=== PATIENT | female | born 1975 | race Two or more races ===

== ENCOUNTER 2016-06-22 19:13 | Emergency (ER) | payer MEDICAID ==
[~2016-06-22] VITALS: Ht 162.6 cm; Wt 172.4 kg
[~2016-06-22 19:13] MED LIST: AML5T PO; ATEN-60 PO; HYDR25TA4 PO; LEVO125T6 PO; LISI-646 PO; POTA10IN IV; POTA10TA51 PO; WARF5TAB PO
[2016-06-22] MEDS ORDERED: HYDROmorphone HCL 2 MG/ML VL IV ONE (20:00)
[2016-06-22] MEDS ORDERED: PROMETHAZINE HCL 25 MG/ML 1ML IV ONE (20:00)
[2016-06-22 20:08] LABS: Basophils # (auto) 0.2 uL; Eosinophils # (auto) 0.4 uL; Hematocrit 36.5 % (36.0-46.0); Hemoglobin 11.9 g/dL (12.2-16.2); Lymphocytes # (auto) 1.4 uL; Lymphocytes % (auto) 16.9 % (10.0-50.0); Mean Corpuscular Hemoglobin 28.3 pg (28.0-32.0); Mean Corpuscular Hgb Conc. 32.6 g/dL (32.0-36.0); Mean Corpuscular Volume 86.6 fL (80.0-100.0); Mean Platelet Volume 8.2 fL (7.4-10.4); Monocytes # (auto) 0.5 uL; Monocytes % (auto) 5.9 % (0.0-12.0); Neutrophils # (auto) 5.8 uL; Neutrophils % (auto) 70.2 % (37.0-80.0); Platelet Count (auto) 436 10^3/uL (140-450); Red Cell Distribution Width 17.1 % (11.6-16.0); White Blood Cell 8.3 10^3/uL (4.4-10.8)
[2016-06-22] MEDS ORDERED: SODIUM CHLORIDE 0.9% 1,000 ML IV ONE (20:15)
[2016-06-22 20:22] LABS: Albumin 3.4 g/dL (3.4-5.0); Bilirubin, Total 0.5 mg/dL (0.2-1.0); Calcium 8.8 mg/dL (8.5-10.1); INR 1.04 (0.9-1.15); Partial Thromboplastin Time 27.3 sec (22.64-33.71); Prothrombin Time 10.7 sec (9.37-12.3); Total Protein 9.5 g/dL (6.4-8.2)
[2016-06-22] MEDS ORDERED: MAGNESIUM CITRATE SOLUTION 300 ML BTL PO ONE (22:45)
[2016-06-22] MEDS ORDERED: MORPHINE SULFATE 4 MG/ML SYRG IV ONE (22:45)
[2016-06-22] MEDS ORDERED: diphenhdrAMINE HCL 50 MG/1 ML VL ONE (23:06)
[2016-06-22] MEDS ORDERED: diphenhdrAMINE HCL 50 MG/1 ML VL IV ONE (23:15)
[2016-06-22 23:46] VITALS: BP 113/76
== END 2016-06-22 23:55 | disposition home or self-care (01) ==
LOC: EDBD 19:13 → ER 19:24
DX: K58.9 Irritable bowel syndrome, unspecified (principal); R10.9 Unspecified abdominal pain; K59.00 Constipation, unspecified; J44.9 Chronic obstructive pulmonary disease, unspecified; J45.909 Unspecified asthma, uncomplicated; E07.9 Disorder of thyroid, unspecified; N18.9 Chronic kidney disease, unspecified; I12.9 Hypertensive chronic kidney disease with stage 1 through stage 4 chronic kidney disease, or unspecified chronic kidney disease; K21.9 Gastro-esophageal reflux disease without esophagitis; E11.22 Type 2 diabetes mellitus with diabetic chronic kidney disease; F17.210 Nicotine dependence, cigarettes, uncomplicated; Z90.49 Acquired absence of other specified parts of digestive tract; Z88.8 Allergy status to other drugs, medicaments and biological substances; Z79.01 Long term (current) use of anticoagulants
CPT/HCPCS: 36415; 74022; 80053; 82150; 83690; 84702; 85025; 85610; 85730; 96361; 96374; 96375; 99285; J1170; J1200; J2270; J2550; J7030

== ENCOUNTER 2016-09-07 06:46 | Observation (INO) | payer MEDICAID ==
[~2016-09-07] VITALS: Ht 162.6 cm; Wt 181.4 kg
[2016-09-07] MEDS ORDERED: SODIUM CHLORIDE 0.9% 1,000 ML IV ONE (06:58)
[2016-09-07] MEDS ORDERED: KETOROLAC TROMETH 30 MG/ML 1ML VIAL IV ONE (07:00)
[2016-09-07 08:04] LABS: Basophils # (auto) 0 uL; Basophils % (auto) 0.4 % (0.0-2.0); Eosinophils # (auto) 0.2 uL; Eosinophils % (auto) 4.3 % (0.0-7.0); Hemoglobin 10.4 g/dL (12.2-16.2); Lymphocytes # (auto) 0.6 uL; Lymphocytes % (auto) 10.3 % (10.0-50.0); Mean Corpuscular Hemoglobin 29.9 pg (28.0-32.0); Mean Corpuscular Hgb Conc. 33.6 g/dL (32.0-36.0); Mean Corpuscular Volume 89.2 fL (80.0-100.0); Mean Platelet Volume 7.6 fL (7.4-10.4); Monocytes # (auto) 0.5 uL; Monocytes % (auto) 9.1 % (0.0-12.0); Neutrophils # (auto) 4.2 uL; Neutrophils % (auto) 75.9 % (37.0-80.0); Platelet Count (auto) 367 10^3/uL (140-450); Red Cell Distribution Width 15.5 % (11.6-16.0); White Blood Cell 5.5 10^3/uL (4.4-10.8)
[2016-09-07 08:21] LABS: Albumin 2.8 g/dL (3.4-5.0); Anion Gap 7 (5-15); Aspartate Aminotransferase 48 U/L (15-37); BUN/Creatinine Ratio 19.6; Blood Urea Nitrogen 21 mg/dL (7-18); Calcium 8.1 mg/dL (8.5-10.1); Carbon Dioxide 26 mmol/L (21-32); Chloride 107 mmol/L (98-107); GFR African American 73 mL/min; GFR Non-African American 61 mL/min; Glucose 110 mg/dL (74-106); Partial Thromboplastin Time 28.9 sec (22.64-33.71); Prothrombin Time 10.8 sec (9.37-12.3); Sodium 140 mmol/L (136-145)
[2016-09-07 08:28] LABS: B-Type Natriuretic Peptide 45.49 pg/mL (0-100)
[2016-09-07 08:29] LABS: Alkaline Phosphatase 218 U/L (45-117); Bilirubin, Total 1.1 mg/dL (0.2-1.0); Total Protein 8.3 g/dL (6.4-8.2)
[2016-09-07] MEDS ORDERED: LEVOFLOXACIN 750MG 150 ML IV ONE (08:30)
[2016-09-07 08:31] LABS: Temperature: 23.1 C (20.0-25.0)
[2016-09-07] MEDS ORDERED: CLINDAMYCIN 900MG IV 50 ML IV ONE (10:15)
[2016-09-07] MEDS ORDERED: diphenhdrAMINE HCL 50 MG/1 ML VL IV ONE (10:15)
[2016-09-07 10:58] LABS: Urine Blood TRACE /uL (Negative); Urine Color Yellow (Yellow); Urine Glucose Normal (Normal); Urine Ketone Negative (Negative); Urine Mucus FEW (None Seen); Urine Nitrite Negative (Negative); Urine RBC 1 /hpf (0 - 4); Urine Squamous Epithelial Cell FEW /hpf (<5); Urine pH 5.5 (5.0-8.0)
[2016-09-07 11:00] VITALS: BP 119/73
[2016-09-07 11:07] LABS: Urine Bilirubin Negative (Negative)
== END 2016-09-07 14:23 | disposition home or self-care (01) | DRG 384 ==
LOC: EDBD 06:46 → ER 06:46 → OVERFLOW 10:19
PROVIDERS: ADMIT Emergency Medicine; ATTEND Emergency Medicine
DX: S81.802A Unspecified open wound, left lower leg, initial encounter (principal); I10 Essential (primary) hypertension; E11.9 Type 2 diabetes mellitus without complications; J44.9 Chronic obstructive pulmonary disease, unspecified; F32.9 Major depressive disorder, single episode, unspecified; F17.210 Nicotine dependence, cigarettes, uncomplicated; K21.9 Gastro-esophageal reflux disease without esophagitis; Z82.49 Family history of ischemic heart disease and other diseases of the circulatory system; Z83.3 Family history of diabetes mellitus; X58.XXXA Exposure to other specified factors, initial encounter; Y93.89 Activity, other specified; Y92.89 Other specified places as the place of occurrence of the external cause; Y99.8 Other external cause status
CPT/HCPCS: 36415; 71010; 80053; 81001; 83880; 84484; 85025; 85610; 85730; 87040; 93971; 96361; 96365; 96366; 96368; 96375; 99285; G0378; J1200; J1885; J1956; J3490; J7030

== ENCOUNTER 2016-09-12 13:10 | Emergency (ER) | payer MEDICAID ==
[~2016-09-12] VITALS: Ht 162.6 cm; Wt 199.6 kg
[2016-09-12 14:29] VITALS: BP 119/73
[2016-09-12] MEDS ORDERED: HYDROcodone-ACET 10/325MG TAB PO ONE (15:00)
== END 2016-09-12 15:33 | disposition home or self-care (01) ==
LOC: EDBD 13:10 → ER 13:17
DX: L02.416 Cutaneous abscess of left lower limb (principal); I12.9 Hypertensive chronic kidney disease with stage 1 through stage 4 chronic kidney disease, or unspecified chronic kidney disease; N18.9 Chronic kidney disease, unspecified; K21.9 Gastro-esophageal reflux disease without esophagitis; E07.89 Other specified disorders of thyroid; F17.210 Nicotine dependence, cigarettes, uncomplicated; Z90.49 Acquired absence of other specified parts of digestive tract; Z88.1 Allergy status to other antibiotic agents; Z88.8 Allergy status to other drugs, medicaments and biological substances
CPT/HCPCS: 99283; J7030

== ENCOUNTER 2016-11-13 13:23 | Emergency (ER) | payer MEDICAID ==
[~2016-11-13] VITALS: Ht 162.6 cm; Wt 195.0 kg
[2016-11-13 17:27] LABS: Basophils # (auto) 0 uL; Basophils % (auto) 0.7 % (0.0-2.0); CONDITION Y; Eosinophils # (auto) 0.4 uL; Eosinophils % (auto) 7.7 % (0.0-7.0); Hematocrit 35.3 % (36.0-46.0); Hemoglobin 11.8 g/dL (12.2-16.2); Lymphocytes # (auto) 1.1 uL; Lymphocytes % (auto) 18.6 % (10.0-50.0); Mean Corpuscular Hemoglobin 29.5 pg (28.0-32.0); Mean Corpuscular Hgb Conc. 33.5 g/dL (32.0-36.0); Mean Corpuscular Volume 88.1 fL (80.0-100.0); Mean Platelet Volume 7.3 fL (7.4-10.4); Monocytes # (auto) 0.5 uL; Monocytes % (auto) 8.7 % (0.0-12.0); Neutrophils # (auto) 3.7 uL; Neutrophils % (auto) 64.3 % (37.0-80.0); Platelet Count (auto) 482 10^3/uL (140-450); Red Cell Distribution Width 15.6 % (11.6-16.0); White Blood Cell 5.7 10^3/uL (4.4-10.8)
[2016-11-13 18:02] LABS: Albumin 3.3 g/dL (3.4-5.0); Bilirubin, Total 0.7 mg/dL (0.2-1.0); Calcium 9.2 mg/dL (8.5-10.1); Potassium 4.2 mmol/L (3.5-5.1); Total Protein 9.9 g/dL (6.4-8.2)
[2016-11-13 18:20] LABS: Urine Bilirubin Negative (Negative); Urine Blood Negative /uL (Negative); Urine Color Yellow (Yellow); Urine Glucose Normal (Normal); Urine Ketone Negative (Negative); Urine Nitrite Negative (Negative); Urine RBC <1 /hpf (0 - 4); Urine Squamous Epithelial Cell FEW /hpf (<5); Urine Urobilinogen Normal (Negative); Urine pH 5.5 (5.0-8.0)
[2016-11-13 22:15] VITALS: BP 109/79
[2016-11-13] MEDS ORDERED: PROMETHAZINE HCL 25 MG/ML 1ML IV ONE (22:45)
[2016-11-13] MEDS ORDERED: HYDROmorphone HCL 2 MG/ML VL IV ONE (22:45)
[2016-11-13] MEDS ORDERED: SODIUM CHLORIDE 0.9% 1,000 ML IV ONE (22:45)
[2016-11-13] MEDS ORDERED: diphenhdrAMINE HCL 50 MG/1 ML VL IV ONE (23:45)
== END 2016-11-14 02:08 | disposition home or self-care (01) ==
LOC: ER 13:26
DX: R10.11 Right upper quadrant pain (principal); E66.01 Morbid (severe) obesity due to excess calories; Z79.899 Other long term (current) drug therapy; N18.9 Chronic kidney disease, unspecified; J44.9 Chronic obstructive pulmonary disease, unspecified; E11.22 Type 2 diabetes mellitus with diabetic chronic kidney disease; K21.9 Gastro-esophageal reflux disease without esophagitis; I12.9 Hypertensive chronic kidney disease with stage 1 through stage 4 chronic kidney disease, or unspecified chronic kidney disease; E07.9 Disorder of thyroid, unspecified; F17.210 Nicotine dependence, cigarettes, uncomplicated; Z90.49 Acquired absence of other specified parts of digestive tract; Z68.45 Body mass index [BMI] 70 or greater, adult; Z88.8 Allergy status to other drugs, medicaments and biological substances; Z79.01 Long term (current) use of anticoagulants
CPT/HCPCS: 36415; 76705; 80053; 81001; 81025; 85025; 96361; 96374; 96375; 99285; J1170; J1200; J2550

== ENCOUNTER 2016-11-14 04:05 | Emergency (ER) | payer MEDICAID ==
[~2016-11-14] VITALS: Ht 162.6 cm; Wt 204.1 kg
[2016-11-14 08:53] VITALS: BP 134/76
== END 2016-11-14 09:14 | disposition home or self-care (01) ==
LOC: ER 04:05
DX: K29.70 Gastritis, unspecified, without bleeding (principal); K21.9 Gastro-esophageal reflux disease without esophagitis; J44.9 Chronic obstructive pulmonary disease, unspecified; E11.22 Type 2 diabetes mellitus with diabetic chronic kidney disease; I12.9 Hypertensive chronic kidney disease with stage 1 through stage 4 chronic kidney disease, or unspecified chronic kidney disease; N18.9 Chronic kidney disease, unspecified; E07.9 Disorder of thyroid, unspecified; E66.01 Morbid (severe) obesity due to excess calories; Z68.45 Body mass index [BMI] 70 or greater, adult; Z90.49 Acquired absence of other specified parts of digestive tract; F17.210 Nicotine dependence, cigarettes, uncomplicated; Z88.1 Allergy status to other antibiotic agents; Z88.6 Allergy status to analgesic agent; Z88.8 Allergy status to other drugs, medicaments and biological substances; Z79.899 Other long term (current) drug therapy

== ENCOUNTER 2017-05-02 13:35 | Inpatient (IN) | payer MEDICAID ==
[~2017-05-02] VITALS: Ht 162.6 cm; Wt 179.7 kg
[~2017-05-02 13:35] MED LIST changes: -LEVO125T6 PO; +LEVO125T7 PO
[2017-05-02 16:00] LABS: Eosinophils # (auto) 0.6 uL; Hemoglobin 11.3 g/dL (12.2-16.2); Lymphocytes # (auto) 1.2 uL
[2017-05-02 16:02] LABS: Basophils # (auto) 0.1 uL; Eosinophils % (auto) 9.4 % (0.0-7.0); Hematocrit 34.9 % (36.0-46.0); Lymphocytes % (auto) 18.1 % (10.0-50.0); Mean Corpuscular Hemoglobin 28.6 pg (28.0-32.0); Mean Corpuscular Hgb Conc. 32.3 g/dL (32.0-36.0); Mean Corpuscular Volume 88.4 fL (80.0-100.0); Monocytes # (auto) 0.4 uL; Monocytes % (auto) 6.7 % (0.0-12.0); Neutrophils # (auto) 4.3 uL; Neutrophils % (auto) 64.8 % (37.0-80.0); Platelet Count (auto) 488 10^3/uL (140-450); Red Blood Cells 3.95 10^6/uL (4.0-5.20); Red Cell Distribution Width 16.3 % (11.8-14.3); White Blood Cell 6.6 10^3/uL (4.4-10.8)
[2017-05-02 16:14] LABS: Albumin 3.5 g/dL (3.4-5.0); BUN/Creatinine Ratio 24.4; Bilirubin, Total 0.5 mg/dL (0.2-1.0); Calcium 9.1 mg/dL (8.5-10.1); Potassium 4.1 mmol/L (3.5-5.1); Total Protein 9.9 g/dL (6.4-8.2)
[2017-05-03] MEDS ORDERED: HYDROcodone-ACET 10/325MG TAB PO ONE (02:15)
[2017-05-03] MEDS ORDERED: diphenhdrAMINE HCL 25 MG CAP PO ONE ×3 (04:15→23:30)
[2017-05-03] MEDS ORDERED: ACETAMINOPHEN 325 MG TAB PO PRN (05:15)
[2017-05-03] MEDS ORDERED: DEXTROSE (50%) 50ML SYRG IV PRN (05:15)
[2017-05-03] MEDS ORDERED: TEMAZEPAM 15 MG CAP PO PRN (05:15)
[2017-05-03] MEDS: InsuLIN REG 1unit/0.01ml Soln (100units/ml) SC SCH ×3 (06:00→18:00)
[2017-05-03] MEDS: ACCU-CHEK COMFORT CURVE STRIP VI SCH ×3 (06:12→18:16)
[2017-05-03 06:38] LABS: Urine Bacteria FEW /hpf (None Seen); Urine Blood Negative /uL (Negative); Urine Specific Gravity 1.014 (1.001-1.035); Urine WBC <1 /hpf (0 - 5)
[2017-05-03 06:46] LABS: Urine Pregnacy Test Negative (Negative)
[2017-05-03] MEDS: MORPHINE SULF INJ 2 MG/ML SYRINGE 1ML IV PRN ×5 (06:56→22:10)
[2017-05-03] MEDS: LEVOTHYROXINE SODIUM 50 MCG TAB PO SCH (06:56)
[2017-05-03] MEDS: ONDANSETRON HCL 4 MG/2 ML VIAL IV PRN ×2 (06:57→18:20)
[2017-05-03 06:58] LABS: Alcohol, Urine < 3.0 mg/dL (0-5); Amphetamine Screen, Urine NEGATIVE (NEGATIVE); Barbiturate Scree,Urine NEGATIVE (NEGATIVE); Benzodiazephine Screen, Urine NEGATIVE (NEGATIVE); Cannabinoid Screen, Urine NEGATIVE (NEGATIVE); Cocaine Screen, Urine NEGATIVE (NEGATIVE); Opiate Scree,Urine NEGATIVE (NEGATIVE); Phencyclidine Screen, Urine NEGATIVE (NEGATIVE)
[2017-05-03] MEDS: FAMOTIDINE 20 MG TAB PO SCH ×2 (10:03→22:05)
[2017-05-03] MEDS: APIXABAN 5 MG TAB PO SCH ×2 (10:03→22:05)
[2017-05-03] MEDS: HCTZ 25 MG TAB PO SCH (10:05)
[2017-05-03] MEDS: amLODIPine BESYLATE 5 MG TAB PO SCH (10:25)
[2017-05-03] MEDS: LISINOPRIL 20 MG TAB PO SCH (10:25)
[2017-05-03] MEDS: HYDROcodone-ACET 5/325MG TAB PO PRN (20:37)
[2017-05-03 22:00] VITALS: BP 114/67
[2017-05-04] MEDS: ACCU-CHEK COMFORT CURVE STRIP VI SCH ×5 (00:19→23:23)
[2017-05-04] MEDS: MORPHINE SULF INJ 2 MG/ML SYRINGE 1ML IV PRN ×5 (03:40→22:42)
[2017-05-04 04:40] VITALS: BP 114/68
[2017-05-04] MEDS: InsuLIN REG 1unit/0.01ml Soln (100units/ml) SC SCH ×5 (05:49→23:23)
[2017-05-04] MEDS: LEVOTHYROXINE SODIUM 50 MCG TAB PO SCH (05:49)
[2017-05-04 09:00] VITALS: BP 101/46
[2017-05-04] MEDS: APIXABAN 5 MG TAB PO SCH ×2 (09:58→21:49)
[2017-05-04] MEDS: HCTZ 25 MG TAB PO SCH (09:59)
[2017-05-04] MEDS: FAMOTIDINE 20 MG TAB PO SCH ×2 (09:59→21:49)
[2017-05-04] MEDS: amLODIPine BESYLATE 5 MG TAB PO SCH (10:00)
[2017-05-04] MEDS: LISINOPRIL 20 MG TAB PO SCH (10:00)
[2017-05-04] MEDS: HYDROcodone-ACET 5/325MG TAB PO PRN ×2 (11:13→17:40)
[2017-05-04 13:00] VITALS: BP 123/65
[2017-05-04 17:00] VITALS: BP 107/70
[2017-05-04 22:00] VITALS: BP 102/62
[2017-05-04] MEDS: ONDANSETRON HCL 4 MG/2 ML VIAL IV PRN (22:43)
[2017-05-05] MEDS: MORPHINE SULF INJ 2 MG/ML SYRINGE 1ML IV PRN ×5 (03:35→23:51)
[2017-05-05] MEDS: ONDANSETRON HCL 4 MG/2 ML VIAL IV PRN (03:36)
[2017-05-05 04:55] VITALS: BP 106/69
[2017-05-05] MEDS: InsuLIN REG 1unit/0.01ml Soln (100units/ml) SC SCH ×4 (06:00→23:48)
[2017-05-05] MEDS: ACCU-CHEK COMFORT CURVE STRIP VI SCH ×4 (06:02→23:48)
[2017-05-05] MEDS: HYDROcodone-ACET 5/325MG TAB PO PRN ×3 (06:03→20:55)
[2017-05-05] MEDS: LEVOTHYROXINE SODIUM 50 MCG TAB PO SCH (06:04)
[2017-05-05 09:00] VITALS: BP 125/70
[2017-05-05] MEDS: LISINOPRIL 20 MG TAB PO SCH (10:00)
[2017-05-05] MEDS: FAMOTIDINE 20 MG TAB PO SCH ×2 (10:21→21:45)
[2017-05-05] MEDS: APIXABAN 5 MG TAB PO SCH ×2 (10:22→21:46)
[2017-05-05] MEDS: amLODIPine BESYLATE 5 MG TAB PO SCH (10:22)
[2017-05-05] MEDS: HCTZ 25 MG TAB PO SCH (10:22)
[2017-05-05 13:00] VITALS: BP 123/99
[2017-05-05 17:00] VITALS: BP 148/81
[2017-05-05 22:00] VITALS: BP 138/90
[2017-05-06] MEDS: MORPHINE SULF INJ 2 MG/ML SYRINGE 1ML IV PRN ×4 (05:12→18:52)
[2017-05-06] MEDS: InsuLIN REG 1unit/0.01ml Soln (100units/ml) SC SCH ×3 (05:31→18:00)
[2017-05-06] MEDS: ACCU-CHEK COMFORT CURVE STRIP VI SCH ×3 (05:35→18:14)
[2017-05-06 06:00] VITALS: BP 101/49
[2017-05-06] MEDS: LEVOTHYROXINE SODIUM 50 MCG TAB PO SCH (07:01)
[2017-05-06] MEDS ORDERED: diphenhdrAMINE HCL 25 MG CAP PO PRN (07:30)
[2017-05-06 09:00] VITALS: BP 108/69
[2017-05-06] MEDS: APIXABAN 5 MG TAB PO SCH (09:51)
[2017-05-06] MEDS: FAMOTIDINE 20 MG TAB PO SCH (09:52)
[2017-05-06] MEDS: amLODIPine BESYLATE 5 MG TAB PO SCH (09:52)
[2017-05-06] MEDS: HCTZ 25 MG TAB PO SCH (09:52)
[2017-05-06] MEDS: LISINOPRIL 20 MG TAB PO SCH (10:00)
[2017-05-06] MEDS: HYDROcodone-ACET 5/325MG TAB PO PRN ×2 (12:41→17:41)
[2017-05-06 13:00] VITALS: BP 132/69
[2017-05-06 16:26] VITALS: BP 132/69
[2017-05-06 17:00] VITALS: BP 114/54
[2017-05-10] MEDS ORDERED: APIXABAN 5 MG TAB PO SCH (10:00)
== END 2017-05-06 21:18 | disposition home or self-care (01) | DRG 197 ==
LOC: ER 13:35 → OVERFLOW 13:36 → WEST WING 05-03 21:47
PROVIDERS: ADMIT Nurse Practitioner; ATTEND Internal Medicine
DX: I82.402 Acute embolism and thrombosis of unspecified deep veins of left lower extremity (principal); Z68.44 Body mass index [BMI] 60.0-69.9, adult; I10 Essential (primary) hypertension; E66.01 Morbid (severe) obesity due to excess calories; K29.00 Acute gastritis without bleeding; E11.9 Type 2 diabetes mellitus without complications; F17.210 Nicotine dependence, cigarettes, uncomplicated; I89.0 Lymphedema, not elsewhere classified; J44.9 Chronic obstructive pulmonary disease, unspecified; F32.9 Major depressive disorder, single episode, unspecified; M25.861 Other specified joint disorders, right knee; F41.9 Anxiety disorder, unspecified; K21.9 Gastro-esophageal reflux disease without esophagitis; Z82.3 Family history of stroke; Z82.49 Family history of ischemic heart disease and other diseases of the circulatory system; Z82.5 Family history of asthma and other chronic lower respiratory diseases; Z82.62 Family history of osteoporosis; Z81.8 Family history of other mental and behavioral disorders; Z83.3 Family history of diabetes mellitus; Z86.718 Personal history of other venous thrombosis and embolism; Z88.1 Allergy status to other antibiotic agents; Z88.8 Allergy status to other drugs, medicaments and biological substances; Z90.49 Acquired absence of other specified parts of digestive tract
CPT/HCPCS: 36415; 73560; 80053; 80307; 81001; 81025; 82962; 83690; 84443; 85025; 93970; J2405

== ENCOUNTER 2018-01-04 16:16 | Inpatient (IN) | payer MEDICAID ==
[~2018-01-04] VITALS: Ht 154.9 cm; Wt 188.9 kg
[2018-01-04 18:34] LABS: Mean Corpuscular Volume 85.4 fL (80.0-100.0)
[2018-01-04 18:40] LABS: Basophils # (auto) 0.1 uL; Basophils % (auto) 0.7 % (0.0-2.0); Eosinophils # (auto) 0.6 uL; Eosinophils % (auto) 5.7 % (0.0-7.0); Hemoglobin 12.9 g/dL (12.2-16.2); Lymphocytes # (auto) 1.7 uL; Lymphocytes % (auto) 15.6 % (10.0-50.0); Mean Corpuscular Hemoglobin 28.2 pg (28.0-32.0); Monocytes # (auto) 0.6 uL; Monocytes % (auto) 5.8 % (0.0-12.0); Neutrophils % (auto) 72.2 % (37.0-80.0); Nucleated Red Blood Cells % 0.3 %; Red Blood Cells 4.56 10^6/uL (4.0-5.20); Red Cell Distribution Width 15.8 % (11.8-14.3); White Blood Cell 11.1 10^3/uL (4.4-10.8)
[2018-01-04 18:42] LABS: Alanine Aminotransferase 20 U/L (13-56); Albumin 3.8 g/dL (3.4-5.0); Anion Gap 11 (5-15); Aspartate Aminotransferase 14 U/L (15-37); BUN/Creatinine Ratio 17.4; Blood Urea Nitrogen 25 mg/dL (7-18); Calcium 8.9 mg/dL (8.5-10.1); Carbon Dioxide 24 mmol/L (21-32); Chloride 103 mmol/L (98-107); GFR African American 52 mL/min; GFR Non-African American 43 mL/min; Glucose 70 mg/dL (74-106); Magnesium 2.1 mg/dL (1.6-2.6); Potassium 3.9 mmol/L (3.5-5.1); Sodium 138 mmol/L (136-145)
[2018-01-04 18:44] LABS: Alkaline Phosphatase 98 U/L (45-117); Total Protein 10.7 g/dL (6.4-8.2)
[2018-01-04] MEDS ORDERED: DOCUSATE SOD 100 MG CAP PO PRN (18:45)
[2018-01-04] MEDS ORDERED: HYDROcodone-ACET 5/325MG TAB PO PRN (18:45)
[2018-01-04] MEDS ORDERED: FUROSEMIDE 40 MG/4 ML VIAL IV ONE (18:45)
[2018-01-04] MEDS ORDERED: DEXTROSE (50%) 50ML SYRG IV PRN (18:45)
[2018-01-04] MEDS ORDERED: ACETAMINOPHEN 325 MG TAB PO PRN (18:45)
[2018-01-04] MEDS ORDERED: TEMAZEPAM 15 MG CAP PO PRN (18:45)
[2018-01-04] MEDS ORDERED: ONDANSETRON HCL 4 MG/2 ML VIAL IV PRN (18:45)
[2018-01-04] MEDS ORDERED: MORPHINE SULF INJ 2 MG/ML SYRINGE 1ML IV PRN (18:45)
[2018-01-04] MEDS ORDERED: NITROGLYCERIN 0.4 MG SL TAB SL PRN (18:45)
[2018-01-04 18:52] LABS: Platelet Count (auto) 291 10^3/uL (140-450)
[2018-01-04 18:55] LABS: Partial Thromboplastin Time 21.4 sec (23.78-33.04); Prothrombin Time 10.7 sec (9.27-12.13)
[2018-01-04] MEDS ORDERED: MAGNESIUM SULFATE 1GM/100ML 100 ML IV ONE (19:45)
[2018-01-04] MEDS: MORPHINE SULF INJ 2 MG/ML SYRINGE 1ML IV PRN (19:55)
[2018-01-04] MEDS ORDERED: PANTOPRAZOLE 40 MG/10 ML VIAL IV ONE (22:30)
[2018-01-04] MEDS: FAMOTIDINE 20 MG TAB PO SCH (22:30)
[2018-01-04] MEDS: InsuLIN REG 1unit/0.01ml Soln (100units/ml) SC SCH (22:30)
[2018-01-04] MEDS: ACCU-CHEK COMFORT CURVE STRIP VI SCH (22:30)
[2018-01-04] MEDS: SODIUM CHLOR 0.9% PF (SALINE LOCK) 10ML VIAL/SYR IV SCH (22:47)
[2018-01-04] MEDS ORDERED: HYDROmorphone HCL 2 MG/ML VL IV ONE (23:45)
[2018-01-05] MEDS ORDERED: diphenhdrAMINE HCL 50 MG/1 ML VL IV ONE ×2 (01:45→09:30)
[2018-01-05] MEDS: SODIUM CHLOR 0.9% PF (SALINE LOCK) 10ML VIAL/SYR IV SCH ×3 (06:00→23:26)
[2018-01-05] MEDS: ACCU-CHEK COMFORT CURVE STRIP VI SCH ×4 (06:55→23:35)
[2018-01-05] MEDS: InsuLIN REG 1unit/0.01ml Soln (100units/ml) SC SCH ×4 (06:55→23:35)
[2018-01-05 08:01] LABS: Basophils # (auto) 0 uL; Basophils % (auto) 0.7 % (0.0-2.0); Eosinophils # (auto) 0.3 uL; Eosinophils % (auto) 6.4 % (0.0-7.0); Hematocrit 32.6 % (36.0-46.0); Hemoglobin 10.4 g/dL (12.2-16.2); Lymphocytes # (auto) 0.8 uL; Lymphocytes % (auto) 19.4 % (10.0-50.0); Mean Corpuscular Hemoglobin 27.4 pg (28.0-32.0); Mean Corpuscular Hgb Conc. 31.8 g/dL (32.0-36.0); Mean Corpuscular Volume 86.3 fL (80.0-100.0); Monocytes # (auto) 0.5 uL; Monocytes % (auto) 10.9 % (0.0-12.0); Neutrophils # (auto) 2.7 uL; Neutrophils % (auto) 62.6 % (37.0-80.0); Platelet Count (auto) 297 10^3/uL (140-450); Red Blood Cells 3.78 10^6/uL (4.0-5.20); Red Cell Distribution Width 15.8 % (11.8-14.3); White Blood Cell 4.3 10^3/uL (4.4-10.8)
[2018-01-05 08:16] LABS: Alanine Aminotransferase 29 U/L (13-56); Albumin 2.9 g/dL (3.4-5.0); Alkaline Phosphatase 96 U/L (45-117); Anion Gap 7 (5-15); Aspartate Aminotransferase 32 U/L (15-37); BUN/Creatinine Ratio 19.2; Bilirubin, Total 1.3 mg/dL (0.2-1.0); Blood Urea Nitrogen 24 mg/dL (7-18); Calcium 8.2 mg/dL (8.5-10.1); Carbon Dioxide 24 mmol/L (21-32); Chloride 107 mmol/L (98-107); GFR African American 61 mL/min; GFR Non-African American 50 mL/min; Glucose 95 mg/dL (74-106); Potassium 3.4 mmol/L (3.5-5.1); Sodium 138 mmol/L (136-145); Total Protein 8.2 g/dL (6.4-8.2)
[2018-01-05] MEDS: LEVOTHYROXINE SODIUM 50 MCG TAB PO SCH (08:20)
[2018-01-05] MEDS: POTASSIUM CHLORIDE 8 MEQ TAB PO SCH ×3 (08:20→16:53)
[2018-01-05] MEDS: HCTZ 25 MG TAB PO SCH (08:20)
[2018-01-05] MEDS: FAMOTIDINE 20 MG TAB PO SCH ×2 (08:21→23:26)
[2018-01-05] MEDS: amLODIPine BESYLATE 5 MG TAB PO SCH (08:21)
[2018-01-05] MEDS: MULTIPLE VITAMIN TAB PO SCH (08:21)
[2018-01-05] MEDS: LISINOPRIL 20 MG TAB PO SCH (08:21)
[2018-01-05] MEDS: MORPHINE SULF INJ 2 MG/ML SYRINGE 1ML IV PRN ×3 (08:21→23:27)
[2018-01-05 14:09] VITALS: BP 124/74
[2018-01-05 16:00] VITALS: BP 109/68
[2018-01-05] MEDS: diphenhdrAMINE HCL 25 MG CAP PO PRN ×2 (16:53→23:26)
[2018-01-05 19:51] VITALS: BP 112/76
[2018-01-05 21:50] LABS: Alcohol, Urine < 3.0 mg/dL (0-5); Amphetamine Screen, Urine NEGATIVE (NEGATIVE); Barbiturate Scree,Urine NEGATIVE (NEGATIVE); Benzodiazephine Screen, Urine NEGATIVE (NEGATIVE); Cannabinoid Screen, Urine NEGATIVE (NEGATIVE); Cocaine Screen, Urine NEGATIVE (NEGATIVE); Opiate Scree,Urine NEGATIVE (NEGATIVE); Phencyclidine Screen, Urine NEGATIVE (NEGATIVE)
[2018-01-05 22:00] VITALS: BP 121/73
[2018-01-05 22:07] LABS: Urine Bacteria FEW /hpf (None Seen); Urine Blood 3+ /uL (Negative); Urine Specific Gravity 1.011 (1.001-1.035); Urine WBC 12 /hpf (0 - 5)
[2018-01-06 04:46] VITALS: BP 110/69
[2018-01-06] MEDS: ACCU-CHEK COMFORT CURVE STRIP VI SCH ×3 (06:20→17:00)
[2018-01-06] MEDS: SODIUM CHLOR 0.9% PF (SALINE LOCK) 10ML VIAL/SYR IV SCH ×2 (06:26→14:00)
[2018-01-06] MEDS: InsuLIN REG 1unit/0.01ml Soln (100units/ml) SC SCH ×3 (06:26→17:00)
[2018-01-06] MEDS: LEVOTHYROXINE SODIUM 50 MCG TAB PO SCH (06:26)
[2018-01-06] MEDS: POTASSIUM CHLORIDE 8 MEQ TAB PO SCH ×3 (08:42→17:22)
[2018-01-06 09:00] VITALS: BP 117/65
[2018-01-06] MEDS: LISINOPRIL 20 MG TAB PO SCH (10:00)
[2018-01-06] MEDS: MULTIPLE VITAMIN TAB PO SCH (10:43)
[2018-01-06] MEDS: HCTZ 25 MG TAB PO SCH (10:44)
[2018-01-06] MEDS: amLODIPine BESYLATE 5 MG TAB PO SCH (10:44)
[2018-01-06] MEDS: FAMOTIDINE 20 MG TAB PO SCH (10:44)
[2018-01-06] MEDS: MORPHINE SULF INJ 2 MG/ML SYRINGE 1ML IV PRN (12:09)
[2018-01-06 12:44] VITALS: BP 117/65
[2018-01-06 13:00] VITALS: BP 131/70
[2018-01-06 15:29] VITALS: BP 131/70
[2018-01-06 17:00] VITALS: BP 119/77
== END 2018-01-06 17:25 | disposition home or self-care (01) | DRG 201 ==
LOC: ER 16:21 → DOU 19:02 → TELE 23:42 → DOU IN ICU 01-05 11:33 → TELE-CENTR 01-05 12:23
PROVIDERS: ADMIT Internal Medicine; ATTEND Internal Medicine
DX: R00.1 Bradycardia, unspecified (principal); E11.22 Type 2 diabetes mellitus with diabetic chronic kidney disease; E11.649 Type 2 diabetes mellitus with hypoglycemia without coma; N18.9 Chronic kidney disease, unspecified; J44.9 Chronic obstructive pulmonary disease, unspecified; D63.8 Anemia in other chronic diseases classified elsewhere; R19.7 Diarrhea, unspecified; T44.7X5A Adverse effect of beta-adrenoreceptor antagonists, initial encounter; E66.01 Morbid (severe) obesity due to excess calories; F32.9 Major depressive disorder, single episode, unspecified; I50.32 Chronic diastolic (congestive) heart failure; F17.210 Nicotine dependence, cigarettes, uncomplicated; I11.0 Hypertensive heart disease with heart failure; E03.9 Hypothyroidism, unspecified; I89.0 Lymphedema, not elsewhere classified; F41.9 Anxiety disorder, unspecified; K21.9 Gastro-esophageal reflux disease without esophagitis; Z68.45 Body mass index [BMI] 70 or greater, adult; Z88.1 Allergy status to other antibiotic agents; Z88.8 Allergy status to other drugs, medicaments and biological substances; Z80.0 Family history of malignant neoplasm of digestive organs; Z81.8 Family history of other mental and behavioral disorders; Z82.3 Family history of stroke; Z82.49 Family history of ischemic heart disease and other diseases of the circulatory system; Z82.62 Family history of osteoporosis; Z83.3 Family history of diabetes mellitus; Z86.718 Personal history of other venous thrombosis and embolism; Z82.5 Family history of asthma and other chronic lower respiratory diseases; Z90.49 Acquired absence of other specified parts of digestive tract; Y92.89 Other specified places as the place of occurrence of the external cause
CPT/HCPCS: 36415; 71045; 80053; 80307; 81001; 82962; 83036; 83735; 83880; 84443; 84484; 85025; 85610; 85730; 87081; 93005; 93306; 96365; 96375; 99291; C9113

== ENCOUNTER 2018-02-27 11:08 | Emergency (ER) | payer MEDICAID ==
[~2018-02-27] VITALS: Ht 162.6 cm; Wt 188.2 kg
[2018-02-27 11:53] LABS: Basophils # (auto) 0.1 uL; Eosinophils # (auto) 0.2 uL; Eosinophils % (auto) 2.5 % (0.0-7.0); Hemoglobin 10.3 g/dL (12.2-16.2); Lymphocytes # (auto) 0.9 uL; Mean Corpuscular Volume 87.4 fL (80.0-100.0); Monocytes # (auto) 0.4 uL
[2018-02-27 11:55] LABS: Basophils % (auto) 0.8 % (0.0-2.0); Lymphocytes % (auto) 13.6 % (10.0-50.0); Mean Corpuscular Hemoglobin 27.4 pg (28.0-32.0); Mean Corpuscular Hgb Conc. 31.3 g/dL (32.0-36.0); Monocytes % (auto) 6.5 % (0.0-12.0); Neutrophils # (auto) 5.1 uL; Neutrophils % (auto) 76.6 % (37.0-80.0); Nucleated Red Blood Cells % 0.3 %; Red Blood Cells 3.77 10^6/uL (4.0-5.20); Red Cell Distribution Width 16.4 % (11.8-14.3); White Blood Cell 6.7 10^3/uL (4.4-10.8)
[2018-02-27 12:05] LABS: Platelet Count (auto) 511 10^3/uL (140-450)
[2018-02-27 13:07] LABS: Albumin 2.3 g/dL (3.4-5.0); Calcium 8.5 mg/dL (8.5-10.1); Potassium 3.6 mmol/L (3.5-5.1)
[2018-02-27 13:11] LABS: Bilirubin, Total 0.6 mg/dL (0.2-1.0); Total Protein 9.1 g/dL (6.4-8.2)
[2018-02-27 13:21] LABS: INR 0.98 (0.9-1.15); Partial Thromboplastin Time 30.8 sec (23.78-33.04); Prothrombin Time 10.5 sec (9.27-12.13)
[2018-02-27 13:56] VITALS: BP 151/70
[2018-02-27 14:45] LABS: Urine Bacteria NONE SEEN /hpf (None Seen); Urine Blood Negative /uL (Negative); Urine Specific Gravity 1.014 (1.001-1.035); Urine WBC 2 /hpf (0 - 5)
== END 2018-02-27 15:57 | disposition home or self-care (01) ==
LOC: ER 11:08
DX: I89.0 Lymphedema, not elsewhere classified (principal); D50.9 Iron deficiency anemia, unspecified; J44.9 Chronic obstructive pulmonary disease, unspecified; K21.9 Gastro-esophageal reflux disease without esophagitis; E07.9 Disorder of thyroid, unspecified; E11.22 Type 2 diabetes mellitus with diabetic chronic kidney disease; I12.9 Hypertensive chronic kidney disease with stage 1 through stage 4 chronic kidney disease, or unspecified chronic kidney disease; N18.9 Chronic kidney disease, unspecified; F17.210 Nicotine dependence, cigarettes, uncomplicated; F15.90 Other stimulant use, unspecified, uncomplicated; Z86.718 Personal history of other venous thrombosis and embolism; Z88.8 Allergy status to other drugs, medicaments and biological substances; Z90.49 Acquired absence of other specified parts of digestive tract; Z88.1 Allergy status to other antibiotic agents; Z79.01 Long term (current) use of anticoagulants; Z79.899 Other long term (current) drug therapy
CPT/HCPCS: 36415; 80053; 81001; 81025; 85025; 85610; 85730

== ENCOUNTER 2018-12-12 16:25 | Emergency (ER) | payer MEDICAID ==
[~2018-12-12] VITALS: Ht 162.6 cm; Wt 206.8 kg
[2018-12-12] MEDS ORDERED: SODIUM CHLORIDE 0.9% 500 ML IVB ONE (17:09)
[2018-12-12] MEDS ORDERED: ONDANSETRON HCL 4 MG/2 ML VIAL IV ONE (17:15)
[2018-12-12] MEDS ORDERED: HYDROmorphone HCL 2 MG/ML VL IV ONE ×2 (17:15→21:00)
[2018-12-12 17:38] LABS: Basophils # (auto) 0 uL; Basophils % (auto) 0.8 % (0.0-2.0); Eosinophils # (auto) 0.3 uL; Eosinophils % (auto) 4.6 % (0.0-7.0); Hematocrit 36.1 % (36.0-46.0); Hemoglobin 11.7 g/dL (12.2-16.2); Lymphocytes # (auto) 0.8 uL; Lymphocytes % (auto) 13.2 % (10.0-50.0); Mean Corpuscular Hemoglobin 27.9 pg (28.0-32.0); Mean Corpuscular Hgb Conc. 32.2 g/dL (32.0-36.0); Mean Corpuscular Volume 86.4 fL (80.0-100.0); Monocytes # (auto) 0.4 uL; Monocytes % (auto) 6.2 % (0.0-12.0); Neutrophils # (auto) 4.6 uL; Neutrophils % (auto) 75.2 % (37.0-80.0); Platelet Count (auto) 391 10^3/uL (140-450); Red Blood Cells 4.18 10^6/uL (4.0-5.20); Red Cell Distribution Width 16.5 % (11.8-14.3); White Blood Cell 6.2 10^3/uL (4.4-10.8)
[2018-12-12 18:13] LABS: Albumin 3.3 g/dL (3.4-5.0); Calcium 8.6 mg/dL (8.5-10.1); Potassium 4.2 mmol/L (3.5-5.1)
[2018-12-12 18:15] LABS: Bilirubin, Total 0.7 mg/dL (0.2-1.0); Total Protein 9.6 g/dL (6.4-8.2)
[2018-12-12 20:35] VITALS: BP 124/74
== END 2018-12-12 21:24 | disposition home or self-care (01) ==
LOC: ER 16:25
DX: R10.31 Right lower quadrant pain (principal); R11.2 Nausea with vomiting, unspecified; E11.22 Type 2 diabetes mellitus with diabetic chronic kidney disease; I12.9 Hypertensive chronic kidney disease with stage 1 through stage 4 chronic kidney disease, or unspecified chronic kidney disease; N18.9 Chronic kidney disease, unspecified; J44.9 Chronic obstructive pulmonary disease, unspecified; K21.9 Gastro-esophageal reflux disease without esophagitis; Z90.49 Acquired absence of other specified parts of digestive tract; Z79.899 Other long term (current) drug therapy; Z88.1 Allergy status to other antibiotic agents; Z88.8 Allergy status to other drugs, medicaments and biological substances
CPT/HCPCS: 36415; 80053; 83690; 85025; 94761; 96361; 96374; 96375; 96376; 99283; J1170; J2405; J7040

== ENCOUNTER 2018-12-16 10:33 | Emergency (ER) | payer MEDICAID ==
[~2018-12-16] VITALS: Ht 162.6 cm; Wt 204.1 kg
[2018-12-16] MEDS ORDERED: SODIUM CHLORIDE 0.9% 1,000 ML IV ONE ×2 (11:08)
[2018-12-16] MEDS ORDERED: KETOROLAC TROMETH 30 MG/ML 1ML VIAL IV ONE (11:15)
[2018-12-16 11:41] LABS: Basophils # (auto) 0 uL; Basophils % (auto) 0.9 % (0.0-2.0); Eosinophils # (auto) 0.3 uL; Eosinophils % (auto) 5.8 % (0.0-7.0); Hematocrit 35.2 % (36.0-46.0); Hemoglobin 11.2 g/dL (12.2-16.2); Lymphocytes # (auto) 0.6 uL; Lymphocytes % (auto) 11.8 % (10.0-50.0); Mean Corpuscular Hemoglobin 27.8 pg (28.0-32.0); Mean Corpuscular Hgb Conc. 31.9 g/dL (32.0-36.0); Mean Corpuscular Volume 87.3 fL (80.0-100.0); Monocytes # (auto) 0.3 uL; Monocytes % (auto) 7.2 % (0.0-12.0); Neutrophils # (auto) 3.5 uL; Neutrophils % (auto) 74.3 % (37.0-80.0); Nucleated Red Blood Cells % 0.1 %; Platelet Count (auto) 364 10^3/uL (140-450); Red Blood Cells 4.04 10^6/uL (4.0-5.20); Red Cell Distribution Width 15.9 % (11.8-14.3); White Blood Cell 4.8 10^3/uL (4.4-10.8)
[2018-12-16 11:59] LABS: Albumin 3.1 g/dL (3.4-5.0); BUN/Creatinine Ratio 8.9; Calcium 8.5 mg/dL (8.5-10.1); Potassium 4.1 mmol/L (3.5-5.1)
[2018-12-16 12:02] LABS: Bilirubin, Total 0.9 mg/dL (0.2-1.0); Total Protein 8.9 g/dL (6.4-8.2)
[2018-12-16] MEDS ORDERED: ONDANSETRON HCL 4 MG/2 ML VIAL ONE (13:21)
[2018-12-16] MEDS ORDERED: ONDANSETRON HCL 4 MG/2 ML VIAL IV ONE (13:30)
[2018-12-16 17:04] VITALS: BP 152/123
== END 2018-12-16 18:06 | disposition home or self-care (01) ==
LOC: EDBD 10:33 → EDUNIT# 10:33 → ER 10:33
DX: M79.18 Myalgia, other site (principal); M54.9 Dorsalgia, unspecified; R11.2 Nausea with vomiting, unspecified; E66.01 Morbid (severe) obesity due to excess calories; E11.22 Type 2 diabetes mellitus with diabetic chronic kidney disease; I12.9 Hypertensive chronic kidney disease with stage 1 through stage 4 chronic kidney disease, or unspecified chronic kidney disease; N18.9 Chronic kidney disease, unspecified; J44.9 Chronic obstructive pulmonary disease, unspecified; K21.9 Gastro-esophageal reflux disease without esophagitis; Z90.49 Acquired absence of other specified parts of digestive tract; Z68.45 Body mass index [BMI] 70 or greater, adult; Z86.39 Personal history of other endocrine, nutritional and metabolic disease; Z87.442 Personal history of urinary calculi; Z88.6 Allergy status to analgesic agent; Z88.8 Allergy status to other drugs, medicaments and biological substances; Z79.899 Other long term (current) drug therapy
CPT/HCPCS: 36415; 80053; 85025; 96361; 96374; 96375; 99283; J1885; J2405; J7030

== ENCOUNTER 2018-12-23 17:33 | Emergency (ER) | payer MEDICAID ==
[~2018-12-23] VITALS: Ht 162.6 cm; Wt 202.3 kg
[2018-12-23 18:34] LABS: Basophils # (auto) 0 uL; Basophils % (auto) 0.9 % (0.0-2.0); Eosinophils # (auto) 0.2 uL; Eosinophils % (auto) 4.5 % (0.0-7.0); Hematocrit 38.2 % (36.0-46.0); Hemoglobin 12.5 g/dL (12.2-16.2); Lymphocytes # (auto) 0.9 uL; Lymphocytes % (auto) 16.4 % (10.0-50.0); Mean Corpuscular Hemoglobin 28.3 pg (28.0-32.0); Mean Corpuscular Hgb Conc. 32.8 g/dL (32.0-36.0); Mean Corpuscular Volume 86.2 fL (80.0-100.0); Monocytes # (auto) 0.4 uL; Monocytes % (auto) 7.5 % (0.0-12.0); Neutrophils # (auto) 3.9 uL; Neutrophils % (auto) 70.7 % (37.0-80.0); Nucleated Red Blood Cells % 0.1 %; Platelet Count (auto) 409 10^3/uL (140-450); Red Blood Cells 4.43 10^6/uL (4.0-5.20); Red Cell Distribution Width 16.4 % (11.8-14.3); White Blood Cell 5.5 10^3/uL (4.4-10.8)
[2018-12-23 18:50] LABS: Albumin 3.8 g/dL (3.4-5.0); Potassium 4.3 mmol/L (3.5-5.1)
[2018-12-23 18:53] LABS: BUN/Creatinine Ratio 8.6; Bilirubin, Total 0.8 mg/dL (0.2-1.0); INR 2.56 (0.9-1.15); Partial Thromboplastin Time 41.6 sec (23.64-32.05); Total Protein 10.3 g/dL (6.4-8.2)
[2018-12-24] MEDS ORDERED: ONDANSETRON ODT 4 MG TAB PO ONE (01:30)
[2018-12-24] MEDS ORDERED: MORPHINE SULFATE 4 MG/ML SYR/VIAL IM ONE (01:30)
[2018-12-24 06:21] LABS: Urine Bacteria FEW /hpf (None Seen); Urine Blood TRACE /uL (Negative); Urine Specific Gravity 1.006 (1.001-1.035); Urine WBC <1 /hpf (0 - 5)
[2018-12-24 10:00] VITALS: BP 122/64
== END 2018-12-24 10:15 | disposition home or self-care (01) ==
LOC: ER 17:40
DX: N39.0 Urinary tract infection, site not specified (principal); I82.621 Acute embolism and thrombosis of deep veins of right upper extremity; M54.5 Low back pain; G89.29 Other chronic pain; J44.9 Chronic obstructive pulmonary disease, unspecified; K21.9 Gastro-esophageal reflux disease without esophagitis; E78.5 Hyperlipidemia, unspecified; E07.9 Disorder of thyroid, unspecified; E11.22 Type 2 diabetes mellitus with diabetic chronic kidney disease; I12.9 Hypertensive chronic kidney disease with stage 1 through stage 4 chronic kidney disease, or unspecified chronic kidney disease; N18.9 Chronic kidney disease, unspecified; Z88.8 Allergy status to other drugs, medicaments and biological substances; Z88.1 Allergy status to other antibiotic agents; Z79.01 Long term (current) use of anticoagulants; Z79.899 Other long term (current) drug therapy; Z90.49 Acquired absence of other specified parts of digestive tract
CPT/HCPCS: 36415; 76856; 80053; 81001; 84702; 85025; 85610; 85730; 96372; 99284; J2270; Q0162

== ENCOUNTER 2019-01-16 12:44 | Inpatient (IN) | payer MEDICARE, MEDICAID ==
[~2019-01-16] VITALS: Ht 160 cm; Wt 187.5 kg
[2019-01-16] MEDS ORDERED: SODIUM CHLORIDE 0.9% 1,000 ML IV ONE (13:58)
[2019-01-16] MEDS ORDERED: HYDROmorphone HCL 2 MG/ML VL IV ONE ×2 (14:00→17:30)
[2019-01-16] MEDS ORDERED: PIPERACILLIN-TAZO 4.5GM 100 ML IV ONE (14:00)
[2019-01-16 14:37] LABS: Basophils # (auto) 0 uL; Basophils % (auto) 0.4 % (0.0-2.0); Eosinophils # (auto) 0.1 uL; Eosinophils % (auto) 1.1 % (0.0-7.0); Hematocrit 35.8 % (36.0-46.0); Hemoglobin 11.4 g/dL (12.2-16.2); Lymphocytes # (auto) 0.4 uL; Lymphocytes % (auto) 5.8 % (10.0-50.0); Mean Corpuscular Hemoglobin 28.2 pg (28.0-32.0); Mean Corpuscular Hgb Conc. 31.9 g/dL (32.0-36.0); Mean Corpuscular Volume 88.2 fL (80.0-100.0); Monocytes # (auto) 0 uL; Monocytes % (auto) 0.4 % (0.0-12.0); Neutrophils % (auto) 92.3 % (37.0-80.0); Nucleated Red Blood Cells % 0.1 %; Platelet Count (auto) 359 10^3/uL (140-450); Red Blood Cells 4.06 10^6/uL (4.0-5.20); Red Cell Distribution Width 16.3 % (11.8-14.3); White Blood Cell 6.5 10^3/uL (4.4-10.8)
[2019-01-16 14:39] LABS: Albumin 3.2 g/dL (3.4-5.0); Anion Gap 9 (5-15); Calcium 8.6 mg/dL (8.5-10.1); Carbon Dioxide 22 mmol/L (21-32); Chloride 108 mmol/L (98-107); Glucose 90 mg/dL (74-106); Potassium 4.6 mmol/L (3.5-5.1); Sodium 139 mmol/L (136-145)
[2019-01-16 14:44] LABS: INR 1.07 (0.9-1.15); Partial Thromboplastin Time 19.7 sec (23.64-32.05)
[2019-01-16 14:46] LABS: Alanine Aminotransferase 12 U/L (13-56); Alkaline Phosphatase 60 U/L (45-117); Aspartate Aminotransferase 9 U/L (15-37); BUN/Creatinine Ratio 13.6; Bilirubin, Total 1.2 mg/dL (0.2-1.0); Blood Urea Nitrogen 15 mg/dL (7-18); GFR African American 70 mL/min; GFR Non-African American 58 mL/min; Total Protein 9.1 g/dL (6.4-8.2)
[2019-01-16 15:32] LABS: Lactic Acid w/Reflex 3.3 mmol/L (0.4-2.0)
[2019-01-16 17:45] LABS: Urine Amorphous Crystal FEW /hpf (None Seen); Urine Bacteria NONE SEEN /hpf (None Seen); Urine Blood Negative /uL (Negative); Urine Hyaline Cast FEW /lpf (0 - 2); Urine Mucus FEW (None Seen); Urine Specific Gravity 1.022 (1.001-1.035); Urine WBC 2 /hpf (0 - 5)
[2019-01-16] MEDS ORDERED: NITROGLYCERIN 0.4 MG SL TAB SL PRN (21:00)
[2019-01-16] MEDS ORDERED: ACETAMINOPHEN 325 MG TAB PO PRN (21:00)
[2019-01-16] MEDS ORDERED: MORPHINE SULF INJ 2 MG/ML SYRINGE 1ML IV PRN (21:00)
[2019-01-16] MEDS ORDERED: methylPREDNISolone SOD SUCC 125 MG/2 ML VL IV ONE (21:00)
[2019-01-16] MEDS ORDERED: DEXTROSE (50%) 50ML SYRG IV PRN (21:00)
[2019-01-16] MEDS: FAMOTIDINE 20 MG TAB PO SCH (22:03)
[2019-01-16] MEDS: CLINDAMYCIN 600MG IV 50 ML IV SCH (22:03)
[2019-01-16] MEDS: ENOXAPARIN SOD 100 MG/1 ML SYRINGE SC SCH (22:03)
[2019-01-16 22:07] VITALS: BP 110/70
[2019-01-16] MEDS: MORPHINE SULFATE 4 MG/ML SYR/VIAL IV PRN (22:14)
--- NOTE | 2019-01-16 23:38 | NUR ---
Telemetry admit from [facility] admitted to Telemetry unit after SBAR received. Patient oriented to JEROME HIDALGO, RN primary RN, unit, room, bed, and unit policies regarding patient care and visiting hours. Patient now on continuous telemetry monitoring, tele box # 9 and telemetry reading on arrival to unit is sinus rhythm at 89 beats per minute. Patient placed on bedside oxygen at 2 liters via nasal cannula PRN, weighed by bedscale and encouraged to call if they need something. All questions and concerns addressed, patient verbalized understanding. Bed in lowest locked position, side rails up x2, call light within reach. Blood noted from vaginal area, patient reports, "I'm either getting my period or it's my fibroids. I've bled before and the doctors weren't sure whether it was my period or my fibroids." Patient educated on s/s of anemia, patient verbalized understanding. Sae placed underneath patient to capture discharge. Patient refused to turn or lean forward to assess back, states, "I can't do that, it hurts too much right now.". No s/s of distress. Will round every hour and as needed and continue care.
[2019-01-17] MEDS: ALBUTEROL SULF 2.5 MG/0.5ML(0.5%) NEB SOLN NEB SCH ×6 (00:11→23:24)
--- NOTE | 2019-01-17 00:30 | NUR ---
MRSA Swab Nasal MRSA collected and sent to lab. Patient tolerated well. Will continue care.
[2019-01-17] MEDS: HYDROcodone-ACET 5/325MG TAB PO PRN ×2 (00:58→12:30)
[2019-01-17 05:20] VITALS: BP 114/71
[2019-01-17 05:58] LABS: Basophils # (auto) 0 uL; Eosinophils # (auto) 0 uL; Hematocrit 31.8 % (36.0-46.0); Hemoglobin 10.8 g/dL (12.2-16.2); Lymphocytes # (auto) 0.2 uL; Lymphocytes % (auto) 2.5 % (10.0-50.0); Mean Corpuscular Hemoglobin 29.7 pg (28.0-32.0); Mean Corpuscular Hgb Conc. 33.9 g/dL (32.0-36.0); Mean Corpuscular Volume 87.5 fL (80.0-100.0); Monocytes # (auto) 0.1 uL; Monocytes % (auto) 1.8 % (0.0-12.0); Neutrophils # (auto) 7.5 uL; Neutrophils % (auto) 95.7 % (37.0-80.0); Platelet Count (auto) 273 10^3/uL (140-450); Red Blood Cells 3.64 10^6/uL (4.0-5.20); Red Cell Distribution Width 16.3 % (11.8-14.3); White Blood Cell 7.8 10^3/uL (4.4-10.8)
[2019-01-17] MEDS: InsuLIN REG 1unit/0.01ml Soln (100units/ml) SC SCH ×2 (06:00)
--- NOTE | 2019-01-17 06:00 | NUR ---
Positive Blood Culture Spoke with Fede from laboratory, patient's blood culture shows gram negative rods. special education professor hospitalist paged, awaiting call back at this time.
[2019-01-17 06:21] LABS: Calcium 8.1 mg/dL (8.5-10.1); Potassium 4.2 mmol/L (3.5-5.1)
[2019-01-17 06:23] LABS: BUN/Creatinine Ratio 15.2
[2019-01-17] MEDS: ACCU-CHEK COMFORT CURVE STRIP VI SCH ×2 (06:59)
[2019-01-17] MEDS: MORPHINE SULFATE 4 MG/ML SYR/VIAL IV PRN ×3 (06:59→18:05)
[2019-01-17] MEDS: LEVOTHYROXINE SODIUM 50 MCG TAB PO SCH (06:59)
[2019-01-17] MEDS: CLINDAMYCIN 600MG IV 50 ML IV SCH ×4 (06:59→21:25)
--- NOTE | 2019-01-17 07:00 | NUR ---
Regarding Blood Cultures No return call from aviation maintenance instructor hospitalist regarding patient's blood culture results. Will make dayshift RN aware.
--- NOTE | 2019-01-17 07:10 | NUR ---
Pain and Closing Note Patient reporting 10/10 pain to back and right upper quadrant of abdomen. Attempted to administer Morphine as ordered, IV infiltrated. Unable to administer pain medications or ordered Clindamycin at this time. Offered patient ordered [place], patient refusing stating, "I want the IV pain medication." Will make maxime FISCHER aware. Bed in lowest locked position, side rails up x2, call light within reach. No s/s of distress. Care endorsed to maxime FISCHER Addendum: 01/17/19 at 0803 by JEROME HIDALGO RN RN ADDITION: Patient also refusing hot packs and other nonpharmacological methods of pain relief at this time.
--- NOTE | 2019-01-17 07:30 | NUR ---
Opening Shift Note Assuming care of patient at this time. Patient is awake and alert. Patient is currently complaining of pain 9/10 to her back and abdominal area. IV access has infiltrated. Instructed patient that this RN will administer pain medication once IV access is obtained. Patient verbalizes understanding. Patient shows no signs or symptoms of distress or shortness of breath. Bed is locked and lowered with side rails up x2. Instructed patient on the plan of care for today and to call for assistance as needed. Call light within reach. Will continue to round hourly and as needed.
--- NOTE | 2019-01-17 08:45 | NUR ---
IV insertion IV access obtained, via clean sterile technique by inserting 22 gauge catheter at right hand. IV secured properly. No trauma to site. Patient tolerated well. Will administer pain medication as ordered.
[2019-01-17] MEDS: FAMOTIDINE 20 MG TAB PO SCH ×2 (09:05→21:25)
[2019-01-17] MEDS: ASPirin 81 mg TAB PO SCH (09:06)
[2019-01-17] MEDS: amLODIPine BESYLATE 5 MG TAB PO SCH (09:06)
[2019-01-17] MEDS: HCTZ 25 MG TAB PO SCH (09:07)
[2019-01-17] MEDS: ENOXAPARIN SOD 100 MG/1 ML SYRINGE SC SCH ×2 (09:08→21:26)
[2019-01-17 09:10] VITALS: BP 120/62
--- NOTE | 2019-01-17 09:15 | NUR ---
Medication Held Patient's states that she normally does not take blood pressure medication. Administered two medications at this time, Norvasc and Hydrochlorothiazide. Blood Pressure is currently 120/62. Will hold off on the other medications until a reassessment of blood pressure is done as to not cause a severe decrease in blood pressure.
[2019-01-17] MEDS: LISINOPRIL 20 MG TAB PO SCH (10:00)
[2019-01-17] MEDS: ATENOLOL 25 MG TAB PO SCH (10:00)
--- NOTE | 2019-01-17 10:00 | NUR ---
WOUND CARE NOTE: IN TO SEE PATIENT AT THIS TIME PER WOUND CARE CONSULT REQUEST. PATIENT WAS ADMITTED TO [facility] WITH DIAGNOSIS OF PNA. CURRENT CONCHA SCORE IS 17. PATIENT IS MORBIDLY OBESE, WEIGHING 170.1 KG. PATIENT IS NOTED TO HAVE DIFFICULTY SELF TURNING/REPOSITIONING SELF. SHE IS ABLE TO SIT UP IN CHAIR, AND IS AMBULATORY, BUT SHE NEEDS ASSISTANCE WITH HER TURNING/REPOSITIONING WHEN IN BED. PATIENT HAS LYMPHEDEMA TO BOTH LOWER LEGS. NO OPEN OR DRAINING/WEEPING AREAS NOTED, NO BLISTERING. SKIN IS HYPERKERATOTIC. PATIENT HAS NO OTHER SKIN INTEGRITY ISSUES, WITH PINK, BLANCHABLE SKIN TO ALL BONY PROMINENCES. RECOMMEND: FREQUENT TURN SCHEDULE Q 2 HOURS, PRN CONDITION PERMITS WITH PRESSURE REDISTRIBUTION USING PILLOWS/WEDGES WHEN IN BED, ENCOURAGE PATIENT TO GET UP IN CHAIR/AMBULATE IF ABLE, SKIN/WOUND CARE PLAN, BID/PRN APPLICATION OF MOISTURE BARRIER CREAM, OPTIFOAM GENTLE SACRAL DRESSING PREVENTATIVE, ELEVATION OF BOTH LEGS UP ONTO PILLOWS FOR EDEMA CONTROL, CONTINUED MONITORING BY WOUND CARE TEAM.
[2019-01-17] MEDS: LEVOFLOXACIN 500MG 100 ML IV SCH (10:41)
--- NOTE | 2019-01-17 10:55 | NUR ---
at bedside Dr. Lopez at bedside discussing plan of care with patient and this RN.
--- NOTE | 2019-01-17 11:01 | NUR ---
Urine culture Urine Culture sent at this time.
--- NOTE | 2019-01-17 12:35 | NUR ---
Reassessment of Blood Pressure Patient's blood pressure is currently 110/61. Patient states that she feels dizzy upon ambulation. Will not administer other blood pressure medications, atenolol and zestril, as ordered. Will continue to assess patient for blood pressure changes and symptomatic changes.
[2019-01-17 12:50] VITALS: BP 110/61
[2019-01-17 16:43] VITALS: BP 100/56
--- NOTE | 2019-01-17 18:04 | NUR ---
Respiratory note: AT BEDSIDE FOR MED BESSIE ARELLANO.
--- NOTE | 2019-01-17 18:36 | NUR ---
Call to Nuclear Medicine Call to Nuclear Medicine at this time regarding patient's VQ scan. No answer.
--- NOTE | 2019-01-17 19:30 | NUR ---
Closing Shift Note Patient is resting in bed. Patient has been medicated for pain. Patient shows no signs or symptoms of distress. Report given. Will endorse care to the senior systems programmer RN.
--- NOTE | 2019-01-17 19:45 | NUR ---
ASSUMED CARE, PT. AWAKE, SLEEPY, NO C/O PAIN, NO SOB.
[2019-01-17 22:00] VITALS: BP 115/60
--- NOTE | 2019-01-17 22:10 | NUR ---
pt. c/o itchiness all over the body, paged hospitalist, waiting to call back.
--- NOTE | 2019-01-17 23:24 | NUR ---
Respiratory note: AT BEDSIDE FOR, MED NEB [place].
[2019-01-17] MEDS: diphenhdrAMINE HCL 25 MG CAP PO PRN (23:32)
[2019-01-18] MEDS: MORPHINE SULFATE 4 MG/ML SYR/VIAL IV PRN ×3 (03:25→20:19)
[2019-01-18 05:00] VITALS: BP 127/67
[2019-01-18] MEDS: CLINDAMYCIN 600MG IV 50 ML IV SCH ×3 (05:40→22:14)
[2019-01-18] MEDS: ALBUTEROL SULF 2.5 MG/0.5ML(0.5%) NEB SOLN NEB SCH ×3 (06:03→18:57)
[2019-01-18] MEDS: LEVOTHYROXINE SODIUM 50 MCG TAB PO SCH (06:09)
[2019-01-18] MEDS: diphenhdrAMINE HCL 25 MG CAP PO PRN ×3 (07:34→22:22)
--- NOTE | 2019-01-18 07:38 | NUR ---
OPENING NOTE Assumed care of patient from [facility] RNMeg. Patient awake and alert with no S/S of distress/SOB or pain. Patient is c/o "extreme itchiness all over", no visible rash seen. Administered prn Benadryl, will continue to monitor. Abreu catheter intact, patent and is hung below bed. Instructed on POC and to call for assist PRN, verbalized understanding. Bed in lowest, locked position with side rails up x2. Fall precautions in place and call light within reach. Will continue to monitor for changes Q1hr and PRN.
[2019-01-18 08:26] VITALS: BP 116/59
[2019-01-18] MEDS: FAMOTIDINE 20 MG TAB PO SCH ×2 (10:30→22:14)
[2019-01-18] MEDS: HCTZ 25 MG TAB PO SCH (10:30)
[2019-01-18] MEDS: ASPirin 81 mg TAB PO SCH (10:30)
[2019-01-18] MEDS: amLODIPine BESYLATE 5 MG TAB PO SCH (10:31)
[2019-01-18] MEDS: ATENOLOL 25 MG TAB PO SCH (10:32)
[2019-01-18] MEDS: LISINOPRIL 20 MG TAB PO SCH (10:32)
[2019-01-18] MEDS: LEVOFLOXACIN 500MG 100 ML IV SCH (10:33)
[2019-01-18] MEDS: ENOXAPARIN SOD 100 MG/1 ML SYRINGE SC SCH (10:33)
[2019-01-18 13:00] VITALS: BP 116/61
[2019-01-18 13:40] LABS: INR 1.22 (0.9-1.15); Partial Thromboplastin Time 31.6 sec (23.64-32.05)
--- NOTE | 2019-01-18 15:20 | NUR ---
GASTELUM Patient C/O pain, pressure and discomfort from Gastelum catheter. Patient was adamant on Gastelum being removed. Gastelum D/C'd per patient's request, MD aware.
[2019-01-18 16:08] VITALS: BP 107/55
--- NOTE | 2019-01-18 16:50 | NUR ---
MIDLINE Per midline RN, Ortiz, unable to obtain accessible vein. States will have a different midline RN try again tomorrow morning.
[2019-01-18] MEDS ORDERED: WARFARIN SODIUM 10 MG TAB PO ONE (17:00)
--- NOTE | 2019-01-18 19:30 | NUR ---
Opening Shift Note Assumed care of patient, awake and alert. No S/S of distress/SOB. Instructed on POC and to call for assist PRN. Bed in lowest locked position, call light within reach, side rails up x2. Will continue to monitor for changes Q1hr and PRN.
--- NOTE | 2019-01-18 19:41 | NUR ---
CLOSING NOTE Endorsed care of patient to NOC Adela FISCHER.
[2019-01-18 21:28] VITALS: BP 107/50
[2019-01-18] MEDS: ENOXAPARIN SOD 150 MG/1 ML SYRINGE SC SCH (22:14)
[2019-01-19] MEDS: ALBUTEROL SULF 2.5 MG/0.5ML(0.5%) NEB SOLN NEB SCH ×4 (00:53→18:12)
--- NOTE | 2019-01-19 01:31 | NUR ---
Endorsed care to Meg FISCHER.
--- NOTE | 2019-01-19 01:32 | NUR ---
report given by suma Tilley, to continue pt. care.
[2019-01-19 05:00] VITALS: BP 100/51
[2019-01-19] MEDS ORDERED: SODIUM CHLORIDE 0.9 % NEB SOLN 3ML NEB ONE ×2 (05:17→11:17)
[2019-01-19] MEDS: CLINDAMYCIN 600MG IV 50 ML IV SCH ×3 (05:41→22:21)
[2019-01-19] MEDS: LEVOTHYROXINE SODIUM 50 MCG TAB PO SCH (06:06)
--- NOTE | 2019-01-19 07:32 | NUR ---
OPENING NOTE Assumed care of patient from NOC RNMeg. Patient awake and alert with no S/S of distress/SOB or pain. Instructed on POC and to call for assist PRN, verbalized understanding. Bed in lowest, locked position with side rails up x2. Fall precautions in place and call light within reach. Will continue to monitor for changes Q1hr and PRN.
[2019-01-19] MEDS: diphenhdrAMINE HCL 25 MG CAP PO PRN ×3 (08:52→22:18)
[2019-01-19] MEDS: MORPHINE SULFATE 4 MG/ML SYR/VIAL IV PRN ×2 (08:52→19:41)
[2019-01-19 09:00] VITALS: BP 111/54
[2019-01-19 09:33] LABS: Basophils # (auto) 0 uL; Basophils % (auto) 0.4 % (0.0-2.0); Eosinophils # (auto) 0.2 uL; Hemoglobin 10.5 g/dL (12.2-16.2); Lymphocytes # (auto) 0.5 uL; Mean Corpuscular Hemoglobin 28.3 pg (28.0-32.0); Mean Corpuscular Volume 88.4 fL (80.0-100.0); Monocytes # (auto) 0.3 uL; Monocytes % (auto) 4.2 % (0.0-12.0); Neutrophils # (auto) 7.1 uL; Neutrophils % (auto) 86.4 % (37.0-80.0); Nucleated Red Blood Cells % 0.2 %; Platelet Count (auto) 296 10^3/uL (140-450); Red Blood Cells 3.73 10^6/uL (4.0-5.20); Red Cell Distribution Width 16.6 % (11.8-14.3); White Blood Cell 8.2 10^3/uL (4.4-10.8)
[2019-01-19 09:48] LABS: Anion Gap 7 (5-15); BUN/Creatinine Ratio 15.1; Blood Urea Nitrogen 14 mg/dL (7-18); Calcium 8.5 mg/dL (8.5-10.1); Carbon Dioxide 21 mmol/L (21-32); Chloride 105 mmol/L (98-107); GFR African American 85 mL/min; GFR Non-African American 71 mL/min; Glucose 100 mg/dL (74-106); Potassium 3.6 mmol/L (3.5-5.1); Sodium 133 mmol/L (136-145)
[2019-01-19 09:54] LABS: INR 1.18 (0.9-1.15); Partial Thromboplastin Time 37.5 sec (23.64-32.05)
--- NOTE | 2019-01-19 10:41 | NUR ---
Midline Placement Patient educated on need for midline placement. All risks and benefits explained and all questions and concerns addresses prior to procedure. 18g/10cm midline inserted via right cephalic vein using Ultrasound x 1 attempt. Sterile technique utilized. Blood return obtained from single lumen and flushed easily with NS using proper technique. Midline secured with saline lock; biodisc and occlusive dressing applied. Primary RN notified. Midline lot #[id number].
[2019-01-19] MEDS: LEVOFLOXACIN 500MG 100 ML IV SCH (10:54)
[2019-01-19] MEDS: FAMOTIDINE 20 MG TAB PO SCH ×2 (10:54→22:19)
[2019-01-19] MEDS: ATENOLOL 25 MG TAB PO SCH (10:55)
[2019-01-19] MEDS: amLODIPine BESYLATE 5 MG TAB PO SCH (10:56)
[2019-01-19] MEDS: ENOXAPARIN SOD 150 MG/1 ML SYRINGE SC SCH ×2 (10:56→22:19)
[2019-01-19] MEDS: LISINOPRIL 20 MG TAB PO SCH (10:57)
[2019-01-19] MEDS: ASPirin 81 mg TAB PO SCH (10:57)
[2019-01-19] MEDS: HCTZ 25 MG TAB PO SCH (10:57)
--- NOTE | 2019-01-19 11:22 | NUR ---
Nutrition assessment Notes Please see attached link for complete assessment Est. Needs ABW (125 kg): 8407-6169 kcal (11-15 kcal/kgBW), 100-125 gms pro (0.8-1.0 gms/kgBW). Will continue to monitor pertinent labs and reassess nutrient need prn. Addendum: 01/19/19 at [address] Amended: Links added.
[2019-01-19 13:00] VITALS: BP 124/86
[2019-01-19] MEDS: HYDROcodone-ACET 5/325MG TAB PO PRN ×2 (13:36→22:23)
--- NOTE | 2019-01-19 15:50 | NUR ---
FAMILY Patient's family at bedside.
--- NOTE | 2019-01-19 16:52 | NUR ---
assessment Patient is a 43 year old female who is alert and oriented. Patients cognitive abilities are intact. Prior to admission patient lived home with family and functioned with assistance. Per patient she will return home to her prior living arrangements post discharge and her caregiver will transport her home. Patient informed me she has a fww and a shower chair for home use. Patient informed me she has a 24 hour caregiver. Patient informed me she feels safe returning home on discharge. Patients post discharge needs to be determined prior to discharge. I informed patient she has a right to speak to a social worker health services regarding all care. I informed patient she has a right to participate in any and all discharge planning. Patient does not have a POA and advanced directive. I have offered patient information on POA and advanced directives. I informed the patient the advantages and benefits of having an Advanced Directive. Patient verbalized understanding and agreed to discharge plan. Addendum: 01/19/19 at 1655 by Eileen NUNO Amended: Links added.
[2019-01-19] MEDS ORDERED: WARFARIN SODIUM 10 MG TAB PO ONE (17:00)
--- NOTE | 2019-01-19 19:30 | NUR ---
Opening Shift Note Assumed care of patient, awake and alert oriented x4. No S/S of distress/SOB noted. Bed is in lowest locked position with bed rails up x2 and call light is within reach of the patient. Instructed on POC and to call for assist PRN.
--- NOTE | 2019-01-19 19:30 | NUR ---
CLOSING NOTE Endorsed care of patient to NOC Daiana FISCHER.
[2019-01-19 21:40] VITALS: BP 124/86
[2019-01-19 22:00] VITALS: BP 99/61
[2019-01-20] MEDS: ALBUTEROL SULF 2.5 MG/0.5ML(0.5%) NEB SOLN NEB SCH ×4 (00:10→18:05)
[2019-01-20] MEDS: MORPHINE SULFATE 4 MG/ML SYR/VIAL IV PRN (05:14)
[2019-01-20 05:19] LABS: Hematocrit 33.4 % (36.0-46.0); Hemoglobin 10.7 g/dL (12.2-16.2); Mean Corpuscular Hemoglobin 28.5 pg (28.0-32.0); Mean Corpuscular Hgb Conc. 31.9 g/dL (32.0-36.0); Mean Corpuscular Volume 89.4 fL (80.0-100.0); Platelet Count (auto) 300 10^3/uL (140-450); Red Blood Cells 3.74 10^6/uL (4.0-5.20); Red Cell Distribution Width 16.8 % (11.8-14.3); White Blood Cell 5.4 10^3/uL (4.4-10.8)
[2019-01-20 05:24] VITALS: BP 129/75
[2019-01-20] MEDS ORDERED: SODIUM CHLORIDE 0.9 % NEB SOLN 3ML NEB ONE ×2 (05:25→12:48)
[2019-01-20 05:51] LABS: Basophils % (manual) 0 (0.0-2.0); Blast Cells 0; Metamyelocytes % 0; Myelocytes % 0; Promyelocytes % 0; Reactive Lymphocytes 0
[2019-01-20 06:06] LABS: INR 1.32 (0.9-1.15)
[2019-01-20] MEDS: CLINDAMYCIN 600MG IV 50 ML IV SCH ×3 (06:19→22:14)
[2019-01-20] MEDS: diphenhdrAMINE HCL 25 MG CAP PO PRN ×3 (06:20→22:14)
[2019-01-20] MEDS: LEVOTHYROXINE SODIUM 50 MCG TAB PO SCH (06:22)
[2019-01-20 08:00] VITALS: BP 105/62
[2019-01-20 08:01] LABS: Band Neutrophils % (manual) 4; Eosinophils % (manual) 1 (0-7); Lymphocytes % (manual) 16 (10.0-50.0); Monocytes % (manual) 9 (0-12)
--- NOTE | 2019-01-20 08:30 | NUR ---
Opening Shift Note Assumed care of patient, awake and alert. No S/S of distress/SOB or pain. Bed is in lowest position with 2x side rails up for safety and call light is within reach. Instructed on POC and to call for assist PRN, will continue to monitor for changes Q1hr and PRN.
--- NOTE | 2019-01-20 08:45 | NUR ---
PT REPORTS THAT SHE WALKS FINE AND DOES NOT NEED P.T.
[2019-01-20] MEDS: HYDROcodone-ACET 5/325MG TAB PO PRN (08:47)
[2019-01-20 09:00] VITALS: BP 105/62
[2019-01-20] MEDS: ENOXAPARIN SOD 150 MG/1 ML SYRINGE SC SCH ×2 (10:23→22:15)
[2019-01-20] MEDS: LEVOFLOXACIN 500MG 100 ML IV SCH (10:23)
[2019-01-20] MEDS: HCTZ 25 MG TAB PO SCH (10:23)
[2019-01-20] MEDS: LISINOPRIL 20 MG TAB PO SCH (10:24)
[2019-01-20] MEDS: ATENOLOL 25 MG TAB PO SCH (10:25)
[2019-01-20] MEDS: amLODIPine BESYLATE 5 MG TAB PO SCH (10:26)
[2019-01-20] MEDS: FAMOTIDINE 20 MG TAB PO SCH ×2 (10:26→22:14)
[2019-01-20] MEDS: ASPirin 81 mg TAB PO SCH (10:26)
[2019-01-20 13:00] VITALS: BP 127/57
--- NOTE | 2019-01-20 13:20 | NUR ---
IV insertion IV access obtained, via clean sterile technique by inserting 20 gauge catheter after 3 attempt(s). IV is at the right forearm and is secured properly. No trauma to site. Patient tolerated well.
[2019-01-20] MEDS: HYDROcodone-ACET 10/325MG TAB PO PRN ×2 (14:59→23:30)
--- NOTE | 2019-01-20 16:45 | NUR ---
PAIN Patient c/o 11/03 right lower quadrant abdominal pain. States that the "Mchenry isn't helping with the pain at all". Dr. Lopez aware, no new orders at this time.
[2019-01-20 17:00] VITALS: BP 126/73
[2019-01-20] MEDS ORDERED: WARFARIN SODIUM 10 MG TAB PO ONE (17:00)
[2019-01-20 22:00] VITALS: BP 102/58
[2019-01-21] MEDS: ALBUTEROL SULF 2.5 MG/0.5ML(0.5%) NEB SOLN NEB SCH ×3 (00:04→13:05)
[2019-01-21 05:00] VITALS: BP 99/69
[2019-01-21 06:21] LABS: Hematocrit 31.5 % (36.0-46.0); Hemoglobin 10.2 g/dL (12.2-16.2); Mean Corpuscular Hemoglobin 27.3 pg (28.0-32.0); Mean Corpuscular Hgb Conc. 32.5 g/dL (32.0-36.0); Mean Corpuscular Volume 84.1 fL (80.0-100.0); Platelet Count (auto) 337 10^3/uL (140-450); Red Blood Cells 3.74 10^6/uL (4.0-5.20); White Blood Cell 3.8 10^3/uL (4.4-10.8)
[2019-01-21] MEDS: diphenhdrAMINE HCL 25 MG CAP PO PRN ×3 (06:22→21:15)
[2019-01-21] MEDS: CLINDAMYCIN 600MG IV 50 ML IV SCH ×3 (06:23→22:00)
[2019-01-21] MEDS: LEVOTHYROXINE SODIUM 50 MCG TAB PO SCH (06:23)
[2019-01-21 06:39] LABS: INR 1.45 (0.9-1.15)
[2019-01-21 06:49] LABS: Basophils % (manual) 0 (0.0-2.0); Blast Cells 0; Myelocytes % 0; Promyelocytes % 0; Reactive Lymphocytes 0
--- NOTE | 2019-01-21 07:50 | NUR ---
Patient in bed, asleep. No acute distress noted.
[2019-01-21 08:18] LABS: Band Neutrophils % (manual) 3; Eosinophils % (manual) 6 (0-7); Lymphocytes % (manual) 19 (10.0-50.0); Metamyelocytes % 2; Monocytes % (manual) 8 (0-12)
[2019-01-21 09:00] VITALS: BP 126/78
--- NOTE | 2019-01-21 09:15 | NUR ---
Called Pharmacy for Len srinivasan
[2019-01-21] MEDS: HCTZ 25 MG TAB PO SCH (09:21)
[2019-01-21] MEDS: FAMOTIDINE 20 MG TAB PO SCH ×2 (09:21→22:00)
[2019-01-21] MEDS: HYDROcodone-ACET 10/325MG TAB PO PRN ×2 (09:21→18:31)
--- NOTE | 2019-01-21 09:21 | NUR ---
Patient stated her pain level at 10/10 at this time. [place] 10/325 PO given for pain as ordered. Patient stated her midline is not working.
[2019-01-21] MEDS: ATENOLOL 25 MG TAB PO SCH (09:22)
[2019-01-21] MEDS: ENOXAPARIN SOD 150 MG/1 ML SYRINGE SC SCH ×2 (09:22→22:00)
[2019-01-21] MEDS: ASPirin 81 mg TAB PO SCH (09:22)
[2019-01-21] MEDS: amLODIPine BESYLATE 5 MG TAB PO SCH (09:22)
[2019-01-21] MEDS: LISINOPRIL 20 MG TAB PO SCH (09:22)
[2019-01-21] MEDS: LEVOFLOXACIN 500MG 100 ML IV SCH (09:23)
--- NOTE | 2019-01-21 10:49 | NUR ---
Patient complained of difficulty breathing, asked for breathing treatment. Placed on O2 at 3 LPM.
--- NOTE | 2019-01-21 10:50 | NUR ---
Paged the Respiratory Therapist.
--- NOTE | 2019-01-21 12:53 | NUR ---
Dr. Lopez at bedside. MD made aware patient complained of difficulty breathing earlier, placed on O2 at 3 LPM, patient asked if she can have nebulizer when discharged home. Patient stated she was shaking when she has difficulty breathing. No orders for discharge today.
[2019-01-21 13:00] VITALS: BP 116/72
--- NOTE | 2019-01-21 14:23 | NUR ---
Benadryl given before Clindamycin IV is administered.
--- NOTE | 2019-01-21 16:00 | NUR ---
Called PICC Line RN Mary that Midline is not flushing with NS. Mary said changed the Midline dressing.
--- NOTE | 2019-01-21 16:15 | NUR ---
Changed the Midline dressing. Midline is flushing well. Informed PICC Line AMADO Hernandez.
--- NOTE | 2019-01-21 16:20 | NUR ---
IV line, 20 gauge, removed on the right forearm, IV catheter intact, pressure dressing applied.
[2019-01-21 17:00] VITALS: BP 96/63
[2019-01-21] MEDS ORDERED: WARFARIN SODIUM 2.5 MG TAB PO ONE (17:00)
--- NOTE | 2019-01-21 18:31 | NUR ---
Patient stated her pain level at 8/10 at this time. [place] 10/325 PO given for pain as ordered.
--- NOTE | 2019-01-21 19:45 | NUR ---
Opening Shift Note: A&Ox4, resting in bed. Room air, pain level 7/10 right lower extremity, and baseline: independent with a walker prn; current: Independent/SBA. Bed locked in lowest position, side rails up x2, call light within reach, and bed alarm on for patient safety. Midline in right upper extremity IID inserted on 01/19/19; last dressing change on 01/21/19. Skin intact: morbid obesity with swelling to BLE/redness. No open wounds. POC discussed and questions answered. Will continue to round and reposition prn.
[2019-01-21 22:00] VITALS: BP_SYST 106; BP_SYST 98; BP_DIAS 54; BP_DIAS 66
[2019-01-22] VITALS (7 sets, daily range): BP systolic 113–135; BP diastolic 69–78
[2019-01-22] MEDS: ALBUTEROL SULF 2.5 MG/0.5ML(0.5%) NEB SOLN NEB SCH ×3 (00:50→13:30)
[2019-01-22] MEDS: HYDROcodone-ACET 10/325MG TAB PO PRN ×2 (04:33→17:49)
[2019-01-22] MEDS: diphenhdrAMINE HCL 25 MG CAP PO PRN (05:53)
[2019-01-22 06:24] LABS: Hematocrit 32.2 % (36.0-46.0); Hemoglobin 10.6 g/dL (12.2-16.2); Mean Corpuscular Hemoglobin 28.1 pg (28.0-32.0); Mean Corpuscular Volume 85.3 fL (80.0-100.0); Platelet Count (auto) 345 10^3/uL (140-450); Red Blood Cells 3.77 10^6/uL (4.0-5.20); White Blood Cell 4.7 10^3/uL (4.4-10.8)
[2019-01-22 06:35] LABS: INR 1.6 (0.9-1.15)
[2019-01-22 06:45] LABS: Potassium 3.6 mmol/L (3.5-5.1)
[2019-01-22 06:47] LABS: Band Neutrophils % (manual) 0; Basophils % (manual) 0 (0.0-2.0); Blast Cells 0; Metamyelocytes % 0; Myelocytes % 0; Promyelocytes % 0; Reactive Lymphocytes 0
[2019-01-22] MEDS: LEVOTHYROXINE SODIUM 50 MCG TAB PO SCH (06:51)
[2019-01-22 06:55] LABS: BUN/Creatinine Ratio 12.4; Calcium 8.7 mg/dL (8.5-10.1)
[2019-01-22] MEDS: CLINDAMYCIN 600MG IV 50 ML IV SCH ×3 (06:55→21:47)
[2019-01-22 07:56] LABS: Eosinophils % (manual) 7 (0-7); Lymphocytes % (manual) 27 (10.0-50.0); Monocytes % (manual) 7 (0-12)
--- NOTE | 2019-01-22 08:00 | NUR ---
ASSESSMENT NOTE PATIENT IS ALERT ORIENTED X4, RESTING IN BED COMFORTABLY, PATIENT IS VERY OBESE, BUT PHYSICALLY FIT, ABLE TO SELF REPOSITION AND AMBULATE NEEDED, PAIN 0/10, CALL LIGHT WITHIN REACH.
[2019-01-22] MEDS: ENOXAPARIN SOD 150 MG/1 ML SYRINGE SC SCH ×2 (09:00→21:25)
--- NOTE | 2019-01-22 09:00 | NUR ---
PATIENT OF BED, SITTING ON CHAIR AT BED SIDE EATIG BREAKFAST
[2019-01-22] MEDS: amLODIPine BESYLATE 5 MG TAB PO SCH (09:01)
[2019-01-22] MEDS: ASPirin 81 mg TAB PO SCH (09:01)
[2019-01-22] MEDS: HCTZ 25 MG TAB PO SCH (09:01)
[2019-01-22] MEDS: LISINOPRIL 20 MG TAB PO SCH (09:02)
[2019-01-22] MEDS: FAMOTIDINE 20 MG TAB PO SCH ×2 (09:02→21:24)
[2019-01-22] MEDS: LEVOFLOXACIN 500MG 100 ML IV SCH (09:38)
[2019-01-22] MEDS: ATENOLOL 25 MG TAB PO SCH (10:00)
--- NOTE | 2019-01-22 10:15 | NUR ---
DR CARVAJAL AT BED SIDE FOLLOWING UP ON PT, NO NEW ORDERS OBTAIN
[2019-01-22] MEDS ORDERED: WARFARIN SODIUM 10 MG TAB PO ONE (17:00)
--- NOTE | 2019-01-22 18:10 | NUR ---
PATIENT CONTINUE STABLE, CONTINUE MONITORING
--- NOTE | 2019-01-22 19:30 | NUR ---
received pt from day rn poc reviewed
--- NOTE | 2019-01-22 19:45 | NUR ---
pt resting with hob up resp even denies pain or discomfort, all questions and concerns addressed
--- NOTE | 2019-01-22 23:34 | NUR ---
awoke resting comfortable no c/o pain at this time
[2019-01-23] MEDS: ALBUTEROL SULF 2.5 MG/0.5ML(0.5%) NEB SOLN NEB SCH ×4 (00:36→18:12)
--- NOTE | 2019-01-23 03:52 | NUR ---
no change resting comfortable
[2019-01-23 05:00] VITALS: BP 118/77
[2019-01-23] MEDS: LEVOTHYROXINE SODIUM 50 MCG TAB PO SCH (06:20)
[2019-01-23] MEDS: CLINDAMYCIN 600MG IV 50 ML IV SCH ×2 (06:20→15:02)
--- NOTE | 2019-01-23 06:45 | NUR ---
awoke right upper arm midline difficult to infuse will request evaluation of line
--- NOTE | 2019-01-23 06:51 | NUR ---
report given to am nurse poc reveiwed
[2019-01-23 08:00] VITALS: BP 115/69
--- NOTE | 2019-01-23 08:30 | NUR ---
BODY BATH GIVEN TO PT, TOLERATED WELL
[2019-01-23 08:52] LABS: INR 1.86 (0.9-1.15)
[2019-01-23 09:00] VITALS: BP 106/84
--- NOTE | 2019-01-23 09:30 | NUR ---
DR CARVAJAL AT BED SIDE FOLLOWING UP ON PT, INFORM PT THAT SHE IS GOING HOME TOMORROW, PT VERBALIS UNDERSTANDING
[2019-01-23] MEDS: FAMOTIDINE 20 MG TAB PO SCH ×2 (10:00→21:09)
[2019-01-23] MEDS: ATENOLOL 25 MG TAB PO SCH (10:00)
[2019-01-23] MEDS: LISINOPRIL 20 MG TAB PO SCH (10:00)
--- NOTE | 2019-01-23 10:00 | NUR ---
BM PT AMBULATED TO BATHROOM AND HAVE BM
[2019-01-23] MEDS: amLODIPine BESYLATE 5 MG TAB PO SCH (10:01)
[2019-01-23] MEDS: HCTZ 25 MG TAB PO SCH (10:01)
[2019-01-23] MEDS: LEVOFLOXACIN 500MG 100 ML IV SCH (10:02)
[2019-01-23] MEDS: ENOXAPARIN SOD 150 MG/1 ML SYRINGE SC SCH ×2 (10:02→21:09)
[2019-01-23] MEDS: ASPirin 81 mg TAB PO SCH (10:02)
[2019-01-23 13:00] VITALS: BP 92/59
--- NOTE | 2019-01-23 14:00 | NUR ---
BM PT AMBULATED TO BATHROOM AND HAVE A SECOND BM, ABLE TO STAY DRY AND CLEAN
[2019-01-23] MEDS: diphenhdrAMINE HCL 25 MG CAP PO PRN ×2 (15:18→21:09)
[2019-01-23 17:00] VITALS: BP 85/35
[2019-01-23] MEDS ORDERED: WARFARIN SODIUM 5 MG TAB PO ONE (17:00)
--- NOTE | 2019-01-23 18:18 | NUR ---
PT CONTINUE STABLE, CONTINUE MONITORING
--- NOTE | 2019-01-23 18:34 | NUR ---
KEAGAN RIVAS RN AT BED SIDE, CHECKED ON THE MID LINE, WITH POSITIVE BLOOD RETURN FROM THE MID LINE
--- NOTE | 2019-01-23 19:08 | NUR ---
received pt from day rn poc reviewed
[2019-01-23 22:00] VITALS: BP 117/57
--- NOTE | 2019-01-23 22:45 | NUR ---
pt resting with hob up denies pain or discomfort, restless about not being discharged home yet, discussed poc and therapeutic inr level, all questions and concerns addressed
[2019-01-24] MEDS: CLINDAMYCIN 600MG IV 50 ML IV SCH ×3 (00:09→14:00)
[2019-01-24] MEDS: ALBUTEROL SULF 2.5 MG/0.5ML(0.5%) NEB SOLN NEB SCH ×3 (00:14→11:47)
--- NOTE | 2019-01-24 03:46 | NUR ---
awoke no change or resting comfortable
[2019-01-24 05:00] VITALS: BP 127/65
[2019-01-24] MEDS: diphenhdrAMINE HCL 25 MG CAP PO PRN (05:18)
[2019-01-24] MEDS: LEVOTHYROXINE SODIUM 50 MCG TAB PO SCH (06:29)
--- NOTE | 2019-01-24 06:54 | NUR ---
report given to am nurse poc reviewed
--- NOTE | 2019-01-24 07:25 | NUR ---
OPENING NOTE Assumed care of patient from NOC RNJudi. Patient awake and alert with no S/S of distress/SOB or pain. Instructed on POC and to call for assist PRN, verbalized understanding. Bed in lowest, locked position with side rails up x2. Fall precautions in place and call light within reach. Will continue to monitor for changes Q1hr and PRN.
[2019-01-24 09:00] VITALS: BP 101/46
[2019-01-24 09:57] LABS: Basophils # (auto) 0.1 uL; Basophils % (auto) 1.4 % (0.0-2.0); Eosinophils # (auto) 0.2 uL; Eosinophils % (auto) 5.6 % (0.0-7.0); Hematocrit 32.6 % (36.0-46.0); Hemoglobin 10.7 g/dL (12.2-16.2); Lymphocytes # (auto) 0.6 uL; Lymphocytes % (auto) 15.1 % (10.0-50.0); Mean Corpuscular Hemoglobin 27.7 pg (28.0-32.0); Mean Corpuscular Hgb Conc. 32.7 g/dL (32.0-36.0); Mean Corpuscular Volume 84.5 fL (80.0-100.0); Monocytes # (auto) 0.5 uL; Monocytes % (auto) 10.6 % (0.0-12.0); Neutrophils # (auto) 2.9 uL; Neutrophils % (auto) 67.3 % (37.0-80.0); Nucleated Red Blood Cells % 0.1 %; Platelet Count (auto) 361 10^3/uL (140-450); Red Blood Cells 3.85 10^6/uL (4.0-5.20); Red Cell Distribution Width 15.9 % (11.8-14.3); White Blood Cell 4.3 10^3/uL (4.4-10.8)
[2019-01-24 10:13] LABS: INR 2.26 (0.9-1.15)
--- NOTE | 2019-01-24 10:23 | NUR ---
AT BEDSIDE Dr. Lopez at patient's bedside. Recommended patient obtain referral from PCP for neurology consult/open MRI secondary to shakiness.
[2019-01-24] MEDS: ASPirin 81 mg TAB PO SCH (11:17)
[2019-01-24] MEDS: LEVOFLOXACIN 500MG 100 ML IV SCH (11:17)
[2019-01-24] MEDS: FAMOTIDINE 20 MG TAB PO SCH (11:18)
[2019-01-24] MEDS: ATENOLOL 25 MG TAB PO SCH (11:18)
[2019-01-24] MEDS: HCTZ 25 MG TAB PO SCH (11:18)
[2019-01-24] MEDS: amLODIPine BESYLATE 5 MG TAB PO SCH (11:18)
[2019-01-24] MEDS: LISINOPRIL 20 MG TAB PO SCH (11:19)
[2019-01-24] MEDS: ENOXAPARIN SOD 150 MG/1 ML SYRINGE SC SCH (11:19)
[2019-01-24 13:00] VITALS: BP 85/51
--- NOTE | 2019-01-24 14:30 | NUR ---
PCP Spoke with Mara Orellana's office regarding need for neurology consult and recommended open MRI. States that patient needs to be seen prior to neuro referral being given. MD office aware of discharge recommendations. Patient is scheduled for follow up visit 01/25/19 @ 1:45pm.
--- NOTE | 2019-01-24 15:21 | NUR ---
DISCHARGE Discharge instructions given as ordered. Encouraged to follow up with PMD and obtain neurology referral/outpatient MRI as instructed. All questions and concerns addressed. Patient verbalized understanding. Medication reconciliation form completed and copy given to patient. Right upper arm midline removed with catheter intact and pressure dressing applied. Telemetry unit returned to ICU. Patient taken to vehicle via wheelchair with all personal belongings, accompanied by staff. No distress noted at time of departure.
[2019-01-24] MEDS ORDERED: WARFARIN SODIUM 10 MG TAB PO ONE (17:00)
== END 2019-01-24 15:20 | disposition home or self-care (01) | DRG 177 ==
LOC: EDUNIT# 12:44 → EDBD 12:44 → ER 12:53 → TELE 12:54 → TELE-EAST 23:21
PROVIDERS: ADMIT Nurse Practitioner; ATTEND Internal Medicine
PROC: 05HY33Z Insertion of Infusion Device into Upper Vein, Percutaneous Approach (ICD-10-PCS; principal; 2019-01-19)
PROC: B54MZZA Ultrasonography of Right Upper Extremity Veins, Guidance (ICD-10-PCS; 2019-01-19)
DX: J15.6 Pneumonia due to other Gram-negative bacteria (principal); I26.99 Other pulmonary embolism without acute cor pulmonale; L03.115 Cellulitis of right lower limb; E44.1 Mild protein-calorie malnutrition; D68.9 Coagulation defect, unspecified; N39.0 Urinary tract infection, site not specified; Z68.45 Body mass index [BMI] 70 or greater, adult; I89.0 Lymphedema, not elsewhere classified; N18.3 Chronic kidney disease, stage 3 (moderate); J69.0 Pneumonitis due to inhalation of food and vomit; G89.29 Other chronic pain; E66.01 Morbid (severe) obesity due to excess calories; Z87.442 Personal history of urinary calculi; K21.9 Gastro-esophageal reflux disease without esophagitis; I12.9 Hypertensive chronic kidney disease with stage 1 through stage 4 chronic kidney disease, or unspecified chronic kidney disease; E78.5 Hyperlipidemia, unspecified; E11.22 Type 2 diabetes mellitus with diabetic chronic kidney disease; Z88.8 Allergy status to other drugs, medicaments and biological substances; E03.9 Hypothyroidism, unspecified; J44.9 Chronic obstructive pulmonary disease, unspecified; Z79.01 Long term (current) use of anticoagulants; Z90.49 Acquired absence of other specified parts of digestive tract; Z82.61 Family history of arthritis; Z83.3 Family history of diabetes mellitus; Z82.49 Family history of ischemic heart disease and other diseases of the circulatory system; Z79.899 Other long term (current) drug therapy; Z86.718 Personal history of other venous thrombosis and embolism
CPT/HCPCS: 36415; 43239; 71045; 80048; 80053; 81001; 81025; 82962; 83036; 83605; 83735; 83880; 84443; 84484; 84702; 85007; 85025; 85027; 85379; 85610; 85730; 87040; 87077; 87081; 87086; 87186; 93005; 93971; 94640; 94761; 96361; 96365; 96375; G0378; J1956; J2543; J3490

== ENCOUNTER 2019-04-26 12:01 | Emergency (ER) | payer MEDICARE, MEDICAID ==
[~2019-04-26] VITALS: Ht 162.6 cm; Wt 181.4 kg
[~2019-04-26 12:01] MED LIST changes: -AML5T PO; -ATEN-60 PO; +DOCU100C8 PO; +FURO1TAB31 PO; +HYDR-4833 PO; -HYDR25TA4 PO; +LEV112T PO; +LEV25T PO; -LEVO125T7 PO; +LINE1TAB5 PO; -LISI-646 PO; +MAGN400T21 PO; +METO25TA5 PO; +METR500T14 PO; +MID10T PO; +POTA-220 PO; -POTA10IN IV; -POTA10TA51 PO; +WARF2TAB49 PO; -WARF5TAB PO
[2019-04-26] MEDS ORDERED: SODIUM CHLORIDE 0.9% 1,000 ML IVB ONE (12:49)
[2019-04-26] MEDS ORDERED: LINEZOLID 600MG/300ML 300 ML IV ONE (17:45)
[2019-04-26 18:24] LABS: Hematocrit 31.8 % (36.0-46.0); Hemoglobin 10.5 g/dL (12.2-16.2); Mean Corpuscular Hemoglobin 28.3 pg (28.0-32.0); Mean Corpuscular Hgb Conc. 33.1 g/dL (32.0-36.0); Mean Corpuscular Volume 85.4 fL (80.0-100.0); Platelet Count (auto) 420 10^3/uL (140-450); Red Blood Cells 3.72 10^6/uL (4.0-5.20); Red Cell Distribution Width 15.6 % (11.8-14.3); White Blood Cell 12.5 10^3/uL (4.4-10.8)
[2019-04-26 18:35] LABS: Albumin 1.5 g/dL (3.4-5.0); Calcium 8.2 mg/dL (8.5-10.1); Magnesium 2.2 mg/dL (1.6-2.6); Potassium 4.6 mmol/L (3.5-5.1)
[2019-04-26 18:38] LABS: BUN/Creatinine Ratio 17.6; Bilirubin, Total 1.1 mg/dL (0.2-1.0); Total Protein 8.4 g/dL (6.4-8.2)
[2019-04-26 18:43] LABS: Basophils % (manual) 0 (0.0-2.0); Blast Cells 0; Eosinophils % (manual) 0 (0-7); Promyelocytes % 0; Reactive Lymphocytes 0
[2019-04-26 19:11] LABS: Lymphocytes % (manual) 6 (10.0-50.0); Metamyelocytes % 1; Monocytes % (manual) 5 (0-12); Myelocytes % 1
[2019-04-26 19:12] LABS: Band Neutrophils % (manual) 3
[2019-04-26 21:15] VITALS: BP 115/63
== END 2019-04-26 21:36 | disposition short-term general hospital (02) ==
LOC: EDBD 12:01 → ER 12:12
DX: S80.921A Unspecified superficial injury of right lower leg, initial encounter (principal); I89.0 Lymphedema, not elsewhere classified; Z86.718 Personal history of other venous thrombosis and embolism; Z79.01 Long term (current) use of anticoagulants; J44.9 Chronic obstructive pulmonary disease, unspecified; E11.9 Type 2 diabetes mellitus without complications; K21.9 Gastro-esophageal reflux disease without esophagitis; E78.5 Hyperlipidemia, unspecified; E07.9 Disorder of thyroid, unspecified; I10 Essential (primary) hypertension; X58.XXXA Exposure to other specified factors, initial encounter; Y93.89 Activity, other specified; Y92.89 Other specified places as the place of occurrence of the external cause; Y99.8 Other external cause status
CPT/HCPCS: 36415; 71045; 73060; 80053; 81025; 83615; 83735; 85007; 85027; 87077; 87186; 87205; 93005; 96365; 96366; 99285; J2020

== ENCOUNTER 2019-11-01 17:42 | Inpatient (IN) | payer MEDICARE, MEDICAID ==
[~2019-11-01] VITALS: Ht 165.1 cm; Wt 166.0 kg
[~2019-11-01 17:42] MED LIST changes: -WARF2TAB49 PO
[2019-11-01] MEDS ORDERED: AMOX500T86 PO (18:15)
[2019-11-01] MEDS ORDERED: SODIUM CHLORIDE 0.9% 1,000 ML IV ONE (18:45)
[2019-11-01] MEDS ORDERED: LINEZOLID 600MG/300ML 300 ML IV ONE (18:45)
[2019-11-01 19:03] LABS: Hemoglobin 10.5 g/dL (12.2-16.2)
[2019-11-01 19:05] LABS: Hematocrit 33.9 % (36.0-46.0); Mean Corpuscular Hemoglobin 25.7 pg (28.0-32.0); Mean Corpuscular Volume 82.9 fL (80.0-100.0); Platelet Count (auto) 453 10^3/uL (140-450); Red Blood Cells 4.09 10^6/uL (4.0-5.20); Red Cell Distribution Width 18.9 % (11.8-14.3); White Blood Cell 16.4 10^3/uL (4.4-10.8)
[2019-11-01 19:08] LABS: Band Neutrophils % (manual) 0; Basophils % (manual) 0 (0.0-2.0); Blast Cells 0; Eosinophils % (manual) 0 (0-7); Metamyelocytes % 0; Monocytes % (manual) 0 (0-12); Myelocytes % 0; Promyelocytes % 0; Reactive Lymphocytes 0
[2019-11-01 19:14] LABS: Albumin 2.9 g/dL (3.4-5.0); BUN/Creatinine Ratio 21.4; Calcium 8.5 mg/dL (8.5-10.1); Potassium 3.6 mmol/L (3.5-5.1)
[2019-11-01 19:17] LABS: Bilirubin, Total 1.2 mg/dL (0.2-1.0); Total Protein 9.5 g/dL (6.4-8.2)
[2019-11-01 20:14] LABS: Lymphocytes % (manual) 4 (10.0-50.0)
[2019-11-01] MEDS ORDERED: LORazepam 2MG/ML-1ML VIAL IV ONE (20:15)
[2019-11-01] MEDS ORDERED: MORPHINE SULF INJ 2 MG/ML SYRINGE 1ML IV ONE (23:30)
[2019-11-02] MEDS ORDERED: MORPHINE SULF INJ 2 MG/ML SYRINGE 1ML IV ONE (01:00)
[2019-11-02] MEDS: SODIUM CHLORIDE 0.9% 1,000 ML IV SCH ×2 (04:34→18:19)
[2019-11-02] MEDS: MORPHINE SULFATE 4 MG/ML SYR/VIAL IV PRN ×3 (05:23→18:19)
--- NOTE | 2019-11-02 08:54 | NUR ---
Patient arrived to the floor. Awake alert and oriented x4. Patient shows no signs of distress at this time.
[2019-11-02 09:10] VITALS: BP 118/81
--- NOTE | 2019-11-02 09:26 | NUR ---
UA sent to lab
--- NOTE | 2019-11-02 09:30 | NUR ---
WOUND CARE NOTE: Attempted to see patient for Rt leg wound. Patient is requesting for pain medication prior checking wound. AMADO Caro made aware and advised to call wound care nurse when patient is medicated for pain.
[2019-11-02 09:31] LABS: Urine Bacteria NONE SEEN /hpf (None Seen); Urine Blood Negative /uL (Negative); Urine Hyaline Cast FEW /lpf (0 - 2); Urine Mucus FEW (None Seen); Urine Specific Gravity 1.025 (1.001-1.035); Urine WBC 31 /hpf (0 - 5)
[2019-11-02 11:03] LABS: INR 1.12 (0.9-1.15); Partial Thromboplastin Time 30.5 sec (23.64-32.05)
--- NOTE | 2019-11-02 12:16 | NUR ---
Nutrition Assessment Notes Please refer to link for full assessment notes. Est Energy needs: 0311-7361 kcals (12-15 kcal/kgBW) Est Protein needs: 114-142 gms/day (2.0-2.5 gm/kgIBW) d/t pt adiposity Will continue to monitor and reassess prn. Addendum: 11/02/19 at [address] Amended: Links added.
--- NOTE | 2019-11-02 12:20 | NUR ---
WOUND CARE NOTE: Wound care in to see patient per wound care request regarding Rt Leg wound. Patient is 44 years old female with admitting diagnosis of Rt Lower extremity Cellulitis. Patient is resting in bed in Rm. 272B. Patient is awake, alert and fully oriented. She's premedicated for pain by her bedside nurse prior wound assessment. She's obese,weighs 350lbs but within weight limit for hospital bed. Patient is self turning and repositioning. Her current Jeison score is 18 . Patient came in with hoe wound vac to Rt lower leg. Patient reported that she had surgery of Rt. leg wound in [place] last April 27, 2019. She added that she's receiving wound care with [facility]. Patient reported that she's sent by Dr. Huddleston here in [facility] and will see her tomorrow. Removed patient's Rt lower leg wound vac dressing. Patient's Rt lower leg open full thickness wound measuring 6x24cm, no measurable depth. Wound bed is red with granulation tissue, any wound is pink, minimal serous drainage noted, no odor noted. Cleansed patient's Rt lower leg wound with NS, took specimen for wound culture and sent to lab for processing. Photograph of patient's Rt leg wound are taken for reference. Fill wound bed with NS moistened gauze, coved with abd pads, and secured with stockinette. Patient tolerated examination well. Patient to be seen by sr account executive and will defer dressing change recommendation to sr account executive. RECOMMENDATION: Nursing to continue with Daily/PRN dressing change to Rt lower leg wound per MD order while patient is not seen by sr account executive, follow sr account executive wound care order, dietary consult due to wounds, redistribute pressure points with wedges/pillows, continue monitoring by wound care while patient is hospitalized. Addendum: 11/02/19 at 1528 by Kaleigh North RN Amended: Links added.
[2019-11-02 13:00] VITALS: BP 121/77
[2019-11-02] MEDS: CLINDAMYCIN 600MG IV 50 ML IV SCH ×2 (14:30→21:40)
[2019-11-02 17:00] VITALS: BP_SYST 115; BP_SYST 121; BP_DIAS 77; BP_DIAS 78
[2019-11-02] MEDS ORDERED: LEVOTHYROXINE SODIUM 112 MCG TAB PO ONE (19:15)
--- NOTE | 2019-11-02 19:30 | NUR ---
Opening Shift Note Assume patient care from Vania FISCHER. Patient resting with eyes closed, AO x4 when asked about name, there was no s/s of distress or SOB. Patient bed locked in lowest position w/ HOB at 30 degrees, and call light within reach. Will continue to monitor.
[2019-11-02 20:00] VITALS: BP 91/61
[2019-11-02] MEDS ORDERED: WARFARIN SODIUM 10 MG TAB PO ONE (21:00)
--- NOTE | 2019-11-02 21:35 | NUR ---
Fever 101.3 Patient w/ a fever of 101.3. Willis hospitalist at this time for medication to reduce fever. Addendum: 11/02/19 at 2237 by SANDY MARIO RN RN Hospitalist gave order for PRN medication for fever at this time. Medication given as prescribed, will continue to monitor fever.
[2019-11-02] MEDS: LINEZOLID 600MG/300ML 300 ML IV SCH (21:40)
[2019-11-02 22:00] VITALS: BP 91/61
[2019-11-02 22:09] VITALS: BP 91/61
[2019-11-02] MEDS ORDERED: ACETAMINOPHEN 325 MG TAB PO PRN (22:30)
--- NOTE | 2019-11-03 | NUR ---
Patient Refused Proper Cooling Measures Patient was educated about taking blankets off and using cool towels and ice to being fever down. Patient said "No I don't want to because I will be cold.... I use blankets to keep me warm when I have fevers at home." Patient temp's slightly down, but will continue to monitor.
[2019-11-03] MEDS: MORPHINE SULFATE 4 MG/ML SYR/VIAL IV PRN ×4 (00:45→20:19)
--- NOTE | 2019-11-03 00:45 | NUR ---
Patient Complains or Right Leg Pain Pain medication given as prescribed for pain. Will continue to monitor.
[2019-11-03 05:48] VITALS: BP 93/53
[2019-11-03] MEDS: CLINDAMYCIN 600MG IV 50 ML IV SCH ×3 (05:58→22:30)
[2019-11-03] MEDS: LEVOTHYROXINE SODIUM 112 MCG TAB PO SCH (05:58)
[2019-11-03 06:28] LABS: Basophils % (auto) 0.5 % (0.0-2.0); Eosinophils # (auto) 0.2 10 ^3/uL (0-0.8); Hemoglobin 9.1 g/dL (12.2-16.2); Monocytes # (auto) 0.3 10 ^3/uL (0-1.3)
[2019-11-03 06:30] LABS: Basophils # (auto) 0.1 10 ^3/uL (0-0.2); Eosinophils % (auto) 2.5 % (0.0-7.0); Hematocrit 28.7 % (36.0-46.0); Lymphocytes # (auto) 0.6 10 ^3/uL (0.4-5.4); Mean Corpuscular Hemoglobin 26.5 pg (28.0-32.0); Mean Corpuscular Hgb Conc. 31.7 g/dL (32.0-36.0); Mean Corpuscular Volume 83.6 fL (80.0-100.0); Monocytes % (auto) 2.8 % (0.0-12.0); Neutrophils # (auto) 8.7 10 ^3/uL (1.6-8.6); Neutrophils % (auto) 88.2 % (37.0-80.0); Platelet Count (auto) 350 10^3/uL (140-450); Red Blood Cells 3.44 10^6/uL (4.0-5.20); Red Cell Distribution Width 18.7 % (11.8-14.3); White Blood Cell 9.9 10^3/uL (4.4-10.8)
[2019-11-03 06:35] LABS: INR 1.13 (0.9-1.15)
[2019-11-03 06:47] LABS: Potassium 3.8 mmol/L (3.5-5.1)
[2019-11-03 06:55] LABS: BUN/Creatinine Ratio 17.4; Calcium 8.2 mg/dL (8.5-10.1)
[2019-11-03 07:16] LABS: % Iron Saturation 9.6 % (15-50)
--- NOTE | 2019-11-03 07:33 | NUR ---
Received patient awake, alert and oriented x4, no SOB, s/s of distress or pain at this time. Plan of care discussed. bed in low and locked position. Encouraged to call for assistance prn. Will continue to monitor q1hr and prn.
--- NOTE | 2019-11-03 09:00 | NUR ---
WOUND CARE NOTE: Spoke with patient's nurse, AMADO Ko. Informed that photo of patient's Rt leg wound and Daily dressing change order placed per MD order while awaiting recommendation from boiler coverer helper. Reminded AMADO Ko to inform wound care of boiler coverer helper's recommendation.
[2019-11-03 09:27] VITALS: BP 79/55
[2019-11-03] MEDS: LINEZOLID 600MG/300ML 300 ML IV SCH ×2 (09:32→22:29)
[2019-11-03] MEDS ORDERED: IRON SUCROSE COMPLEX 200 MG in SODIUM CHL 0.9% 100 ML IV SCH (12:00)
[2019-11-03 14:38] VITALS: BP 108/64
[2019-11-03] MEDS: SODIUM FERR GLUC 125 MG in NS 100 ML IV SCH (16:29)
[2019-11-03 16:54] VITALS: BP 128/82
[2019-11-03] MEDS ORDERED: WARFARIN SODIUM 10 MG TAB PO ONE (17:00)
--- NOTE | 2019-11-03 19:20 | NUR ---
Opening Shift Note Assumed care of patient, awake and alert. No S/S of distress/SOB. Patient c/o of right ankle pain after having her wound dressing change. Reports that her pain is currently 8/10 and requesting medication. Will treat with PRN morphine. Bed is locked in lowest position with call light within reach. Instructed on POC and to call for assist PRN, will continue to monitor for changes Q1hr and PRN.
--- NOTE | 2019-11-03 20:45 | NUR ---
PAIN REASSESSMENT The patient's pain is 0/10. The patient is resting comfortably in bed.
[2019-11-03 22:14] VITALS: BP 104/65
[2019-11-04] MEDS: MORPHINE SULFATE 4 MG/ML SYR/VIAL IV PRN ×4 (02:55→23:00)
--- NOTE | 2019-11-04 02:55 | NUR ---
PAIN ASSESSMENT The patient c/o right ankle pain which she rates as 7/10. Patient is requesting pain medication. Will treat with PRN morphine.
[2019-11-04] MEDS: CLINDAMYCIN 600MG IV 50 ML IV SCH ×2 (06:00→16:30)
[2019-11-04 06:08] VITALS: BP 114/67
[2019-11-04] MEDS: LEVOTHYROXINE SODIUM 112 MCG TAB PO SCH (07:00)
[2019-11-04 07:13] LABS: Calcium 8.1 mg/dL (8.5-10.1); Potassium 3.9 mmol/L (3.5-5.1)
[2019-11-04 07:15] LABS: Basophils # (auto) 0 10 ^3/uL (0-0.2); Basophils % (auto) 0.5 % (0.0-2.0); Eosinophils # (auto) 0.3 10 ^3/uL (0-0.8); Eosinophils % (auto) 6.1 % (0.0-7.0); Hematocrit 36.3 % (36.0-46.0); Hemoglobin 11.5 g/dL (12.2-16.2); Lymphocytes # (auto) 0.8 10 ^3/uL (0.4-5.4); Lymphocytes % (auto) 15.4 % (10.0-50.0); Mean Corpuscular Hemoglobin 25.9 pg (28.0-32.0); Mean Corpuscular Hgb Conc. 31.7 g/dL (32.0-36.0); Mean Corpuscular Volume 81.9 fL (80.0-100.0); Monocytes # (auto) 0.2 10 ^3/uL (0-1.3); Monocytes % (auto) 4.6 % (0.0-12.0); Neutrophils # (auto) 3.7 10 ^3/uL (1.6-8.6); Neutrophils % (auto) 73.4 % (37.0-80.0); Nucleated Red Blood Cells % 0.1 %; Platelet Count (auto) 277 10^3/uL (140-450); Red Blood Cells 4.44 10^6/uL (4.0-5.20); Red Cell Distribution Width 19.2 % (11.8-14.3); White Blood Cell 5.1 10^3/uL (4.4-10.8)
[2019-11-04 07:16] LABS: BUN/Creatinine Ratio 15.4
[2019-11-04 07:18] LABS: INR 1.19 (0.9-1.15); Partial Thromboplastin Time 23.1 sec (23.64-32.05)
[2019-11-04 08:30] VITALS: BP 99/54
[2019-11-04] MEDS: LINEZOLID 600MG/300ML 300 ML IV SCH (09:17)
--- NOTE | 2019-11-04 11:10 | NUR ---
Extension Worker at bedside, assessed patient wound site. Discussed plan for graft with patient.
--- NOTE | 2019-11-04 11:42 | NUR ---
Nutrition Followup Note Wt: 167.5 kg Pt was in pain asked to come later. per pt records pt with sepsis due to cellulitis. pt is currently on cardiac diet with adequate PO of 100% x 3 per RN doc. Est Energy needs: 1423-1204 kcals (12-15 kcal/kgBW), Est Protein needs: 114-142 gms/day (2.0-2.5 gm/kgIBW) d/t pt adiposity. Will continue to monitor and reassess prn. Labs: CA 8.1 L, ALB 2.9 L. BM: Pt has no BM reported per RN doc Skin: BS 15, mod risk, full wound care details in RN doc PES: 1) Increased nutrient needs aeb Pt currently NPO r/t pt with no PO intake 2) Obesity aeb 286% IBW abd BMI of 59.7 kg/m2 r/t energy intake intake in excess of energy needs, hypothyroidism 3) Altered nutrition related lab values hyponatremia, elev RFTs, hyperglycemia, elev Bili, mod hypoalbuminemia r/t current/chronic medical condition Comments Will continue to closely monitor pertinent labs, NPO status and skin status prn. Will followup in 3-5 days 1) Suggest a daily MVI with 500mg VitC BID. 2) Consider Ensure High Protein BID. 3) Continue current plan of care
[2019-11-04] MEDS: SODIUM FERR GLUC 125 MG in NS 100 ML IV SCH (12:00)
[2019-11-04 12:30] VITALS: BP 114/70
[2019-11-04 16:23] VITALS: BP 103/69
[2019-11-04] MEDS ORDERED: WARFARIN SODIUM 2.5 MG TAB PO ONE (17:00)
--- NOTE | 2019-11-04 19:20 | NUR ---
Opening Shift Note Assumed care of patient, awake and alert. No S/S of distress/SOB or pain. Instructed on POC and to call for assist PRN, will continue to monitor for changes Q1hr and PRN.
[2019-11-04 22:00] VITALS: BP 112/72
[2019-11-04] MEDS: MEROPENEM 1GM IVPB 100 ML IV SCH (22:00)
[2019-11-05 05:00] VITALS: BP 109/61
[2019-11-05] MEDS: MORPHINE SULFATE 4 MG/ML SYR/VIAL IV PRN ×3 (05:53→20:38)
[2019-11-05] MEDS: MEROPENEM 1GM IVPB 100 ML IV SCH ×3 (05:54→21:24)
[2019-11-05 06:44] LABS: Basophils # (auto) 0 10 ^3/uL (0-0.2); Eosinophils # (auto) 0.4 10 ^3/uL (0-0.8); Lymphocytes # (auto) 0.7 10 ^3/uL (0.4-5.4); Monocytes # (auto) 0.3 10 ^3/uL (0-1.3); White Blood Cell 4.2 10^3/uL (4.4-10.8)
[2019-11-05 06:46] LABS: Basophils % (auto) 0.9 % (0.0-2.0); Hematocrit 29.7 % (36.0-46.0); Lymphocytes % (auto) 15.8 % (10.0-50.0); Mean Corpuscular Hemoglobin 26.1 pg (28.0-32.0); Mean Corpuscular Hgb Conc. 30.4 g/dL (32.0-36.0); Mean Corpuscular Volume 85.8 fL (80.0-100.0); Monocytes % (auto) 7.1 % (0.0-12.0); Neutrophils # (auto) 2.8 10 ^3/uL (1.6-8.6); Neutrophils % (auto) 66.2 % (37.0-80.0); Nucleated Red Blood Cells % 0.2 %; Platelet Count (auto) 383 10^3/uL (140-450); Red Blood Cells 3.46 10^6/uL (4.0-5.20)
[2019-11-05 06:52] LABS: Albumin 2.2 g/dL (3.4-5.0)
[2019-11-05] MEDS: LEVOTHYROXINE SODIUM 112 MCG TAB PO SCH (07:00)
[2019-11-05 09:00] VITALS: BP 102/59
--- NOTE | 2019-11-05 11:00 | NUR ---
WOUND CARE NOTE: SPOKE WITH DR. MOTA THIS AM. PATIENT WILL BE RECEIVING A SKIN GRAFT TO HER RIGHT ANTERIOR BATISTA STASIS ULCER WITHIN THE NEXT WEEK. DR. MOTA WOULD LIKE TO CONTINUE WITH HER WOUND VAC DRESSING CHANGES UNTIL THEN. APPLIED WOUND VAC DRESSING PER PROTOCOL TO RIGHT ANTERIOR BATISTA WOUND. PATIENT TOLERATED DRESSING CHANGE WELL, NOTING NO PAIN BY THE PATIENT. RECOMMEND: Q 3 DAY/PRN DRESSING CHANGE (WOUND VAC) TO RIGHT LEG WOUND, CONTINUATION WITH ALL WOUND CARE ORDERS PREVIOUSLY PRESCRIBED BY MD. WOUND CARE TEAM WILL CONTINUE TO MONITOR. Addendum: 11/05/19 at 1617 by Bozena Wetzel RN Amended: Links added.
[2019-11-05] MEDS: SODIUM FERR GLUC 125 MG in NS 100 ML IV SCH (12:48)
[2019-11-05 13:00] VITALS: BP 128/82
[2019-11-05 17:00] VITALS: BP 131/64
--- NOTE | 2019-11-05 18:43 | NUR ---
Received call from Lab. No one has been able to draw blood for PT/INR. Coumadin dose can't be given. Page placed to hospitalist on-call, Dr. Lewis.
--- NOTE | 2019-11-05 18:53 | NUR ---
Return call from Dr. Lewis. Order received for Coumadin 5 mg PO now.
--- NOTE | 2019-11-05 19:15 | NUR ---
opening note pt A&Ox4. respirations even and nonlabored. wound vac to the right lower extremity, functioning properly. POC discussed. bed in low locked position, call light within reach.
[2019-11-05] MEDS ORDERED: WARFARIN SODIUM 5 MG TAB PO ONE (20:00)
[2019-11-05 22:00] VITALS: BP 95/68
[2019-11-05 22:24] LABS: INR 1.34 (0.9-1.15)
[2019-11-06] MEDS: MORPHINE SULFATE 4 MG/ML SYR/VIAL IV PRN ×3 (04:24→20:18)
[2019-11-06 05:33] VITALS: BP 98/57
[2019-11-06] MEDS: LEVOTHYROXINE SODIUM 112 MCG TAB PO SCH (06:28)
[2019-11-06] MEDS: MEROPENEM 1GM IVPB 100 ML IV SCH ×3 (06:28→23:03)
--- NOTE | 2019-11-06 07:05 | NUR ---
closing note pt resting in semi fowlers watching tv and using cell phone. no c/o pain or discomfort at this time. endorsed care care to day shift RN Hayley.
--- NOTE | 2019-11-06 07:45 | NUR ---
Patient states midline site is sore. Area puffy and reddened, tender to touch. Midline removed with tip intact. Dressing to site. Charge nurse, Rita delgadillo and states house Tj reyna, is coming in at 08:00 and she will ask him to place another midline. Patient informed.
[2019-11-06 09:00] VITALS: BP 99/63
--- NOTE | 2019-11-06 09:19 | NUR ---
Received call from bethel Spencer. He states he will call the on-call PICC nurse to place a new midline.
--- NOTE | 2019-11-06 10:28 | NUR ---
Midline Placement: Patient educated on need for midline placement. All risks and benefits explained and all questions and concerns addresses prior to procedure. 18g/10cm midline inserted via RIGHT BASILIC vein using Ultrasound. Sterile technique utilized. Blood return obtained from THE lumen and flushed easily with NS using proper technique. Midline secured with saline lock; biodisc and occlusive dressing applied. Primary RN notified. Midline lot # [id number].
--- NOTE | 2019-11-06 10:30 | NUR ---
WOUND CARE NOTE: PATIENT'S VAC DRESSING REMAINS INTACT, GOOD SUCTION, RUNNING AT 125 MM/HG CONTINUOUS TO RIGHT ANTERIOR BATISTA WOUND. PATIENT ABLE TO AMBULATE ABOUT ROOM WITH VAC DRESSING IN PLACE. WOUND CARE TEAM WILL CONTINUE TO MONITOR.
--- NOTE | 2019-11-06 10:34 | NUR ---
Patient C/O pain behind right knee, states she thinks she has a cyst. Dr. Coffey informed and ordered an ultrasound.
[2019-11-06 11:08] LABS: INR 1.35 (0.9-1.15); Partial Thromboplastin Time 37.5 sec (23.64-32.05)
[2019-11-06] MEDS: SODIUM FERR GLUC 125 MG in NS 100 ML IV SCH (12:55)
[2019-11-06 13:00] VITALS: BP 116/78
[2019-11-06 17:00] VITALS: BP 118/89
[2019-11-06] MEDS ORDERED: WARFARIN SODIUM 10 MG TAB PO ONE (17:00)
--- NOTE | 2019-11-06 18:17 | NUR ---
DIRECTOR ZONE states she was preparing the empty bed in the room for an admission and the patient started yelling at her that another patient can't be put in the room. This RN spoke with the patient and explained to her that an admission is coming to the other bed. The patient states that another patient can't be put in the room as she will not get along with her. Patient states she will not turn off her TV at night. Patient informed that the [facility] charge nurse will be informed.
--- NOTE | 2019-11-06 19:25 | NUR ---
opening note pt A&Ox4. wound vac remains in place at right lower extremity. respirations even and nonlabored on room air. POC discussed. pt verbalized understanding. bed in low locked position, call light within reach.
[2019-11-06 22:00] VITALS: BP 110/68
[2019-11-07 05:00] VITALS: BP 122/63
[2019-11-07] MEDS: MEROPENEM 1GM IVPB 100 ML IV SCH ×3 (05:18→21:54)
[2019-11-07] MEDS: MORPHINE SULFATE 4 MG/ML SYR/VIAL IV PRN ×3 (05:29→18:50)
--- NOTE | 2019-11-07 07:16 | NUR ---
Opening Shift Note Assumed care of patient, awake and alert. No S/S of distress/SOB or pain. Instructed on POC and to call for assist PRN, will continue to monitor for changes Q1hr and PRN. bed in low position and call light within reach.
--- NOTE | 2019-11-07 07:18 | NUR ---
closing note pt is awake, watching tv. respirations even and nonlabored on room air. no c/o pain or discomfort at this time. wound vac remains in place, functioning properly. bed in low locked position, call light within reach.
[2019-11-07] MEDS: LEVOTHYROXINE SODIUM 112 MCG TAB PO SCH (07:20)
[2019-11-07 09:00] VITALS: BP 124/62
[2019-11-07 10:22] LABS: INR 1.3 (0.9-1.15); Partial Thromboplastin Time 39.6 sec (23.64-32.05)
--- NOTE | 2019-11-07 11:00 | NUR ---
WOUND CARE NOTE: WOUND VAC DRESSING TO RIGHT ANTERIOR BATISTA REMAINS INTACT, RUNNING AT 125 MM/HG CONTINUOUS. GOOD SUCTION, NO LEAKS DETECTED. WOUND CARE TEAM WILL CONTINUE TO MONITOR.
[2019-11-07] MEDS: SODIUM FERR GLUC 125 MG in NS 100 ML IV SCH (12:31)
[2019-11-07 13:00] VITALS: BP 127/77
--- NOTE | 2019-11-07 15:19 | NUR ---
Nutrition Followup Note Wt: 167.2 kg Pt was alert and oriented at time of rounds. pt reports appetite is good, constipated for 5 days. Pt with adequate intake aeb pt with po intake of 100% x 2 days per Rn note. Est Energy needs: 0861-5387 kcals (12-15 kcal/kgBW), Est Protein needs: 114-142 gms/day (2.0-2.5 gm/kgIBW) d/t pt adiposity. Will continue to monitor and reassess prn. Labs: CA 8.1 L, ALB 2.2 L. BM: Pt has no BM reported per RN doc Skin: BS 18, low risk, full wound care details in RN doc PES: 1) Increased nutrient needs aeb Pt currently NPO r/t pt with no PO intake 2) Obesity aeb 286% IBW abd BMI of 59.7 kg/m2 r/t energy intake intake in excess of energy needs, hypothyroidism 3) Altered nutrition related lab values hyponatremia, elev RFTs, hyperglycemia, elev Bili, mod hypoalbuminemia r/t current/chronic medical condition Comments Will continue to closely monitor pertinent labs, NPO status and skin status prn. Will followup in 3-5 days 1) Suggest a daily MVI with 500mg VitC BID. 2) Consider Ensure High Protein BID. 3) Continue current plan of care
--- NOTE | 2019-11-07 17:00 | NUR ---
Patient stated she could not handle the blood pressure cuff because it was hurting her so she pulled it off and started crying and refused to have it checked again.-[place]
[2019-11-07] MEDS: FERROUS SULFATE 325 MG TAB PO SCH (18:00)
[2019-11-07 22:00] VITALS: BP 110/68
--- NOTE | 2019-11-07 22:51 | NUR ---
REPORT RECEIVED ON PATIENT. 1999. PATIENT SEEN. FEELS WELL. EATING. HAD MORPHINE A LITTLE BEFORE 7PM. WOUND VAC IN PLACE TO RIGHT LOWER EXTREMITY. MONITORING CONTINUES.
--- NOTE | 2019-11-07 22:55 | NUR ---
LEFT UPPER ARM MIDLINE IV ACCESS IN PLACE FOR ANTIBIOTIC INFUSION.
[2019-11-08] MEDS: MORPHINE SULFATE 4 MG/ML SYR/VIAL IV PRN ×4 (02:29→21:32)
--- NOTE | 2019-11-08 02:42 | NUR ---
MEDICATED FOR PAIN.
[2019-11-08] MEDS: MEROPENEM 1GM IVPB 100 ML IV SCH ×3 (05:31→21:32)
[2019-11-08 05:51] VITALS: BP 112/64
[2019-11-08 06:04] LABS: Basophils # (auto) 0.1 10 ^3/uL (0-0.2); Basophils % (auto) 1.3 % (0.0-2.0); Eosinophils # (auto) 0.4 10 ^3/uL (0-0.8); Eosinophils % (auto) 7.7 % (0.0-7.0); Hematocrit 28.8 % (36.0-46.0); Hemoglobin 9.4 g/dL (12.2-16.2); Lymphocytes % (auto) 20.9 % (10.0-50.0); Mean Corpuscular Hemoglobin 27.4 pg (28.0-32.0); Mean Corpuscular Hgb Conc. 32.6 g/dL (32.0-36.0); Monocytes # (auto) 0.5 10 ^3/uL (0-1.3); Monocytes % (auto) 9.9 % (0.0-12.0); Neutrophils # (auto) 2.8 10 ^3/uL (1.6-8.6); Neutrophils % (auto) 60.2 % (37.0-80.0); Nucleated Red Blood Cells % 0.1 %; Platelet Count (auto) 446 10^3/uL (140-450); Red Blood Cells 3.43 10^6/uL (4.0-5.20); White Blood Cell 4.6 10^3/uL (4.4-10.8)
[2019-11-08 06:11] LABS: BUN/Creatinine Ratio 20.3; Calcium 8.3 mg/dL (8.5-10.1); Potassium 4.2 mmol/L (3.5-5.1)
[2019-11-08] MEDS: LEVOTHYROXINE SODIUM 112 MCG TAB PO SCH ×2 (06:36→20:16)
--- NOTE | 2019-11-08 07:18 | NUR ---
WOUND VAC SYSTEM REMAINS INTACT WITH STRAW COLORED DRAINAGE.
[2019-11-08] MEDS: FERROUS SULFATE 325 MG TAB PO SCH ×2 (08:37→17:59)
[2019-11-08 09:00] VITALS: BP 115/63
[2019-11-08 13:00] VITALS: BP 106/57
--- NOTE | 2019-11-08 14:19 | NUR ---
assessment Patient is a 44 year old female who is alert and oriented. Patients cognitive abilities are intact. Prior to admission patient lived home with family and functioned with assistance. Per patient she will return home to her prior living arrangements post discharge and her caregiver will transport her home. Patient informed me she has a fww, wheelchair and a shower chair for home use. Patient informed me she feels safe returning home on discharge. Patient is on service with [facility] [employer]. Patients wound care nurse is on vacation. Patient is requesting another home health agency. Patient used [email or web address] last year. Patient will need home health on discharge. Patient has her own wound vac. I informed patient she has a right to speak to a social media senior associate regarding all care. I informed patient she has a right to participate in any and all discharge planning. Patient does not have a POA and advanced directive. I have offered patient information on POA and advanced directives. I informed the patient the advantages and benefits of having an Advanced Directive. Patient verbalized understanding and agreed to discharge plan. Addendum: 11/08/19 at 1426 by Eileen NUNO Amended: Links added.
--- NOTE | 2019-11-08 14:20 | NUR ---
Patient in shower
--- NOTE | 2019-11-08 15:24 | NUR ---
Late antibiotic administration 1400 scheduled antibiotic held do to patient being in the shower. Antibiotic given at this time.
--- NOTE | 2019-11-08 15:30 | NUR ---
paged Dr. Huddleston paged regarding patient having concerns about possible surgery tomorrow and stating she needs to speak with MD regarding what kind of procedure is going to be performed. Patient informed about surgery by Dr. Macias. No orders to obtain consents on file. Awaiting call back.
--- NOTE | 2019-11-08 16:25 | NUR ---
WOUND CARE NOTE: Wound care in to see patient to change Rt. lower leg wound vac dressing. Patient continue resting in bed in Rm. 272B. Patient is awake, alert and fully oriented. She's premedicated for pain by her bedside nurse prior dressing change. Patient is ambulatory and self turning and repositioning. Removed patient's Rt lower leg wound vac dressing. Patient's Rt. leg wound measuring 5.5x25cm. Wound bed is red with granulation tissue, any wound is pink, minimal serous drainage noted, no odor noted. Vacutainer noted with 200 mL clear serous drainage. Cleansed patient's Rt lower leg wound with NS, patted dry with gauze, new photograph taken for reference.Applied sure prep skin protectant to any wound. Fill wound bed with two pieces small black GranuFoam, secured with transparent drape and applied trac pad. Connected tubing and run wound vac at 125 mmHg continuos as ordered. Good suction and seal noted,no leak detected. Patient tolerated examination well. RECOMMENDATION:Continuation of all wound care orders prescribed by MD, continue with skin/wound plan of care, continue monitoring by wound care while patient is hospitalized. Addendum: 11/08/19 at 1830 by Kaleigh North RN Amended: Links added.
[2019-11-08 17:00] VITALS: BP 102/55
[2019-11-08 22:08] VITALS: BP 126/54
[2019-11-09] MEDS: MORPHINE SULFATE 4 MG/ML SYR/VIAL IV PRN ×2 (04:15→20:14)
[2019-11-09 05:00] VITALS: BP 107/58
[2019-11-09] MEDS: MEROPENEM 1GM IVPB 100 ML IV SCH ×3 (05:45→22:20)
--- NOTE | 2019-11-09 07:30 | NUR ---
Opening Shift Note Assumed care of patient, awake and alert. No S/S of distress/SOB or pain. Instructed on POC and to call for assist PRN, will continue to monitor for changes Q1hr and PRN. Bed is locked and lowest position. Call light within reach.
[2019-11-09 08:00] VITALS: BP 115/65
[2019-11-09] MEDS: FERROUS SULFATE 325 MG TAB PO SCH ×2 (08:00→18:06)
[2019-11-09 10:00] VITALS: BP 115/65
--- NOTE | 2019-11-09 10:43 | NUR ---
OR PATIENT TRANSPORTED TO OR FOR ALLOGRAFT PROCEDURE WITH DR. MOTA. PATIENT WAS TRANSPORTED WITH CONSENTS AND PRE-OP CHECKLIST TO BE SIGNED ONCE IN OR. DR. MOTA WILL SPEAK TO PATIENT FIRST BEFORE CONSENTS SIGNED. PATIENT TOLERATED TRANSPORT NO SIGNS OF SOB OR DISTRESS.
[2019-11-09] MEDS ORDERED: CLINDAMYCIN 600MG IV 50 ML IV ONE (10:53)
[2019-11-09] MEDS ORDERED: MIDAZOLAM HCL 1MG/1ML-2 ML VIAL ONE (10:59)
[2019-11-09] MEDS ORDERED: fentaNYL CITRATE 100 MCG/2 ML VL ONE (10:59)
[2019-11-09] MEDS ORDERED: KETAMINE HCL 10 ML ONE (11:24)
[2019-11-09] MEDS ORDERED: DexAMETHasone SOD PHOS 10MG/1ML VIAL INJ ONE (11:24)
[2019-11-09] MEDS ORDERED: PROPOFOL 10 MG/ML 20 ML IV ONE (11:24)
[2019-11-09] MEDS ORDERED: MORPHINE SULF INJ 2 MG/ML SYRINGE 1ML IV ONE ×2 (11:45→13:00)
[2019-11-09] MEDS ORDERED: MORPHINE SULFATE 4 MG/ML SYR/VIAL ONE (11:51)
--- NOTE | 2019-11-09 11:55 | NUR ---
BACK FROM OR PATIENT ARRIVED TO FLOOR IN PAIN. PATIENT GIVEN MORPHINE 2 MG BY OR NURSE @1155. PATIENT REQUESTED MORE PAIN MEDS DUE TO INTENSE PAIN IN RIGHT LOWER EXTREMITY. DR. TATO HEREDIA GAVE A ONE TIME ORDER FOR MORPHINE 2 MG IV. TELEPHONE ORDER INPUT AND GIVEN TO PATIENT @8888.WILL CONTINUE TO MONITOR PATIENT.
[2019-11-09 17:00] VITALS: BP 125/81
[2019-11-09 21:41] VITALS: BP 131/77
[2019-11-10] MEDS: MORPHINE SULFATE 4 MG/ML SYR/VIAL IV PRN ×2 (02:57→09:55)
[2019-11-10 05:18] VITALS: BP 127/65
[2019-11-10] MEDS: MEROPENEM 1GM IVPB 100 ML IV SCH ×3 (06:01→21:39)
[2019-11-10] MEDS: LEVOTHYROXINE SODIUM 112 MCG TAB PO SCH (06:02)
--- NOTE | 2019-11-10 07:30 | NUR ---
Opening Shift Note Assumed care of patient, awake and alert. No S/S of distress/SOB or pain. Instructed on POC and to call for assist PRN, will continue to monitor for changes Q1hr and PRN. Bed is locked and in lowest position. Call light within reach.
[2019-11-10 08:00] VITALS: BP 127/54
[2019-11-10 09:00] VITALS: BP 127/54
[2019-11-10] MEDS: FERROUS SULFATE 325 MG TAB PO SCH ×2 (09:54→18:00)
--- NOTE | 2019-11-10 11:00 | NUR ---
DR. SVETLANA MOTA INFORMED PATIENT IS REQUESTING MORPHINE Q6HPRN FOR PAIN. WELL PATIENT IS STATING THROBBING AND PULLING PAIN WHEN SHE GETS UP TO USE THE COMMODE. DR. MOTA STATED TO D/C MORPHINE Q6HPRN AND PUT IN AN ORDER FOR NORCO 10/325 MG [address] MOTA WELL STATED PATIENT DOES NOT HAVE ANY WEIGHT RESTRICTIONS ON RIGHT LEG. ORDERS WILL BE CARRIED OUT.
--- NOTE | 2019-11-10 12:15 | NUR ---
Nutrition Followup Note Wt: 167.2 kg Pt was alert and oriented at time of rounds. pt reports appetite is good, constipation resolved, pt reports last BM 11/08, RN note also reports last BM 11/08. Pt with adequate intake aeb pt with po intake of 100% x entire hospital stay when not NPO per Rn note. Est Energy needs: 6586-8988 kcals (12-15 kcal/kgBW), Est Protein needs: 114-142 gms/day (2.0-2.5 gm/kgIBW) d/t pt adiposity. Will continue to monitor and reassess prn. Labs: CA 8.3 L, ALB 2.2 L. BM: Pt had BM 1 11/08 Skin: BS 18, low risk, full wound care details in RN doc PES: 1) Increased nutrient needs aeb Pt currently NPO r/t pt with no PO intake 2) Obesity aeb 286% IBW abd BMI of 59.7 kg/m2 r/t energy intake intake in excess of energy needs, hypothyroidism 3) Altered nutrition related lab values hyponatremia, elev RFTs, hyperglycemia, elev Bili, mod hypoalbuminemia r/t current/chronic medical condition Comments Will continue to closely monitor pertinent labs, NPO status and skin status prn. Will followup in 3-5 days 1) Suggest a daily MVI with 500mg VitC BID. 2) Consider Ensure High Protein BID. 3) Continue current plan of care
--- NOTE | 2019-11-10 12:58 | NUR ---
ROUNDS Dr Macias at bedside for rounds, new orders received and followed through. Patient updated on plan of care, verbalized understanding.
[2019-11-10 13:00] VITALS: BP 114/78
--- NOTE | 2019-11-10 14:00 | NUR ---
PAIN MEDS AND PT REFUSAL PT CONSULT AT BEDSIDE AND PATIENT REFUSED X3 DUE TO PAIN. PATIENT REFUSED PO NORCO FOR PAIN X3. PATIENT IS UPSET OF D/C ORDER OF MORPHINE, STATED SHE WILL BE IN PAIN. PATIENT STATED NORCO DOES NOT HELP ALLEVIATE PAIN AND MAKES HER NAUSEATED. PATIENT REFUSED MEDICATION TO HELP WITH NAUSEA. WILL CONTINUE TO MONITOR PATIENT.
--- NOTE | 2019-11-10 14:30 | NUR ---
Attempted PT eval. Pt states she does not want to get up because it will cause pain and she is no longer receiving IV pain medications. I educated patient on use of FWW to help with partial offloading of RLE to improve pain and tolerance to functional activity. Pt continued to refuse ambulation, sit to stand at EOB, or sitting EOB. Pt was educated on importance of getting up prior to discharge from the hospital home, she stated, "They can just throw me in a wheelchair, take me downstairs, and throw me in the car." I asked pt how she would get around her house since she reported extreme difficulty transferred to commode at bedside and she stated, "I have a walker, I'll make it work." Pt continued to refuse PT, she was instructed to let RN know if she wanted to participate in functional mobility training so the RN could page me. Will attempt again tomorrow if pt has not been discharged.
[2019-11-10 16:39] LABS: INR 1.18 (0.9-1.15)
[2019-11-10 16:44] VITALS: BP 125/71
[2019-11-10] MEDS ORDERED: WARFARIN SODIUM 10 MG TAB PO ONE (17:00)
[2019-11-10] MEDS: HYDROcodone-ACET 10/325MG TAB PO PRN ×2 (18:13→23:39)
[2019-11-10 22:00] VITALS: BP 124/69
--- NOTE | 2019-11-10 23:45 | NUR ---
PATIENT C/O 01/04 LLE REQUESTING PAIN MEDICATION. INFORMED PATIENT WAS GIVEN WAS GIVEN PAIN MEDICAITON @ 7980 AND IS NOT DUE YET UNTIL 0500
--- NOTE | 2019-11-11 03:42 | NUR ---
RLE PAIN PATIENT C/O 01/04 RLE PAIN S/P APPLICATION OF ALLOGRAFT TO RLE NONHEALING WOUND PLACED 11/09/19. PATIENT REQUESTING PAIN MEDICATION. INFORMED PATIENT WAS GIVEN LAST GMG @0891 AND NOT DUE YET. PAGED HOSPITALIST FOR ORDERS.
[2019-11-11] MEDS: MEROPENEM 1GM IVPB 100 ML IV SCH ×2 (04:57→13:35)
[2019-11-11] MEDS: LEVOTHYROXINE SODIUM 112 MCG TAB PO SCH (04:58)
[2019-11-11] MEDS: HYDROcodone-ACET 10/325MG TAB PO PRN ×3 (04:58→17:24)
[2019-11-11 05:00] VITALS: BP 112/78
[2019-11-11 06:40] LABS: INR 1.16 (0.9-1.15); Partial Thromboplastin Time 27.4 sec (23.64-32.05)
--- NOTE | 2019-11-11 07:30 | NUR ---
Opening Shift Note Assumed care of patient, resting comfortably. No S/S of distress/SOB or pain on room air. Instructed on POC and to call for assist PRN, will continue to monitor for changes Q1hr and PRN. Bed in low and locked position, rails up x2, no-slip socks on.
--- NOTE | 2019-11-11 08:02 | NUR ---
REPORT RECEIVED from AMADO Sharma. Assumed care of patient, she is resting comfortably, no signs of distress noted, respirations are even and unlabored. Bed is locked, in the lowest position, side rails up x2 and call light is in reach.
[2019-11-11] MEDS: FERROUS SULFATE 325 MG TAB PO SCH ×2 (08:43→17:24)
[2019-11-11 09:00] VITALS: BP 120/73
[2019-11-11 13:01] VITALS: BP 129/89
[2019-11-11 16:37] VITALS: BP 126/74
--- NOTE | 2019-11-11 16:42 | NUR ---
D/C planning regarding social service consult for home health and walker with seat. Faxed clinical information to [facility] as requested by patient and [facility] to deliver walker with seat to home. Per Marley with [facility] they will service patient within 24-48hrs upon d/c day. [facility] home.
[2019-11-11] MEDS ORDERED: WARFARIN SODIUM 2.5 MG TAB PO ONE (17:00)
[2019-11-11] MEDS ORDERED: WARFARIN SODIUM 10 MG TAB PO ONE (17:00)
--- NOTE | 2019-11-11 17:20 | NUR ---
PATIENT PULLED OUT MIDLINE Patient complained of it leaking, left to get dressing change kit and patient pulled out midline, pressure dressing applied. Patient refusing new IV placement.
--- NOTE | 2019-11-11 19:10 | NUR ---
Patient is AOx4 and on room air. Currently relaxing in bed not complaining of any distress or pain. She is still refusing insertion of new IV. Will continue to monitor.
[2019-11-11 22:26] VITALS: BP 132/92
--- NOTE | 2019-11-11 22:30 | NUR ---
Patient removed bandaging to right gale. Kerlix and 4x4 gauze was found on floor. Shiva are still intact. Rewrapped with 4x4 gauze, kerlix and taped.
[2019-11-12] MEDS: HYDROcodone-ACET 10/325MG TAB PO PRN ×2 (02:47→08:51)
[2019-11-12 05:00] VITALS: BP 115/73
[2019-11-12 05:27] LABS: Basophils # (auto) 0 10 ^3/uL (0-0.2); Basophils % (auto) 0.9 % (0.0-2.0); Hemoglobin 9.9 g/dL (12.2-16.2); Lymphocytes # (auto) 1.2 10 ^3/uL (0.4-5.4); Monocytes # (auto) 0.4 10 ^3/uL (0-1.3); Nucleated Red Blood Cells % 0.1 %; White Blood Cell 4.6 10^3/uL (4.4-10.8)
[2019-11-12 05:30] LABS: Eosinophils # (auto) 0.3 10 ^3/uL (0-0.8); Eosinophils % (auto) 5.7 % (0.0-7.0); Hematocrit 31.3 % (36.0-46.0); Lymphocytes % (auto) 26.6 % (10.0-50.0); Mean Corpuscular Hemoglobin 26.5 pg (28.0-32.0); Mean Corpuscular Hgb Conc. 31.6 g/dL (32.0-36.0); Mean Corpuscular Volume 83.8 fL (80.0-100.0); Neutrophils # (auto) 2.6 10 ^3/uL (1.6-8.6); Neutrophils % (auto) 57.8 % (37.0-80.0); Platelet Count (auto) 473 10^3/uL (140-450); Red Blood Cells 3.73 10^6/uL (4.0-5.20); Red Cell Distribution Width 18.6 % (11.8-14.3)
[2019-11-12] MEDS: LEVOTHYROXINE SODIUM 112 MCG TAB PO SCH (06:55)
[2019-11-12 07:14] LABS: INR 1.23 (0.9-1.15); Partial Thromboplastin Time 28.8 sec (23.64-32.05)
--- NOTE | 2019-11-12 07:30 | NUR ---
Opening Shift Note Assumed care of patient, awake and alert. No S/S of distress/SOB or pain. Instructed on POC and to call for assist PRN, will continue to monitor for changes Q1hr and PRN. Patient has dressing to right lower leg.
[2019-11-12] MEDS: FERROUS SULFATE 325 MG TAB PO SCH (07:50)
[2019-11-12 09:00] VITALS: BP 110/67
[2019-11-12 13:00] VITALS: BP 131/73
[2019-11-12] MEDS ORDERED: LINEZOLID 600MG TABLET PO SCH (13:45)
[2019-11-12] MEDS ORDERED: AMOX500T86 PO (13:48)
[2019-11-12] MEDS ORDERED: FER325T PO (13:48)
--- NOTE | 2019-11-12 14:00 | NUR ---
Dr. Garcia in to see patient as hospitalist.
[2019-11-12 14:13] VITALS: BP 131/73
--- NOTE | 2019-11-12 16:00 | NUR ---
Per case management notes, wheelchair to be delivered to the house. Patient aware.
--- NOTE | 2019-11-12 16:06 | NUR ---
Discharge instructions given as ordered. Encourage to follow up with PMD as instructed. All questions and concerns addressed. Patient verbalized understanding. Medication reconciliation form completed and copy given to patient. IV removed with catheter intact, pressure dressing applied. Patient taken to vehicle via wheelchair with all personal belongings, accompanied by staff and family member. No distress noted at time of departure. Dressing to RLE changed per patient's request.
[2019-11-12] MEDS ORDERED: WARFARIN SODIUM 2.5 MG TAB PO ONE (17:00)
--- NOTE | 2019-11-14 12:33 | NUR ---
No call or page received on order for home transportation.
[2019-12-22] MEDS ORDERED: WARF10TA20 PO (15:27)
== END 2019-11-12 16:15 | disposition home health service (06) | DRG 854 ==
LOC: ER 17:42 → OVERFLOW 17:43 → WEST WING 11-02 09:21
PROVIDERS: ADMIT Nurse Practitioner; ATTEND Internal Medicine Nephrology
PROC: 0HRMXK3 Replacement of Right Foot Skin with Nonautologous Tissue Substitute, Full Thickness, External Approach (ICD-10-PCS; principal; 2019-11-09 11:15)
DX: A41.9 Sepsis, unspecified organism (principal); L97.919 Non-pressure chronic ulcer of unspecified part of right lower leg with unspecified severity; L03.115 Cellulitis of right lower limb; Z68.44 Body mass index [BMI] 60.0-69.9, adult; E66.01 Morbid (severe) obesity due to excess calories; N18.3 Chronic kidney disease, stage 3 (moderate); D63.8 Anemia in other chronic diseases classified elsewhere; E03.9 Hypothyroidism, unspecified; E11.22 Type 2 diabetes mellitus with diabetic chronic kidney disease; E78.5 Hyperlipidemia, unspecified; I12.9 Hypertensive chronic kidney disease with stage 1 through stage 4 chronic kidney disease, or unspecified chronic kidney disease; J44.9 Chronic obstructive pulmonary disease, unspecified; F32.9 Major depressive disorder, single episode, unspecified; F41.9 Anxiety disorder, unspecified; K21.9 Gastro-esophageal reflux disease without esophagitis; B96.5 Pseudomonas (aeruginosa) (mallei) (pseudomallei) as the cause of diseases classified elsewhere; B95.2 Enterococcus as the cause of diseases classified elsewhere; D50.9 Iron deficiency anemia, unspecified; Z79.01 Long term (current) use of anticoagulants; Z80.0 Family history of malignant neoplasm of digestive organs; Z81.8 Family history of other mental and behavioral disorders; Z82.3 Family history of stroke; Z82.49 Family history of ischemic heart disease and other diseases of the circulatory system; Z82.5 Family history of asthma and other chronic lower respiratory diseases; Z82.62 Family history of osteoporosis; Z83.3 Family history of diabetes mellitus; Z86.718 Personal history of other venous thrombosis and embolism; Z87.442 Personal history of urinary calculi; Z88.8 Allergy status to other drugs, medicaments and biological substances; Z81.1 Family history of alcohol abuse and dependence; Z82.61 Family history of arthritis; Z20.828 Contact with and (suspected) exposure to other viral communicable diseases; Z88.3 Allergy status to other anti-infective agents
CPT/HCPCS: 36415; 71045; 73700; 76881; 80048; 80053; 81001; 82040; 82565; 83540; 83550; 83605; 84702; 85007; 85025; 85027; 85610; 85730; 87040; 87077; 87086; 87186; 87205; 93970; 96365; 96366; 96375; 96376; G0378; J1100; J1756; J2185; J2250; J2704; J3490

== ENCOUNTER → 2019-12-28 | Day surgery (SDC) | payer MEDICARE, MEDICAID ==
[2019-12-22 13:02] LABS: Basophils # (auto) 0 10 ^3/uL (0-0.2); Eosinophils # (auto) 0.3 10 ^3/uL (0-0.8); Mean Corpuscular Hemoglobin 26.7 pg (28.0-32.0); Mean Corpuscular Hgb Conc. 31.5 g/dL (32.0-36.0); Monocytes # (auto) 0.4 10 ^3/uL (0-1.3); Nucleated Red Blood Cells % 0.1 %
[2019-12-22 13:04] LABS: Basophils % (auto) 0.6 % (0.0-2.0); Eosinophils % (auto) 4.9 % (0.0-7.0); Hematocrit 35.7 % (36.0-46.0); Hemoglobin 11.2 g/dL (12.2-16.2); Lymphocytes % (auto) 20.1 % (10.0-50.0); Mean Corpuscular Volume 84.8 fL (80.0-100.0); Monocytes % (auto) 7.3 % (0.0-12.0); Neutrophils # (auto) 3.4 10 ^3/uL (1.6-8.6); Neutrophils % (auto) 67.1 % (37.0-80.0); Platelet Count (auto) 399 10^3/uL (140-450); Red Blood Cells 4.21 10^6/uL (4.0-5.20); Red Cell Distribution Width 18.5 % (11.8-14.3); White Blood Cell 5.1 10^3/uL (4.4-10.8)
[2019-12-22 13:05] LABS: Urine Bacteria NONE SEEN /hpf (None Seen); Urine Blood Negative /uL (Negative); Urine Mucus FEW (None Seen); Urine Specific Gravity 1.022 (1.001-1.035); Urine WBC 38 /hpf (0 - 5)
[2019-12-22 13:19] LABS: BUN/Creatinine Ratio 22.7; Calcium 7.5 mg/dL (8.5-10.1); Potassium 4.4 mmol/L (3.5-5.1)
[2019-12-22 13:21] LABS: Bilirubin, Total 0.5 mg/dL (0.2-1.0); INR 1.05 (0.9-1.15); Partial Thromboplastin Time 28.9 sec (23.0-31.2); Total Protein 9.3 g/dL (6.4-8.2)
[~2019-12-28] VITALS: Ht 162.6 cm; Wt 154.7 kg
[~2019-12-28] MED LIST changes: +ACCU-CHEK COMFORT CURVE STRIP VI ONE; +CLINDAMYCIN 600MG IV 50 ML IV ONE; +FER325T PO; -FURO1TAB31 PO; -HYDR-4833 PO; +HYDROmorphone HCL 2 MG/ML VL IV PRN; -LEV25T PO; -LINE1TAB5 PO; -MAGN400T21 PO; -METO25TA5 PO; +METOCLOPRAMIDE HCL 5MG/ml INJ 2ml VIAL IV PRN; -METR500T14 PO; -MID10T PO; +MIDAZOLAM HCL 1MG/1ML-2 ML VIAL ONE; +MORPHINE SULFATE 4 MG/ML SYR/VIAL IV PRN; +ONDANSETRON HCL 4 MG/2 ML VIAL ONE; -POTA-220 PO; +PROPOFOL 10 MG/ML 20 ML IV ONE; +ROPIVACAINE 0.5% (5MG/ML) 20ML AMPULE IJ ONE; +SODIUM CHLORIDE LOCK 10 ML ONE; +WARF10TA20 PO; +fentaNYL CITRATE 100 MCG/2 ML VL ONE
[2019-12-28 10:55] VITALS: BP 122/69
== END | disposition home or self-care (01) ==
LOC: SUR 06:08
PROVIDERS: ATTEND Podiatrist Foot & Ankle Surgery
DX: E11.622 Type 2 diabetes mellitus with other skin ulcer (principal); L89.893 Pressure ulcer of other site, stage 3; J44.9 Chronic obstructive pulmonary disease, unspecified; E11.22 Type 2 diabetes mellitus with diabetic chronic kidney disease; N18.3 Chronic kidney disease, stage 3 (moderate); E07.9 Disorder of thyroid, unspecified; D64.9 Anemia, unspecified; F32.9 Major depressive disorder, single episode, unspecified; F17.210 Nicotine dependence, cigarettes, uncomplicated; E66.01 Morbid (severe) obesity due to excess calories; I20.9 Angina pectoris, unspecified; I50.9 Heart failure, unspecified; F41.9 Anxiety disorder, unspecified; Z86.718 Personal history of other venous thrombosis and embolism; Z79.899 Other long term (current) drug therapy; Z98.890 Other specified postprocedural states; Z68.43 Body mass index [BMI] 50.0-59.9, adult; Z88.0 Allergy status to penicillin; Z88.1 Allergy status to other antibiotic agents; Z88.8 Allergy status to other drugs, medicaments and biological substances; Z20.828 Contact with and (suspected) exposure to other viral communicable diseases
CPT/HCPCS: 15004; 15275; 15276; 36415; 80053; 81001; 84702; 85025; 85610; 85730; C1887; J2250; J2405; J2704; J3010; J3490; Q4126; U0003

== ENCOUNTER 2021-06-12 03:42 | Emergency (ER) | payer MEDICARE, MEDICAID ==
[~2021-06-12] VITALS: Ht 165.1 cm; Wt 136.1 kg
[~2021-06-12 03:42] MED LIST changes: -ACCU-CHEK COMFORT CURVE STRIP VI ONE; -CLINDAMYCIN 600MG IV 50 ML IV ONE; +DOCU100C10 PO; -DOCU100C8 PO; -HYDROmorphone HCL 2 MG/ML VL IV PRN; -METOCLOPRAMIDE HCL 5MG/ml INJ 2ml VIAL IV PRN; -MIDAZOLAM HCL 1MG/1ML-2 ML VIAL ONE; -MORPHINE SULFATE 4 MG/ML SYR/VIAL IV PRN; -ONDANSETRON HCL 4 MG/2 ML VIAL ONE; -PROPOFOL 10 MG/ML 20 ML IV ONE; -ROPIVACAINE 0.5% (5MG/ML) 20ML AMPULE IJ ONE; -SODIUM CHLORIDE LOCK 10 ML ONE; -fentaNYL CITRATE 100 MCG/2 ML VL ONE
[2021-06-12 06:38] LABS: Basophils # (auto) 0 10 ^3/uL (0-0.2); Basophils % (auto) 0.4 % (0.0-2.0); Eosinophils # (auto) 0.1 10 ^3/uL (0-0.8); Eosinophils % (auto) 1.6 % (0.0-7.0); Hemoglobin 11.4 g/dL (12.2-16.2); Lymphocytes # (auto) 0.6 10 ^3/uL (0.4-5.4); Lymphocytes % (auto) 19.7 % (10.0-50.0); Mean Corpuscular Hemoglobin 27.1 pg (28.0-32.0); Mean Corpuscular Hgb Conc. 31.6 g/dL (32.0-36.0); Mean Corpuscular Volume 85.9 fL (80.0-100.0); Monocytes # (auto) 0.5 10 ^3/uL (0-1.3); Neutrophils # (auto) 2.1 10 ^3/uL (1.6-8.6); Neutrophils % (auto) 64.3 % (37.0-80.0); Nucleated Red Blood Cells % 0.1 %; Red Blood Cells 4.19 10^6/uL (4.0-5.20); Red Cell Distribution Width 16.9 % (11.8-14.3); White Blood Cell 3.2 10^3/uL (4.4-10.8)
[2021-06-12 06:49] LABS: Albumin 2.5 g/dL (3.4-5.0)
[2021-06-12 06:59] LABS: Bilirubin, Total 0.6 mg/dL (0.2-1.0); Total Protein 7.7 g/dL (6.4-8.2)
[2021-06-12] MEDS ORDERED: SODIUM CHLORIDE 0.9% 1,000 ML IV ONE (07:15)
[2021-06-12] MEDS ORDERED: IOHEXOL 350 MG/ML 100ML IJ ONE (09:36)
[2021-06-12] MEDS: MAGNESIUM SULFATE 1GM/100ML 100 ML IV SCH ×2 (09:46→10:58)
[2021-06-12] MEDS ORDERED: ACETAMINOPHEN 325 MG TAB PO ONE (11:30)
[2021-06-12] MEDS ORDERED: CATHFLO ACTIVASE (ALTEPLASE) 2 MG VIAL IV ONE (11:30)
[2021-06-12 12:41] VITALS: BP 125/80
== END 2021-06-12 12:43 | disposition home or self-care (01) ==
LOC: EDUNIT# 03:42 → EDBD 03:42 → ER 03:42
DX: U07.1 COVID-19 (principal); F41.8 Other specified anxiety disorders; I89.0 Lymphedema, not elsewhere classified; E83.42 Hypomagnesemia; R74.8 Abnormal levels of other serum enzymes; R79.1 Abnormal coagulation profile; T82.898A Other specified complication of vascular prosthetic devices, implants and grafts, initial encounter; E46 Unspecified protein-calorie malnutrition; E66.01 Morbid (severe) obesity due to excess calories; I12.9 Hypertensive chronic kidney disease with stage 1 through stage 4 chronic kidney disease, or unspecified chronic kidney disease; E11.22 Type 2 diabetes mellitus with diabetic chronic kidney disease; N18.9 Chronic kidney disease, unspecified; J44.9 Chronic obstructive pulmonary disease, unspecified; K21.9 Gastro-esophageal reflux disease without esophagitis; E78.5 Hyperlipidemia, unspecified; E03.9 Hypothyroidism, unspecified; Z68.42 Body mass index [BMI] 45.0-49.9, adult; Z48.89 Encounter for other specified surgical aftercare; Z86.2 Personal history of diseases of the blood and blood-forming organs and certain disorders involving the immune mechanism; Z90.49 Acquired absence of other specified parts of digestive tract; Z79.01 Long term (current) use of anticoagulants; Z79.899 Other long term (current) drug therapy; Z88.0 Allergy status to penicillin; Z88.1 Allergy status to other antibiotic agents; Z88.8 Allergy status to other drugs, medicaments and biological substances
CPT/HCPCS: 36415; 71045; 80053; 83735; 83880; 84443; 84484; 85025; 85379; 87426; 93005; 96361; 96365; 96366; 99285; J3475; J7030; Q9967

== ENCOUNTER 2022-01-05 15:37 | Inpatient (IN) | payer MEDICARE, MEDICAID ==
[~2022-01-05] VITALS: Ht 162.6 cm; Wt 159.0 kg
[2022-01-05 17:39] LABS: INR 1.04 (0.9-1.15)
[2022-01-05] MEDS ORDERED: MORPHINE SULFATE INJ 2 MG/ml SYRG IV PRN (19:15)
[2022-01-05] MEDS ORDERED: HYDROcodone-ACET 10/325MG TAB PO PRN (19:15)
[2022-01-05] MEDS ORDERED: NITROGLYCERIN 0.4 MG SL TAB SL PRN (19:15)
[2022-01-05] MEDS ORDERED: DOCUSATE SOD 100 MG CAP PO PRN (19:15)
[2022-01-05] MEDS ORDERED: HEPARIN DRIP/D5W 100UNITS/ML 250 ML IV SCH (19:15)
[2022-01-05 19:54] LABS: Basophils # (auto) 0 10 ^3/uL (0-0.2); Eosinophils # (auto) 0.2 10 ^3/uL (0-0.8); Hemoglobin 12.3 g/dL (12.2-16.2); Monocytes # (auto) 0.8 10 ^3/uL (0-1.3); Red Blood Cells 4.69 10^6/uL (4.0-5.20)
[2022-01-05 19:57] LABS: Basophils % (auto) 0.5 % (0.0-2.0); Eosinophils % (auto) 2.3 % (0.0-7.0); Hematocrit 39.2 % (36.0-46.0); Lymphocytes # (auto) 1.3 10 ^3/uL (0.4-5.4); Lymphocytes % (auto) 14.7 % (10.0-50.0); Mean Corpuscular Hemoglobin 26.1 pg (28.0-32.0); Mean Corpuscular Hgb Conc. 31.3 g/dL (32.0-36.0); Mean Corpuscular Volume 83.5 fL (80.0-100.0); Monocytes % (auto) 9.9 % (0.0-12.0); Neutrophils # (auto) 6.2 10 ^3/uL (1.6-8.6); Neutrophils % (auto) 72.6 % (37.0-80.0); Nucleated Red Blood Cells % 0.8 %; Red Cell Distribution Width 15.4 % (11.8-14.3); White Blood Cell 8.5 10^3/uL (4.4-10.8)
[2022-01-05 20:11] LABS: Anion Gap 9 (5-15); BUN/Creatinine Ratio 24.7; Blood Urea Nitrogen 18 mg/dL (7-18); Calcium 8.7 mg/dL (8.5-10.1); Carbon Dioxide 19 mmol/L (21-32); Chloride 108 mmol/L (98-107); GFR African American 111 mL/min; GFR Non-African American 92 mL/min; Glucose 93 mg/dL (74-106); Sodium 136 mmol/L (136-145)
[2022-01-05 21:30] VITALS: BP 120/88
[2022-01-05] MEDS ORDERED: SACUBITRIL-VALSARTAN 24mg/26mg TAB PO SCH (22:00)
[2022-01-05] MEDS: HYDROmorphone HCL 2 MG/ML VL/or syr IV PRN (22:01)
[2022-01-06 01:12] LABS: INR 1.05 (0.9-1.15); Partial Thromboplastin Time 27.8 sec (24.6-33.4)
[2022-01-06] MEDS: HYDROmorphone HCL 2 MG/ML VL/or syr IV PRN ×4 (02:08→19:46)
[2022-01-06 05:31] VITALS: BP 109/54
[2022-01-06 06:15] LABS: Basophils # (auto) 0 10 ^3/uL (0-0.2); Eosinophils # (auto) 0.2 10 ^3/uL (0-0.8); Mean Corpuscular Volume 82.7 fL (80.0-100.0); Monocytes # (auto) 0.5 10 ^3/uL (0-1.3); Nucleated Red Blood Cells % 0.1 %; White Blood Cell 4.7 10^3/uL (4.4-10.8)
[2022-01-06 06:17] LABS: Basophils % (auto) 0.8 % (0.0-2.0); Hematocrit 29.1 % (36.0-46.0); Hemoglobin 9.3 g/dL (12.2-16.2); Lymphocytes % (auto) 20.6 % (10.0-50.0); Mean Corpuscular Hemoglobin 26.3 pg (28.0-32.0); Mean Corpuscular Hgb Conc. 31.9 g/dL (32.0-36.0); Monocytes % (auto) 10.6 % (0.0-12.0); Red Blood Cells 3.52 10^6/uL (4.0-5.20); Red Cell Distribution Width 15.6 % (11.8-14.3)
[2022-01-06 06:27] LABS: INR 1.04 (0.9-1.15); Partial Thromboplastin Time 22.7 sec (24.6-33.4)
[2022-01-06 06:32] LABS: Anion Gap 6 (5-15); Calcium 8.1 mg/dL (8.5-10.1); Carbon Dioxide 20 mmol/L (21-32); Chloride 113 mmol/L (98-107); Glucose 113 mg/dL (74-106); Potassium 3.8 mmol/L (3.5-5.1); Sodium 139 mmol/L (136-145)
[2022-01-06 06:36] LABS: Alanine Aminotransferase 14 U/L (13-56); Albumin 2.2 g/dL (3.4-5.0); Aspartate Aminotransferase 9 U/L (15-37); BUN/Creatinine Ratio 27.4; Blood Urea Nitrogen 17 mg/dL (7-18); GFR African American 134 mL/min; GFR Non-African American 111 mL/min
[2022-01-06 06:38] LABS: Alkaline Phosphatase 69 U/L (45-117); Bilirubin, Total 0.4 mg/dL (0.2-1.0); Total Protein 7.5 g/dL (6.4-8.2)
[2022-01-06] MEDS ORDERED: LEVOTHYROXINE SODIUM 112 MCG TAB PO SCH ×2 (07:00)
[2022-01-06 08:30] VITALS: BP 118/63
[2022-01-06] MEDS ORDERED: HEPARIN SODIUM (PORCINE) 5000 UNITS/ML 1ML VIAL IV ONE ×4 (08:30→20:35)
[2022-01-06] MEDS: FERROUS SULFATE 325mg EC TAB PO SCH ×2 (09:53→19:44)
[2022-01-06] MEDS: PANTOPRAZOLE 40 MG TAB PO SCH (09:53)
[2022-01-06] MEDS: SACUBITRIL-VALSARTAN 24mg/26mg TAB PO SCH ×2 (09:55→22:00)
[2022-01-06] MEDS: CARVEDILOL 3.125 MG TAB PO SCH ×2 (09:55→22:00)
[2022-01-06] MEDS: FUROSEMIDE 20 MG/2 ML VIAL IV SCH ×2 (09:56→12:25)
[2022-01-06] MEDS: HEPARIN DRIP/D5W 100UNITS/ML 250 ML IV SCH ×2 (13:57→19:52)
[2022-01-06 20:00] VITALS: BP 118/63
[2022-01-06 20:08] LABS: INR 1.03 (0.9-1.15); Partial Thromboplastin Time 33.3 sec (24.6-33.4)
[2022-01-06] MEDS ORDERED: HEPARIN DRIP/D5W 100UNITS/ML 250 ML IV SCH (21:00)
[2022-01-06] MEDS ORDERED: diphenhdrAMINE HCL 25 MG CAP PO PRN (21:00)
[2022-01-06 22:00] VITALS: BP 94/60
[2022-01-06] MEDS ORDERED: traZODone HCL 50 MG TAB PO SCH (22:00)
[2022-01-06] MEDS: LINEZOLID 600MG/300ML 300 ML IV SCH (22:50)
[2022-01-07] MEDS ORDERED: HEPARIN DRIP/D5W 100UNITS/ML 250 ML IV SCH ×5 (01:00→19:30)
[2022-01-07 02:46] LABS: Basophils # (auto) 0 10 ^3/uL (0-0.2); Eosinophils # (auto) 0.2 10 ^3/uL (0-0.8); Hemoglobin 10.2 g/dL (12.2-16.2)
[2022-01-07 02:48] LABS: Basophils % (auto) 0.9 % (0.0-2.0); Eosinophils % (auto) 4.7 % (0.0-7.0); Hematocrit 31.2 % (36.0-46.0); Lymphocytes % (auto) 20.9 % (10.0-50.0); Mean Corpuscular Hgb Conc. 32.7 g/dL (32.0-36.0); Mean Corpuscular Volume 82.6 fL (80.0-100.0); Monocytes # (auto) 0.4 10 ^3/uL (0-1.3); Monocytes % (auto) 8.1 % (0.0-12.0); Neutrophils # (auto) 3.2 10 ^3/uL (1.6-8.6); Neutrophils % (auto) 65.4 % (37.0-80.0); Red Blood Cells 3.78 10^6/uL (4.0-5.20); Red Cell Distribution Width 14.9 % (11.8-14.3)
[2022-01-07] MEDS ORDERED: HEPARIN 1,000 UNITS/ml 1ML VIAL IV ONE ×2 (03:15→03:30)
[2022-01-07] MEDS ORDERED: HEPARIN SODIUM (PORCINE) 5000 UNITS/ML 1ML VIAL IV ONE ×3 (03:15→20:00)
[2022-01-07] MEDS: HEPARIN DRIP/D5W 100UNITS/ML 250 ML IV SCH ×2 (03:31→08:54)
[2022-01-07] MEDS: HYDROmorphone HCL 2 MG/ML VL/or syr IV PRN ×4 (04:16→22:43)
[2022-01-07 05:00] VITALS: BP 106/57
[2022-01-07] MEDS: LEVOTHYROXINE SODIUM 112 MCG TAB PO SCH (06:32)
[2022-01-07 08:00] VITALS: BP 127/76
[2022-01-07] MEDS: LINEZOLID 600MG/300ML 300 ML IV SCH ×2 (08:47→22:42)
[2022-01-07] MEDS: FERROUS SULFATE 325mg EC TAB PO SCH ×2 (08:47→17:34)
[2022-01-07] MEDS: PANTOPRAZOLE 40 MG TAB PO SCH (08:48)
[2022-01-07] MEDS: CARVEDILOL 3.125 MG TAB PO SCH ×2 (08:48→22:00)
[2022-01-07] MEDS: SACUBITRIL-VALSARTAN 24mg/26mg TAB PO SCH ×2 (08:56→22:00)
[2022-01-07 09:00] VITALS: BP 127/76
[2022-01-07 10:11] LABS: INR 1.06 (0.9-1.15); Partial Thromboplastin Time 56.3 sec (24.6-33.4)
[2022-01-07 13:00] VITALS: BP 131/81
[2022-01-07 14:51] LABS: Urine Bacteria NONE SEEN /hpf (None Seen); Urine Blood Negative /uL (Negative); Urine Hyaline Cast FEW /lpf (0 - 2); Urine Specific Gravity 1.022 (1.001-1.035); Urine WBC 21 /hpf (0 - 5)
[2022-01-07 18:54] LABS: INR 1.05 (0.9-1.15); Partial Thromboplastin Time 42.4 sec (24.6-33.4)
[2022-01-07 20:00] VITALS: BP 127/76
[2022-01-07 22:00] VITALS: BP 141/78
[2022-01-08 01:25] LABS: INR 1.05 (0.9-1.15); Partial Thromboplastin Time 49.7 sec (24.6-33.4)
[2022-01-08] MEDS ORDERED: HEPARIN SODIUM (PORCINE) 5000 UNITS/ML 1ML VIAL IV ONE (02:00)
[2022-01-08] MEDS: HEPARIN DRIP/D5W 100UNITS/ML 250 ML IV SCH ×4 (02:10→18:09)
[2022-01-08] MEDS: HYDROmorphone HCL 2 MG/ML VL/or syr IV PRN ×4 (04:03→21:04)
[2022-01-08 05:00] VITALS: BP 107/72
[2022-01-08] MEDS: LEVOTHYROXINE SODIUM 112 MCG TAB PO SCH (06:24)
[2022-01-08 08:00] VITALS: BP 140/68
[2022-01-08] MEDS: FUROSEMIDE 20 MG/2 ML VIAL IV SCH (08:59)
[2022-01-08] MEDS: PANTOPRAZOLE 40 MG TAB PO SCH (09:00)
[2022-01-08] MEDS: CARVEDILOL 3.125 MG TAB PO SCH ×2 (09:00→21:46)
[2022-01-08] MEDS: FERROUS SULFATE 325mg EC TAB PO SCH ×2 (09:00→17:27)
[2022-01-08 09:03] VITALS: BP 140/68
[2022-01-08] MEDS: LINEZOLID 600MG/300ML 300 ML IV SCH ×2 (09:03→22:07)
[2022-01-08] MEDS: SACUBITRIL-VALSARTAN 24mg/26mg TAB PO SCH ×2 (09:04→21:46)
[2022-01-08 09:24] LABS: INR 1.07 (0.9-1.15); Partial Thromboplastin Time 50.1 sec (24.6-33.4)
[2022-01-08 09:30] LABS: Basophils # (auto) 0 10 ^3/uL (0-0.2); Basophils % (auto) 0.9 % (0.0-2.0); Eosinophils # (auto) 0.2 10 ^3/uL (0-0.8); Eosinophils % (auto) 4.4 % (0.0-7.0); Hematocrit 32.2 % (36.0-46.0); Hemoglobin 10.1 g/dL (12.2-16.2); Lymphocytes # (auto) 0.9 10 ^3/uL (0.4-5.4); Lymphocytes % (auto) 19.3 % (10.0-50.0); Mean Corpuscular Hemoglobin 26.4 pg (28.0-32.0); Mean Corpuscular Hgb Conc. 31.5 g/dL (32.0-36.0); Monocytes # (auto) 0.4 10 ^3/uL (0-1.3); Monocytes % (auto) 8.8 % (0.0-12.0); Neutrophils # (auto) 3.1 10 ^3/uL (1.6-8.6); Neutrophils % (auto) 66.6 % (37.0-80.0); Red Blood Cells 3.83 10^6/uL (4.0-5.20); Red Cell Distribution Width 15.3 % (11.8-14.3); White Blood Cell 4.6 10^3/uL (4.4-10.8)
[2022-01-08 13:00] VITALS: BP 131/89
[2022-01-08 16:20] LABS: INR 1.03 (0.9-1.15); Partial Thromboplastin Time 69.6 sec (24.6-33.4)
[2022-01-08 16:57] VITALS: BP 133/73
[2022-01-08 22:00] VITALS: BP 150/79
[2022-01-09 01:04] LABS: INR 1.05 (0.9-1.15)
[2022-01-09 01:08] LABS: Partial Thromboplastin Time 85.1 sec (24.6-33.4)
[2022-01-09] MEDS: HYDROmorphone HCL 2 MG/ML VL/or syr IV PRN ×4 (02:05→20:14)
[2022-01-09] MEDS: HEPARIN DRIP/D5W 100UNITS/ML 250 ML IV SCH (03:05)
[2022-01-09 05:00] VITALS: BP 119/66
[2022-01-09] MEDS: LEVOTHYROXINE SODIUM 112 MCG TAB PO SCH (06:04)
[2022-01-09 07:44] LABS: Calcium 8.7 mg/dL (8.5-10.1); Potassium 3.6 mmol/L (3.5-5.1)
[2022-01-09 07:45] LABS: INR 1.07 (0.9-1.15); Partial Thromboplastin Time 60.4 sec (24.6-33.4)
[2022-01-09 07:50] LABS: Albumin 2.5 g/dL (3.4-5.0); Bilirubin, Total 0.6 mg/dL (0.2-1.0); Total Protein 8.2 g/dL (6.4-8.2)
[2022-01-09 08:00] VITALS: BP 140/72
[2022-01-09] MEDS: LINEZOLID 600MG/300ML 300 ML IV SCH ×2 (08:55→21:53)
[2022-01-09] MEDS: FUROSEMIDE 20 MG/2 ML VIAL IV SCH (08:55)
[2022-01-09] MEDS: FERROUS SULFATE 325mg EC TAB PO SCH ×2 (08:55→19:34)
[2022-01-09] MEDS: PANTOPRAZOLE 40 MG TAB PO SCH (08:56)
[2022-01-09] MEDS: SACUBITRIL-VALSARTAN 24mg/26mg TAB PO SCH ×2 (08:56→22:00)
[2022-01-09] MEDS: CARVEDILOL 3.125 MG TAB PO SCH ×2 (08:56→22:01)
[2022-01-09 09:00] VITALS: BP 142/72
[2022-01-09] MEDS ORDERED: HEPARIN DRIP/D5W 100UNITS/ML 250 ML IV SCH (10:15)
[2022-01-09 13:00] VITALS: BP 120/70
[2022-01-09 13:13] LABS: INR 1.09 (0.9-1.15)
[2022-01-09 13:18] LABS: Partial Thromboplastin Time 97.1 sec (24.6-33.4)
[2022-01-09 16:47] VITALS: BP 117/52
[2022-01-09] MEDS: APIXABAN 5 MG TAB PO SCH (19:33)
[2022-01-09 22:00] VITALS: BP 123/66
[2022-01-10] MEDS: HYDROmorphone HCL 2 MG/ML VL/or syr IV PRN ×3 (01:46→16:08)
[2022-01-10 05:00] VITALS: BP 111/53
[2022-01-10] MEDS: LEVOTHYROXINE SODIUM 112 MCG TAB PO SCH (06:45)
[2022-01-10 09:00] VITALS: BP 114/61
[2022-01-10] MEDS: FUROSEMIDE 20 MG/2 ML VIAL IV SCH (09:46)
[2022-01-10] MEDS ORDERED: LINEZOLID 600MG TABLET PO SCH (10:00)
[2022-01-10] MEDS: PANTOPRAZOLE 40 MG TAB PO SCH (10:40)
[2022-01-10] MEDS: FERROUS SULFATE 325mg EC TAB PO SCH ×2 (10:40→18:00)
[2022-01-10] MEDS: APIXABAN 5 MG TAB PO SCH (10:41)
[2022-01-10] MEDS: CARVEDILOL 3.125 MG TAB PO SCH (10:41)
[2022-01-10] MEDS: SACUBITRIL-VALSARTAN 24mg/26mg TAB PO SCH (10:41)
[2022-01-10] MEDS ORDERED: ONDANSETRON HCL 4 MG/2 ML VIAL IV ONE (11:15)
[2022-01-10] MEDS ORDERED: PROCHLORPERAZINE EDISYLATE 5 MG/ML 2ML VIAL IV ONE (11:15)
[2022-01-10] MEDS ORDERED: SACU1TAB PO (12:30)
[2022-01-10] MEDS ORDERED: APIX5TAB PO (12:30)
[2022-01-10] MEDS ORDERED: TORS20TA19 GT (12:30)
[2022-01-10] MEDS ORDERED: CAR3125T PO (12:30)
[2022-01-10] MEDS ORDERED: PANT40T PO (12:30)
[2022-01-10 13:00] VITALS: BP 111/76
[2022-01-10 16:18] VITALS: BP 146/65
== END 2022-01-10 19:50 | disposition home health service (06) | DRG 300 ==
LOC: ER 15:37 → TELE-WESTW 19:01
PROVIDERS: ADMIT Specialist; ATTEND Specialist
DX: I82.812 Embolism and thrombosis of superficial veins of left lower extremity (principal); E66.2 Morbid (severe) obesity with alveolar hypoventilation; L03.116 Cellulitis of left lower limb; I42.9 Cardiomyopathy, unspecified; F11.20 Opioid dependence, uncomplicated; Z68.44 Body mass index [BMI] 60.0-69.9, adult; S81.801A Unspecified open wound, right lower leg, initial encounter; I89.0 Lymphedema, not elsewhere classified; G89.4 Chronic pain syndrome; D64.9 Anemia, unspecified; F41.9 Anxiety disorder, unspecified; J44.9 Chronic obstructive pulmonary disease, unspecified; F32.A Depression, unspecified; E03.9 Hypothyroidism, unspecified; K21.9 Gastro-esophageal reflux disease without esophagitis; X58.XXXA Exposure to other specified factors, initial encounter; I12.9 Hypertensive chronic kidney disease with stage 1 through stage 4 chronic kidney disease, or unspecified chronic kidney disease; E11.22 Type 2 diabetes mellitus with diabetic chronic kidney disease; N18.30 Chronic kidney disease, stage 3 unspecified; Z90.49 Acquired absence of other specified parts of digestive tract; Z88.1 Allergy status to other antibiotic agents; Z99.3 Dependence on wheelchair; Z88.5 Allergy status to narcotic agent; Z88.0 Allergy status to penicillin; Z88.8 Allergy status to other drugs, medicaments and biological substances; Z91.018 Allergy to other foods; Z87.442 Personal history of urinary calculi; Z79.01 Long term (current) use of anticoagulants; Z86.711 Personal history of pulmonary embolism; Z82.49 Family history of ischemic heart disease and other diseases of the circulatory system; Z82.3 Family history of stroke; Z80.0 Family history of malignant neoplasm of digestive organs; Z82.62 Family history of osteoporosis; Z83.49 Family history of other endocrine, nutritional and metabolic diseases; Z83.3 Family history of diabetes mellitus; Z81.8 Family history of other mental and behavioral disorders; Z82.5 Family history of asthma and other chronic lower respiratory diseases; Z86.718 Personal history of other venous thrombosis and embolism; Y93.89 Activity, other specified; Y92.89 Other specified places as the place of occurrence of the external cause; Y99.8 Other external cause status
CPT/HCPCS: 36415; 71045; 80048; 80053; 81001; 84443; 85025; 85379; 85610; 85730; 87077; 87081; 87086; 87088; 87186; 87205; 93971; 96365; G0378

== ENCOUNTER 2022-03-01 18:20 | Inpatient (IN) | payer MEDICARE, MEDICAID ==
[~2022-03-01] VITALS: Ht 162.6 cm; Wt 155.9 kg
[~2022-03-01 18:20] MED LIST changes: +APIX5TAB PO; +CAR3125T PO; -LEV112T PO; +PANT40T PO; +SACU1TAB PO; +TORS20TA19 GT; -WARF10TA20 PO
[2022-03-01] MEDS ORDERED: LORazepam 2MG/ML-1ML VIAL IV ONE (21:15)
[2022-03-01 22:33] LABS: Basophils # (auto) 0 10 ^3/uL (0-0.2); Basophils % (auto) 0.5 % (0.0-2.0); Eosinophils # (auto) 0.2 10 ^3/uL (0-0.8); Eosinophils % (auto) 4.1 % (0.0-7.0); Hematocrit 34.6 % (36.0-46.0); Hemoglobin 11.2 g/dL (12.2-16.2); Lymphocytes # (auto) 1.1 10 ^3/uL (0.4-5.4); Lymphocytes % (auto) 21.8 % (10.0-50.0); Mean Corpuscular Hemoglobin 27.6 pg (28.0-32.0); Mean Corpuscular Hgb Conc. 32.5 g/dL (32.0-36.0); Mean Corpuscular Volume 84.9 fL (80.0-100.0); Monocytes # (auto) 0.4 10 ^3/uL (0-1.3); Monocytes % (auto) 8.2 % (0.0-12.0); Neutrophils # (auto) 3.2 10 ^3/uL (1.6-8.6); Neutrophils % (auto) 65.4 % (37.0-80.0); Nucleated Red Blood Cells % 0.1 %; Red Blood Cells 4.08 10^6/uL (4.0-5.20); Red Cell Distribution Width 16.7 % (11.8-14.3); White Blood Cell 4.8 10^3/uL (4.4-10.8)
[2022-03-01 22:44] LABS: Albumin 2.8 g/dL (3.4-5.0); Potassium 3.9 mmol/L (3.5-5.1)
[2022-03-01 22:47] LABS: BUN/Creatinine Ratio 27.1
[2022-03-01 22:53] LABS: Bilirubin, Total 0.6 mg/dL (0.2-1.0); Total Protein 7.5 g/dL (6.4-8.2)
[2022-03-02] MEDS ORDERED: DEXTROSE (50%) 50ML SYRG IV PRN (02:00)
[2022-03-02] MEDS ORDERED: ALBUMIN 25% 50 ML IV ONE (02:00)
[2022-03-02] MEDS ORDERED: METOCLOPRAMIDE HCL 5MG/ml INJ 2ml VIAL IV PRN (02:00)
[2022-03-02] MEDS ORDERED: HYDROcodone-ACET 5/325MG TAB PO PRN (02:00)
[2022-03-02] MEDS ORDERED: hydrALAZINE HCL 20 MG/ML VL IV PRN (02:00)
[2022-03-02] MEDS ORDERED: ONDANSETRON HCL 4 MG/2 ML VIAL IV PRN (02:00)
[2022-03-02] MEDS ORDERED: DOCUSATE SOD 100 MG CAP PO PRN (02:00)
[2022-03-02] MEDS ORDERED: ACETAMINOPHEN 325 MG TAB PO PRN (02:00)
[2022-03-02] MEDS ORDERED: KETOROLAC TROMETH 30 MG/ML 1ML VIAL IV ONE (02:30)
[2022-03-02] MEDS ORDERED: NITROGLYCERIN 0.4 MG SL TAB SL PRN (02:45)
[2022-03-02] MEDS: SODIUM CHLOR 0.9% PF (SALINE LOCK) 10ML VIAL/SYR IV SCH ×3 (06:05→22:05)
[2022-03-02] MEDS: ACCU-CHEK COMFORT CURVE STRIP VI SCH ×4 (06:38→22:12)
[2022-03-02] MEDS: InsuLIN REG 1unit/0.01ml Soln (100units/ml) SC SCH ×3 (06:38→16:45)
[2022-03-02 06:39] LABS: Basophils # (auto) 0 10 ^3/uL (0-0.2); Basophils % (auto) 0.6 % (0.0-2.0); Eosinophils # (auto) 0.2 10 ^3/uL (0-0.8); Eosinophils % (auto) 4.7 % (0.0-7.0); Hematocrit 34.2 % (36.0-46.0); Hemoglobin 10.8 g/dL (12.2-16.2); Lymphocytes # (auto) 1.3 10 ^3/uL (0.4-5.4); Lymphocytes % (auto) 24.9 % (10.0-50.0); Mean Corpuscular Hemoglobin 27.5 pg (28.0-32.0); Mean Corpuscular Hgb Conc. 31.5 g/dL (32.0-36.0); Mean Corpuscular Volume 87.4 fL (80.0-100.0); Monocytes # (auto) 0.8 10 ^3/uL (0-1.3); Monocytes % (auto) 15.7 % (0.0-12.0); Neutrophils # (auto) 2.7 10 ^3/uL (1.6-8.6); Neutrophils % (auto) 54.1 % (37.0-80.0); Nucleated Red Blood Cells % 0.5 %; Red Blood Cells 3.92 10^6/uL (4.0-5.20); White Blood Cell 5.1 10^3/uL (4.4-10.8)
[2022-03-02] MEDS: MORPHINE SULFATE INJ 2 MG/ml SYRG IV PRN ×4 (06:55→20:15)
[2022-03-02 06:59] LABS: Potassium 4.3 mmol/L (3.5-5.1)
[2022-03-02 07:07] LABS: Albumin 2.5 g/dL (3.4-5.0); BUN/Creatinine Ratio 26.2; Bilirubin, Total 0.7 mg/dL (0.2-1.0); Calcium 8.6 mg/dL (8.5-10.1); Total Protein 7.6 g/dL (6.4-8.2)
[2022-03-02] MEDS: PANTOPRAZOLE 40 MG/10 ML VIAL INJ IV SCH (09:49)
[2022-03-02] MEDS: METOPROLOL TARTRATE 25 MG TAB PO SCH ×2 (09:54→22:00)
[2022-03-02] MEDS: LORazepam 2MG/ML-1ML VIAL IV ONE ×2 (12:36→13:52)
[2022-03-02] MEDS ORDERED: InsuLIN REG 1unit/0.01ml Soln (100units/ml) SC SCH (22:00)
[2022-03-02 23:11] VITALS: BP 141/80
[2022-03-02] MEDS ORDERED: TORS20TA20 PO (23:27)
[2022-03-02] MEDS ORDERED: CARV3.1240 PO (23:27)
[2022-03-02] MEDS ORDERED: LEVO175T66 PO (23:27)
[2022-03-02] MEDS ORDERED: CEFD300C2 PO (23:27)
[2022-03-03] MEDS: MORPHINE SULFATE INJ 2 MG/ml SYRG IV PRN ×5 (00:19→12:53)
[2022-03-03] MEDS ORDERED: TEMAZEPAM 15 MG CAP PO ONE (01:00)
[2022-03-03] MEDS: SODIUM CHLOR 0.9% PF (SALINE LOCK) 10ML VIAL/SYR IV SCH ×2 (04:22→14:00)
[2022-03-03 05:00] VITALS: BP 120/65
[2022-03-03] MEDS: ACCU-CHEK COMFORT CURVE STRIP VI SCH ×3 (06:14→17:00)
[2022-03-03] MEDS: InsuLIN REG 1unit/0.01ml Soln (100units/ml) SC SCH ×3 (06:14→17:00)
[2022-03-03 09:03] VITALS: BP 148/78
[2022-03-03] MEDS: PANTOPRAZOLE 40 MG/10 ML VIAL INJ IV SCH (09:17)
[2022-03-03] MEDS: METOPROLOL TARTRATE 25 MG TAB PO SCH (09:18)
[2022-03-03] MEDS ORDERED: ENOXAPARIN SOD 40 MG/0.4 ML SYRINGE SC SCH (10:00)
[2022-03-03 12:30] VITALS: BP 128/92
[2022-03-03 13:23] VITALS: BP 128/59
[2022-03-03 13:53] VITALS: BP 128/92
[2022-03-03 14:31] LABS: Basophils # (auto) 0 10 ^3/uL (0-0.2); Basophils % (auto) 0.4 % (0.0-2.0); Eosinophils # (auto) 0.2 10 ^3/uL (0-0.8); Eosinophils % (auto) 4.2 % (0.0-7.0); Hematocrit 34.5 % (36.0-46.0); Lymphocytes # (auto) 0.7 10 ^3/uL (0.4-5.4); Lymphocytes % (auto) 16.1 % (10.0-50.0); Mean Corpuscular Hemoglobin 27.7 pg (28.0-32.0); Mean Corpuscular Hgb Conc. 31.8 g/dL (32.0-36.0); Mean Corpuscular Volume 87.2 fL (80.0-100.0); Monocytes # (auto) 0.4 10 ^3/uL (0-1.3); Monocytes % (auto) 9.4 % (0.0-12.0); Neutrophils # (auto) 3.2 10 ^3/uL (1.6-8.6); Neutrophils % (auto) 69.9 % (37.0-80.0); Red Blood Cells 3.96 10^6/uL (4.0-5.20); Red Cell Distribution Width 16.7 % (11.8-14.3); White Blood Cell 4.6 10^3/uL (4.4-10.8)
[2022-03-03 14:59] LABS: Albumin 2.7 g/dL (3.4-5.0); BUN/Creatinine Ratio 22.5; Calcium 8.5 mg/dL (8.5-10.1); Potassium 4.1 mmol/L (3.5-5.1)
[2022-03-03 15:01] LABS: Bilirubin, Total 0.6 mg/dL (0.2-1.0); Total Protein 7.6 g/dL (6.4-8.2)
[2022-03-04 14:09] LABS: Folate (Folic Acid) 7.71 ng/mL (5.38-24)
== END 2022-03-03 19:45 | disposition home or self-care (01) | DRG 304 ==
LOC: EDBD 18:20 → ER 18:20 → TELE 03-02 02:43 → TELE-WESTW 03-02 22:33
PROVIDERS: ADMIT Nurse Practitioner Family; ATTEND Internal Medicine
DX: I16.0 Hypertensive urgency (principal); E43 Unspecified severe protein-calorie malnutrition; Z68.43 Body mass index [BMI] 50.0-59.9, adult; M54.12 Radiculopathy, cervical region; Z20.822 Contact with and (suspected) exposure to COVID-19; E11.22 Type 2 diabetes mellitus with diabetic chronic kidney disease; E66.01 Morbid (severe) obesity due to excess calories; K21.9 Gastro-esophageal reflux disease without esophagitis; R26.2 Difficulty in walking, not elsewhere classified; F32.A Depression, unspecified; W18.39XA Other fall on same level, initial encounter; E78.5 Hyperlipidemia, unspecified; F41.9 Anxiety disorder, unspecified; I12.9 Hypertensive chronic kidney disease with stage 1 through stage 4 chronic kidney disease, or unspecified chronic kidney disease; J44.9 Chronic obstructive pulmonary disease, unspecified; N18.9 Chronic kidney disease, unspecified; Z80.0 Family history of malignant neoplasm of digestive organs; Z71.3 Dietary counseling and surveillance; Z88.0 Allergy status to penicillin; Y93.89 Activity, other specified; S80.922A Unspecified superficial injury of left lower leg, initial encounter; S80.921A Unspecified superficial injury of right lower leg, initial encounter; Z88.8 Allergy status to other drugs, medicaments and biological substances; Z91.018 Allergy to other foods; Z88.1 Allergy status to other antibiotic agents; Z81.8 Family history of other mental and behavioral disorders; Z82.3 Family history of stroke; Z82.49 Family history of ischemic heart disease and other diseases of the circulatory system; Z90.49 Acquired absence of other specified parts of digestive tract; Z82.5 Family history of asthma and other chronic lower respiratory diseases; Z82.62 Family history of osteoporosis; Z83.3 Family history of diabetes mellitus; Z87.442 Personal history of urinary calculi; Y92.89 Other specified places as the place of occurrence of the external cause; Y99.8 Other external cause status
CPT/HCPCS: 36415; 71045; 72040; 72125; 80053; 82607; 82746; 82962; 83605; 83690; 83735; 85025; 85652; 86141; 87081; 87426; 93005; 96365; 96375; C9113; G0378; J1885

== ENCOUNTER 2022-03-31 13:21 | Inpatient (IN) | payer MEDICARE, MEDICAID ==
[~2022-03-31] VITALS: Ht 162.6 cm; Wt 148.6 kg
[~2022-03-31 13:21] MED LIST changes: +CARV3.1240 PO; +CEFD300C2 PO; +CYAN1TAB14 PO; +LEVO175T66 PO; +TORS20TA20 PO
[2022-03-31 14:59] LABS: Basophils # (auto) 0 10 ^3/uL (0-0.2); Basophils % (auto) 0.6 % (0.0-2.0); Eosinophils # (auto) 0.2 10 ^3/uL (0-0.8); Eosinophils % (auto) 2.9 % (0.0-7.0); Hematocrit 35.6 % (36.0-46.0); Hemoglobin 11.3 g/dL (12.2-16.2); Lymphocytes % (auto) 18.9 % (10.0-50.0); Mean Corpuscular Hemoglobin 27.6 pg (28.0-32.0); Mean Corpuscular Hgb Conc. 31.9 g/dL (32.0-36.0); Mean Corpuscular Volume 86.5 fL (80.0-100.0); Monocytes # (auto) 0.5 10 ^3/uL (0-1.3); Monocytes % (auto) 9.7 % (0.0-12.0); Neutrophils # (auto) 3.7 10 ^3/uL (1.6-8.6); Neutrophils % (auto) 67.9 % (37.0-80.0); Nucleated Red Blood Cells % 0.1 %; Red Blood Cells 4.11 10^6/uL (4.0-5.20); Red Cell Distribution Width 15.9 % (11.8-14.3); White Blood Cell 5.4 10^3/uL (4.4-10.8)
[2022-03-31 15:18] LABS: Albumin 2.8 g/dL (3.4-5.0); Potassium 3.8 mmol/L (3.5-5.1)
[2022-03-31 15:24] LABS: Bilirubin, Total 0.7 mg/dL (0.2-1.0); Total Protein 8.5 g/dL (6.4-8.2)
[2022-03-31] MEDS ORDERED: SODIUM CHLORIDE 0.9% 1,000 ML IV ONE (15:30)
[2022-03-31] MEDS ORDERED: ONDANSETRON HCL 4 MG/2 ML VIAL IV ONE (15:30)
[2022-03-31] MEDS ORDERED: MORPHINE SULFATE 4 MG/ML SYR/VIAL IV ONE (15:30)
[2022-03-31] MEDS ORDERED: NITROGLYCERIN 0.4 MG SL TAB SL PRN (23:30)
[2022-03-31] MEDS ORDERED: MORPHINE SULFATE INJ 2 MG/ml SYRG IV PRN (23:30)
[2022-04-01] MEDS ORDERED: NITROGLYCERIN 0.4 MG SL TAB SL PRN (00:15)
[2022-04-01] MEDS ORDERED: ACETAMINOPHEN 325 MG TAB PO PRN (00:15)
[2022-04-01] MEDS ORDERED: MORPHINE SULFATE INJ 2 MG/ml SYRG IV PRN (00:15)
[2022-04-01] MEDS: HYDROmorphone HCL 2 MG/ML VL/or syr IV PRN ×5 (01:55→21:09)
[2022-04-01 03:09] LABS: Urine Bacteria NONE SEEN /hpf (None Seen); Urine Blood Negative /uL (Negative); Urine Specific Gravity 1.021 (1.001-1.035); Urine WBC 1 /hpf (0 - 5)
[2022-04-01] MEDS: LEVOTHYROXINE SODIUM 50 MCG TAB PO SCH (07:00)
[2022-04-01 07:10] LABS: Basophils # (auto) 0 10 ^3/uL (0-0.2); Basophils % (auto) 0.7 % (0.0-2.0); Calcium 8.9 mg/dL (8.5-10.1); Eosinophils # (auto) 0.2 10 ^3/uL (0-0.8); Eosinophils % (auto) 5.9 % (0.0-7.0); Hematocrit 32.4 % (36.0-46.0); Hemoglobin 10.2 g/dL (12.2-16.2); Lymphocytes # (auto) 0.8 10 ^3/uL (0.4-5.4); Lymphocytes % (auto) 24.4 % (10.0-50.0); Mean Corpuscular Hemoglobin 27.1 pg (28.0-32.0); Mean Corpuscular Hgb Conc. 31.5 g/dL (32.0-36.0); Mean Corpuscular Volume 86.1 fL (80.0-100.0); Monocytes # (auto) 0.3 10 ^3/uL (0-1.3); Monocytes % (auto) 8.7 % (0.0-12.0); Neutrophils # (auto) 2.1 10 ^3/uL (1.6-8.6); Neutrophils % (auto) 60.3 % (37.0-80.0); Nucleated Red Blood Cells % 0.1 %; Potassium 4.3 mmol/L (3.5-5.1); Red Blood Cells 3.77 10^6/uL (4.0-5.20); White Blood Cell 3.4 10^3/uL (4.4-10.8)
[2022-04-01 07:11] LABS: Phosphorus 4.1 mg/dL (2.5-4.90)
[2022-04-01 07:13] LABS: BUN/Creatinine Ratio 18.8
[2022-04-01 07:26] LABS: Albumin 2.5 g/dL (3.4-5.0); Bilirubin, Total 0.6 mg/dL (0.2-1.0); Total Protein 7.5 g/dL (6.4-8.2)
[2022-04-01] MEDS: TORSEMIDE 20 MG TAB PO SCH (08:53)
[2022-04-01] MEDS: CARVEDILOL 3.125 MG TAB PO SCH ×2 (08:53→22:00)
[2022-04-01] MEDS: PANTOPRAZOLE 40 MG TAB PO SCH (08:53)
[2022-04-01] MEDS: SACUBITRIL-VALSARTAN 24mg/26mg TAB PO SCH ×2 (08:54→22:33)
[2022-04-01] MEDS: CYANOCOBALAMIN (B-12) 1000 MCG/1 ML VIAL IM SCH (08:55)
[2022-04-01] MEDS: APIXABAN 5 MG TAB PO SCH ×2 (08:56→22:32)
[2022-04-01] MEDS: FUROSEMIDE 20 MG/2 ML VIAL IV SCH (08:56)
[2022-04-01] MEDS ORDERED: SACUBITRIL-VALSARTAN 24mg/26mg TAB PO SCH (10:00)
[2022-04-01] MEDS ORDERED: CEFEPIME 1GM/ 50ML 50 ML IV SCH ×2 (10:00)
[2022-04-01] MEDS ORDERED: PATIENTS OWN MEDICATION (Levothyroxine Sodium 1 TAB) PO SCH (10:00)
[2022-04-01] MEDS ORDERED: LORazepam 2MG/ML-1ML VIAL IV PRN (10:45)
[2022-04-01 22:00] VITALS: BP 109/49
[2022-04-02] MEDS: HYDROmorphone HCL 2 MG/ML VL/or syr IV PRN ×5 (02:07→23:12)
[2022-04-02 05:00] VITALS: BP 140/89
[2022-04-02] MEDS: LEVOTHYROXINE SODIUM 50 MCG TAB PO SCH (06:33)
[2022-04-02 09:00] VITALS: BP 151/85
[2022-04-02] MEDS: CYANOCOBALAMIN (B-12) 1000 MCG/1 ML VIAL IM SCH (09:12)
[2022-04-02] MEDS: FUROSEMIDE 20 MG/2 ML VIAL IV SCH (09:12)
[2022-04-02] MEDS: CARVEDILOL 3.125 MG TAB PO SCH ×2 (09:13→22:42)
[2022-04-02] MEDS: TORSEMIDE 20 MG TAB PO SCH (09:13)
[2022-04-02] MEDS: PANTOPRAZOLE 40 MG TAB PO SCH (09:14)
[2022-04-02] MEDS: SACUBITRIL-VALSARTAN 24mg/26mg TAB PO SCH ×2 (09:14→22:42)
[2022-04-02] MEDS: APIXABAN 5 MG TAB PO SCH ×2 (09:14→22:40)
[2022-04-02 13:00] VITALS: BP 121/73
[2022-04-02 16:44] VITALS: BP 120/78
[2022-04-02 22:00] VITALS: BP 117/68
[2022-04-03] MEDS: HYDROmorphone HCL 2 MG/ML VL/or syr IV PRN ×4 (03:26→21:14)
[2022-04-03 05:00] VITALS: BP 126/73
[2022-04-03 06:27] LABS: Basophils # (auto) 0 10 ^3/uL (0-0.2); Basophils % (auto) 0.5 % (0.0-2.0); Eosinophils # (auto) 0.2 10 ^3/uL (0-0.8); Eosinophils % (auto) 3.4 % (0.0-7.0); Hematocrit 33.8 % (36.0-46.0); Hemoglobin 10.8 g/dL (12.2-16.2); Lymphocytes # (auto) 0.9 10 ^3/uL (0.4-5.4); Lymphocytes % (auto) 16.8 % (10.0-50.0); Mean Corpuscular Hemoglobin 27.2 pg (28.0-32.0); Mean Corpuscular Volume 85.1 fL (80.0-100.0); Monocytes # (auto) 0.5 10 ^3/uL (0-1.3); Monocytes % (auto) 8.4 % (0.0-12.0); Neutrophils # (auto) 3.9 10 ^3/uL (1.6-8.6); Neutrophils % (auto) 70.9 % (37.0-80.0); Red Blood Cells 3.98 10^6/uL (4.0-5.20); Red Cell Distribution Width 15.5 % (11.8-14.3); White Blood Cell 5.5 10^3/uL (4.4-10.8)
[2022-04-03 06:52] LABS: Albumin 2.6 g/dL (3.4-5.0); Potassium 3.5 mmol/L (3.5-5.1)
[2022-04-03 06:54] LABS: BUN/Creatinine Ratio 17.5
[2022-04-03 06:57] LABS: Bilirubin, Total 0.7 mg/dL (0.2-1.0); Total Protein 7.8 g/dL (6.4-8.2)
[2022-04-03 09:00] VITALS: BP 152/87
[2022-04-03] MEDS ORDERED: LORazepam 2MG/ML-1ML VIAL IV ONE (09:30)
[2022-04-03] MEDS: SACUBITRIL-VALSARTAN 24mg/26mg TAB PO SCH ×2 (10:03→21:18)
[2022-04-03] MEDS: TORSEMIDE 20 MG TAB PO SCH (10:04)
[2022-04-03] MEDS: APIXABAN 5 MG TAB PO SCH ×2 (10:04→21:18)
[2022-04-03] MEDS: CARVEDILOL 3.125 MG TAB PO SCH ×2 (10:05→21:17)
[2022-04-03] MEDS: PANTOPRAZOLE 40 MG TAB PO SCH (10:05)
[2022-04-03] MEDS: FUROSEMIDE 20 MG/2 ML VIAL IV SCH (10:06)
[2022-04-03] MEDS: CYANOCOBALAMIN (B-12) 1000 MCG/1 ML VIAL IM SCH (10:07)
[2022-04-03] MEDS: LEVOTHYROXINE SODIUM 50 MCG TAB PO SCH (10:23)
[2022-04-03 13:00] VITALS: BP 105/74
[2022-04-03 16:33] VITALS: BP 117/73
[2022-04-03 22:05] VITALS: BP 126/75
[2022-04-04] VITALS (7 sets, daily range): BP systolic 98–128; BP diastolic 60–86
[2022-04-04] MEDS: HYDROmorphone HCL 2 MG/ML VL/or syr IV PRN ×6 (01:32→22:01)
[2022-04-04] MEDS: LEVOTHYROXINE SODIUM 50 MCG TAB PO SCH (06:21)
[2022-04-04] MEDS: CARVEDILOL 3.125 MG TAB PO SCH ×2 (10:00→21:33)
[2022-04-04] MEDS: CYANOCOBALAMIN (B-12) 1000 MCG/1 ML VIAL IM SCH (10:12)
[2022-04-04] MEDS: FUROSEMIDE 20 MG/2 ML VIAL IV SCH (10:14)
[2022-04-04] MEDS: PANTOPRAZOLE 40 MG TAB PO SCH (10:15)
[2022-04-04] MEDS: APIXABAN 5 MG TAB PO SCH ×2 (10:15→21:35)
[2022-04-04] MEDS: TORSEMIDE 20 MG TAB PO SCH (10:15)
[2022-04-04] MEDS: SACUBITRIL-VALSARTAN 24mg/26mg TAB PO SCH ×2 (10:15→21:30)
[2022-04-05] MEDS: HYDROmorphone HCL 2 MG/ML VL/or syr IV PRN ×4 (02:12→23:15)
[2022-04-05] MEDS: DOCUSATE SOD 100 MG CAP PO PRN (02:14)
[2022-04-05 05:00] VITALS: BP 107/56
[2022-04-05] MEDS: LEVOTHYROXINE SODIUM 50 MCG TAB PO SCH (06:21)
[2022-04-05 07:33] VITALS: BP 118/79
[2022-04-05 09:00] VITALS: BP 130/86
[2022-04-05] MEDS: CYANOCOBALAMIN (B-12) 1000 MCG/1 ML VIAL IM SCH (11:56)
[2022-04-05] MEDS: APIXABAN 5 MG TAB PO SCH ×2 (11:57→22:53)
[2022-04-05] MEDS: PANTOPRAZOLE 40 MG TAB PO SCH (11:57)
[2022-04-05] MEDS: FUROSEMIDE 20 MG/2 ML VIAL IV SCH (11:57)
[2022-04-05] MEDS: SACUBITRIL-VALSARTAN 24mg/26mg TAB PO SCH ×2 (11:58→23:07)
[2022-04-05] MEDS: TORSEMIDE 20 MG TAB PO SCH (11:58)
[2022-04-05] MEDS: CARVEDILOL 3.125 MG TAB PO SCH ×2 (11:59→22:54)
[2022-04-05 13:00] VITALS: BP 136/94
[2022-04-05 17:00] VITALS: BP 101/71
[2022-04-05 22:00] VITALS: BP 127/70
[2022-04-05] MEDS ORDERED: IOHEXOL 300 MG/ML 100ML BOTTLE IJ ONE (23:00)
[2022-04-06] MEDS: HYDROmorphone HCL 2 MG/ML VL/or syr IV PRN ×4 (04:45→22:15)
[2022-04-06 05:00] VITALS: BP 115/53
[2022-04-06] MEDS: DOCUSATE SOD 100 MG CAP PO PRN (05:59)
[2022-04-06] MEDS: LEVOTHYROXINE SODIUM 50 MCG TAB PO SCH (05:59)
[2022-04-06 08:15] VITALS: BP 109/56
[2022-04-06] MEDS: FUROSEMIDE 20 MG/2 ML VIAL IV SCH (10:33)
[2022-04-06] MEDS: CYANOCOBALAMIN (B-12) 1000 MCG/1 ML VIAL IM SCH (10:33)
[2022-04-06] MEDS: CARVEDILOL 3.125 MG TAB PO SCH ×2 (10:34→22:47)
[2022-04-06] MEDS: TORSEMIDE 20 MG TAB PO SCH (10:34)
[2022-04-06] MEDS: APIXABAN 5 MG TAB PO SCH ×2 (10:34→22:46)
[2022-04-06] MEDS: SACUBITRIL-VALSARTAN 24mg/26mg TAB PO SCH ×2 (10:35→22:46)
[2022-04-06] MEDS: PANTOPRAZOLE 40 MG TAB PO SCH (10:35)
[2022-04-06 13:10] VITALS: BP 119/74
[2022-04-06 17:00] VITALS: BP 104/56
[2022-04-06 22:00] VITALS: BP 122/67
[2022-04-07] MEDS: HYDROmorphone HCL 2 MG/ML VL/or syr IV PRN ×4 (02:21→15:31)
[2022-04-07 05:00] VITALS: BP 104/66
[2022-04-07] MEDS: LEVOTHYROXINE SODIUM 50 MCG TAB PO SCH (07:02)
[2022-04-07 09:00] VITALS: BP 99/53
[2022-04-07] MEDS: FUROSEMIDE 20 MG/2 ML VIAL IV SCH (10:00)
[2022-04-07] MEDS: CARVEDILOL 3.125 MG TAB PO SCH (10:00)
[2022-04-07] MEDS: TORSEMIDE 20 MG TAB PO SCH (10:00)
[2022-04-07] MEDS: APIXABAN 5 MG TAB PO SCH (10:56)
[2022-04-07] MEDS: SACUBITRIL-VALSARTAN 24mg/26mg TAB PO SCH (10:57)
[2022-04-07] MEDS: PANTOPRAZOLE 40 MG TAB PO SCH (10:58)
[2022-04-07 11:15] VITALS: BP 99/53
[2022-04-07 13:00] VITALS: BP 109/59
[2022-04-07 17:00] VITALS: BP 111/20
== END 2022-04-07 17:40 | disposition home or self-care (01) | DRG 552 ==
LOC: EDUNIT# 13:21 → ER 13:21 → EDBD 13:21 → TELE 23:22 → TELE-WESTW 04-01 18:00
PROVIDERS: ADMIT Specialist; ATTEND Specialist
DX: M48.07 Spinal stenosis, lumbosacral region (principal); I82.402 Acute embolism and thrombosis of unspecified deep veins of left lower extremity; G82.20 Paraplegia, unspecified; L03.116 Cellulitis of left lower limb; Z68.43 Body mass index [BMI] 50.0-59.9, adult; M50.30 Other cervical disc degeneration, unspecified cervical region; E11.22 Type 2 diabetes mellitus with diabetic chronic kidney disease; I12.9 Hypertensive chronic kidney disease with stage 1 through stage 4 chronic kidney disease, or unspecified chronic kidney disease; D64.9 Anemia, unspecified; E78.5 Hyperlipidemia, unspecified; F17.200 Nicotine dependence, unspecified, uncomplicated; J44.9 Chronic obstructive pulmonary disease, unspecified; I89.0 Lymphedema, not elsewhere classified; K21.9 Gastro-esophageal reflux disease without esophagitis; F41.9 Anxiety disorder, unspecified; R20.2 Paresthesia of skin; R29.6 Repeated falls; F32.A Depression, unspecified; N18.30 Chronic kidney disease, stage 3 unspecified; M51.36 Other intervertebral disc degeneration, lumbar region; Z20.822 Contact with and (suspected) exposure to COVID-19; S91.302A Unspecified open wound, left foot, initial encounter; M47.819 Spondylosis without myelopathy or radiculopathy, site unspecified; X58.XXXA Exposure to other specified factors, initial encounter; E66.01 Morbid (severe) obesity due to excess calories; Z86.718 Personal history of other venous thrombosis and embolism; Z87.442 Personal history of urinary calculi; Z86.711 Personal history of pulmonary embolism; Z80.0 Family history of malignant neoplasm of digestive organs; Z81.8 Family history of other mental and behavioral disorders; Z82.3 Family history of stroke; Z82.49 Family history of ischemic heart disease and other diseases of the circulatory system; Z82.5 Family history of asthma and other chronic lower respiratory diseases; Z82.62 Family history of osteoporosis; Z83.3 Family history of diabetes mellitus; Z87.11 Personal history of peptic ulcer disease; Z88.1 Allergy status to other antibiotic agents; Z99.3 Dependence on wheelchair; Z88.0 Allergy status to penicillin; Z88.8 Allergy status to other drugs, medicaments and biological substances; Z90.49 Acquired absence of other specified parts of digestive tract; Y93.89 Activity, other specified; Y92.89 Other specified places as the place of occurrence of the external cause; Y99.8 Other external cause status
CPT/HCPCS: 36415; 71045; 72125; 72131; 80053; 80061; 81001; 83735; 84100; 84443; 84484; 85025; 87081; 87205; 87426; 93005; 96361; 96372; 96374; 96375; 97110; 97116; 97163; 97530; G0378; J2405

== ENCOUNTER 2022-05-11 19:29 | Inpatient (IN) | payer MEDICARE, MEDICAID ==
[~2022-05-11] VITALS: Ht 170.2 cm; Wt 149.1 kg
[~2022-05-11 19:29] MED LIST changes: -CEFD300C2 PO
[2022-05-11 20:17] LABS: Basophils # (auto) 0.1 10 ^3/uL (0-0.2); Basophils % (auto) 1.7 % (0.0-2.0); Eosinophils # (auto) 0.2 10 ^3/uL (0-0.8); Eosinophils % (auto) 3.5 % (0.0-7.0); Hematocrit 35.8 % (36.0-46.0); Hemoglobin 11.5 g/dL (12.2-16.2); Mean Corpuscular Hemoglobin 27.3 pg (28.0-32.0); Mean Corpuscular Hgb Conc. 32.3 g/dL (32.0-36.0); Mean Corpuscular Volume 84.7 fL (80.0-100.0); Monocytes # (auto) 0.4 10 ^3/uL (0-1.3); Monocytes % (auto) 8.1 % (0.0-12.0); Neutrophils % (auto) 65.7 % (37.0-80.0); Nucleated Red Blood Cells % 0.2 %; Red Blood Cells 4.22 10^6/uL (4.0-5.20); Red Cell Distribution Width 14.5 % (11.8-14.3); White Blood Cell 4.5 10^3/uL (4.4-10.8)
[2022-05-11 20:32] LABS: INR 1.06 (0.9-1.15); Partial Thromboplastin Time 29.3 sec (24.6-33.4)
[2022-05-11 20:46] LABS: BUN/Creatinine Ratio 22.9; Calcium 8.8 mg/dL (8.5-10.1); Potassium 4.3 mmol/L (3.5-5.1)
[2022-05-11 20:48] LABS: Bilirubin, Total 0.4 mg/dL (0.2-1.0)
[2022-05-11] MEDS ORDERED: diphenhdrAMINE HCL 50 MG/1 ML VL IV PRN (23:00)
[2022-05-11] MEDS ORDERED: MORPHINE SULFATE INJ 2 MG/ml SYRG IV PRN (23:00)
[2022-05-11] MEDS ORDERED: NITROGLYCERIN 0.4 MG SL TAB SL PRN (23:00)
[2022-05-11] MEDS ORDERED: HYDROmorphone HCL 2 MG/ML VL/or syr IV PRN (23:00)
[2022-05-12] MEDS ORDERED: CEFEPIME 1GM/ 50ML 50 ML IV ONE (01:11)
[2022-05-12] MEDS: HYDROmorphone HCL 2 MG/ML VL/or syr IV PRN ×4 (01:18→19:16)
[2022-05-12] MEDS: CEFEPIME 1 GM in SODIUM CHL 0.9% 50 ML IV SCH ×2 (01:58→12:00)
[2022-05-12 06:58] LABS: Basophils # (auto) 0 10 ^3/uL (0-0.2); Basophils % (auto) 0.6 % (0.0-2.0); Eosinophils # (auto) 0.2 10 ^3/uL (0-0.8); Eosinophils % (auto) 4.2 % (0.0-7.0); Hemoglobin 10.3 g/dL (12.2-16.2); Monocytes # (auto) 0.5 10 ^3/uL (0-1.3)
[2022-05-12 07:01] LABS: Hematocrit 32.8 % (36.0-46.0); Lymphocytes % (auto) 24.4 % (10.0-50.0); Mean Corpuscular Hemoglobin 27.4 pg (28.0-32.0); Mean Corpuscular Hgb Conc. 31.4 g/dL (32.0-36.0); Mean Corpuscular Volume 87.3 fL (80.0-100.0); Monocytes % (auto) 10.8 % (0.0-12.0); Neutrophils # (auto) 2.5 10 ^3/uL (1.6-8.6); Nucleated Red Blood Cells % 0.2 %; Red Blood Cells 3.76 10^6/uL (4.0-5.20); White Blood Cell 4.2 10^3/uL (4.4-10.8)
[2022-05-12 07:17] LABS: Albumin 2.6 g/dL (3.4-5.0); BUN/Creatinine Ratio 33.3; Calcium 8.8 mg/dL (8.5-10.1); Potassium 4.3 mmol/L (3.5-5.1)
[2022-05-12 07:25] LABS: Bilirubin, Total 0.3 mg/dL (0.2-1.0)
[2022-05-12] MEDS: LEVOTHYROXINE SODIUM 50 MCG TAB PO SCH (09:18)
[2022-05-12] MEDS: SACUBITRIL-VALSARTAN 24mg/26mg TAB PO SCH ×2 (09:20→23:14)
[2022-05-12] MEDS: CARVEDILOL 3.125 MG TAB PO SCH ×2 (09:20→22:29)
[2022-05-12] MEDS: FUROSEMIDE 20 MG/2 ML VIAL IV SCH (09:21)
[2022-05-12] MEDS ORDERED: CEFEPIME 2 GM in SODIUM CHL 0.9% 50 ML IV SCH (10:00)
[2022-05-12 23:01] VITALS: BP 136/77
[2022-05-12] MEDS ORDERED: CYA100I IM (23:18)
[2022-05-12] MEDS ORDERED: PREG-108 PO (23:18)
[2022-05-12] MEDS ORDERED: SENN-48 PO (23:18)
[2022-05-12] MEDS ORDERED: PREG-109 PO (23:18)
[2022-05-13] VITALS (7 sets, daily range): BP systolic 112–145; BP diastolic 50–85
[2022-05-13] MEDS: CEFEPIME 1 GM in SODIUM CHL 0.9% 50 ML IV SCH ×3 (00:48→23:45)
[2022-05-13] MEDS: HYDROmorphone HCL 2 MG/ML VL/or syr IV PRN ×4 (04:01→22:03)
[2022-05-13] MEDS: LEVOTHYROXINE SODIUM 50 MCG TAB PO SCH (09:06)
[2022-05-13] MEDS: FUROSEMIDE 20 MG/2 ML VIAL IV SCH (10:05)
[2022-05-13] MEDS: SACUBITRIL-VALSARTAN 24mg/26mg TAB PO SCH ×2 (10:05→22:02)
[2022-05-13] MEDS: CARVEDILOL 3.125 MG TAB PO SCH ×2 (10:06→22:02)
[2022-05-14] VITALS (7 sets, daily range): BP systolic 113–139; BP diastolic 72–77
[2022-05-14] MEDS: HYDROmorphone HCL 2 MG/ML VL/or syr IV PRN ×3 (05:07→17:23)
[2022-05-14 06:38] LABS: Basophils # (auto) 0 10 ^3/uL (0-0.2); Basophils % (auto) 0.4 % (0.0-2.0); Eosinophils # (auto) 0.3 10 ^3/uL (0-0.8); Eosinophils % (auto) 6.7 % (0.0-7.0); Hematocrit 33.2 % (36.0-46.0); Hemoglobin 10.5 g/dL (12.2-16.2); Lymphocytes # (auto) 0.8 10 ^3/uL (0.4-5.4); Lymphocytes % (auto) 18.3 % (10.0-50.0); Mean Corpuscular Hemoglobin 27.2 pg (28.0-32.0); Mean Corpuscular Hgb Conc. 31.6 g/dL (32.0-36.0); Mean Corpuscular Volume 86.1 fL (80.0-100.0); Monocytes # (auto) 0.4 10 ^3/uL (0-1.3); Monocytes % (auto) 8.7 % (0.0-12.0); Neutrophils # (auto) 2.8 10 ^3/uL (1.6-8.6); Neutrophils % (auto) 65.9 % (37.0-80.0); Nucleated Red Blood Cells % 0.4 %; Red Blood Cells 3.86 10^6/uL (4.0-5.20); Red Cell Distribution Width 14.9 % (11.8-14.3); White Blood Cell 4.3 10^3/uL (4.4-10.8)
[2022-05-14] MEDS: LEVOTHYROXINE SODIUM 50 MCG TAB PO SCH (06:42)
[2022-05-14 06:54] LABS: Chloride 110 mmol/L (98-107); Sodium 140 mmol/L (136-145)
[2022-05-14 07:05] LABS: Alanine Aminotransferase 16 U/L (13-56); Albumin 2.3 g/dL (3.4-5.0); Anion Gap 6 (5-15); BUN/Creatinine Ratio 31.7; Blood Urea Nitrogen 19 mg/dL (7-18); Calcium 9.1 mg/dL (8.5-10.1); Carbon Dioxide 24 mmol/L (21-32); GFR African American 140 mL/min; GFR Non-African American 115 mL/min; Glucose 99 mg/dL (74-106)
[2022-05-14 07:16] LABS: Alkaline Phosphatase 82 U/L (45-117); Aspartate Aminotransferase 18 U/L (15-37); Bilirubin, Total 0.5 mg/dL (0.2-1.0); Total Protein 7.4 g/dL (6.4-8.2)
[2022-05-14] MEDS: CARVEDILOL 3.125 MG TAB PO SCH ×2 (09:55→23:00)
[2022-05-14] MEDS: SACUBITRIL-VALSARTAN 24mg/26mg TAB PO SCH ×2 (09:55→23:00)
[2022-05-14] MEDS: FUROSEMIDE 20 MG/2 ML VIAL IV SCH (09:56)
[2022-05-14] MEDS: CEFEPIME 1 GM in SODIUM CHL 0.9% 50 ML IV SCH (11:57)
[2022-05-15] MEDS: CEFEPIME 1 GM in SODIUM CHL 0.9% 50 ML IV SCH ×2 (00:58→12:00)
[2022-05-15 05:00] VITALS: BP 121/44
[2022-05-15] MEDS: HYDROmorphone HCL 2 MG/ML VL/or syr IV PRN (05:44)
[2022-05-15] MEDS: LEVOTHYROXINE SODIUM 50 MCG TAB PO SCH (07:05)
[2022-05-15 08:00] VITALS: BP 101/60
[2022-05-15 08:41] VITALS: BP 101/60
[2022-05-15] MEDS ORDERED: DOXY-111 PO (10:03)
[2022-05-15] MEDS: FUROSEMIDE 20 MG/2 ML VIAL IV SCH (10:22)
[2022-05-15] MEDS: SACUBITRIL-VALSARTAN 24mg/26mg TAB PO SCH (10:23)
[2022-05-15] MEDS: CARVEDILOL 3.125 MG TAB PO SCH (10:23)
== END 2022-05-15 13:51 | disposition home or self-care (01) | DRG 603 ==
LOC: EDBD 19:29 → ER 19:35 → TELE 23:12 → TELE-WESTW 05-12 22:42
PROVIDERS: ADMIT Internal Medicine Infectious Disease; ATTEND Internal Medicine Infectious Disease
PROC: 05HF33Z Insertion of Infusion Device into Left Cephalic Vein, Percutaneous Approach (ICD-10-PCS; principal; 2022-05-13)
PROC: B54NZZA Ultrasonography of Left Upper Extremity Veins, Guidance (ICD-10-PCS; 2022-05-13)
DX: L03.115 Cellulitis of right lower limb (principal); I42.9 Cardiomyopathy, unspecified; F11.20 Opioid dependence, uncomplicated; I50.22 Chronic systolic (congestive) heart failure; Z68.43 Body mass index [BMI] 50.0-59.9, adult; R65.10 Systemic inflammatory response syndrome (SIRS) of non-infectious origin without acute organ dysfunction; Z79.899 Other long term (current) drug therapy; S81.801A Unspecified open wound, right lower leg, initial encounter; B95.61 Methicillin susceptible Staphylococcus aureus infection as the cause of diseases classified elsewhere; E11.9 Type 2 diabetes mellitus without complications; F25.9 Schizoaffective disorder, unspecified; F32.A Depression, unspecified; F41.9 Anxiety disorder, unspecified; G89.4 Chronic pain syndrome; E66.01 Morbid (severe) obesity due to excess calories; I11.0 Hypertensive heart disease with heart failure; X58.XXXA Exposure to other specified factors, initial encounter; J44.9 Chronic obstructive pulmonary disease, unspecified; K21.9 Gastro-esophageal reflux disease without esophagitis; R09.02 Hypoxemia; Z80.0 Family history of malignant neoplasm of digestive organs; Z81.8 Family history of other mental and behavioral disorders; Z82.3 Family history of stroke; Z82.49 Family history of ischemic heart disease and other diseases of the circulatory system; Z82.5 Family history of asthma and other chronic lower respiratory diseases; Z82.62 Family history of osteoporosis; Z83.3 Family history of diabetes mellitus; Z86.14 Personal history of Methicillin resistant Staphylococcus aureus infection; Z86.711 Personal history of pulmonary embolism; Z86.718 Personal history of other venous thrombosis and embolism; Z87.442 Personal history of urinary calculi; Z88.1 Allergy status to other antibiotic agents; Z88.0 Allergy status to penicillin; Z88.8 Allergy status to other drugs, medicaments and biological substances; Z91.018 Allergy to other foods; Z90.49 Acquired absence of other specified parts of digestive tract; Y93.89 Activity, other specified; Y92.89 Other specified places as the place of occurrence of the external cause; Y99.8 Other external cause status
CPT/HCPCS: 36415; 71045; 80053; 84484; 85025; 85379; 85610; 85730; 87040; 87426; 93005; 96365; 96375; G0378

== ENCOUNTER 2022-05-23 13:10 | Inpatient (IN) | payer MEDICARE, MEDICAID ==
[~2022-05-23] VITALS: Ht 157.5 cm; Wt 149.3 kg
[~2022-05-23 13:10] MED LIST changes: +CYA100I IM; +DOXY-111 PO; +PREG-108 PO; +PREG-109 PO; +SENN-48 PO
[2022-05-23 14:39] LABS: Albumin 3.2 g/dL (3.4-5.0); Potassium 3.7 mmol/L (3.5-5.1)
[2022-05-23 14:41] LABS: Basophils # (auto) 0 10 ^3/uL (0-0.2); Basophils % (auto) 0.8 % (0.0-2.0); Eosinophils # (auto) 0.1 10 ^3/uL (0-0.8); Eosinophils % (auto) 1.7 % (0.0-7.0); Hematocrit 36.7 % (36.0-46.0); Hemoglobin 11.9 g/dL (12.2-16.2); Lymphocytes % (auto) 16.8 % (10.0-50.0); Mean Corpuscular Hemoglobin 27.4 pg (28.0-32.0); Mean Corpuscular Hgb Conc. 32.5 g/dL (32.0-36.0); Mean Corpuscular Volume 84.3 fL (80.0-100.0); Monocytes # (auto) 0.4 10 ^3/uL (0-1.3); Monocytes % (auto) 6.9 % (0.0-12.0); Neutrophils # (auto) 4.2 10 ^3/uL (1.6-8.6); Neutrophils % (auto) 73.8 % (37.0-80.0); Nucleated Red Blood Cells % 0.1 %; Red Blood Cells 4.35 10^6/uL (4.0-5.20); Red Cell Distribution Width 15.3 % (11.8-14.3); White Blood Cell 5.7 10^3/uL (4.4-10.8)
[2022-05-23 14:42] LABS: BUN/Creatinine Ratio 30.5; Bilirubin, Total 0.8 mg/dL (0.2-1.0); Total Protein 8.8 g/dL (6.4-8.2)
[2022-05-23] MEDS ORDERED: IOHEXOL 300 MG/ML 100ML BOTTLE IJ ONE (16:07)
[2022-05-23] MEDS ORDERED: MORPHINE SULFATE 4 MG/ML SYR/VIAL IV ONE (20:15)
[2022-05-23] MEDS ORDERED: ONDANSETRON HCL 4 MG/2 ML VIAL IV ONE (20:15)
[2022-05-24 00:53] LABS: Urine Bacteria NONE SEEN /hpf (None Seen); Urine Blood Negative /uL (Negative); Urine Specific Gravity 1.048 (1.001-1.035); Urine WBC 1 /hpf (0 - 5)
[2022-05-24] MEDS ORDERED: NITROGLYCERIN 0.4 MG SL TAB SL PRN (01:30)
[2022-05-24] MEDS ORDERED: MORPHINE SULFATE INJ 2 MG/ml SYRG IV PRN (01:30)
[2022-05-24] MEDS ORDERED: ONDANSETRON HCL 4 MG/2 ML VIAL IV PRN (03:00)
[2022-05-24] MEDS: HYDROmorphone HCL 2 MG/ML VL/or syr IV PRN ×4 (03:14→21:54)
[2022-05-24] MEDS: HYDROcodone-ACET 10/325MG TAB PO PRN ×2 (08:21→11:02)
[2022-05-24] MEDS ORDERED: LEVOTHYROXINE SODIUM 50 MCG TAB PO SCH (10:00)
[2022-05-24] MEDS ORDERED: SACUBITRIL-VALSARTAN 24mg/26mg TAB PO SCH (10:00)
[2022-05-24] MEDS ORDERED: TORSEMIDE 20 MG TAB PO ONE (10:00)
[2022-05-24] MEDS ORDERED: CEFTRIAXONE SODIUM 2 GM in D5W 5% 50 ML IV SCH (10:00)
[2022-05-24] MEDS ORDERED: PANTOPRAZOLE 40 MG/10 ML VIAL INJ IV SCH (10:00)
[2022-05-24] MEDS: LEVOTHYROXINE SODIUM 50 MCG TAB PO SCH (14:43)
[2022-05-24] MEDS: DOXYCYCLINE 100MG/250ML 250 ML IV SCH ×2 (15:34→15:38)
[2022-05-24] MEDS: FUROSEMIDE 100 MG/10ML VIAL IV SCH (20:08)
[2022-05-24] MEDS: PREGABALIN 25 MG CAP PO SCH (21:40)
[2022-05-24] MEDS: APIXABAN 5 MG TAB PO SCH (21:41)
[2022-05-24] MEDS: POTASSIUM CHL 20 Meq TABLET PO SCH (21:41)
[2022-05-24 22:00] VITALS: BP 141/71
[2022-05-25] MEDS ORDERED: LIDOCAINE 1% HCL (LOCAL ANESTH.) INJ 20ML MDV ONE (03:58)
[2022-05-25] MEDS: HYDROmorphone HCL 2 MG/ML VL/or syr IV PRN ×4 (04:51→21:11)
[2022-05-25 05:00] VITALS: BP 127/67
[2022-05-25] MEDS: FUROSEMIDE 100 MG/10ML VIAL IV SCH (05:44)
[2022-05-25 07:00] LABS: Basophils # (auto) 0 10 ^3/uL (0-0.2); Eosinophils # (auto) 0.2 10 ^3/uL (0-0.8); Hemoglobin 11.1 g/dL (12.2-16.2); Lymphocytes # (auto) 0.6 10 ^3/uL (0.4-5.4); Monocytes # (auto) 0.3 10 ^3/uL (0-1.3); Neutrophils # (auto) 3.5 10 ^3/uL (1.6-8.6); White Blood Cell 4.6 10^3/uL (4.4-10.8)
[2022-05-25 07:30] VITALS: BP 105/58
[2022-05-25 07:36] LABS: BUN/Creatinine Ratio 22.4
[2022-05-25 07:37] LABS: Albumin 2.6 g/dL (3.4-5.0); Bilirubin, Total 0.8 mg/dL (0.2-1.0); Calcium 8.3 mg/dL (8.5-10.1); Total Protein 7.6 g/dL (6.4-8.2)
[2022-05-25 07:52] LABS: Neutrophils % (auto) 76.5 % (37.0-80.0)
[2022-05-25 07:53] LABS: Basophils % (auto) 0.6 % (0.0-2.0); Eosinophils % (auto) 3.5 % (0.0-7.0); Monocytes % (auto) 6.4 % (0.0-12.0); Nucleated Red Blood Cells % 0.3 %
[2022-05-25 07:54] LABS: Hematocrit 34.5 % (36.0-46.0); Mean Corpuscular Hemoglobin 27.4 pg (28.0-32.0); Mean Corpuscular Hgb Conc. 32.2 g/dL (32.0-36.0); Mean Corpuscular Volume 85.3 fL (80.0-100.0); Red Blood Cells 4.04 10^6/uL (4.0-5.20); Red Cell Distribution Width 15.2 % (11.8-14.3)
[2022-05-25 09:00] VITALS: BP 105/58
[2022-05-25] MEDS: APIXABAN 5 MG TAB PO SCH ×2 (09:58→21:10)
[2022-05-25] MEDS: POTASSIUM CHL 20 Meq TABLET PO SCH ×2 (09:58→21:10)
[2022-05-25] MEDS: PREGABALIN 25 MG CAP PO SCH ×2 (09:59→21:09)
[2022-05-25] MEDS: PANTOPRAZOLE 40 MG TAB PO SCH (09:59)
[2022-05-25] MEDS: LEVOTHYROXINE SODIUM 50 MCG TAB PO SCH (09:59)
[2022-05-25] MEDS ORDERED: metOLazone 5 MG TAB PO SCH (10:00)
[2022-05-25 13:00] VITALS: BP 124/77
[2022-05-25] MEDS: DOXYCYCLINE 100MG/250ML 250 ML IV SCH (14:27)
[2022-05-25] MEDS ORDERED: LACTULOSE 20Gm/30ML SOLN PO PRN (15:30)
[2022-05-25 17:00] VITALS: BP 128/86
[2022-05-25 22:00] VITALS: BP 139/82
[2022-05-26] MEDS: HYDROmorphone HCL 2 MG/ML VL/or syr IV PRN ×5 (01:59→22:48)
[2022-05-26] MEDS: DOXYCYCLINE 100MG/250ML 250 ML IV SCH ×2 (01:59→13:35)
[2022-05-26 05:04] VITALS: BP 124/69
[2022-05-26 05:45] LABS: Calcium 8.4 mg/dL (8.5-10.1); Potassium 4.4 mmol/L (3.5-5.1)
[2022-05-26] MEDS: PANTOPRAZOLE 40 MG TAB PO SCH (08:39)
[2022-05-26] MEDS: LEVOTHYROXINE SODIUM 50 MCG TAB PO SCH (08:40)
[2022-05-26] MEDS: PREGABALIN 25 MG CAP PO SCH ×2 (08:40→21:55)
[2022-05-26] MEDS: APIXABAN 5 MG TAB PO SCH ×2 (08:40→21:55)
[2022-05-26] MEDS: POTASSIUM CHL 20 Meq TABLET PO SCH ×2 (08:41→21:55)
[2022-05-26] MEDS: FUROSEMIDE 20 MG TAB PO SCH ×2 (08:43→12:25)
[2022-05-26 08:51] VITALS: BP 115/69
[2022-05-26 13:23] VITALS: BP 105/65
[2022-05-26 16:30] VITALS: BP 109/88
[2022-05-26 20:00] VITALS: BP 116/78
[2022-05-26 22:00] VITALS: BP 115/78
[2022-05-26] MEDS: LINEZOLID 600MG/300ML 300 ML IV SCH (22:52)
[2022-05-27] MEDS: HYDROmorphone HCL 2 MG/ML VL/or syr IV PRN ×4 (03:42→20:53)
[2022-05-27 05:00] VITALS: BP 111/73
[2022-05-27 06:02] LABS: Basophils # (auto) 0 10 ^3/uL (0-0.2); Eosinophils # (auto) 0.3 10 ^3/uL (0-0.8); Hematocrit 32.5 % (36.0-46.0); Hemoglobin 10.2 g/dL (12.2-16.2); Lymphocytes # (auto) 0.6 10 ^3/uL (0.4-5.4); Mean Corpuscular Hemoglobin 26.7 pg (28.0-32.0); Neutrophils # (auto) 3.5 10 ^3/uL (1.6-8.6); Red Blood Cells 3.83 10^6/uL (4.0-5.20); White Blood Cell 4.8 10^3/uL (4.4-10.8)
[2022-05-27 06:05] LABS: Basophils % (auto) 0.4 % (0.0-2.0); Eosinophils % (auto) 6.7 % (0.0-7.0); Lymphocytes % (auto) 13.5 % (10.0-50.0); Mean Corpuscular Hgb Conc. 31.5 g/dL (32.0-36.0); Mean Corpuscular Volume 84.9 fL (80.0-100.0); Monocytes # (auto) 0.4 10 ^3/uL (0-1.3); Monocytes % (auto) 7.3 % (0.0-12.0); Neutrophils % (auto) 72.1 % (37.0-80.0); Nucleated Red Blood Cells % 0.1 %; Red Cell Distribution Width 15.3 % (11.8-14.3)
[2022-05-27 06:20] LABS: Albumin 2.6 g/dL (3.4-5.0); Calcium 8.2 mg/dL (8.5-10.1); Potassium 3.9 mmol/L (3.5-5.1)
[2022-05-27 06:22] LABS: BUN/Creatinine Ratio 31.8; Bilirubin, Total 0.6 mg/dL (0.2-1.0); Total Protein 6.8 g/dL (6.4-8.2)
[2022-05-27] MEDS: INSULIN LISPRO (HUMAN) 100 UNITS/ML ML SC SCH ×4 (06:47→22:00)
[2022-05-27 08:00] VITALS: BP 101/60
[2022-05-27] MEDS: PREGABALIN 25 MG CAP PO SCH ×2 (08:46→20:51)
[2022-05-27] MEDS: LEVOTHYROXINE SODIUM 50 MCG TAB PO SCH (08:46)
[2022-05-27] MEDS: APIXABAN 5 MG TAB PO SCH ×2 (08:47→20:51)
[2022-05-27] MEDS: POTASSIUM CHL 20 Meq TABLET PO SCH ×2 (08:47→20:51)
[2022-05-27] MEDS: FUROSEMIDE 20 MG TAB PO SCH ×2 (08:47→11:59)
[2022-05-27] MEDS: PANTOPRAZOLE 40 MG TAB PO SCH (08:47)
[2022-05-27] MEDS: LINEZOLID 600MG/300ML 300 ML IV SCH ×2 (08:47→22:00)
[2022-05-27 12:00] VITALS: BP 113/71
[2022-05-27 16:00] VITALS: BP 100/63
[2022-05-27 22:00] VITALS: BP 115/66
[2022-05-28] MEDS: HYDROmorphone HCL 2 MG/ML VL/or syr IV PRN ×4 (01:36→22:05)
[2022-05-28 05:00] VITALS: BP 125/77
[2022-05-28] MEDS: INSULIN LISPRO (HUMAN) 100 UNITS/ML ML SC SCH ×4 (06:56→22:00)
[2022-05-28] MEDS: APIXABAN 5 MG TAB PO SCH ×2 (09:05→22:02)
[2022-05-28] MEDS: FUROSEMIDE 20 MG TAB PO SCH ×2 (09:05→14:20)
[2022-05-28] MEDS: PREGABALIN 25 MG CAP PO SCH ×2 (09:06→22:04)
[2022-05-28] MEDS: LEVOTHYROXINE SODIUM 50 MCG TAB PO SCH (09:07)
[2022-05-28] MEDS: PANTOPRAZOLE 40 MG TAB PO SCH (09:07)
[2022-05-28] MEDS: POTASSIUM CHL 20 Meq TABLET PO SCH ×2 (09:08→22:03)
[2022-05-28] MEDS: LINEZOLID 600MG/300ML 300 ML IV SCH ×2 (09:09→22:02)
[2022-05-28 09:11] VITALS: BP 127/68
[2022-05-28] MEDS ORDERED: metFORMIN HYDROCHLORIDE 500 MG TAB PO SCH (12:00)
[2022-05-28 12:03] VITALS: BP 126/68
[2022-05-28 15:59] VITALS: BP 113/65
[2022-05-28] MEDS: metFORMIN HYDROCHLORIDE 500 MG TAB PO SCH (18:00)
[2022-05-28 22:00] VITALS: BP 104/68
[2022-05-29] MEDS: HYDROmorphone HCL 2 MG/ML VL/or syr IV PRN ×5 (04:12→23:03)
[2022-05-29 05:00] VITALS: BP 104/54
[2022-05-29] MEDS: INSULIN LISPRO (HUMAN) 100 UNITS/ML ML SC SCH ×4 (06:29→21:45)
[2022-05-29] MEDS: FUROSEMIDE 20 MG TAB PO SCH ×2 (07:52→12:28)
[2022-05-29] MEDS: APIXABAN 5 MG TAB PO SCH ×2 (08:56→21:34)
[2022-05-29] MEDS: POTASSIUM CHL 20 Meq TABLET PO SCH ×2 (08:56→21:34)
[2022-05-29] MEDS: PREGABALIN 25 MG CAP PO SCH ×2 (08:56→21:34)
[2022-05-29] MEDS: LEVOTHYROXINE SODIUM 50 MCG TAB PO SCH (08:56)
[2022-05-29] MEDS: PANTOPRAZOLE 40 MG TAB PO SCH (08:57)
[2022-05-29] MEDS: LINEZOLID 600MG/300ML 300 ML IV SCH ×2 (09:02→21:34)
[2022-05-29 09:07] VITALS: BP 119/64
[2022-05-29] MEDS: metFORMIN HYDROCHLORIDE 500 MG TAB PO SCH ×2 (12:00→18:00)
[2022-05-29 12:52] VITALS: BP 102/63
[2022-05-29 16:33] VITALS: BP 112/47
[2022-05-29 22:00] VITALS: BP 109/76
[2022-05-30 05:00] VITALS: BP 116/87
[2022-05-30] MEDS: HYDROmorphone HCL 2 MG/ML VL/or syr IV PRN ×3 (06:12→16:25)
[2022-05-30] MEDS: INSULIN LISPRO (HUMAN) 100 UNITS/ML ML SC SCH ×3 (06:12→17:00)
[2022-05-30] MEDS: APIXABAN 5 MG TAB PO SCH (08:58)
[2022-05-30] MEDS: PANTOPRAZOLE 40 MG TAB PO SCH (08:58)
[2022-05-30] MEDS: POTASSIUM CHL 20 Meq TABLET PO SCH (08:59)
[2022-05-30] MEDS: LEVOTHYROXINE SODIUM 50 MCG TAB PO SCH (08:59)
[2022-05-30] MEDS: FUROSEMIDE 20 MG TAB PO SCH ×2 (09:00→14:30)
[2022-05-30] MEDS: PREGABALIN 25 MG CAP PO SCH (09:00)
[2022-05-30] MEDS: LINEZOLID 600MG/300ML 300 ML IV SCH (09:01)
[2022-05-30 09:15] VITALS: BP 106/64
[2022-05-30] MEDS: metFORMIN HYDROCHLORIDE 500 MG TAB PO SCH ×2 (12:00→18:00)
[2022-05-30 12:55] VITALS: BP 104/56
[2022-05-30 17:21] VITALS: BP 120/85
[2022-05-30] MEDS ORDERED: METF-370 PO (17:24)
[2022-05-30] MEDS ORDERED: LEV50T PO (17:24)
[2022-05-30 17:32] VITALS: BP 104/56
== END 2022-05-30 18:00 | DRG 602 ==
LOC: EDBD 13:10 → ER 13:10 → OVERFLOW 05-24 01:30 → EAST 05-24 19:00
PROVIDERS: ADMIT Hospitalist; ATTEND Specialist
PROC: 05HB33Z Insertion of Infusion Device into Right Basilic Vein, Percutaneous Approach (ICD-10-PCS; 2022-05-28)
PROC: B54MZZA Ultrasonography of Right Upper Extremity Veins, Guidance (ICD-10-PCS; 2022-05-28)
PROC: 05HC33Z Insertion of Infusion Device into Left Basilic Vein, Percutaneous Approach (ICD-10-PCS; principal; 2022-05-29)
PROC: B54NZZA Ultrasonography of Left Upper Extremity Veins, Guidance (ICD-10-PCS; 2022-05-29)
DX: L03.115 Cellulitis of right lower limb (principal); I26.09 Other pulmonary embolism with acute cor pulmonale; L97.919 Non-pressure chronic ulcer of unspecified part of right lower leg with unspecified severity; I42.9 Cardiomyopathy, unspecified; Z68.45 Body mass index [BMI] 70 or greater, adult; E66.2 Morbid (severe) obesity with alveolar hypoventilation; I13.0 Hypertensive heart and chronic kidney disease with heart failure and stage 1 through stage 4 chronic kidney disease, or unspecified chronic kidney disease; I82.812 Embolism and thrombosis of superficial veins of left lower extremity; Z68.44 Body mass index [BMI] 60.0-69.9, adult; F11.20 Opioid dependence, uncomplicated; M86.8X6 Other osteomyelitis, lower leg; L03.116 Cellulitis of left lower limb; N18.30 Chronic kidney disease, stage 3 unspecified; L04.9 Acute lymphadenitis, unspecified; E03.9 Hypothyroidism, unspecified; E11.22 Type 2 diabetes mellitus with diabetic chronic kidney disease; E78.5 Hyperlipidemia, unspecified; F32.A Depression, unspecified; Z20.822 Contact with and (suspected) exposure to COVID-19; K21.9 Gastro-esophageal reflux disease without esophagitis; B95.61 Methicillin susceptible Staphylococcus aureus infection as the cause of diseases classified elsewhere; B95.2 Enterococcus as the cause of diseases classified elsewhere; E11.69 Type 2 diabetes mellitus with other specified complication; J44.9 Chronic obstructive pulmonary disease, unspecified; F41.9 Anxiety disorder, unspecified; Z86.718 Personal history of other venous thrombosis and embolism; Z81.8 Family history of other mental and behavioral disorders; Z88.8 Allergy status to other drugs, medicaments and biological substances; Z86.711 Personal history of pulmonary embolism; Z79.01 Long term (current) use of anticoagulants; I50.9 Heart failure, unspecified
CPT/HCPCS: 36415; 73701; 80048; 80053; 81001; 82962; 83036; 85025; 87077; 87081; 87186; 87205; 87426; 93306; 96374; 96375; 97116; 97163; 97530; C9113; G0378; J0696; J1815; J2001; J2405; J3490; J7060

== ENCOUNTER 2022-08-02 04:46 | Inpatient (IN) | payer MEDICARE, MEDICAID ==
[~2022-08-02] VITALS: Ht 165.1 cm; Wt 161.6 kg
[~2022-08-02 04:46] MED LIST changes: -DOXY-111 PO; +LEV50T PO; -LEVO175T66 PO; +METF-370 PO
[2022-08-02 05:53] LABS: Basophils # (auto) 0 10 ^3/uL (0-0.2); Basophils % (auto) 0.4 % (0.0-2.0); Eosinophils # (auto) 0.1 10 ^3/uL (0-0.8); Eosinophils % (auto) 0.9 % (0.0-7.0); Hematocrit 33.6 % (36.0-46.0); Hemoglobin 11.2 g/dL (12.2-16.2); Lymphocytes # (auto) 0.6 10 ^3/uL (0.4-5.4); Lymphocytes % (auto) 4.8 % (10.0-50.0); Mean Corpuscular Hemoglobin 28.5 pg (28.0-32.0); Mean Corpuscular Hgb Conc. 33.5 g/dL (32.0-36.0); Mean Corpuscular Volume 85.1 fL (80.0-100.0); Monocytes # (auto) 0.4 10 ^3/uL (0-1.3); Monocytes % (auto) 3.3 % (0.0-12.0); Neutrophils % (auto) 90.6 % (37.0-80.0); Red Blood Cells 3.94 10^6/uL (4.0-5.20); Red Cell Distribution Width 18.1 % (11.8-14.3); White Blood Cell 13.2 10^3/uL (4.4-10.8)
[2022-08-02 06:04] LABS: Calcium 8.7 mg/dL (8.5-10.1); Potassium 4.1 mmol/L (3.5-5.1)
[2022-08-02 06:08] LABS: BUN/Creatinine Ratio 27.3 (10.0-20.0); Bilirubin, Total 0.6 mg/dL (0.2-1.0)
[2022-08-02] MEDS ORDERED: SULFAMETH-TRIMETH 80/16MG-ML 15 ML in D5W 5% 500 ML IV ONE (07:30)
[2022-08-02] MEDS: HYDROcodone-ACET 10/325MG TAB PO ONE ×2 (10:51→11:06)
[2022-08-02] MEDS ORDERED: SODIUM CHLORIDE 0.9% 1,000 ML IV ONE (11:15)
[2022-08-02] MEDS ORDERED: HYDROmorphone HCL 2 MG/ML VL/or syr IV PRN (11:15)
[2022-08-02] MEDS ORDERED: HEPARIN SODIUM (PORCINE) 5000 UNITS/ML 1ML VIAL IV ONE ×2 (16:15→18:15)
[2022-08-02] MEDS ORDERED: NITROGLYCERIN 0.4 MG SL TAB SL PRN ×3 (16:15→20:30)
[2022-08-02] MEDS ORDERED: MORPHINE SULFATE INJ 2 MG/ml SYRG IV PRN ×2 (16:15→17:30)
[2022-08-02] MEDS ORDERED: HEPARIN DRIP/D5W 100UNITS/ML 250 ML IV SCH ×2 (16:15→18:15)
[2022-08-02 17:46] LABS: INR 1.05 (0.9-1.15); Partial Thromboplastin Time 29.6 sec (24.6-33.4)
[2022-08-02] MEDS: HYDROmorphone HCL 2 MG/ML VL/or syr IV PRN ×2 (18:10→22:20)
[2022-08-03 01:50] LABS: INR 1.11 (0.9-1.15)
[2022-08-03 02:18] LABS: Partial Thromboplastin Time > 139.0 sec (24.6-33.4)
[2022-08-03] MEDS: HYDROmorphone HCL 2 MG/ML VL/or syr IV PRN ×6 (02:23→21:52)
[2022-08-03] MEDS: HEPARIN DRIP/D5W 100UNITS/ML 250 ML IV SCH ×2 (03:35→17:13)
[2022-08-03 06:30] LABS: Basophils # (auto) 0 10 ^3/uL (0-0.2); Basophils % (auto) 0.7 % (0.0-2.0); Eosinophils # (auto) 0.2 10 ^3/uL (0-0.8); Eosinophils % (auto) 3.6 % (0.0-7.0); Hematocrit 32.3 % (36.0-46.0); Hemoglobin 10.5 g/dL (12.2-16.2); Lymphocytes # (auto) 0.8 10 ^3/uL (0.4-5.4); Lymphocytes % (auto) 15.1 % (10.0-50.0); Mean Corpuscular Hemoglobin 28.7 pg (28.0-32.0); Mean Corpuscular Hgb Conc. 32.5 g/dL (32.0-36.0); Mean Corpuscular Volume 88.4 fL (80.0-100.0); Monocytes # (auto) 0.4 10 ^3/uL (0-1.3); Monocytes % (auto) 7.6 % (0.0-12.0); Nucleated Red Blood Cells % 0.1 %; Red Blood Cells 3.66 10^6/uL (4.0-5.20); Red Cell Distribution Width 18.5 % (11.8-14.3); White Blood Cell 5.4 10^3/uL (4.4-10.8)
[2022-08-03 06:51] LABS: INR 1.08 (0.9-1.15)
[2022-08-03 06:55] LABS: Partial Thromboplastin Time 76.9 sec (24.6-33.4)
[2022-08-03 07:10] LABS: Potassium 4.1 mmol/L (3.5-5.1)
[2022-08-03 07:15] LABS: Albumin 2.7 g/dL (3.4-5.0); BUN/Creatinine Ratio 20.2 (10.0-20.0); Calcium 8.6 mg/dL (8.5-10.1)
[2022-08-03 07:17] LABS: Bilirubin, Total 0.9 mg/dL (0.2-1.0); Total Protein 7.7 g/dL (6.4-8.2)
[2022-08-03 07:37] LABS: Urine Bacteria NONE SEEN /hpf (None Seen); Urine Blood Negative /uL (Negative); Urine Specific Gravity 1.024 (1.001-1.035); Urine WBC <1 /hpf (0 - 5)
[2022-08-03 10:17] LABS: INR 1.06 (0.9-1.15); Partial Thromboplastin Time 69.2 sec (24.6-33.4)
[2022-08-03 17:06] LABS: INR 1.04 (0.9-1.15)
[2022-08-03 17:09] LABS: Partial Thromboplastin Time 76.1 sec (24.6-33.4)
[2022-08-03 21:46] VITALS: BP 119/56
[2022-08-03 22:00] VITALS: BP 119/56
[2022-08-03 23:24] LABS: Partial Thromboplastin Time 42.8 sec (24.6-33.4)
[2022-08-03] MEDS ORDERED: HEPARIN DRIP/D5W 100UNITS/ML 250 ML IV SCH ×3 (23:45)
[2022-08-04] MEDS: HYDROmorphone HCL 2 MG/ML VL/or syr IV PRN ×5 (02:17→20:03)
[2022-08-04 05:00] VITALS: BP 106/83
[2022-08-04 06:50] LABS: INR 1.03 (0.9-1.15); Partial Thromboplastin Time 64.3 sec (24.6-33.4)
[2022-08-04 08:00] VITALS: BP 120/68
[2022-08-04 09:00] VITALS: BP 120/68
[2022-08-04 12:55] LABS: Partial Thromboplastin Time 43.1 sec (24.6-33.4)
[2022-08-04 13:00] VITALS: BP 119/74
[2022-08-04] MEDS ORDERED: HEPARIN DRIP/D5W 100UNITS/ML 250 ML IV SCH (14:15)
[2022-08-04] MEDS: HEPARIN DRIP/D5W 100UNITS/ML 250 ML IV SCH ×2 (14:30→18:31)
[2022-08-04 17:00] VITALS: BP 123/68
[2022-08-04 20:42] LABS: INR 1.02 (0.9-1.15); Partial Thromboplastin Time 63.5 sec (24.6-33.4)
[2022-08-04 21:48] VITALS: BP 135/74
[2022-08-04] MEDS: MUPIROCIN 2% OINT 15gm or 22gm TOP SCH (22:43)
[2022-08-05] MEDS: HYDROmorphone HCL 2 MG/ML VL/or syr IV PRN ×6 (00:03→21:03)
[2022-08-05 03:29] LABS: Basophils # (auto) 0 10 ^3/uL (0-0.2); Basophils % (auto) 0.6 % (0.0-2.0); Eosinophils # (auto) 0.3 10 ^3/uL (0-0.8); Eosinophils % (auto) 5.2 % (0.0-7.0); Hematocrit 30.8 % (36.0-46.0); Hemoglobin 10.3 g/dL (12.2-16.2); Lymphocytes # (auto) 0.7 10 ^3/uL (0.4-5.4); Lymphocytes % (auto) 13.1 % (10.0-50.0); Mean Corpuscular Hemoglobin 28.8 pg (28.0-32.0); Mean Corpuscular Hgb Conc. 33.3 g/dL (32.0-36.0); Mean Corpuscular Volume 86.5 fL (80.0-100.0); Monocytes # (auto) 0.4 10 ^3/uL (0-1.3); Monocytes % (auto) 6.6 % (0.0-12.0); Neutrophils # (auto) 4.1 10 ^3/uL (1.6-8.6); Neutrophils % (auto) 74.5 % (37.0-80.0); Nucleated Red Blood Cells % 0.3 %; Red Blood Cells 3.56 10^6/uL (4.0-5.20); Red Cell Distribution Width 18.4 % (11.8-14.3); White Blood Cell 5.6 10^3/uL (4.4-10.8)
[2022-08-05 03:38] LABS: Partial Thromboplastin Time 35.6 sec (24.6-33.4)
[2022-08-05] MEDS ORDERED: HEPARIN DRIP/D5W 100UNITS/ML 250 ML IV SCH ×3 (04:00→17:25)
[2022-08-05] MEDS ORDERED: HEPARIN SODIUM (PORCINE) 5000 UNITS/ML 1ML VIAL IV ONE (04:00)
[2022-08-05] MEDS: HEPARIN DRIP/D5W 100UNITS/ML 250 ML IV SCH ×3 (04:15→21:11)
[2022-08-05 05:40] VITALS: BP 131/71
[2022-08-05 06:12] LABS: INR 1.03 (0.9-1.15)
[2022-08-05 08:00] VITALS: BP 122/107
[2022-08-05 10:58] LABS: INR 1.01 (0.9-1.15); Partial Thromboplastin Time 49.5 sec (24.6-33.4)
[2022-08-05] MEDS: MUPIROCIN 2% OINT 15gm or 22gm TOP SCH ×2 (12:15→21:50)
[2022-08-05 13:00] VITALS: BP 122/98
[2022-08-05 17:00] VITALS: BP 141/46
[2022-08-05 18:10] LABS: INR 1.02 (0.9-1.15)
[2022-08-05 18:29] LABS: Partial Thromboplastin Time 83.6 sec (24.6-33.4)
[2022-08-05] MEDS: DOXYCYCLINE 100 MG TAB/CAP PO SCH (20:49)
[2022-08-05 21:50] VITALS: BP_SYST 144; BP_SYST 170; BP_DIAS 65; BP_DIAS 91
[2022-08-06 01:14] LABS: INR 0.98 (0.9-1.15)
[2022-08-06 01:17] LABS: Partial Thromboplastin Time 81.8 sec (24.6-33.4)
[2022-08-06] MEDS: HYDROmorphone HCL 2 MG/ML VL/or syr IV PRN ×5 (01:24→21:35)
[2022-08-06] MEDS: HEPARIN DRIP/D5W 100UNITS/ML 250 ML IV SCH ×2 (01:43→15:11)
[2022-08-06 05:00] VITALS: BP 119/70
[2022-08-06 09:00] VITALS: BP 125/71
[2022-08-06 09:03] LABS: INR 0.99 (0.9-1.15); Partial Thromboplastin Time 59.6 sec (24.6-33.4)
[2022-08-06] MEDS: DOXYCYCLINE 100 MG TAB/CAP PO SCH ×2 (09:39→21:11)
[2022-08-06] MEDS: MUPIROCIN 2% OINT 15gm or 22gm TOP SCH ×2 (09:39→21:36)
[2022-08-06 13:00] VITALS: BP 131/81
[2022-08-06 15:40] LABS: INR 0.97 (0.9-1.15); Partial Thromboplastin Time 29.3 sec (24.6-33.4)
[2022-08-06 16:44] VITALS: BP 120/64
[2022-08-06] MEDS ORDERED: HEPARIN DRIP/D5W 100UNITS/ML 250 ML IV SCH (17:30)
[2022-08-06] MEDS ORDERED: HEPARIN SODIUM (PORCINE) 5000 UNITS/ML 1ML VIAL IV ONE (17:30)
[2022-08-06 22:00] VITALS: BP 126/76
[2022-08-07 01:24] LABS: INR 0.98 (0.9-1.15); Partial Thromboplastin Time 22.2 sec (24.6-33.4)
[2022-08-07] MEDS: HYDROmorphone HCL 2 MG/ML VL/or syr IV PRN ×7 (01:41→20:03)
[2022-08-07] MEDS ORDERED: HEPARIN DRIP/D5W 100UNITS/ML 250 ML IV SCH ×2 (02:00→09:45)
[2022-08-07] MEDS ORDERED: HEPARIN SODIUM (PORCINE) 5000 UNITS/ML 1ML VIAL IV ONE (02:00)
[2022-08-07 05:00] VITALS: BP 149/74
[2022-08-07 07:20] LABS: INR 1.04 (0.9-1.15)
[2022-08-07 08:20] VITALS: BP 126/66
[2022-08-07] MEDS: DOXYCYCLINE 100 MG TAB/CAP PO SCH ×2 (09:48→22:00)
[2022-08-07] MEDS: MUPIROCIN 2% OINT 15gm or 22gm TOP SCH ×2 (09:50→22:00)
[2022-08-07 12:15] VITALS: BP 127/72
[2022-08-07 16:10] VITALS: BP 104/57
[2022-08-07 16:26] LABS: INR 1.01 (0.9-1.15); Partial Thromboplastin Time 58.7 sec (24.6-33.4)
[2022-08-07 22:00] VITALS: BP 112/54
[2022-08-07 23:18] LABS: INR 1.02 (0.9-1.15); Partial Thromboplastin Time 40.3 sec (24.6-33.4)
[2022-08-08] MEDS: HEPARIN DRIP/D5W 100UNITS/ML 250 ML IV SCH ×2 (00:30→08:36)
[2022-08-08] MEDS: HYDROmorphone HCL 2 MG/ML VL/or syr IV PRN ×6 (00:33→22:32)
[2022-08-08 05:00] VITALS: BP 136/75
[2022-08-08 07:20] LABS: INR 1.04 (0.9-1.15); Partial Thromboplastin Time 58.6 sec (24.6-33.4)
[2022-08-08 09:00] VITALS: BP 122/52
[2022-08-08] MEDS: APIXABAN 5 MG TAB PO SCH ×2 (09:24→22:14)
[2022-08-08] MEDS: DOXYCYCLINE 100 MG TAB/CAP PO SCH ×2 (09:25→22:14)
[2022-08-08] MEDS: MUPIROCIN 2% OINT 15gm or 22gm TOP SCH ×2 (09:25→22:19)
[2022-08-08 12:50] VITALS: BP 136/73
[2022-08-08 17:00] VITALS: BP 135/71
[2022-08-08 22:00] VITALS: BP 137/60
[2022-08-08] MEDS: SULFAMETH-TRIMETH 80/16MG-ML 10 ML in D5W 5% 250 ML IV SCH (22:00)
[2022-08-09] MEDS: HYDROmorphone HCL 2 MG/ML VL/or syr IV PRN ×4 (02:32→15:38)
[2022-08-09 05:00] VITALS: BP 144/57
[2022-08-09] MEDS: SULFAMETH-TRIMETH 80/16MG-ML 10 ML in D5W 5% 250 ML IV SCH (08:42)
[2022-08-09] MEDS: DOXYCYCLINE 100 MG TAB/CAP PO SCH (08:47)
[2022-08-09] MEDS: APIXABAN 5 MG TAB PO SCH (08:47)
[2022-08-09] MEDS: MUPIROCIN 2% OINT 15gm or 22gm TOP SCH (08:48)
[2022-08-09 09:00] VITALS: BP 101/65
[2022-08-09 13:00] VITALS: BP 129/65
[2022-08-09 13:29] VITALS: BP 129/65
[2022-08-09 16:35] VITALS: BP 115/84
== END 2022-08-09 15:00 | disposition home or self-care (01) | DRG 300 ==
LOC: EDBD 04:46 → ER 04:46 → TELE 16:19 → TELE-WESTW 08-03 22:09
PROVIDERS: ADMIT Internal Medicine; ATTEND Internal Medicine Infectious Disease
PROC: 05HB33Z Insertion of Infusion Device into Right Basilic Vein, Percutaneous Approach (ICD-10-PCS; principal; 2022-08-02)
PROC: B54MZZA Ultrasonography of Right Upper Extremity Veins, Guidance (ICD-10-PCS; 2022-08-02)
DX: I82.411 Acute embolism and thrombosis of right femoral vein (principal); E44.1 Mild protein-calorie malnutrition; L03.115 Cellulitis of right lower limb; I42.9 Cardiomyopathy, unspecified; L97.919 Non-pressure chronic ulcer of unspecified part of right lower leg with unspecified severity; Z68.43 Body mass index [BMI] 50.0-59.9, adult; L03.116 Cellulitis of left lower limb; Z20.822 Contact with and (suspected) exposure to COVID-19; E11.9 Type 2 diabetes mellitus without complications; E66.01 Morbid (severe) obesity due to excess calories; I11.0 Hypertensive heart disease with heart failure; I50.9 Heart failure, unspecified; J44.9 Chronic obstructive pulmonary disease, unspecified; R79.1 Abnormal coagulation profile; Z88.8 Allergy status to other drugs, medicaments and biological substances; Z79.01 Long term (current) use of anticoagulants; Z80.0 Family history of malignant neoplasm of digestive organs; Z81.8 Family history of other mental and behavioral disorders; Z82.3 Family history of stroke; Z82.5 Family history of asthma and other chronic lower respiratory diseases; Z82.49 Family history of ischemic heart disease and other diseases of the circulatory system; Z82.62 Family history of osteoporosis; Z83.3 Family history of diabetes mellitus; Z87.442 Personal history of urinary calculi
CPT/HCPCS: 36415; 80053; 81001; 83880; 85025; 85049; 85610; 85730; 87077; 87086; 87186; 87205; 87426; 93005; 93970; 96361; 96365; 96375; G0378; J3490; J7060

== ENCOUNTER 2022-09-21 11:12 | Inpatient (IN) | payer MEDICARE, MEDICAID ==
[~2022-09-21] VITALS: Ht 162.6 cm; Wt 163.3 kg
[~2022-09-21 11:12] MED LIST changes: +DOCU-265 PO; -DOCU100C10 PO; -TORS20TA20 PO
[2022-09-21] MEDS ORDERED: HYDROmorphone HCL 2 MG/ML VL/or syr IV ONE (11:30)
[2022-09-21] MEDS ORDERED: ONDANSETRON ODT 4 MG TAB PO ONE (11:30)
[2022-09-21 12:23] LABS: Basophils # (auto) 0 10 ^3/uL (0-0.2); Basophils % (auto) 0.3 % (0.0-2.0); Eosinophils # (auto) 0.1 10 ^3/uL (0-0.8); Eosinophils % (auto) 1.2 % (0.0-7.0); Hematocrit 32.5 % (36.0-46.0); Hemoglobin 10.5 g/dL (12.2-16.2); Lymphocytes # (auto) 0.5 10 ^3/uL (0.4-5.4); Lymphocytes % (auto) 4.8 % (10.0-50.0); Mean Corpuscular Hemoglobin 28.8 pg (28.0-32.0); Mean Corpuscular Hgb Conc. 32.2 g/dL (32.0-36.0); Mean Corpuscular Volume 89.4 fL (80.0-100.0); Monocytes # (auto) 0.5 10 ^3/uL (0-1.3); Monocytes % (auto) 4.2 % (0.0-12.0); Neutrophils # (auto) 9.9 10 ^3/uL (1.6-8.6); Neutrophils % (auto) 89.5 % (37.0-80.0); Red Blood Cells 3.64 10^6/uL (4.0-5.20); Red Cell Distribution Width 15.4 % (11.8-14.3); White Blood Cell 11.1 10^3/uL (4.4-10.8)
[2022-09-21 12:28] LABS: INR 1.06 (0.9-1.15); Partial Thromboplastin Time 32.1 sec (24.6-33.4)
[2022-09-21 12:36] LABS: Calcium 7.9 mg/dL (8.5-10.1); Magnesium 2.3 mg/dL (1.6-2.6); Potassium 4.3 mmol/L (3.5-5.1)
[2022-09-21 12:40] LABS: BUN/Creatinine Ratio 21.8 (10.0-20.0); Bilirubin, Total 0.6 mg/dL (0.2-1.0); Total Protein 8.3 g/dL (6.4-8.2)
[2022-09-21] MEDS ORDERED: DOXYCYCLINE 100MG/250ML 250 ML IV ONE (15:00)
[2022-09-21 15:29] LABS: Urine Bacteria FEW /hpf (None Seen); Urine Blood 1+ /uL (Negative); Urine Specific Gravity 1.006 (1.001-1.035); Urine WBC 12 /hpf (0 - 5)
[2022-09-21] MEDS ORDERED: MORPHINE SULFATE INJ 2 MG/ml SYRG IV PRN (18:00)
[2022-09-21] MEDS ORDERED: NITROGLYCERIN 0.4 MG SL TAB SL PRN (18:00)
[2022-09-21] MEDS ORDERED: ACETAMINOPHEN 500 MG TAB PO PRN (18:15)
[2022-09-21] MEDS ORDERED: HYDROcodone-ACET 10/325MG TAB PO PRN (18:15)
[2022-09-21] MEDS: TORSEMIDE 20 MG TAB PO SCH ×2 (18:58→19:04)
[2022-09-21] MEDS: SOD CHL 0.45% 1,000 ML IV SCH (18:59)
[2022-09-21] MEDS: HYDROmorphone HCL 2 MG/ML VL/or syr IV PRN (20:12)
[2022-09-21] MEDS: SACUBITRIL-VALSARTAN 24mg/26mg TAB PO SCH (22:00)
[2022-09-21 22:21] VITALS: BP 123/63
[2022-09-22] MEDS: HYDROmorphone HCL 2 MG/ML VL/or syr IV PRN ×5 (00:52→20:07)
[2022-09-22] MEDS: DOXYCYCLINE 100MG/250ML 250 ML IV SCH ×2 (03:00→14:59)
[2022-09-22 05:00] VITALS: BP 104/49
[2022-09-22 09:00] VITALS: BP 107/47
[2022-09-22] MEDS ORDERED: TORSEMIDE 20 MG TAB PO SCH (10:00)
[2022-09-22] MEDS: SACUBITRIL-VALSARTAN 24mg/26mg TAB PO SCH ×2 (10:08→21:17)
[2022-09-22] MEDS: TORSEMIDE 20 MG TAB PO SCH (10:08)
[2022-09-22 13:00] VITALS: BP 108/66
[2022-09-22] MEDS: SOD CHL 0.45% 1,000 ML IV SCH (14:35)
[2022-09-22 17:00] VITALS: BP 123/67
[2022-09-22 22:00] VITALS: BP 103/48
[2022-09-23] MEDS: HYDROmorphone HCL 2 MG/ML VL/or syr IV PRN ×6 (00:16→21:53)
[2022-09-23] MEDS: DOXYCYCLINE 100MG/250ML 250 ML IV SCH ×2 (04:05→15:15)
[2022-09-23 05:00] VITALS: BP 123/70
[2022-09-23 08:56] VITALS: BP 113/57
[2022-09-23] MEDS: SACUBITRIL-VALSARTAN 24mg/26mg TAB PO SCH ×2 (10:03→21:53)
[2022-09-23] MEDS: TORSEMIDE 20 MG TAB PO SCH (10:04)
[2022-09-23 12:39] VITALS: BP 131/71
[2022-09-23] MEDS: SOD CHL 0.45% 1,000 ML IV SCH (14:22)
[2022-09-23 17:31] VITALS: BP 103/56
[2022-09-23 22:00] VITALS: BP 116/75
[2022-09-24] VITALS (7 sets, daily range): BP systolic 105–137; BP diastolic 54–71
[2022-09-24] MEDS: HYDROmorphone HCL 2 MG/ML VL/or syr IV PRN ×6 (02:16→22:51)
[2022-09-24] MEDS: DOXYCYCLINE 100MG/250ML 250 ML IV SCH ×2 (02:17→16:07)
[2022-09-24 05:43] LABS: Basophils # (auto) 0 10 ^3/uL (0-0.2); Basophils % (auto) 0.5 % (0.0-2.0); Eosinophils # (auto) 0.3 10 ^3/uL (0-0.8); Eosinophils % (auto) 6.2 % (0.0-7.0); Hemoglobin 10.6 g/dL (12.2-16.2); Lymphocytes # (auto) 0.6 10 ^3/uL (0.4-5.4); Lymphocytes % (auto) 12.4 % (10.0-50.0); Mean Corpuscular Hemoglobin 29.5 pg (28.0-32.0); Mean Corpuscular Volume 89.2 fL (80.0-100.0); Monocytes # (auto) 0.5 10 ^3/uL (0-1.3); Monocytes % (auto) 10.1 % (0.0-12.0); Neutrophils # (auto) 3.5 10 ^3/uL (1.6-8.6); Neutrophils % (auto) 70.8 % (37.0-80.0); Nucleated Red Blood Cells % 0.1 %; Red Blood Cells 3.58 10^6/uL (4.0-5.20); Red Cell Distribution Width 15.7 % (11.8-14.3)
[2022-09-24 06:05] LABS: Potassium 3.8 mmol/L (3.5-5.1)
[2022-09-24 06:20] LABS: Albumin 2.7 g/dL (3.4-5.0); Bilirubin, Total 0.6 mg/dL (0.2-1.0); Calcium 8.3 mg/dL (8.5-10.1); Total Protein 7.9 g/dL (6.4-8.2)
[2022-09-24] MEDS: SOD CHL 0.45% 1,000 ML IV SCH ×2 (06:43→20:06)
[2022-09-24] MEDS: SACUBITRIL-VALSARTAN 24mg/26mg TAB PO SCH ×2 (10:17→22:09)
[2022-09-24] MEDS: TORSEMIDE 20 MG TAB PO SCH (10:17)
[2022-09-24] MEDS: CEFEPIME 2 GM in SODIUM CHL 0.9% 50 ML IV SCH ×2 (10:58→22:10)
[2022-09-25] MEDS: SOD CHL 0.45% 1,000 ML IV SCH
[2022-09-25] MEDS: DOXYCYCLINE 100MG/250ML 250 ML IV SCH ×2 (03:31→14:52)
[2022-09-25] MEDS: HYDROmorphone HCL 2 MG/ML VL/or syr IV PRN ×3 (04:59→17:33)
[2022-09-25 05:00] VITALS: BP 123/73
[2022-09-25] MEDS ORDERED: HYDROmorphone HCL 2 MG/ML VL/or syr IV PRN (06:00)
[2022-09-25 07:35] VITALS: BP 113/57
[2022-09-25 08:00] VITALS: BP 104/68
[2022-09-25] MEDS: TORSEMIDE 20 MG TAB PO SCH (09:46)
[2022-09-25] MEDS: CEFEPIME 1 GM in SODIUM CHL 0.9% 50 ML IV SCH (09:47)
[2022-09-25] MEDS: SACUBITRIL-VALSARTAN 24mg/26mg TAB PO SCH (10:34)
[2022-09-25 13:19] VITALS: BP 104/57
[2022-09-25 17:00] VITALS: BP 102/63
[2022-09-25 22:00] VITALS: BP 119/70
[2022-09-26] MEDS: SOD CHL 0.45% 1,000 ML IV SCH
[2022-09-26] MEDS: HYDROmorphone HCL 2 MG/ML VL/or syr IV PRN ×3 (00:48→14:58)
[2022-09-26] MEDS: SACUBITRIL-VALSARTAN 24mg/26mg TAB PO SCH ×3 (00:49→21:18)
[2022-09-26] MEDS: CEFEPIME 1 GM in SODIUM CHL 0.9% 50 ML IV SCH ×3 (01:34→21:18)
[2022-09-26] MEDS: DOXYCYCLINE 100MG/250ML 250 ML IV SCH ×2 (03:14→17:25)
[2022-09-26 05:00] VITALS: BP 104/61
[2022-09-26 08:30] VITALS: BP 117/83
[2022-09-26] MEDS: TORSEMIDE 20 MG TAB PO SCH (09:50)
[2022-09-26 12:30] VITALS: BP 122/62
[2022-09-26 16:25] VITALS: BP 106/67
[2022-09-26 22:00] VITALS: BP 103/58
[2022-09-27] VITALS (7 sets, daily range): BP systolic 95–119; BP diastolic 58–78
[2022-09-27] MEDS ORDERED: HYDROmorphone HCL 2 MG/ML VL/or syr IV PRN (00:15)
[2022-09-27] MEDS: DOXYCYCLINE 100MG/250ML 250 ML IV SCH ×2 (05:52→15:32)
[2022-09-27 06:02] LABS: Albumin 2.6 g/dL (3.4-5.0); Calcium 8.1 mg/dL (8.5-10.1)
[2022-09-27 06:05] LABS: BUN/Creatinine Ratio 34.6 (10.0-20.0); Bilirubin, Total 0.7 mg/dL (0.2-1.0); Total Protein 7.5 g/dL (6.4-8.2)
[2022-09-27 06:50] LABS: Basophils # (auto) 0 10 ^3/uL (0-0.2); Basophils % (auto) 0.5 % (0.0-2.0); Eosinophils # (auto) 0.3 10 ^3/uL (0-0.8); Eosinophils % (auto) 4.4 % (0.0-7.0); Hematocrit 31.5 % (36.0-46.0); Hemoglobin 10.4 g/dL (12.2-16.2); Lymphocytes # (auto) 0.6 10 ^3/uL (0.4-5.4); Lymphocytes % (auto) 8.3 % (10.0-50.0); Mean Corpuscular Hemoglobin 29.5 pg (28.0-32.0); Mean Corpuscular Hgb Conc. 33.2 g/dL (32.0-36.0); Mean Corpuscular Volume 88.8 fL (80.0-100.0); Monocytes # (auto) 0.6 10 ^3/uL (0-1.3); Monocytes % (auto) 8.5 % (0.0-12.0); Neutrophils # (auto) 5.3 10 ^3/uL (1.6-8.6); Neutrophils % (auto) 78.3 % (37.0-80.0); Nucleated Red Blood Cells % 0.2 %; Red Blood Cells 3.54 10^6/uL (4.0-5.20); Red Cell Distribution Width 15.2 % (11.8-14.3); White Blood Cell 6.7 10^3/uL (4.4-10.8)
[2022-09-27] MEDS: SACUBITRIL-VALSARTAN 24mg/26mg TAB PO SCH ×2 (11:08→22:51)
[2022-09-27] MEDS: TORSEMIDE 20 MG TAB PO SCH (11:08)
[2022-09-27] MEDS: OXYCODONE W/ ACETAMINOPHEN 5/325MG TABLET PO SCH ×3 (12:00→18:00)
[2022-09-27] MEDS: HYDROmorphone HCL 2 MG/ML VL/or syr IV PRN ×2 (15:32→22:55)
[2022-09-27] MEDS ORDERED: CEFEPIME 1GM/ 50ML 50 ML IV SCH (22:00)
[2022-09-27] MEDS: APIXABAN 5 MG TAB PO SCH (22:51)
[2022-09-28] MEDS: cefTRIAXone 1GM/50ML D5W 50 ML IV SCH ×2 (00:47→10:14)
[2022-09-28] MEDS: DOXYCYCLINE 100MG/250ML 250 ML IV SCH (03:10)
[2022-09-28 05:00] VITALS: BP 109/64
[2022-09-28] MEDS: OXYCODONE W/ ACETAMINOPHEN 5/325MG TABLET PO SCH ×4 (06:00→17:49)
[2022-09-28] MEDS: HYDROmorphone HCL 2 MG/ML VL/or syr IV PRN ×3 (06:30→22:38)
[2022-09-28] MEDS: APIXABAN 5 MG TAB PO SCH ×2 (10:14→22:37)
[2022-09-28] MEDS: SACUBITRIL-VALSARTAN 24mg/26mg TAB PO SCH ×2 (10:15→22:37)
[2022-09-28] MEDS: TORSEMIDE 20 MG TAB PO SCH (10:15)
[2022-09-28 13:00] VITALS: BP 108/60
[2022-09-28 17:00] VITALS: BP 124/63
[2022-09-28 22:00] VITALS: BP 116/75
[2022-09-28] MEDS: LINEZOLID 600MG/300ML 300 ML IV SCH (22:37)
[2022-09-29 05:00] VITALS: BP 123/54
[2022-09-29] MEDS: OXYCODONE W/ ACETAMINOPHEN 5/325MG TABLET PO SCH ×4 (05:44→17:55)
[2022-09-29] MEDS: SACUBITRIL-VALSARTAN 24mg/26mg TAB PO SCH ×2 (08:22→21:50)
[2022-09-29] MEDS: cefTRIAXone 1GM/50ML D5W 50 ML IV SCH (08:22)
[2022-09-29] MEDS: TORSEMIDE 20 MG TAB PO SCH (08:22)
[2022-09-29] MEDS: APIXABAN 5 MG TAB PO SCH ×2 (08:22→21:50)
[2022-09-29] MEDS: HYDROmorphone HCL 2 MG/ML VL/or syr IV PRN ×2 (08:23→15:24)
[2022-09-29 09:21] VITALS: BP 111/70
[2022-09-29] MEDS: LINEZOLID 600MG/300ML 300 ML IV SCH ×2 (10:01→21:50)
[2022-09-29 13:00] VITALS: BP 104/58
[2022-09-29 17:00] VITALS: BP 122/73
[2022-09-29 22:00] VITALS: BP 142/63
[2022-09-30] MEDS: HYDROmorphone HCL 2 MG/ML VL/or syr IV PRN ×3 (00:01→18:29)
[2022-09-30 05:00] VITALS: BP 99/47
[2022-09-30] MEDS: OXYCODONE W/ ACETAMINOPHEN 5/325MG TABLET PO SCH ×4 (06:00→18:00)
[2022-09-30 06:25] LABS: Potassium 3.9 mmol/L (3.5-5.1)
[2022-09-30 06:29] LABS: Albumin 2.5 g/dL (3.4-5.0); BUN/Creatinine Ratio 29.7 (10.0-20.0); Basophils # (auto) 0 10 ^3/uL (0-0.2); Basophils % (auto) 0.9 % (0.0-2.0); Bilirubin, Total 0.4 mg/dL (0.2-1.0); Calcium 8.8 mg/dL (8.5-10.1); Eosinophils # (auto) 0.4 10 ^3/uL (0-0.8); Eosinophils % (auto) 8.5 % (0.0-7.0); Hematocrit 31.7 % (36.0-46.0); Hemoglobin 10.5 g/dL (12.2-16.2); Lymphocytes # (auto) 0.8 10 ^3/uL (0.4-5.4); Mean Corpuscular Hemoglobin 29.4 pg (28.0-32.0); Mean Corpuscular Hgb Conc. 33.2 g/dL (32.0-36.0); Mean Corpuscular Volume 88.6 fL (80.0-100.0); Monocytes # (auto) 0.4 10 ^3/uL (0-1.3); Monocytes % (auto) 8.5 % (0.0-12.0); Neutrophils # (auto) 3.2 10 ^3/uL (1.6-8.6); Neutrophils % (auto) 66.1 % (37.0-80.0); Nucleated Red Blood Cells % 0.2 %; Red Blood Cells 3.58 10^6/uL (4.0-5.20); Total Protein 8.2 g/dL (6.4-8.2); White Blood Cell 4.9 10^3/uL (4.4-10.8)
[2022-09-30 09:00] VITALS: BP 129/54
[2022-09-30] MEDS: cefTRIAXone 1GM/50ML D5W 50 ML IV SCH (09:38)
[2022-09-30] MEDS: TORSEMIDE 20 MG TAB PO SCH (09:39)
[2022-09-30] MEDS: SACUBITRIL-VALSARTAN 24mg/26mg TAB PO SCH ×2 (09:39→22:05)
[2022-09-30] MEDS: APIXABAN 5 MG TAB PO SCH ×2 (09:39→22:05)
[2022-09-30] MEDS: LINEZOLID 600MG/300ML 300 ML IV SCH ×2 (10:35→22:05)
[2022-09-30 13:00] VITALS: BP 101/59
[2022-09-30 17:00] VITALS: BP 131/64
[2022-09-30 22:00] VITALS: BP 120/81
[2022-10-01] MEDS: HYDROmorphone HCL 2 MG/ML VL/or syr IV PRN (02:19)
[2022-10-01 05:00] VITALS: BP 104/56
[2022-10-01] MEDS: OXYCODONE W/ ACETAMINOPHEN 5/325MG TABLET PO SCH ×3 (06:00→12:00)
[2022-10-01 09:00] VITALS: BP 108/64
[2022-10-01] MEDS: cefTRIAXone 1GM/50ML D5W 50 ML IV SCH (10:00)
[2022-10-01] MEDS: APIXABAN 5 MG TAB PO SCH (10:04)
[2022-10-01] MEDS: SACUBITRIL-VALSARTAN 24mg/26mg TAB PO SCH (10:04)
[2022-10-01] MEDS: TORSEMIDE 20 MG TAB PO SCH (10:05)
[2022-10-01] MEDS ORDERED: CYANOCOBALAMIN (B-12) 1000 MCG/1 ML VIAL IM ONE (10:30)
[2022-10-01] MEDS: LINEZOLID 600MG/300ML 300 ML IV SCH (11:03)
[2022-10-01 12:50] VITALS: BP 100/61
== END 2022-10-01 15:15 | disposition home health service (06) | DRG 603 ==
LOC: EDUNIT# 11:12 → ER 11:12 → EDBD 11:12 → TELE 18:04 → TELE-WESTW 22:16
PROVIDERS: ADMIT Internal Medicine; ATTEND Specialist
PROC: 05HB33Z Insertion of Infusion Device into Right Basilic Vein, Percutaneous Approach (ICD-10-PCS; 2022-09-22)
PROC: B54MZZA Ultrasonography of Right Upper Extremity Veins, Guidance (ICD-10-PCS; 2022-09-26)
PROC: B54NZZA Ultrasonography of Left Upper Extremity Veins, Guidance (ICD-10-PCS; 2022-09-28)
PROC: 05HY33Z Insertion of Infusion Device into Upper Vein, Percutaneous Approach (ICD-10-PCS; principal; 2022-09-29)
DX: L03.115 Cellulitis of right lower limb (principal); I13.0 Hypertensive heart and chronic kidney disease with heart failure and stage 1 through stage 4 chronic kidney disease, or unspecified chronic kidney disease; N17.9 Acute kidney failure, unspecified; N39.0 Urinary tract infection, site not specified; Z68.44 Body mass index [BMI] 60.0-69.9, adult; J44.9 Chronic obstructive pulmonary disease, unspecified; I87.2 Venous insufficiency (chronic) (peripheral); K21.9 Gastro-esophageal reflux disease without esophagitis; D64.9 Anemia, unspecified; F41.9 Anxiety disorder, unspecified; E03.9 Hypothyroidism, unspecified; F25.9 Schizoaffective disorder, unspecified; E86.9 Volume depletion, unspecified; B95.62 Methicillin resistant Staphylococcus aureus infection as the cause of diseases classified elsewhere; E66.01 Morbid (severe) obesity due to excess calories; E11.22 Type 2 diabetes mellitus with diabetic chronic kidney disease; N18.30 Chronic kidney disease, stage 3 unspecified; I50.9 Heart failure, unspecified; Z88.1 Allergy status to other antibiotic agents; Z88.5 Allergy status to narcotic agent; Z88.0 Allergy status to penicillin; Z88.2 Allergy status to sulfonamides; Z88.8 Allergy status to other drugs, medicaments and biological substances; Z91.018 Allergy to other foods; Z79.01 Long term (current) use of anticoagulants; Z79.84 Long term (current) use of oral hypoglycemic drugs; Z86.711 Personal history of pulmonary embolism; Z86.718 Personal history of other venous thrombosis and embolism; Z87.442 Personal history of urinary calculi; Z80.0 Family history of malignant neoplasm of digestive organs; Z82.5 Family history of asthma and other chronic lower respiratory diseases; Z82.49 Family history of ischemic heart disease and other diseases of the circulatory system; Z83.3 Family history of diabetes mellitus; Z82.62 Family history of osteoporosis; Z81.8 Family history of other mental and behavioral disorders; Z82.3 Family history of stroke
CPT/HCPCS: 36415; 71045; 80053; 81001; 83605; 83735; 83880; 84484; 85025; 85610; 85730; 87040; 87077; 87186; 87205; 93005; 93926; 93970; 96365; 96375; G0378; J0696; J3490; Q0162

== ENCOUNTER 2022-11-03 20:24 | Inpatient (IN) | payer MEDICARE, MEDICAID ==
[~2022-11-03] VITALS: Ht 162.6 cm; Wt 172.6 kg
[2022-11-03] MEDS ORDERED: VANCOMYCIN PER PHARMACY 0 MG IV SCH (21:15)
[2022-11-03] MEDS ORDERED: PIPERACILLIN-TAZOB 3.375GM 100 ML IV ONE (21:15)
[2022-11-03] MEDS ORDERED: HYDROmorphone HCL 2 MG/ML VL/or syr IM ONE (21:15)
[2022-11-03 21:33] LABS: Basophils # (auto) 0 10 ^3/uL (0-0.2); Basophils % (auto) 0.8 % (0.0-2.0); Eosinophils # (auto) 0.2 10 ^3/uL (0-0.8); Eosinophils % (auto) 3.6 % (0.0-7.0); Hematocrit 35.8 % (36.0-46.0); Hemoglobin 11.4 g/dL (12.2-16.2); Lymphocytes % (auto) 20.6 % (10.0-50.0); Mean Corpuscular Hgb Conc. 31.8 g/dL (32.0-36.0); Mean Corpuscular Volume 91.1 fL (80.0-100.0); Monocytes # (auto) 0.4 10 ^3/uL (0-1.3); Neutrophils # (auto) 3.1 10 ^3/uL (1.6-8.6); Nucleated Red Blood Cells % 0.2 %; Red Blood Cells 3.93 10^6/uL (4.0-5.20); White Blood Cell 4.7 10^3/uL (4.4-10.8)
[2022-11-03 21:46] LABS: Albumin 2.9 g/dL (3.4-5.0); Calcium 8.4 mg/dL (8.5-10.1); Potassium 4.3 mmol/L (3.5-5.1)
[2022-11-03 21:50] LABS: BUN/Creatinine Ratio 22.2 (10.0-20.0); Bilirubin, Total 0.5 mg/dL (0.2-1.0); Total Protein 8.2 g/dL (6.4-8.2)
[2022-11-03] MEDS ORDERED: DOCUSATE SOD 100 MG CAP PO PRN (22:15)
[2022-11-03] MEDS ORDERED: NITROGLYCERIN 0.4 MG SL TAB SL PRN (22:15)
[2022-11-03] MEDS ORDERED: MORPHINE SULFATE INJ 2 MG/ml SYRG IV PRN (22:15)
[2022-11-04] MEDS ORDERED: diphenhdrAMINE HCL 50 MG/1 ML VL ONE (00:43)
[2022-11-04] MEDS ORDERED: diphenhdrAMINE HCL 50 MG/1 ML VL IV ONE (00:45)
[2022-11-04] MEDS: VANCOMYCIN 1GM/250ML 250 ML IV SCH ×2 (00:46→00:47)
[2022-11-04] MEDS: HYDROmorphone HCL 2 MG/ML VL/or syr IV PRN ×5 (03:19→20:00)
[2022-11-04 03:45] VITALS: PULSE 95; RESP 18; O2SAT 100
[2022-11-04] MEDS: INSULIN LISPRO (HUMAN) 100 UNITS/ML ML SC SCH ×4 (07:00→22:00)
[2022-11-04] MEDS: ACCU-CHEK COMFORT CURVE STRIP VI SCH ×4 (07:04→22:23)
[2022-11-04 08:00] VITALS: PULSE 74; RESP 12; O2SAT 99
[2022-11-04] MEDS: FERROUS SULFATE 325mg EC TAB PO SCH ×2 (09:01→16:54)
[2022-11-04] MEDS: SACUBITRIL-VALSARTAN 24mg/26mg TAB PO SCH ×2 (10:57→22:29)
[2022-11-04] MEDS: PANTOPRAZOLE 40 MG TAB PO SCH (10:57)
[2022-11-04] MEDS: LEVOTHYROXINE SODIUM 50 MCG TAB PO SCH (10:57)
[2022-11-04] MEDS: PREGABALIN CAPSULE 75 MG CAP PO SCH ×2 (10:58→22:29)
[2022-11-04] MEDS: TORSEMIDE 20 MG TAB GT SCH (10:58)
[2022-11-04] MEDS: SENNA 8.6 MG TAB PO SCH ×2 (10:59→22:00)
[2022-11-04] MEDS: APIXABAN 5 MG TAB PO SCH ×2 (10:59→22:29)
[2022-11-04] MEDS: CARVEDILOL 3.125 MG TAB PO SCH ×2 (10:59→22:30)
[2022-11-04] MEDS: metFORMIN HYDROCHLORIDE 500 MG TAB PO SCH ×2 (12:00→16:54)
[2022-11-04] MEDS ORDERED: diphenhdrAMINE HCL 25 MG CAP PO PRN (12:45)
[2022-11-04 19:20] VITALS: PULSE 85; RESP 14; O2SAT 100
[2022-11-05] MEDS: CEFEPIME 1GM/ 50ML 50 ML IV SCH ×3 (00:22→22:16)
[2022-11-05] MEDS: HYDROmorphone HCL 2 MG/ML VL/or syr IV PRN ×7 (01:08→22:00)
[2022-11-05] MEDS: INSULIN LISPRO (HUMAN) 100 UNITS/ML ML SC SCH ×4 (06:44→22:00)
[2022-11-05] MEDS: ACCU-CHEK COMFORT CURVE STRIP VI SCH ×4 (06:44→22:00)
[2022-11-05 07:47] LABS: Basophils # (auto) 0 10 ^3/uL (0-0.2); Basophils % (auto) 0.6 % (0.0-2.0); Eosinophils # (auto) 0.2 10 ^3/uL (0-0.8); Eosinophils % (auto) 3.8 % (0.0-7.0); Hemoglobin 10.3 g/dL (12.2-16.2); Lymphocytes # (auto) 0.5 10 ^3/uL (0.4-5.4); Lymphocytes % (auto) 9.6 % (10.0-50.0); Mean Corpuscular Hemoglobin 29.4 pg (28.0-32.0); Mean Corpuscular Hgb Conc. 32.2 g/dL (32.0-36.0); Mean Corpuscular Volume 91.4 fL (80.0-100.0); Monocytes # (auto) 0.4 10 ^3/uL (0-1.3); Monocytes % (auto) 8.1 % (0.0-12.0); Neutrophils # (auto) 4.3 10 ^3/uL (1.6-8.6); Neutrophils % (auto) 77.9 % (37.0-80.0); Nucleated Red Blood Cells % 0.2 %; Red Cell Distribution Width 17.1 % (11.8-14.3); White Blood Cell 5.5 10^3/uL (4.4-10.8)
[2022-11-05 07:54] VITALS: PULSE 68; RESP 14; O2SAT 93
[2022-11-05 08:07] LABS: Albumin 2.9 g/dL (3.4-5.0); Calcium 8.2 mg/dL (8.5-10.1); Potassium 4.5 mmol/L (3.5-5.1)
[2022-11-05] MEDS: FERROUS SULFATE 325mg EC TAB PO SCH ×2 (08:09→18:02)
[2022-11-05 08:12] LABS: BUN/Creatinine Ratio 27.6 (10.0-20.0); Total Protein 7.8 g/dL (6.4-8.2)
[2022-11-05] MEDS: SENNA 8.6 MG TAB PO SCH ×2 (10:00→22:32)
[2022-11-05] MEDS: SACUBITRIL-VALSARTAN 24mg/26mg TAB PO SCH ×2 (10:00→22:15)
[2022-11-05] MEDS: PREGABALIN CAPSULE 75 MG CAP PO SCH ×2 (10:04→22:16)
[2022-11-05] MEDS: LEVOTHYROXINE SODIUM 50 MCG TAB PO SCH (10:04)
[2022-11-05] MEDS: PANTOPRAZOLE 40 MG TAB PO SCH (10:04)
[2022-11-05] MEDS: TORSEMIDE 20 MG TAB GT SCH (10:04)
[2022-11-05] MEDS: APIXABAN 5 MG TAB PO SCH ×2 (10:05→22:15)
[2022-11-05] MEDS: CARVEDILOL 3.125 MG TAB PO SCH ×2 (10:05→22:15)
[2022-11-05] MEDS: metFORMIN HYDROCHLORIDE 500 MG TAB PO SCH ×3 (12:00→16:32)
[2022-11-05 19:20] VITALS: PULSE 91; RESP 13; O2SAT 97
[2022-11-05 23:54] VITALS: BP 102/53; PULSE 95; RESP 18; TEMP 98.4; O2SAT 97
[2022-11-06] MEDS: HYDROmorphone HCL 2 MG/ML VL/or syr IV PRN ×6 (00:53→21:14)
[2022-11-06 05:00] VITALS: BP 110/55; PULSE 90; RESP 18; TEMP 98; O2SAT 92
[2022-11-06] MEDS: ACCU-CHEK COMFORT CURVE STRIP VI SCH ×4 (06:46→21:19)
[2022-11-06] MEDS: INSULIN LISPRO (HUMAN) 100 UNITS/ML ML SC SCH ×4 (06:46→21:20)
[2022-11-06 08:00] VITALS: BP 104/59; PULSE 56; PULSE 75; RESP 20; TEMP 97.5; O2SAT 96
[2022-11-06] MEDS: FERROUS SULFATE 325mg EC TAB PO SCH ×2 (08:00→18:00)
[2022-11-06 09:00] VITALS: BP 104/59; PULSE 56; RESP 20; TEMP 97.5; O2SAT 96
[2022-11-06] MEDS: SENNA 8.6 MG TAB PO SCH ×2 (10:00→21:19)
[2022-11-06] MEDS: LEVOTHYROXINE SODIUM 50 MCG TAB PO SCH (10:43)
[2022-11-06] MEDS: APIXABAN 5 MG TAB PO SCH ×2 (10:43→21:18)
[2022-11-06] MEDS: PANTOPRAZOLE 40 MG TAB PO SCH (10:44)
[2022-11-06] MEDS: SACUBITRIL-VALSARTAN 24mg/26mg TAB PO SCH ×2 (10:44→21:18)
[2022-11-06] MEDS: TORSEMIDE 20 MG TAB GT SCH (10:44)
[2022-11-06] MEDS: CEFEPIME 1GM/ 50ML 50 ML IV SCH ×2 (10:45→21:17)
[2022-11-06] MEDS: CARVEDILOL 3.125 MG TAB PO SCH ×2 (10:46→21:17)
[2022-11-06] MEDS: PREGABALIN CAPSULE 75 MG CAP PO SCH ×2 (10:58→21:19)
[2022-11-06] MEDS: metFORMIN HYDROCHLORIDE 500 MG TAB PO SCH ×2 (12:00→18:00)
[2022-11-06] MEDS: CYANOCOBALAMIN (B-12) 1000 MCG/1 ML VIAL IM SCH (13:05)
[2022-11-06 17:00] VITALS: BP 115/60; PULSE 62; RESP 19; TEMP 97.9; O2SAT 99
[2022-11-06 20:00] VITALS: BP 136/78; PULSE 76; PULSE 94; RESP 18; TEMP 97.9; O2SAT 99
[2022-11-06 22:00] VITALS: BP 105/58; PULSE 96; RESP 18; TEMP 98; O2SAT 98
[2022-11-07] VITALS (7 sets, daily range): BP systolic 104–123; BP diastolic 54–65; PULSE 56–87; RESP 17–20; TEMP 97.2–98.8; O2SAT 91–100
[2022-11-07] MEDS: HYDROmorphone HCL 2 MG/ML VL/or syr IV PRN ×4 (01:33→21:16)
[2022-11-07] MEDS: ACCU-CHEK COMFORT CURVE STRIP VI SCH ×4 (05:44→21:34)
[2022-11-07] MEDS: INSULIN LISPRO (HUMAN) 100 UNITS/ML ML SC SCH ×4 (07:00→21:32)
[2022-11-07 08:01] LABS: Basophils # (auto) 0 10 ^3/uL (0-0.2); Basophils % (auto) 0.5 % (0.0-2.0); Eosinophils # (auto) 0.2 10 ^3/uL (0-0.8); Hematocrit 29.6 % (36.0-46.0); Hemoglobin 9.8 g/dL (12.2-16.2); Lymphocytes # (auto) 0.6 10 ^3/uL (0.4-5.4); Lymphocytes % (auto) 14.7 % (10.0-50.0); Mean Corpuscular Hemoglobin 29.7 pg (28.0-32.0); Mean Corpuscular Volume 90.1 fL (80.0-100.0); Monocytes # (auto) 0.5 10 ^3/uL (0-1.3); Monocytes % (auto) 11.4 % (0.0-12.0); Neutrophils # (auto) 2.8 10 ^3/uL (1.6-8.6); Neutrophils % (auto) 68.4 % (37.0-80.0); Nucleated Red Blood Cells % 0.1 %; Red Blood Cells 3.29 10^6/uL (4.0-5.20); Red Cell Distribution Width 16.4 % (11.8-14.3); White Blood Cell 4.2 10^3/uL (4.4-10.8)
[2022-11-07 08:09] LABS: Potassium 4.2 mmol/L (3.5-5.1)
[2022-11-07 08:21] LABS: Albumin 2.6 g/dL (3.4-5.0); BUN/Creatinine Ratio 35.7 (10.0-20.0); Bilirubin, Total 0.7 mg/dL (0.2-1.0); Calcium 8.4 mg/dL (8.5-10.1); Total Protein 7.7 g/dL (6.4-8.2)
[2022-11-07] MEDS: SENNA 8.6 MG TAB PO SCH ×2 (10:00→21:32)
[2022-11-07] MEDS: CEFEPIME 1GM/ 50ML 50 ML IV SCH ×2 (10:51→21:20)
[2022-11-07] MEDS: LEVOTHYROXINE SODIUM 50 MCG TAB PO SCH (10:51)
[2022-11-07] MEDS: SACUBITRIL-VALSARTAN 24mg/26mg TAB PO SCH ×2 (10:52→21:20)
[2022-11-07] MEDS: FERROUS SULFATE 325mg EC TAB PO SCH ×2 (10:52→17:44)
[2022-11-07] MEDS: PANTOPRAZOLE 40 MG TAB PO SCH (10:52)
[2022-11-07] MEDS: TORSEMIDE 20 MG TAB GT SCH (10:52)
[2022-11-07] MEDS: PREGABALIN CAPSULE 75 MG CAP PO SCH ×2 (10:53→21:20)
[2022-11-07] MEDS: CARVEDILOL 3.125 MG TAB PO SCH ×2 (10:54→21:21)
[2022-11-07] MEDS: APIXABAN 5 MG TAB PO SCH ×2 (10:57→21:20)
[2022-11-07] MEDS: metFORMIN HYDROCHLORIDE 500 MG TAB PO SCH ×2 (12:00→17:44)
[2022-11-08] VITALS (7 sets, daily range): BP systolic 97–139; BP diastolic 44–84; PULSE 74–85; RESP 18–20; TEMP 97.8–98.3; O2SAT 91–98
[2022-11-08] MEDS: HYDROmorphone HCL 2 MG/ML VL/or syr IV PRN ×5 (02:51→22:52)
[2022-11-08] MEDS: ACCU-CHEK COMFORT CURVE STRIP VI SCH ×4 (05:51→22:00)
[2022-11-08] MEDS: INSULIN LISPRO (HUMAN) 100 UNITS/ML ML SC SCH ×4 (05:51→22:00)
[2022-11-08] MEDS: CEFEPIME 1GM/ 50ML 50 ML IV SCH ×2 (08:46→22:56)
[2022-11-08] MEDS: SACUBITRIL-VALSARTAN 24mg/26mg TAB PO SCH ×2 (08:46→22:00)
[2022-11-08] MEDS: LEVOTHYROXINE SODIUM 50 MCG TAB PO SCH (08:47)
[2022-11-08] MEDS: FERROUS SULFATE 325mg EC TAB PO SCH ×2 (08:47→18:13)
[2022-11-08] MEDS: APIXABAN 5 MG TAB PO SCH ×2 (08:47→22:00)
[2022-11-08] MEDS: PANTOPRAZOLE 40 MG TAB PO SCH (08:47)
[2022-11-08] MEDS: SENNA 8.6 MG TAB PO SCH ×2 (09:04→22:00)
[2022-11-08] MEDS: CARVEDILOL 3.125 MG TAB PO SCH ×2 (09:22→22:00)
[2022-11-08] MEDS: PREGABALIN CAPSULE 75 MG CAP PO SCH ×2 (10:00→22:45)
[2022-11-08] MEDS: TORSEMIDE 20 MG TAB GT SCH (10:00)
[2022-11-08] MEDS: metFORMIN HYDROCHLORIDE 500 MG TAB PO SCH ×2 (11:49→17:39)
[2022-11-09] VITALS (7 sets, daily range): BP systolic 113–134; BP diastolic 47–83; PULSE 63–76; RESP 16–22; TEMP 97.7–98.4; O2SAT 95–100
[2022-11-09] MEDS: HYDROmorphone HCL 2 MG/ML VL/or syr IV PRN ×6 (04:20→21:51)
[2022-11-09] MEDS: INSULIN LISPRO (HUMAN) 100 UNITS/ML ML SC SCH ×4 (06:34→22:00)
[2022-11-09] MEDS: ACCU-CHEK COMFORT CURVE STRIP VI SCH ×4 (06:34→22:00)
[2022-11-09] MEDS: FERROUS SULFATE 325mg EC TAB PO SCH ×2 (08:30→17:03)
[2022-11-09] MEDS: CEFEPIME 1GM/ 50ML 50 ML IV SCH ×2 (10:46→21:48)
[2022-11-09] MEDS: SACUBITRIL-VALSARTAN 24mg/26mg TAB PO SCH ×2 (11:20→21:48)
[2022-11-09] MEDS: APIXABAN 5 MG TAB PO SCH ×2 (11:20→21:48)
[2022-11-09] MEDS: TORSEMIDE 20 MG TAB GT SCH (11:21)
[2022-11-09] MEDS: CARVEDILOL 3.125 MG TAB PO SCH ×2 (11:21→21:49)
[2022-11-09] MEDS: PANTOPRAZOLE 40 MG TAB PO SCH (11:21)
[2022-11-09] MEDS: PREGABALIN CAPSULE 75 MG CAP PO SCH ×2 (11:22→21:49)
[2022-11-09] MEDS: LEVOTHYROXINE SODIUM 50 MCG TAB PO SCH (11:22)
[2022-11-09] MEDS: metFORMIN HYDROCHLORIDE 500 MG TAB PO SCH ×2 (12:00→17:07)
[2022-11-09] MEDS: CYANOCOBALAMIN (B-12) 1000 MCG/1 ML VIAL IM SCH (12:11)
[2022-11-10] MEDS: HYDROmorphone HCL 2 MG/ML VL/or syr IV PRN ×6 (01:53→22:45)
[2022-11-10 05:00] VITALS: BP 122/64; PULSE 76; RESP 24; TEMP 98; O2SAT 98
[2022-11-10] MEDS: INSULIN LISPRO (HUMAN) 100 UNITS/ML ML SC SCH ×4 (06:18→22:00)
[2022-11-10] MEDS: LEVOTHYROXINE SODIUM 50 MCG TAB PO SCH (06:18)
[2022-11-10] MEDS: ACCU-CHEK COMFORT CURVE STRIP VI SCH ×4 (06:19→22:00)
[2022-11-10] MEDS: FERROUS SULFATE 325mg EC TAB PO SCH ×2 (07:25→17:38)
[2022-11-10 08:00] VITALS: BP 108/61; PULSE 77; RESP 21; TEMP 97.9; O2SAT 95
[2022-11-10 08:23] VITALS: BP 108/61; PULSE 74; RESP 21; TEMP 97.9; O2SAT 90
[2022-11-10] MEDS: APIXABAN 5 MG TAB PO SCH ×2 (10:13→22:03)
[2022-11-10] MEDS: SACUBITRIL-VALSARTAN 24mg/26mg TAB PO SCH ×2 (10:14→22:02)
[2022-11-10] MEDS: PREGABALIN CAPSULE 75 MG CAP PO SCH ×2 (10:14→22:02)
[2022-11-10] MEDS: TORSEMIDE 20 MG TAB GT SCH (10:15)
[2022-11-10] MEDS: PANTOPRAZOLE 40 MG TAB PO SCH (10:15)
[2022-11-10] MEDS: CARVEDILOL 3.125 MG TAB PO SCH ×2 (10:16→22:02)
[2022-11-10] MEDS: CEFEPIME 1GM/ 50ML 50 ML IV SCH ×2 (10:16→22:01)
[2022-11-10] MEDS: metFORMIN HYDROCHLORIDE 500 MG TAB PO SCH ×2 (11:58→17:39)
[2022-11-10 13:00] VITALS: BP 102/69; PULSE 80; RESP 19; TEMP 98; O2SAT 94
[2022-11-10 13:19] LABS: Basophils # (auto) 0 10 ^3/uL (0-0.2); Basophils % (auto) 0.8 % (0.0-2.0); Eosinophils # (auto) 0.2 10 ^3/uL (0-0.8); Eosinophils % (auto) 3.9 % (0.0-7.0); Hematocrit 33.3 % (36.0-46.0); Hemoglobin 10.5 g/dL (12.2-16.2); Lymphocytes # (auto) 0.7 10 ^3/uL (0.4-5.4); Lymphocytes % (auto) 15.4 % (10.0-50.0); Mean Corpuscular Hemoglobin 29.6 pg (28.0-32.0); Mean Corpuscular Hgb Conc. 31.4 g/dL (32.0-36.0); Mean Corpuscular Volume 94.2 fL (80.0-100.0); Monocytes # (auto) 0.4 10 ^3/uL (0-1.3); Monocytes % (auto) 8.9 % (0.0-12.0); Neutrophils # (auto) 3.4 10 ^3/uL (1.6-8.6); Nucleated Red Blood Cells % 0.1 %; Red Blood Cells 3.53 10^6/uL (4.0-5.20); Red Cell Distribution Width 17.1 % (11.8-14.3); White Blood Cell 4.8 10^3/uL (4.4-10.8)
[2022-11-10 13:45] LABS: Albumin 2.6 g/dL (3.4-5.0); Calcium 8.6 mg/dL (8.5-10.1); Potassium 4.3 mmol/L (3.5-5.1)
[2022-11-10 13:52] LABS: Bilirubin, Total 0.5 mg/dL (0.2-1.0); Total Protein 7.8 g/dL (6.4-8.2)
[2022-11-10 20:00] VITALS: BP 107/69; PULSE 75; PULSE 86; RESP 20; TEMP 97.9; O2SAT 95
[2022-11-10 22:00] VITALS: BP 107/69; PULSE 86; RESP 20; TEMP 97.9; O2SAT 94
[2022-11-11] MEDS: HYDROmorphone HCL 2 MG/ML VL/or syr IV PRN ×3 (02:55→14:01)
[2022-11-11 05:00] VITALS: BP 109/70; PULSE 89; RESP 20; TEMP 97.9; O2SAT 92
[2022-11-11] MEDS: LEVOTHYROXINE SODIUM 50 MCG TAB PO SCH (06:31)
[2022-11-11] MEDS: ACCU-CHEK COMFORT CURVE STRIP VI SCH ×3 (06:32→17:00)
[2022-11-11] MEDS: INSULIN LISPRO (HUMAN) 100 UNITS/ML ML SC SCH ×3 (06:32→17:00)
[2022-11-11 08:00] VITALS: PULSE 75; RESP 18; O2SAT 95
[2022-11-11] MEDS: CEFEPIME 1GM/ 50ML 50 ML IV SCH (08:24)
[2022-11-11] MEDS: FERROUS SULFATE 325mg EC TAB PO SCH ×2 (08:24→18:00)
[2022-11-11] MEDS: PANTOPRAZOLE 40 MG TAB PO SCH (08:24)
[2022-11-11] MEDS: APIXABAN 5 MG TAB PO SCH (08:24)
[2022-11-11] MEDS: CARVEDILOL 3.125 MG TAB PO SCH (08:25)
[2022-11-11] MEDS: TORSEMIDE 20 MG TAB GT SCH (08:25)
[2022-11-11] MEDS: SACUBITRIL-VALSARTAN 24mg/26mg TAB PO SCH (08:26)
[2022-11-11 09:00] VITALS: BP 104/62; PULSE 83; RESP 20; TEMP 97.9; O2SAT 98
[2022-11-11] MEDS: PREGABALIN CAPSULE 75 MG CAP PO SCH (10:00)
[2022-11-11 10:47] VITALS: BP_SYST 117; BP_SYST 126; BP_SYST 139; BP_DIAS 78; BP_DIAS 84; PULSE 61
[2022-11-11] MEDS: metFORMIN HYDROCHLORIDE 500 MG TAB PO SCH ×2 (12:00→18:00)
[2022-11-11 13:23] VITALS: BP 104/62; PULSE 83; TEMP 36.6
[2022-11-11 14:30] VITALS: BP 102/50; PULSE 79; RESP 15
== END 2022-11-11 18:18 | disposition home health service (06) | DRG 603 ==
LOC: ER 20:24 → EDBD 20:24 → TELE 23:27 → TELE-WESTW 11-05 21:34
PROVIDERS: ADMIT Internal Medicine Infectious Disease; ATTEND Internal Medicine Infectious Disease
PROC: 05JYXZZ Inspection of Upper Vein, External Approach (ICD-10-PCS; 2022-11-08)
PROC: 05HD33Z Insertion of Infusion Device into Right Cephalic Vein, Percutaneous Approach (ICD-10-PCS; principal; 2022-11-09)
PROC: B54MZZA Ultrasonography of Right Upper Extremity Veins, Guidance (ICD-10-PCS; 2022-11-09)
DX: L03.115 Cellulitis of right lower limb (principal); I42.9 Cardiomyopathy, unspecified; F11.20 Opioid dependence, uncomplicated; I82.532 Chronic embolism and thrombosis of left popliteal vein; Z68.44 Body mass index [BMI] 60.0-69.9, adult; E11.9 Type 2 diabetes mellitus without complications; K21.9 Gastro-esophageal reflux disease without esophagitis; E03.9 Hypothyroidism, unspecified; F25.9 Schizoaffective disorder, unspecified; G89.4 Chronic pain syndrome; L03.116 Cellulitis of left lower limb; I11.0 Hypertensive heart disease with heart failure; I27.81 Cor pulmonale (chronic); E66.01 Morbid (severe) obesity due to excess calories; E88.09 Other disorders of plasma-protein metabolism, not elsewhere classified; B96.20 Unspecified Escherichia coli [E. coli] as the cause of diseases classified elsewhere; F32.A Depression, unspecified; F41.9 Anxiety disorder, unspecified; S81.801A Unspecified open wound, right lower leg, initial encounter; X58.XXXA Exposure to other specified factors, initial encounter; I89.0 Lymphedema, not elsewhere classified; I50.9 Heart failure, unspecified; J44.9 Chronic obstructive pulmonary disease, unspecified; Z79.01 Long term (current) use of anticoagulants; Z79.899 Other long term (current) drug therapy; Z81.8 Family history of other mental and behavioral disorders; Z82.3 Family history of stroke; Z82.49 Family history of ischemic heart disease and other diseases of the circulatory system; Z82.5 Family history of asthma and other chronic lower respiratory diseases; Z82.62 Family history of osteoporosis; Z83.3 Family history of diabetes mellitus; Z86.711 Personal history of pulmonary embolism; Z88.8 Allergy status to other drugs, medicaments and biological substances; Z79.1 Long term (current) use of non-steroidal anti-inflammatories (NSAID); Z86.14 Personal history of Methicillin resistant Staphylococcus aureus infection; Z80.0 Family history of malignant neoplasm of digestive organs; Y93.89 Activity, other specified; Y92.89 Other specified places as the place of occurrence of the external cause; Y99.8 Other external cause status
CPT/HCPCS: 36415; 80053; 80061; 82607; 82962; 83690; 83880; 84443; 84484; 85025; 85652; 87040; 87077; 87186; 87205; 93970; G0378; J2543

== ENCOUNTER 2022-12-03 15:33 | Emergency (ER) | payer MEDICARE, MEDICAID ==
[~2022-12-03] VITALS: Ht 162.6 cm; Wt 158.3 kg
[~2022-12-03 15:33] MED LIST changes: -CARV3.1240 PO; -PREG-109 PO
[2022-12-03 15:41] VITALS: BP 134/93; PULSE 101; RESP 16
[2022-12-03 16:38] VITALS: O2SAT 95
== END 2022-12-03 16:43 | disposition home or self-care (01) ==
LOC: ER 15:33
DX: E11.22 Type 2 diabetes mellitus with diabetic chronic kidney disease (principal); I13.0 Hypertensive heart and chronic kidney disease with heart failure and stage 1 through stage 4 chronic kidney disease, or unspecified chronic kidney disease; N18.9 Chronic kidney disease, unspecified; I50.89 Other heart failure; J44.9 Chronic obstructive pulmonary disease, unspecified; E78.5 Hyperlipidemia, unspecified; Z45.2 Encounter for adjustment and management of vascular access device; Z90.49 Acquired absence of other specified parts of digestive tract; Z87.442 Personal history of urinary calculi; Z88.8 Allergy status to other drugs, medicaments and biological substances

== ENCOUNTER 2023-01-31 13:18 | Inpatient (IN) | payer MEDICARE, MEDICAID ==
[~2023-01-31] VITALS: Ht 160 cm; Wt 166.6 kg
[2023-01-31 16:17] VITALS: PULSE 68; RESP 17; O2SAT 97
[2023-01-31 16:45] LABS: Basophils # (auto) 0 10 ^3/uL (0-0.2); Basophils % (auto) 0.8 % (0.0-2.0); Eosinophils # (auto) 0.2 10 ^3/uL (0-0.8); Eosinophils % (auto) 3.7 % (0.0-7.0); Hemoglobin 11.3 g/dL (12.2-16.2); Lymphocytes # (auto) 1.1 10 ^3/uL (0.4-5.4); Lymphocytes % (auto) 19.8 % (10.0-50.0); Mean Corpuscular Hemoglobin 27.9 pg (28.0-32.0); Mean Corpuscular Hgb Conc. 31.3 g/dL (32.0-36.0); Mean Corpuscular Volume 89.3 fL (80.0-100.0); Monocytes # (auto) 0.6 10 ^3/uL (0-1.3); Neutrophils # (auto) 3.7 10 ^3/uL (1.6-8.6); Neutrophils % (auto) 64.7 % (37.0-80.0); Nucleated Red Blood Cells % 0.3 %; Red Blood Cells 4.03 10^6/uL (4.0-5.20); Red Cell Distribution Width 15.4 % (11.8-14.3); White Blood Cell 5.7 10^3/uL (4.4-10.8)
[2023-01-31] MEDS ORDERED: SOD CHL 0.45% 1,000 ML IV ONE (16:45)
[2023-01-31 17:02] LABS: Alanine Aminotransferase 10 U/L (7-40); Albumin 3.8 g/dL (3.2-4.8); Alkaline Phosphatase 60 U/L (46-116); Anion Gap 8 (5-15); Aspartate Aminotransferase 10 U/L (13-40); Blood Urea Nitrogen 16 mg/dL (9-23); Calcium 8.9 mg/dL (8.7-10.4); Carbon Dioxide 24 mmol/L (20-30); Chloride 106 mmol/L (98-107); Glucose 93 mg/dL (74-106); Potassium 4.3 mmol/L (3.5-5.1); Sodium 138 mmol/L (136-145)
[2023-01-31 17:03] LABS: Bilirubin, Total 0.7 mg/dL (0.2-1.0); Total Protein 8.1 g/dL (5.7-8.2)
[2023-01-31] MEDS: HYDROmorphone HCL 2 MG/ML VL/or syr IV PRN ×2 (17:13→23:09)
[2023-01-31 19:49] VITALS: PULSE 89; RESP 21; O2SAT 96
[2023-01-31 20:17] LABS: INR 1.07 (0.9-1.15); Partial Thromboplastin Time < 20.0 SEC (24.5-34.5); Prothrombin Time 11.2 sec (9.3-11.8)
[2023-02-01 05:01] LABS: Basophils # (auto) 0 10 ^3/uL (0-0.2); Basophils % (auto) 0.9 % (0.0-2.0); Eosinophils # (auto) 0.2 10 ^3/uL (0-0.8); Eosinophils % (auto) 5.3 % (0.0-7.0); Hematocrit 30.9 % (36.0-46.0); Lymphocytes # (auto) 0.9 10 ^3/uL (0.4-5.4); Lymphocytes % (auto) 22.8 % (10.0-50.0); Mean Corpuscular Hemoglobin 28.3 pg (28.0-32.0); Mean Corpuscular Hgb Conc. 32.4 g/dL (32.0-36.0); Mean Corpuscular Volume 87.4 fL (80.0-100.0); Monocytes # (auto) 0.5 10 ^3/uL (0-1.3); Neutrophils # (auto) 2.5 10 ^3/uL (1.6-8.6); Nucleated Red Blood Cells % 0.3 %; Red Blood Cells 3.53 10^6/uL (4.0-5.20); Red Cell Distribution Width 15.1 % (11.8-14.3); White Blood Cell 4.1 10^3/uL (4.4-10.8)
[2023-02-01 05:06] LABS: Albumin 3.4 g/dL (3.2-4.8); Alkaline Phosphatase 52 U/L (46-116); Anion Gap 6 (5-15); Aspartate Aminotransferase 10 U/L (13-40); BUN/Creatinine Ratio 20.5 (10.0-20.0); Bilirubin, Total 0.7 mg/dL (0.2-1.0); Blood Urea Nitrogen 17 mg/dL (9-23); Calcium 8.6 mg/dL (8.7-10.4); Carbon Dioxide 24 mmol/L (20-30); Chloride 108 mmol/L (98-107); Glucose 105 mg/dL (74-106); Potassium 4.1 mmol/L (3.5-5.1); Sodium 138 mmol/L (136-145); Total Protein 7.2 g/dL (5.7-8.2)
[2023-02-01 05:11] LABS: Alanine Aminotransferase 9 U/L (7-40)
[2023-02-01] MEDS: HYDROmorphone HCL 2 MG/ML VL/or syr IV PRN ×2 (07:50→20:02)
[2023-02-01] MEDS ORDERED: GABA-339 PO (11:17)
[2023-02-01 12:35] VITALS: PULSE 85; RESP 18
[2023-02-01 13:00] VITALS: BP 118/75; PULSE 55; RESP 16; TEMP 98.4; O2SAT 95
[2023-02-01 16:37] VITALS: BP 126/80; PULSE 75; RESP 19; TEMP 97.5; O2SAT 95
[2023-02-01 20:00] VITALS: BP 143/84; PULSE 94; PULSE 99; RESP 18; TEMP 97.5
[2023-02-01] MEDS: CEFEPIME 2GM/50ML NS 50 ML IV SCH (21:42)
[2023-02-02] VITALS (7 sets, daily range): BP systolic 96–134; BP diastolic 49–71; PULSE 63–84; RESP 16–21; TEMP 97.5–98.3; O2SAT 90–96
[2023-02-02] MEDS: CEFEPIME 2GM/50ML NS 50 ML IV SCH ×3 (05:51→21:03)
[2023-02-02 07:28] LABS: Chloride 110 mmol/L (98-107); Sodium 140 mmol/L (136-145)
[2023-02-02 07:29] LABS: Anion Gap 5 (5-15); Calcium 8.6 mg/dL (8.5-10.1); Carbon Dioxide 25 mmol/L (20-30)
[2023-02-02 07:34] LABS: BUN/Creatinine Ratio 19.4 (10.0-20.0); Blood Urea Nitrogen 14 mg/dL (9-23); Glucose 102 mg/dL (74-106)
[2023-02-02] MEDS: HYDROmorphone HCL 2 MG/ML VL/or syr IV PRN ×2 (08:43→20:31)
[2023-02-03 05:00] VITALS: BP 117/58; PULSE 82; RESP 18; TEMP 98.9; O2SAT 93
[2023-02-03] MEDS: CEFEPIME 2GM/50ML NS 50 ML IV SCH ×2 (05:13→13:25)
[2023-02-03 08:00] VITALS: PULSE 69; PULSE 95; RESP 22; O2SAT 99
[2023-02-03] MEDS: HYDROmorphone HCL 2 MG/ML VL/or syr IV PRN ×2 (08:54→18:08)
[2023-02-03 09:00] VITALS: BP 129/81; PULSE 85; RESP 20; TEMP 97.8; O2SAT 95
[2023-02-03 17:00] VITALS: BP 149/79; PULSE 71; RESP 16; TEMP 97.6; O2SAT 98
[2023-02-03 20:00] VITALS: PULSE 89; RESP 20; O2SAT 95
[2023-02-03 22:41] VITALS: BP 118/72; PULSE 75; RESP 20; TEMP 98.6; O2SAT 96
[2023-02-04] MEDS: HYDROmorphone HCL 2 MG/ML VL/or syr IV PRN ×4 (00:52→20:31)
[2023-02-04] MEDS: CEFEPIME 2GM/50ML NS 50 ML IV SCH ×3 (01:07→16:51)
[2023-02-04 05:51] VITALS: BP 130/82; PULSE 75; RESP 18; TEMP 98.7; O2SAT 90
[2023-02-04 08:00] VITALS: PULSE 76; PULSE 77; RESP 20; O2SAT 96
[2023-02-04 09:05] VITALS: BP 125/78; PULSE 77; RESP 20; TEMP 98; O2SAT 96
[2023-02-04 12:40] VITALS: BP 141/86; PULSE 74; RESP 20; TEMP 97.8; O2SAT 97
[2023-02-04 16:29] VITALS: BP 124/75; PULSE 85; RESP 20; TEMP 97.8; O2SAT 97
[2023-02-04 21:35] VITALS: BP 127/75; PULSE 91; RESP 16; TEMP 98.4; O2SAT 94
[2023-02-04] MEDS ORDERED: TORSEMIDE 20 MG TAB GT PRN (22:15)
[2023-02-04] MEDS ORDERED: DOCUSATE SOD 100 MG CAP PO PRN (22:15)
[2023-02-05 08:00] VITALS: BP 132/52; PULSE 69; RESP 20; TEMP 97.8; O2SAT 95
[2023-02-05] MEDS ORDERED: FERROUS SULFATE 325mg EC TAB PO SCH (08:00)
[2023-02-05] MEDS ORDERED: APIXABAN 5 MG TAB PO SCH (10:00)
[2023-02-05] MEDS ORDERED: PATIENTS OWN MEDICATION (Pregabalin 1 CAP) PO SCH (10:00)
[2023-02-05] MEDS ORDERED: SACUBITRIL-VALSARTAN 24mg/26mg TAB PO SCH (10:00)
[2023-02-05] MEDS ORDERED: LEVOTHYROXINE SODIUM 50 MCG TAB PO SCH (10:00)
[2023-02-05] MEDS ORDERED: SENNA 8.6 MG TAB PO SCH (10:00)
[2023-02-05] MEDS ORDERED: CARVEDILOL 3.125 MG TAB PO SCH (10:00)
[2023-02-05] MEDS ORDERED: CYANOCOBALAMIN (B-12) 1000 MCG/1 ML VIAL IM SCH (10:00)
[2023-02-05] MEDS ORDERED: PANTOPRAZOLE 40 MG TAB PO SCH (10:00)
[2023-02-05 11:19] LABS: Alanine Aminotransferase 11 U/L (7-40); Albumin 3.5 g/dL (3.2-4.8); Alkaline Phosphatase 58 U/L (46-116); Anion Gap 5 (5-15); Aspartate Aminotransferase 12 U/L (13-40); BUN/Creatinine Ratio 24.6 (10.0-20.0); Bilirubin, Total 0.8 mg/dL (0.2-1.0); Blood Urea Nitrogen 17 mg/dL (9-23); Calcium 8.9 mg/dL (8.5-10.1); Carbon Dioxide 24 mmol/L (20-30); Chloride 105 mmol/L (98-107); Glucose 89 mg/dL (74-106); Potassium 4.6 mmol/L (3.5-5.1); Total Protein 7.4 g/dL (5.7-8.2)
[2023-02-05] MEDS ORDERED: DOX100T PO (11:27)
[2023-02-05 11:33] LABS: Sodium 134 mmol/L (136-145)
[2023-02-05 12:00] VITALS: BP 105/65; PULSE 80; RESP 20; TEMP 97.9; O2SAT 96
[2023-02-05] MEDS ORDERED: metFORMIN HYDROCHLORIDE 500 MG TAB PO SCH (12:00)
[2023-02-05 14:42] LABS: Basophils # (auto) 0 10 ^3/uL (0-0.2); Basophils % (auto) 0.8 % (0.0-2.0); Eosinophils # (auto) 0.2 10 ^3/uL (0-0.8); Eosinophils % (auto) 4.4 % (0.0-7.0); Hematocrit 33.8 % (36.0-46.0); Hemoglobin 10.7 g/dL (12.2-16.2); Lymphocytes # (auto) 0.6 10 ^3/uL (0.4-5.4); Lymphocytes % (auto) 12.2 % (10.0-50.0); Mean Corpuscular Hemoglobin 27.9 pg (28.0-32.0); Mean Corpuscular Hgb Conc. 31.7 g/dL (32.0-36.0); Monocytes # (auto) 0.5 10 ^3/uL (0-1.3); Monocytes % (auto) 9.5 % (0.0-12.0); Neutrophils # (auto) 3.6 10 ^3/uL (1.6-8.6); Neutrophils % (auto) 73.1 % (37.0-80.0); Nucleated Red Blood Cells % 0.2 %; Red Blood Cells 3.84 10^6/uL (4.0-5.20); Red Cell Distribution Width 15.3 % (11.8-14.3)
[2023-02-05] MEDS ORDERED: DOXYCYCLINE 100 MG TAB/CAP PO SCH (22:00)
== END 2023-02-05 12:45 | disposition home or self-care (01) | DRG 603 ==
LOC: ER 13:18 → TELE 17:00 → TELE-EAST 02-01 10:52
PROVIDERS: ADMIT Internal Medicine Infectious Disease; ATTEND Internal Medicine Infectious Disease
DX: L03.115 Cellulitis of right lower limb (principal); I42.9 Cardiomyopathy, unspecified; F11.20 Opioid dependence, uncomplicated; Z68.45 Body mass index [BMI] 70 or greater, adult; I13.0 Hypertensive heart and chronic kidney disease with heart failure and stage 1 through stage 4 chronic kidney disease, or unspecified chronic kidney disease; N39.0 Urinary tract infection, site not specified; I82.401 Acute embolism and thrombosis of unspecified deep veins of right lower extremity; I82.503 Chronic embolism and thrombosis of unspecified deep veins of lower extremity, bilateral; I89.0 Lymphedema, not elsewhere classified; S81.801A Unspecified open wound, right lower leg, initial encounter; E66.01 Morbid (severe) obesity due to excess calories; I50.9 Heart failure, unspecified; G89.4 Chronic pain syndrome; K21.9 Gastro-esophageal reflux disease without esophagitis; F25.9 Schizoaffective disorder, unspecified; F32.A Depression, unspecified; F41.9 Anxiety disorder, unspecified; X58.XXXA Exposure to other specified factors, initial encounter; N18.30 Chronic kidney disease, stage 3 unspecified; E11.22 Type 2 diabetes mellitus with diabetic chronic kidney disease; Z80.0 Family history of malignant neoplasm of digestive organs; Z81.8 Family history of other mental and behavioral disorders; Z82.3 Family history of stroke; Z82.49 Family history of ischemic heart disease and other diseases of the circulatory system; Z82.5 Family history of asthma and other chronic lower respiratory diseases; Z82.62 Family history of osteoporosis; Z83.3 Family history of diabetes mellitus; Z86.14 Personal history of Methicillin resistant Staphylococcus aureus infection; Z86.711 Personal history of pulmonary embolism; Z87.442 Personal history of urinary calculi; Z79.01 Long term (current) use of anticoagulants; Z88.1 Allergy status to other antibiotic agents; Z88.0 Allergy status to penicillin; Z88.8 Allergy status to other drugs, medicaments and biological substances; Z90.49 Acquired absence of other specified parts of digestive tract; Y93.89 Activity, other specified; Y92.89 Other specified places as the place of occurrence of the external cause; Y99.8 Other external cause status; B95.8 Unspecified staphylococcus as the cause of diseases classified elsewhere
CPT/HCPCS: 36415; 71045; 80048; 80053; 83036; 83605; 83735; 83880; 84443; 85025; 85610; 85730; 87040; 87077; 87186; 87205; 96374; 96375; G0378; J0692

== ENCOUNTER 2023-05-02 13:46 | Inpatient (IN) | payer MEDICARE, MEDICAID ==
[~2023-05-02] VITALS: Ht 162.6 cm; Wt 187.3 kg
[~2023-05-02 13:46] MED LIST changes: -CYAN1TAB14 PO; -DOCU-265 PO; +DOXY-111 PO; +GABA-339 PO; -METF-370 PO; -SENN-48 PO
[2023-05-02] MEDS ORDERED: HYDROmorphone HCL 2 MG/ML VL/or syr IM ONE (14:15)
[2023-05-02 19:09] LABS: Basophils # (auto) 0.1 10 ^3/uL (0-0.2); Eosinophils # (auto) 0.1 10 ^3/uL (0-0.8); Eosinophils % (auto) 1.7 % (0.0-7.0); Hematocrit 37.3 % (36.0-46.0); Hemoglobin 12.1 g/dL (12.2-16.2); Lymphocytes # (auto) 1.2 10 ^3/uL (0.4-5.4); Lymphocytes % (auto) 16.5 % (10.0-50.0); Mean Corpuscular Hemoglobin 27.8 pg (28.0-32.0); Mean Corpuscular Hgb Conc. 32.5 g/dL (32.0-36.0); Mean Corpuscular Volume 85.7 fL (80.0-100.0); Monocytes # (auto) 0.4 10 ^3/uL (0-1.3); Monocytes % (auto) 6.3 % (0.0-12.0); Neutrophils # (auto) 5.2 10 ^3/uL (1.6-8.6); Neutrophils % (auto) 74.5 % (37.0-80.0); Nucleated Red Blood Cells % 0.1 %; Red Blood Cells 4.35 10^6/uL (4.0-5.20)
[2023-05-02 19:24] LABS: Alanine Aminotransferase 12 U/L (7-40); Albumin 4.2 g/dL (3.2-4.8); Alkaline Phosphatase 87 U/L (46-116); Anion Gap 8 (5-15); Aspartate Aminotransferase 21 U/L (13-40); BUN/Creatinine Ratio 20.2 (10.0-20.0); Blood Urea Nitrogen 20 mg/dL (9-23); Calcium 9.2 mg/dL (8.7-10.4); Carbon Dioxide 26 mmol/L (20-30); Chloride 101 mmol/L (98-107); Glucose 102 mg/dL (74-106); Lipase 30 U/L (12-53); Potassium 5.2 mmol/L (3.5-5.1); Sodium 135 mmol/L (136-145)
[2023-05-02 19:25] LABS: Bilirubin, Total 0.7 mg/dL (0.2-1.0)
[2023-05-02] MEDS ORDERED: NITROGLYCERIN 0.4 MG SL TAB SL PRN (20:00)
[2023-05-02] MEDS ORDERED: MORPHINE SULFATE INJ 2 MG/ml SYRG IV PRN (20:00)
[2023-05-02] MEDS ORDERED: HYDROmorphone HCL 2 MG/ML VL/or syr IV PRN (20:00)
[2023-05-02] MEDS: CARVEDILOL 3.125 MG TAB PO SCH (22:00)
[2023-05-02] MEDS: PATIENTS OWN MEDICATION (Pregabalin 1 CAP) PO SCH (22:00)
[2023-05-02] MEDS: SACUBITRIL-VALSARTAN 24mg/26mg TAB PO SCH (23:15)
[2023-05-02] MEDS: APIXABAN 5 MG TAB PO SCH (23:16)
[2023-05-03] MEDS: HYDROmorphone HCL 2 MG/ML VL/or syr IV PRN ×2 (05:26→20:49)
[2023-05-03 07:45] LABS: Basophils # (auto) 0.1 10 ^3/uL (0-0.2); Eosinophils # (auto) 0.1 10 ^3/uL (0-0.8); Hemoglobin 12.2 g/dL (12.2-16.2)
[2023-05-03 07:48] LABS: Basophils % (auto) 1.2 % (0.0-2.0); Eosinophils % (auto) 1.3 % (0.0-7.0); Hematocrit 37.4 % (36.0-46.0); Lymphocytes # (auto) 1.9 10 ^3/uL (0.4-5.4); Lymphocytes % (auto) 18.9 % (10.0-50.0); Mean Corpuscular Hemoglobin 28.1 pg (28.0-32.0); Mean Corpuscular Hgb Conc. 32.7 g/dL (32.0-36.0); Mean Corpuscular Volume 85.9 fL (80.0-100.0); Monocytes # (auto) 0.7 10 ^3/uL (0-1.3); Monocytes % (auto) 7.1 % (0.0-12.0); Neutrophils # (auto) 7.1 10 ^3/uL (1.6-8.6); Neutrophils % (auto) 71.5 % (37.0-80.0); Nucleated Red Blood Cells % 0.2 %; Red Blood Cells 4.36 10^6/uL (4.0-5.20); Red Cell Distribution Width 16.4 % (11.8-14.3)
[2023-05-03 08:00] VITALS: PULSE 83; RESP 12; O2SAT 100
[2023-05-03] MEDS: FERROUS SULFATE 325mg EC TAB PO SCH ×2 (08:00→18:05)
[2023-05-03 09:23] LABS: Albumin 4.4 g/dL (3.2-4.8); Alkaline Phosphatase 83 U/L (46-116); Anion Gap 11 (5-15); Aspartate Aminotransferase 8 U/L (13-40); BUN/Creatinine Ratio 12.6 (10.0-20.0); Blood Urea Nitrogen 27 mg/dL (9-23); Calcium 9.6 mg/dL (8.5-10.1); Carbon Dioxide 20 mmol/L (20-30); Chloride 100 mmol/L (98-107); Cholesterol 184 mg/dL (< 200); Glucose 145 mg/dL (74-106); HDL Cholesterol 43 mg/dL (40-59); LDL Cholesterol 131 mg/dL (< 100); Potassium 4.6 mmol/L (3.5-5.1); Sodium 131 mmol/L (136-145); Triglycerides 110 mg/dL (< 150)
[2023-05-03 09:24] LABS: Bilirubin, Total 0.8 mg/dL (0.2-1.0); Total Protein 9.5 g/dL (5.7-8.2)
[2023-05-03 09:37] LABS: Alanine Aminotransferase < 9 U/L (7-40)
[2023-05-03] MEDS: PATIENTS OWN MEDICATION (Pregabalin 1 CAP) PO SCH (10:00)
[2023-05-03] MEDS ORDERED: TORSEMIDE 20 MG TAB GT SCH (10:00)
[2023-05-03] MEDS: SACUBITRIL-VALSARTAN 24mg/26mg TAB PO SCH ×2 (10:00→22:27)
[2023-05-03] MEDS: CARVEDILOL 3.125 MG TAB PO SCH ×2 (10:34→22:30)
[2023-05-03] MEDS: LEVOTHYROXINE SODIUM 50 MCG TAB PO SCH (10:41)
[2023-05-03] MEDS: PANTOPRAZOLE 40 MG TAB PO SCH (10:41)
[2023-05-03] MEDS: APIXABAN 5 MG TAB PO SCH ×2 (10:42→22:27)
[2023-05-03] MEDS: CYANOCOBALAMIN (B-12) 1000 MCG/1 ML VIAL IM SCH (10:46)
[2023-05-03] MEDS ORDERED: SODIUM CHLORIDE 0.9% 1,000 ML IV SCH (17:45)
[2023-05-03] MEDS ORDERED: DEXTROSE (50%) 50ML SYRG IV PRN (18:45)
[2023-05-03] MEDS: SODIUM CHLORIDE 0.9% 1,000 ML IV SCH ×2 (19:06→23:15)
[2023-05-03] MEDS ORDERED: SODIUM BICARBONATE 8.4 % INJ 50ML VIAL IV ONE (19:09)
[2023-05-03] MEDS: SODIUM BICARBONATE 50ML VIAL 100 ML in SOD CHL 0.45% 1,000 ML IV SCH (19:34)
[2023-05-03] MEDS: LINEZOLID 600MG/300ML 300 ML IV SCH (20:49)
[2023-05-03] MEDS: diphenhdrAMINE HCL 50 MG/1 ML VL IV PRN (21:09)
[2023-05-03] MEDS: INSULIN LISPRO (HUMAN) 100 UNITS/ML ML SC SCH (22:00)
[2023-05-03] MEDS: ACCU-CHEK COMFORT CURVE STRIP VI SCH (22:19)
[2023-05-03] MEDS: PREGABALIN 25 MG CAP PO SCH (22:27)
[2023-05-03 23:32] VITALS: PULSE 91; RESP 20; O2SAT 94
[2023-05-04] MEDS: HYDROmorphone HCL 2 MG/ML VL/or syr IV PRN ×2 (01:32→18:55)
[2023-05-04] MEDS: SODIUM CHLORIDE 0.9% 1,000 ML IV SCH ×2 (04:22→09:25)
[2023-05-04] MEDS: ACCU-CHEK COMFORT CURVE STRIP VI SCH ×4 (06:28→21:44)
[2023-05-04] MEDS: INSULIN LISPRO (HUMAN) 100 UNITS/ML ML SC SCH ×4 (06:28→21:44)
[2023-05-04 06:31] LABS: Albumin 3.4 g/dL (3.2-4.8); Alkaline Phosphatase 62 U/L (46-116); Anion Gap 6 (5-15); Aspartate Aminotransferase 11 U/L (13-40); BUN/Creatinine Ratio 19.4 (10.0-20.0); Bilirubin, Total 0.7 mg/dL (0.2-1.0); Blood Urea Nitrogen 25 mg/dL (9-23); Calcium 8.7 mg/dL (8.5-10.1); Carbon Dioxide 25 mmol/L (20-30); Chloride 104 mmol/L (98-107); Glucose 118 mg/dL (74-106); Potassium 4.3 mmol/L (3.5-5.1); Sodium 135 mmol/L (136-145); Total Protein 7.2 g/dL (5.7-8.2)
[2023-05-04 06:35] LABS: Alanine Aminotransferase < 9 U/L (7-40)
[2023-05-04] MEDS: FERROUS SULFATE 325mg EC TAB PO SCH ×2 (08:19→08:33)
[2023-05-04] MEDS: LINEZOLID 600MG/300ML 300 ML IV SCH ×2 (08:20→20:45)
[2023-05-04] MEDS: SODIUM BICARBONATE 50ML VIAL 100 ML in SOD CHL 0.45% 1,000 ML IV SCH (08:25)
[2023-05-04] MEDS: PANTOPRAZOLE 40 MG TAB PO SCH (08:33)
[2023-05-04] MEDS: PREGABALIN 25 MG CAP PO SCH ×2 (08:33→21:43)
[2023-05-04] MEDS: diphenhdrAMINE HCL 50 MG/1 ML VL IV PRN (08:34)
[2023-05-04] MEDS: LEVOTHYROXINE SODIUM 50 MCG TAB PO SCH (08:34)
[2023-05-04] MEDS: CYANOCOBALAMIN (B-12) 1000 MCG/1 ML VIAL IM SCH (08:34)
[2023-05-04] MEDS: SACUBITRIL-VALSARTAN 24mg/26mg TAB PO SCH ×2 (10:00→21:44)
[2023-05-04] MEDS: CARVEDILOL 3.125 MG TAB PO SCH ×2 (10:00→21:43)
[2023-05-04] MEDS: APIXABAN 5 MG TAB PO SCH ×2 (10:04→21:42)
[2023-05-04] MEDS ORDERED: SODIUM CHLORIDE 0.9% 1,000 ML IV SCH ×2 (16:30→20:45)
[2023-05-04 17:00] VITALS: BP 133/56; PULSE 75; RESP 16; TEMP 97.6; O2SAT 99
[2023-05-04 20:00] VITALS: PULSE 88
[2023-05-04] MEDS ORDERED: HYDROmorphone HCL 2 MG/ML VL/or syr IV PRN (20:45)
[2023-05-04 22:00] VITALS: BP 125/67; PULSE 62; RESP 18; TEMP 98; O2SAT 94
[2023-05-05] MEDS: HYDROmorphone HCL 2 MG/ML VL/or syr IV PRN ×4 (00:23→18:09)
[2023-05-05 04:53] VITALS: BP 113/75; PULSE 86; RESP 16; TEMP 97.7; O2SAT 91
[2023-05-05] MEDS: INSULIN LISPRO (HUMAN) 100 UNITS/ML ML SC SCH ×4 (05:54→21:12)
[2023-05-05] MEDS: ACCU-CHEK COMFORT CURVE STRIP VI SCH ×4 (05:54→21:12)
[2023-05-05 06:03] LABS: Anion Gap 6 (5-15); Calcium 8.8 mg/dL (8.5-10.1); Carbon Dioxide 24 mmol/L (20-30); Chloride 106 mmol/L (98-107); Potassium 4.4 mmol/L (3.5-5.1); Sodium 136 mmol/L (136-145)
[2023-05-05 06:09] LABS: BUN/Creatinine Ratio 16.4 (10.0-20.0); Blood Urea Nitrogen 18 mg/dL (9-23); Glucose 100 mg/dL (74-106)
[2023-05-05 06:16] LABS: Basophils # (auto) 0 10 ^3/uL (0-0.2); Eosinophils # (auto) 0.2 10 ^3/uL (0-0.8); Eosinophils % (auto) 4.5 % (0.0-7.0); Hematocrit 31.1 % (36.0-46.0); Hemoglobin 10.1 g/dL (12.2-16.2); Lymphocytes # (auto) 0.9 10 ^3/uL (0.4-5.4); Lymphocytes % (auto) 19.5 % (10.0-50.0); Mean Corpuscular Hemoglobin 28.1 pg (28.0-32.0); Mean Corpuscular Hgb Conc. 32.3 g/dL (32.0-36.0); Monocytes # (auto) 0.5 10 ^3/uL (0-1.3); Monocytes % (auto) 10.3 % (0.0-12.0); Neutrophils # (auto) 3.1 10 ^3/uL (1.6-8.6); Neutrophils % (auto) 64.7 % (37.0-80.0); Nucleated Red Blood Cells % 0.1 %; Red Blood Cells 3.58 10^6/uL (4.0-5.20); Red Cell Distribution Width 16.1 % (11.8-14.3); White Blood Cell 4.8 10^3/uL (4.4-10.8)
[2023-05-05 08:00] VITALS: PULSE 72
[2023-05-05] MEDS: LINEZOLID 600MG/300ML 300 ML IV SCH ×2 (08:49→20:04)
[2023-05-05] MEDS: SACUBITRIL-VALSARTAN 24mg/26mg TAB PO SCH ×2 (08:50→21:11)
[2023-05-05] MEDS: CYANOCOBALAMIN (B-12) 1000 MCG/1 ML VIAL IM SCH (08:50)
[2023-05-05] MEDS: diphenhdrAMINE HCL 50 MG/1 ML VL IV PRN ×2 (08:50→23:42)
[2023-05-05] MEDS: PREGABALIN 25 MG CAP PO SCH ×2 (08:51→21:11)
[2023-05-05] MEDS: LEVOTHYROXINE SODIUM 50 MCG TAB PO SCH (08:51)
[2023-05-05] MEDS: FERROUS SULFATE 325mg EC TAB PO SCH ×2 (08:52→18:01)
[2023-05-05] MEDS: APIXABAN 5 MG TAB PO SCH ×2 (08:53→21:11)
[2023-05-05] MEDS: CARVEDILOL 3.125 MG TAB PO SCH ×2 (08:53→21:18)
[2023-05-05] MEDS: PANTOPRAZOLE 40 MG TAB PO SCH (08:53)
[2023-05-05 09:00] VITALS: BP 150/85; PULSE 88; RESP 20; TEMP 97.5; O2SAT 100
[2023-05-05] MEDS ORDERED: SODIUM CHLORIDE 0.9% 1,000 ML IV SCH (11:15)
[2023-05-05] MEDS: LEVOTHYROXINE SODIUM 100 MCG/5 ML INJ IV SCH (12:11)
[2023-05-05 16:51] VITALS: BP 146/59; PULSE 68; RESP 19; TEMP 97.8; O2SAT 98
[2023-05-05 20:00] VITALS: PULSE 72; PULSE 78; RESP 18; O2SAT 98
[2023-05-05 22:00] VITALS: BP 92/58; PULSE 79; RESP 20; TEMP 97.7; O2SAT 96
[2023-05-06] VITALS (8 sets, daily range): BP systolic 107–153; BP diastolic 61–91; PULSE 72–90; RESP 18–21; TEMP 97.8–98.4; O2SAT 95–100
[2023-05-06] MEDS: HYDROmorphone HCL 2 MG/ML VL/or syr IV PRN ×3 (05:06→20:15)
[2023-05-06] MEDS: ACCU-CHEK COMFORT CURVE STRIP VI SCH ×4 (06:15→21:17)
[2023-05-06] MEDS: INSULIN LISPRO (HUMAN) 100 UNITS/ML ML SC SCH ×4 (06:15→21:17)
[2023-05-06] MEDS: SACUBITRIL-VALSARTAN 24mg/26mg TAB PO SCH ×2 (08:27→21:17)
[2023-05-06] MEDS: diphenhdrAMINE HCL 50 MG/1 ML VL IV PRN ×2 (08:27→18:17)
[2023-05-06] MEDS: LEVOTHYROXINE SODIUM 100 MCG/5 ML INJ IV SCH (08:27)
[2023-05-06] MEDS: PANTOPRAZOLE 40 MG TAB PO SCH (08:28)
[2023-05-06] MEDS: PREGABALIN 25 MG CAP PO SCH ×2 (08:28→20:15)
[2023-05-06] MEDS: CARVEDILOL 3.125 MG TAB PO SCH ×2 (08:28→20:16)
[2023-05-06] MEDS: APIXABAN 5 MG TAB PO SCH ×2 (08:29→20:16)
[2023-05-06] MEDS: FERROUS SULFATE 325mg EC TAB PO SCH ×2 (08:29→18:17)
[2023-05-06] MEDS: LINEZOLID 600MG/300ML 300 ML IV SCH ×2 (08:29→20:14)
[2023-05-06] MEDS ORDERED: HYDROmorphone HCL 2 MG/ML VL/or syr IV PRN ×2 (12:45→21:00)
[2023-05-06] MEDS: SODIUM CHLORIDE 0.9% 1,000 ML IV SCH (12:45)
[2023-05-06] MEDS: CEFEPIME 2GM/50ML NS 50 ML IV SCH (22:30)
[2023-05-07] VITALS (9 sets, daily range): BP systolic 121–146; BP diastolic 62–78; PULSE 67–81; RESP 18–19; TEMP 36.4; O2SAT 95–99
[2023-05-07] MEDS: HYDROmorphone HCL 2 MG/ML VL/or syr IV PRN ×3 (02:04→18:39)
[2023-05-07] MEDS: ACCU-CHEK COMFORT CURVE STRIP VI SCH ×3 (06:30→17:00)
[2023-05-07] MEDS: INSULIN LISPRO (HUMAN) 100 UNITS/ML ML SC SCH ×3 (06:30→17:00)
[2023-05-07] MEDS: CEFEPIME 2GM/50ML NS 50 ML IV SCH ×2 (07:17→17:02)
[2023-05-07] MEDS: diphenhdrAMINE HCL 50 MG/1 ML VL IV PRN ×2 (07:27→13:40)
[2023-05-07 07:34] LABS: Alanine Aminotransferase 11 U/L (7-40); Albumin 3.3 g/dL (3.2-4.8); Alkaline Phosphatase 69 U/L (46-116); Anion Gap 5 (5-15); Aspartate Aminotransferase 14 U/L (13-40); BUN/Creatinine Ratio 17.6 (10.0-20.0); Bilirubin, Total 0.6 mg/dL (0.2-1.0); Blood Urea Nitrogen 16 mg/dL (9-23); Calcium 8.9 mg/dL (8.5-10.1); Carbon Dioxide 26 mmol/L (20-30); Chloride 107 mmol/L (98-107); Glucose 94 mg/dL (74-106); Potassium 4.6 mmol/L (3.5-5.1); Sodium 138 mmol/L (136-145); Total Protein 7.3 g/dL (5.7-8.2)
[2023-05-07] MEDS: SACUBITRIL-VALSARTAN 24mg/26mg TAB PO SCH (09:32)
[2023-05-07] MEDS: PANTOPRAZOLE 40 MG TAB PO SCH (09:32)
[2023-05-07] MEDS: PREGABALIN 25 MG CAP PO SCH (09:32)
[2023-05-07] MEDS: LINEZOLID 600MG/300ML 300 ML IV SCH ×2 (09:32→20:00)
[2023-05-07] MEDS: FERROUS SULFATE 325mg EC TAB PO SCH ×2 (09:32→18:40)
[2023-05-07] MEDS: APIXABAN 5 MG TAB PO SCH (09:32)
[2023-05-07] MEDS: LEVOTHYROXINE SODIUM 100 MCG/5 ML INJ IV SCH (09:33)
[2023-05-07] MEDS: CARVEDILOL 3.125 MG TAB PO SCH (09:33)
[2023-05-07] MEDS: SODIUM CHLORIDE 0.9% 1,000 ML IV SCH (12:54)
[2023-05-07] MEDS ORDERED: CEFEPIME 2GM/50ML NS 50 ML IV ONE (17:15)
== END 2023-05-07 22:25 | disposition home or self-care (01) | DRG 603 ==
LOC: ER 13:46 → TELE-WESTW 14:41 → TELE 20:00 → TELE-WESTW 05-04 14:43
PROVIDERS: ADMIT Specialist; ATTEND Specialist
PROC: 05HB33Z Insertion of Infusion Device into Right Basilic Vein, Percutaneous Approach (ICD-10-PCS; principal; 2023-05-05)
PROC: B54MZZA Ultrasonography of Right Upper Extremity Veins, Guidance (ICD-10-PCS; 2023-05-05)
DX: L03.115 Cellulitis of right lower limb (principal); E66.2 Morbid (severe) obesity with alveolar hypoventilation; F11.20 Opioid dependence, uncomplicated; I42.9 Cardiomyopathy, unspecified; Z68.44 Body mass index [BMI] 60.0-69.9, adult; N17.9 Acute kidney failure, unspecified; E87.1 Hypo-osmolality and hyponatremia; I13.0 Hypertensive heart and chronic kidney disease with heart failure and stage 1 through stage 4 chronic kidney disease, or unspecified chronic kidney disease; E11.65 Type 2 diabetes mellitus with hyperglycemia; E87.5 Hyperkalemia; G89.4 Chronic pain syndrome; R09.02 Hypoxemia; K21.9 Gastro-esophageal reflux disease without esophagitis; E86.1 Hypovolemia; E03.9 Hypothyroidism, unspecified; J44.9 Chronic obstructive pulmonary disease, unspecified; F41.9 Anxiety disorder, unspecified; E11.22 Type 2 diabetes mellitus with diabetic chronic kidney disease; N18.9 Chronic kidney disease, unspecified; I50.9 Heart failure, unspecified; F25.9 Schizoaffective disorder, unspecified; Z88.2 Allergy status to sulfonamides; Z88.5 Allergy status to narcotic agent; Z88.0 Allergy status to penicillin; Z88.8 Allergy status to other drugs, medicaments and biological substances; Z82.49 Family history of ischemic heart disease and other diseases of the circulatory system; Z80.0 Family history of malignant neoplasm of digestive organs; Z82.61 Family history of arthritis; Z82.5 Family history of asthma and other chronic lower respiratory diseases; Z81.1 Family history of alcohol abuse and dependence; Z86.711 Personal history of pulmonary embolism; Z86.718 Personal history of other venous thrombosis and embolism; Z83.3 Family history of diabetes mellitus
CPT/HCPCS: 36415; 80048; 80053; 80061; 82962; 83036; 83605; 83690; 83880; 84443; 84484; 85025; 86141; 87040; 87077; 87081; 87186; 87205; 93971; 96372; G0378; J0692; J3490

== ENCOUNTER 2023-05-14 11:47 | Emergency (ER) | payer MEDICARE, MEDICAID ==
[~2023-05-14] VITALS: Ht 162.6 cm; Wt 173.4 kg
[2023-05-14 12:27] LABS: Basophils # (auto) 0 10 ^3/uL (0-0.2); Basophils % (auto) 0.7 % (0.0-2.0); Eosinophils # (auto) 0.1 10 ^3/uL (0-0.8); Eosinophils % (auto) 2.9 % (0.0-7.0); Hematocrit 37.9 % (36.0-46.0); Hemoglobin 12.1 g/dL (12.2-16.2); Lymphocytes # (auto) 0.8 10 ^3/uL (0.4-5.4); Lymphocytes % (auto) 15.7 % (10.0-50.0); Mean Corpuscular Hemoglobin 28.1 pg (28.0-32.0); Mean Corpuscular Hgb Conc. 32.1 g/dL (32.0-36.0); Mean Corpuscular Volume 87.6 fL (80.0-100.0); Monocytes # (auto) 0.4 10 ^3/uL (0-1.3); Neutrophils # (auto) 3.5 10 ^3/uL (1.6-8.6); Neutrophils % (auto) 72.7 % (37.0-80.0); Red Blood Cells 4.32 10^6/uL (4.0-5.20); Red Cell Distribution Width 17.1 % (11.8-14.3); White Blood Cell 4.8 10^3/uL (4.4-10.8)
[2023-05-14 12:32] VITALS: TEMP 97.4; O2SAT 96
[2023-05-14 12:43] LABS: INR 1.1 (0.9-1.15); Partial Thromboplastin Time 32.2 SEC (24.5-34.5); Prothrombin Time 11.5 sec (9.3-11.8)
[2023-05-14] MEDS ORDERED: ACET-1080 PO ×2 (16:16)
[2023-05-14] MEDS ORDERED: METH-1182 PO ×2 (16:16)
[2023-05-14] MEDS ORDERED: ONDANSETRON HCL 4 MG/2 ML VIAL IV ONE (16:30)
[2023-05-14] MEDS ORDERED: HYDROmorphone HCL 2 MG/ML VL/or syr IV ONE (16:30)
[2023-05-14 16:48] VITALS: BP 143/62; PULSE 68; RESP 18
== END 2023-05-14 17:12 | disposition home or self-care (01) ==
LOC: ER 11:47
DX: I13.0 Hypertensive heart and chronic kidney disease with heart failure and stage 1 through stage 4 chronic kidney disease, or unspecified chronic kidney disease (principal); N18.9 Chronic kidney disease, unspecified; I50.9 Heart failure, unspecified; J45.909 Unspecified asthma, uncomplicated; J44.9 Chronic obstructive pulmonary disease, unspecified; K21.9 Gastro-esophageal reflux disease without esophagitis; E78.5 Hyperlipidemia, unspecified; Z95.9 Presence of cardiac and vascular implant and graft, unspecified; Z90.49 Acquired absence of other specified parts of digestive tract; Z87.442 Personal history of urinary calculi
CPT/HCPCS: 36415; 85025; 85610; 85730; 96374; 96375; 99285; J1170; J2405

== ENCOUNTER → 2023-06-15 | Outpatient (CLI) | payer MEDICARE, MEDICAID | END | disposition home or self-care (01) | LOC: XYW 12:55 | PROVIDERS: ATTEND Student in an Organized Health Care Education/Training Program | DX: I34.0 Nonrheumatic mitral (valve) insufficiency (principal); I42.8 Other cardiomyopathies | CPT/HCPCS: 93306 ==

== ENCOUNTER 2023-09-15 15:10 | Inpatient (IN) | payer MEDICARE, MEDICAID ==
[~2023-09-15] VITALS: Ht 157.5 cm; Wt 180.1 kg
[~2023-09-15 15:10] MED LIST changes: -CAR3125T PO; +CARV-214 PO; -GABA-339 PO; -PREG-108 PO
[2023-09-15 16:41] LABS: Basophils # (auto) 0 10 ^3/uL (0-0.2); Basophils % (auto) 0.5 % (0.0-2.0); Eosinophils # (auto) 0.1 10 ^3/uL (0-0.8); Eosinophils % (auto) 1.6 % (0.0-7.0); Hematocrit 36.6 % (36.0-46.0); Hemoglobin 11.9 g/dL (12.2-16.2); Lymphocytes # (auto) 0.9 10 ^3/uL (0.4-5.4); Lymphocytes % (auto) 15.6 % (10.0-50.0); Mean Corpuscular Hemoglobin 28.6 pg (28.0-32.0); Mean Corpuscular Hgb Conc. 32.5 g/dL (32.0-36.0); Mean Corpuscular Volume 87.8 fL (80.0-100.0); Monocytes # (auto) 0.5 10 ^3/uL (0-1.3); Monocytes % (auto) 8.1 % (0.0-12.0); Neutrophils # (auto) 4.2 10 ^3/uL (1.6-8.6); Neutrophils % (auto) 74.2 % (37.0-80.0); Nucleated Red Blood Cells % 0.1 %; Red Blood Cells 4.17 10^6/uL (4.0-5.20); Red Cell Distribution Width 15.6 % (11.8-14.3); White Blood Cell 5.7 10^3/uL (4.4-10.8)
[2023-09-15 17:07] LABS: Albumin 4.1 g/dL (3.2-4.8); Alkaline Phosphatase 64 U/L (46-116); Anion Gap 7 (5-15); Aspartate Aminotransferase < 8 U/L (13-40); BUN/Creatinine Ratio 11.5 (10.0-20.0); Bilirubin, Total 0.6 mg/dL (0.2-1.0); Blood Urea Nitrogen 10 mg/dL (9-23); Calcium 9.6 mg/dL (8.5-10.1); Carbon Dioxide 24 mmol/L (20-30); Chloride 106 mmol/L (98-107); Glucose 103 mg/dL (74-106); Potassium 4.3 mmol/L (3.5-5.1); Sodium 137 mmol/L (136-145); Total Protein 8.7 g/dL (5.7-8.2)
[2023-09-15 17:09] LABS: Alanine Aminotransferase < 9 U/L (7-40)
[2023-09-15] MEDS ORDERED: HYDROcodone-ACET 10/325MG TAB PO ONE (17:30)
[2023-09-15] MEDS ORDERED: MORPHINE SULFATE INJ 2 MG/ml SYRG IV PRN (18:15)
[2023-09-15] MEDS ORDERED: NITROGLYCERIN 0.4 MG SL TAB SL PRN (18:15)
[2023-09-15] MEDS: CEFEPIME 1GM/ 50ML 50 ML IV SCH (18:30)
[2023-09-15] MEDS: CEFEPIME 1GM/ 50ML 50 ML IV ONE (18:30)
[2023-09-15] MEDS ORDERED: ACETAMINOPHEN 500 MG TAB PO PRN (18:30)
[2023-09-15] MEDS: HYDROmorphone HCL 2 MG TAB PO ONE (18:45)
[2023-09-15 19:30] VITALS: PULSE 79; RESP 26; O2SAT 100
[2023-09-15] MEDS: HYDROmorphone HCL 2 MG/ML VL/or syr IV ONE (20:48)
[2023-09-15] MEDS: CARVEDILOL 3.125 MG TAB PO SCH (22:32)
[2023-09-15] MEDS: APIXABAN 5 MG TAB PO SCH (22:32)
[2023-09-15] MEDS: SACUBITRIL-VALSARTAN 24mg/26mg TAB PO SCH (22:33)
[2023-09-16] VITALS (9 sets, daily range): BP systolic 100–156; BP diastolic 48–83; PULSE 65–98; RESP 16–19; TEMP 97.6–98.1; O2SAT 94–99
[2023-09-16] MEDS: HYDROmorphone HCL 2 MG/ML VL/or syr IV PRN ×2 (04:16→12:11)
[2023-09-16 06:28] LABS: Basophils # (auto) 0 10 ^3/uL (0-0.2); Basophils % (auto) 0.9 % (0.0-2.0); Eosinophils # (auto) 0.2 10 ^3/uL (0-0.8); Eosinophils % (auto) 4.2 % (0.0-7.0); Hematocrit 34.4 % (36.0-46.0); Hemoglobin 10.9 g/dL (12.2-16.2); Lymphocytes # (auto) 0.8 10 ^3/uL (0.4-5.4); Lymphocytes % (auto) 18.6 % (10.0-50.0); Mean Corpuscular Hemoglobin 27.9 pg (28.0-32.0); Mean Corpuscular Hgb Conc. 31.8 g/dL (32.0-36.0); Monocytes # (auto) 0.4 10 ^3/uL (0-1.3); Monocytes % (auto) 9.8 % (0.0-12.0); Neutrophils # (auto) 2.8 10 ^3/uL (1.6-8.6); Neutrophils % (auto) 66.5 % (37.0-80.0); Nucleated Red Blood Cells % 0.2 %; Red Blood Cells 3.91 10^6/uL (4.0-5.20); Red Cell Distribution Width 15.7 % (11.8-14.3); White Blood Cell 4.3 10^3/uL (4.4-10.8)
[2023-09-16] MEDS: diphenhdrAMINE HCL 25 MG CAP PO PRN (06:28)
[2023-09-16 06:39] LABS: Albumin 3.6 g/dL (3.2-4.8); Alkaline Phosphatase 55 U/L (46-116); Anion Gap 5 (5-15); Aspartate Aminotransferase 9 U/L (13-40); BUN/Creatinine Ratio 13.8 (10.0-20.0); Blood Urea Nitrogen 11 mg/dL (9-23); Calcium 9.1 mg/dL (8.5-10.1); Carbon Dioxide 25 mmol/L (20-30); Chloride 108 mmol/L (98-107); Cholesterol 150 mg/dL (< 200); Glucose 103 mg/dL (74-106); LDL Cholesterol 93 mg/dL (< 100); Potassium 4.1 mmol/L (3.5-5.1); Sodium 138 mmol/L (136-145); Triglycerides 101 mg/dL (< 150)
[2023-09-16 06:40] LABS: Bilirubin, Total 0.5 mg/dL (0.2-1.0); HDL Cholesterol 38 mg/dL (40-59); Total Protein 7.6 g/dL (5.7-8.2)
[2023-09-16 06:46] LABS: Alanine Aminotransferase < 9 U/L (7-40)
[2023-09-16] MEDS: FERROUS SULFATE 325mg EC TAB PO SCH (08:25)
[2023-09-16] MEDS: TORSEMIDE 20 MG TAB GT SCH (12:12)
[2023-09-16] MEDS: LEVOTHYROXINE SODIUM 50 MCG TAB PO SCH (12:12)
[2023-09-16] MEDS: PANTOPRAZOLE 40 MG TAB PO SCH (12:12)
[2023-09-16] MEDS: CEFEPIME 2GM/50ML NS 50 ML IV SCH (21:21)
[2023-09-17] VITALS (7 sets, daily range): BP systolic 100–137; BP diastolic 27–70; PULSE 63–87; RESP 16–20; TEMP 97.5–97.6; O2SAT 91–99
[2023-09-17] MEDS: diphenhdrAMINE HCL 25 MG CAP PO PRN (05:10)
[2023-09-17] MEDS: LEVOTHYROXINE SODIUM 50 MCG TAB PO SCH (08:20)
[2023-09-17] MEDS: LEVOTHYROXINE SODIUM 112 MCG TAB PO SCH (08:21)
[2023-09-17] MEDS ORDERED: LEVOTHYROXINE SODIUM 50 MCG TAB PO SCH (10:00)
[2023-09-18] VITALS (7 sets, daily range): BP systolic 106–139; BP diastolic 54–79; PULSE 65–83; RESP 18–21; TEMP 97.5–98.4; O2SAT 94–98
[2023-09-18] MEDS: ERTAPENEM SOD INJ 1 GM in SODIUM CHL 0.9% 50 ML IV SCH (10:00)
[2023-09-18] MEDS ORDERED: ERTAPENEM 1 GM IV SCH (10:00)
[2023-09-18] MEDS: CYANOCOBALAMIN (B-12) 1000 MCG/1 ML VIAL IM SCH (10:55)
[2023-09-19] VITALS (8 sets, daily range): BP systolic 100–116; BP diastolic 40–74; PULSE 64–90; RESP 16–21; TEMP 97.6–98.9; O2SAT 93–99
[2023-09-19 06:46] LABS: Albumin 3.4 g/dL (3.2-4.8); Alkaline Phosphatase 65 U/L (46-116); Anion Gap 5 (5-15); Aspartate Aminotransferase < 8 U/L (13-40); BUN/Creatinine Ratio 21.3 (10.0-20.0); Bilirubin, Total 0.4 mg/dL (0.2-1.0); Blood Urea Nitrogen 20 mg/dL (9-23); Calcium 9.2 mg/dL (8.7-10.4); Carbon Dioxide 28 mmol/L (20-30); Chloride 104 mmol/L (98-107); Glucose 96 mg/dL (74-106); Potassium 4.1 mmol/L (3.5-5.1); Sodium 137 mmol/L (136-145); Total Protein 7.3 g/dL (5.7-8.2)
[2023-09-19 06:49] LABS: Basophils # (auto) 0 10 ^3/uL (0-0.2); Basophils % (auto) 0.8 % (0.0-2.0); Eosinophils # (auto) 0.2 10 ^3/uL (0-0.8); Eosinophils % (auto) 4.8 % (0.0-7.0); Hematocrit 33.8 % (36.0-46.0); Hemoglobin 10.8 g/dL (12.2-16.2); Lymphocytes # (auto) 0.8 10 ^3/uL (0.4-5.4); Lymphocytes % (auto) 21.4 % (10.0-50.0); Mean Corpuscular Hemoglobin 27.9 pg (28.0-32.0); Mean Corpuscular Hgb Conc. 32.1 g/dL (32.0-36.0); Mean Corpuscular Volume 86.9 fL (80.0-100.0); Monocytes # (auto) 0.4 10 ^3/uL (0-1.3); Monocytes % (auto) 11.1 % (0.0-12.0); Neutrophils # (auto) 2.4 10 ^3/uL (1.6-8.6); Neutrophils % (auto) 61.9 % (37.0-80.0); Nucleated Red Blood Cells % 0.1 %; Red Blood Cells 3.89 10^6/uL (4.0-5.20); Red Cell Distribution Width 15.4 % (11.8-14.3); White Blood Cell 3.9 10^3/uL (4.4-10.8)
[2023-09-19 06:58] LABS: Alanine Aminotransferase < 9 U/L (7-40)
[2023-09-19] MEDS: TORSEMIDE 20 MG TAB PO SCH (10:18)
[2023-09-19] MEDS: Juven Orange Powder PACKET 27.5gm PO SCH (18:08)
[2023-09-19] MEDS: CARVEDILOL 3.125 MG TAB PO SCH (21:40)
[2023-09-19] MEDS ORDERED: HYDROmorphone HCL 2 MG/ML VL/or syr IV PRN (23:15)
[2023-09-20] VITALS (8 sets, daily range): BP systolic 104–121; BP diastolic 53–74; PULSE 51–97; RESP 15–20; TEMP 97.3–98; O2SAT 93–100
[2023-09-20] MEDS: HYDROmorphone HCL 2 MG/ML VL/or syr IV PRN (05:22)
[2023-09-21] VITALS (8 sets, daily range): BP systolic 93–132; BP diastolic 44–74; PULSE 17–89; RESP 16–93; TEMP 97.5–98.8; O2SAT 90–100
[2023-09-21 10:19] LABS: Basophils # (auto) 0.1 10 ^3/uL (0-0.2); Basophils % (auto) 0.9 % (0.0-2.0); Eosinophils # (auto) 0.2 10 ^3/uL (0-0.8); Eosinophils % (auto) 3.7 % (0.0-7.0); Hematocrit 37.9 % (36.0-46.0); Hemoglobin 11.7 g/dL (12.2-16.2); Lymphocytes # (auto) 0.9 10 ^3/uL (0.4-5.4); Lymphocytes % (auto) 14.7 % (10.0-50.0); Mean Corpuscular Hgb Conc. 30.8 g/dL (32.0-36.0); Mean Corpuscular Volume 90.9 fL (80.0-100.0); Monocytes # (auto) 0.5 10 ^3/uL (0-1.3); Monocytes % (auto) 8.5 % (0.0-12.0); Neutrophils # (auto) 4.6 10 ^3/uL (1.6-8.6); Neutrophils % (auto) 72.2 % (37.0-80.0); Red Blood Cells 4.17 10^6/uL (4.0-5.20); Red Cell Distribution Width 15.8 % (11.8-14.3); White Blood Cell 6.4 10^3/uL (4.4-10.8)
[2023-09-22] MEDS: HYDROmorphone HCL 2 MG/ML VL/or syr IV PRN ×2 (04:56→10:26)
[2023-09-22 05:00] VITALS: BP 113/71; PULSE 85; RESP 18; TEMP 98.3; O2SAT 100
[2023-09-22 05:57] LABS: Albumin 3.7 g/dL (3.2-4.8); Alkaline Phosphatase 63 U/L (46-116); Anion Gap 6 (5-15); Aspartate Aminotransferase 9 U/L (13-40); Bilirubin, Total 0.5 mg/dL (0.2-1.0); Blood Urea Nitrogen 36 mg/dL (9-23); Calcium 9.7 mg/dL (8.7-10.4); Carbon Dioxide 29 mmol/L (20-30); Chloride 100 mmol/L (98-107); Glucose 98 mg/dL (74-106); Sodium 135 mmol/L (136-145); Total Protein 7.8 g/dL (5.7-8.2)
[2023-09-22] MEDS: LEVOTHYROXINE SODIUM 112 MCG TAB PO SCH (06:03)
[2023-09-22] MEDS: LEVOTHYROXINE SODIUM 50 MCG TAB PO SCH (06:03)
[2023-09-22 06:13] LABS: Alanine Aminotransferase < 9 U/L (7-40)
[2023-09-22] MEDS ORDERED: LEVOTHYROXINE SODIUM 112 MCG TAB PO SCH (07:00)
[2023-09-22] MEDS ORDERED: LEVOTHYROXINE SODIUM 50 MCG TAB PO SCH ×2 (07:00)
[2023-09-22 08:00] VITALS: PULSE 63
[2023-09-22 09:00] VITALS: BP 103/30; PULSE 69; RESP 18; TEMP 98.2; O2SAT 98
[2023-09-22 13:00] VITALS: BP 140/62; PULSE 73; RESP 18; TEMP 98.1; O2SAT 91
[2023-09-22 16:41] VITALS: BP 100/70; PULSE 82; RESP 17; TEMP 98.1; O2SAT 91
[2023-09-22 18:25] VITALS: BP 108/70; PULSE 68; RESP 18
== END 2023-09-22 19:30 | disposition home health service (06) | DRG 603 ==
LOC: ER 15:10 → TELE 18:06 → TELE-CENTR 09-16 10:13
PROVIDERS: ADMIT Specialist; ATTEND Specialist
PROC: 05HF33Z Insertion of Infusion Device into Left Cephalic Vein, Percutaneous Approach (ICD-10-PCS; principal; 2023-09-18)
PROC: B54NZZA Ultrasonography of Left Upper Extremity Veins, Guidance (ICD-10-PCS; 2023-09-18)
DX: L03.115 Cellulitis of right lower limb (principal); I42.9 Cardiomyopathy, unspecified; I82.621 Acute embolism and thrombosis of deep veins of right upper extremity; Z68.44 Body mass index [BMI] 60.0-69.9, adult; L97.819 Non-pressure chronic ulcer of other part of right lower leg with unspecified severity; I13.0 Hypertensive heart and chronic kidney disease with heart failure and stage 1 through stage 4 chronic kidney disease, or unspecified chronic kidney disease; F11.20 Opioid dependence, uncomplicated; I82.4Z3 Acute embolism and thrombosis of unspecified deep veins of distal lower extremity, bilateral; I50.9 Heart failure, unspecified; E11.22 Type 2 diabetes mellitus with diabetic chronic kidney disease; B95.7 Other staphylococcus as the cause of diseases classified elsewhere; B96.89 Other specified bacterial agents as the cause of diseases classified elsewhere; E03.9 Hypothyroidism, unspecified; B96.4 Proteus (mirabilis) (morganii) as the cause of diseases classified elsewhere; N18.9 Chronic kidney disease, unspecified; F41.9 Anxiety disorder, unspecified; J44.9 Chronic obstructive pulmonary disease, unspecified; F32.A Depression, unspecified; K21.9 Gastro-esophageal reflux disease without esophagitis; E78.5 Hyperlipidemia, unspecified; F17.200 Nicotine dependence, unspecified, uncomplicated; E66.01 Morbid (severe) obesity due to excess calories; Z82.49 Family history of ischemic heart disease and other diseases of the circulatory system; Z90.49 Acquired absence of other specified parts of digestive tract; Z87.442 Personal history of urinary calculi; Z86.711 Personal history of pulmonary embolism; Z82.5 Family history of asthma and other chronic lower respiratory diseases; Z80.0 Family history of malignant neoplasm of digestive organs; Z81.8 Family history of other mental and behavioral disorders; Z83.3 Family history of diabetes mellitus; Z82.62 Family history of osteoporosis; Z82.3 Family history of stroke; Z82.61 Family history of arthritis; Z81.1 Family history of alcohol abuse and dependence; Z88.1 Allergy status to other antibiotic agents; Z88.5 Allergy status to narcotic agent; Z88.0 Allergy status to penicillin; Z88.8 Allergy status to other drugs, medicaments and biological substances; Z91.018 Allergy to other foods; I89.0 Lymphedema, not elsewhere classified; Z91.199 Patient's noncompliance with other medical treatment and regimen due to unspecified reason
CPT/HCPCS: 36415; 80053; 80061; 83036; 83605; 84443; 85025; 87040; 87077; 87186; 87205; 96365; 96366; 96375; 96376; G0378; J0692; J1335

== ENCOUNTER 2023-10-26 22:19 | Inpatient (IN) | payer MEDICARE, MEDICAID ==
[~2023-10-26] VITALS: Ht 165.1 cm; Wt 179.1 kg
[~2023-10-26 22:19] MED LIST changes: +CARV6.2551 PO
[2023-10-27] VITALS (8 sets, daily range): BP systolic 93–131; BP diastolic 52–81; PULSE 63–83; RESP 16–20; TEMP 97.5–97.9; O2SAT 93–99
[2023-10-27] MEDS ORDERED: NITROGLYCERIN 0.4 MG SL TAB SL PRN (00:15)
[2023-10-27] MEDS ORDERED: MORPHINE SULFATE INJ 2 MG/ml SYRG IV PRN (00:15)
[2023-10-27] MEDS: HYDROmorphone HCL 2 MG/ML VL/or syr IV PRN (02:43)
[2023-10-27] MEDS: SOD CHL 0.45% 1,000 ML IV SCH (02:43)
[2023-10-27 03:23] LABS: Basophils # (auto) 0 10 ^3/uL (0-0.2); Basophils % (auto) 0.7 % (0.0-2.0); Eosinophils # (auto) 0.1 10 ^3/uL (0-0.8); Eosinophils % (auto) 2.4 % (0.0-7.0); Hemoglobin 12.2 g/dL (12.2-16.2); Lymphocytes # (auto) 0.9 10 ^3/uL (0.4-5.4); Lymphocytes % (auto) 16.3 % (10.0-50.0); Mean Corpuscular Hemoglobin 28.4 pg (28.0-32.0); Mean Corpuscular Hgb Conc. 32.2 g/dL (32.0-36.0); Mean Corpuscular Volume 88.1 fL (80.0-100.0); Monocytes # (auto) 0.4 10 ^3/uL (0-1.3); Monocytes % (auto) 7.8 % (0.0-12.0); Neutrophils # (auto) 3.8 10 ^3/uL (1.6-8.6); Neutrophils % (auto) 72.8 % (37.0-80.0); Nucleated Red Blood Cells % 0.1 %; Red Blood Cells 4.31 10^6/uL (4.0-5.20); Red Cell Distribution Width 15.5 % (11.8-14.3); White Blood Cell 5.2 10^3/uL (4.4-10.8)
[2023-10-27] MEDS: SACUBITRIL-VALSARTAN 24mg/26mg TAB PO SCH (09:38)
[2023-10-27] MEDS: APIXABAN 5 MG TAB PO SCH (10:16)
[2023-10-27] MEDS: TORSEMIDE 20 MG TAB GT SCH (10:16)
[2023-10-27] MEDS: FERROUS SULFATE 325mg EC TAB PO SCH (10:16)
[2023-10-27] MEDS: CARVEDILOL 3.125 MG TAB PO SCH (10:17)
[2023-10-27] MEDS: CEFEPIME 2GM/50ML NS 50 ML IV SCH (10:17)
[2023-10-27] MEDS: LEVOTHYROXINE SODIUM 50 MCG TAB PO SCH (10:17)
[2023-10-27] MEDS: PANTOPRAZOLE 40 MG TAB PO SCH (10:17)
[2023-10-27] MEDS: CYANOCOBALAMIN (B-12) 1000 MCG/1 ML VIAL IM SCH (12:56)
[2023-10-27 13:10] LABS: Urine Bacteria FEW /hpf (None Seen); Urine Blood Negative /uL (Negative); Urine Clarity Turbid (Clear); Urine Color Yellow (Yellow); Urine Mucus FEW (None Seen); Urine Protein, UAD 1+ (Negative); Urine Specific Gravity 1.025 (1.001-1.035); Urine Urobilinogen 2 mg/dL (Negative); Urine WBC 47 /hpf (0 - 5); Urine pH 5.5 (5.0-9.0)
[2023-10-28] VITALS (8 sets, daily range): BP systolic 99–131; BP diastolic 49–82; PULSE 62–80; RESP 15–20; TEMP 97.6–98.2; O2SAT 91–100
[2023-10-28 07:07] LABS: Alanine Aminotransferase 31 U/L (7-40); Albumin 3.5 g/dL (3.2-4.8); Alkaline Phosphatase 124 U/L (46-116); Anion Gap 5 (5-15); Aspartate Aminotransferase 26 U/L (13-40); BUN/Creatinine Ratio 17.8 (10.0-20.0); Blood Urea Nitrogen 18 mg/dL (9-23); Calcium 9.2 mg/dL (8.7-10.4); Carbon Dioxide 23 mmol/L (20-30); Chloride 107 mmol/L (98-107); Glucose 117 mg/dL (74-106); Potassium 4.4 mmol/L (3.5-5.1); Sodium 135 mmol/L (136-145)
[2023-10-28 07:08] LABS: Bilirubin, Total 0.5 mg/dL (0.2-1.0); Total Protein 7.3 g/dL (5.7-8.2)
[2023-10-28] MEDS: HYDROmorphone HCL 2 MG/ML VL/or syr IV PRN (09:59)
[2023-10-29] VITALS (8 sets, daily range): BP systolic 101–118; BP diastolic 44–72; PULSE 64–86; RESP 15–19; TEMP 97.7–98.1; O2SAT 91–99
[2023-10-29 05:58] LABS: Basophils # (auto) 0 10 ^3/uL (0-0.2); Basophils % (auto) 0.8 % (0.0-2.0); Eosinophils # (auto) 0.3 10 ^3/uL (0-0.8); Hematocrit 33.5 % (36.0-46.0); Hemoglobin 10.9 g/dL (12.2-16.2); Lymphocytes # (auto) 0.8 10 ^3/uL (0.4-5.4); Lymphocytes % (auto) 14.3 % (10.0-50.0); Mean Corpuscular Hemoglobin 28.6 pg (28.0-32.0); Mean Corpuscular Hgb Conc. 32.6 g/dL (32.0-36.0); Mean Corpuscular Volume 87.7 fL (80.0-100.0); Monocytes # (auto) 0.3 10 ^3/uL (0-1.3); Monocytes % (auto) 5.8 % (0.0-12.0); Neutrophils % (auto) 74.1 % (37.0-80.0); Nucleated Red Blood Cells % 0.1 %; Red Blood Cells 3.81 10^6/uL (4.0-5.20); Red Cell Distribution Width 15.7 % (11.8-14.3); White Blood Cell 5.4 10^3/uL (4.4-10.8)
[2023-10-29 06:16] LABS: Alanine Aminotransferase 26 U/L (7-40); Albumin 3.8 g/dL (3.2-4.8); Alkaline Phosphatase 126 U/L (46-116); Anion Gap 8 (5-15); Aspartate Aminotransferase 10 U/L (13-40); BUN/Creatinine Ratio 16.8 (10.0-20.0); Blood Urea Nitrogen 16 mg/dL (9-23); Calcium 9.1 mg/dL (8.5-10.1); Carbon Dioxide 24 mmol/L (20-30); Chloride 104 mmol/L (98-107); Glucose 99 mg/dL (74-106); Potassium 3.7 mmol/L (3.5-5.1); Sodium 136 mmol/L (136-145)
[2023-10-29 06:17] LABS: Bilirubin, Total 0.6 mg/dL (0.2-1.0); Total Protein 7.6 g/dL (5.7-8.2)
[2023-10-29 06:22] LABS: INR 1.07 (0.9-1.15); Partial Thromboplastin Time 24.4 SEC (24.5-34.5); Prothrombin Time 11.3 sec (9.3-11.8)
[2023-10-29] MEDS: LEVOTHYROXINE SODIUM 50 MCG TAB PO SCH (06:47)
[2023-10-29] MEDS: HYDROmorphone HCL 2 MG/ML VL/or syr IV PRN (21:39)
[2023-10-30] VITALS (8 sets, daily range): BP systolic 102–132; BP diastolic 40–86; PULSE 74–92; RESP 14–20; TEMP 97.5–98.2; O2SAT 94–100
[2023-10-30] MEDS ORDERED: HYDROmorphone HCL 2 MG/ML VL/or syr IV PRN (00:15)
[2023-10-30] MEDS: AMPICILLIN INJ 1 GM in SODIUM CHL 0.9% 100 ML IV SCH (12:00)
[2023-10-30] MEDS ORDERED: METF-370 PO (16:18)
[2023-10-30] MEDS ORDERED: SUCR1TAB PO (16:19)
[2023-10-30] MEDS ORDERED: TORS20TA20 PO (16:22)
[2023-10-30] MEDS ORDERED: LEVO150T10 PO (16:22)
[2023-10-31] VITALS (8 sets, daily range): BP systolic 101–129; BP diastolic 44–92; PULSE 74–97; RESP 16–20; TEMP 97.4–98.7; O2SAT 96–100
[2023-10-31] MEDS ORDERED: SOD CHL 0.45% 1,000 ML IV SCH (21:45)
[2023-10-31] MEDS ORDERED: HYDROmorphone HCL 2 MG/ML VL/or syr IV PRN ×2 (21:45)
[2023-11-01] MEDS ORDERED: OXYCODONE W/ ACETAMINOPHEN 5/325MG TABLET PO PRN (00:45)
[2023-11-01 01:00] VITALS: BP_SYST 109; BP_SYST 112; BP_DIAS 53; BP_DIAS 69; PULSE 57; PULSE 90; RESP 18; TEMP 97.8; TEMP 98.1; O2SAT 96; O2SAT 97
[2023-11-01] MEDS: SULFACETAMIDE SOD 10% OPTH(EYE) SOL 15ML EACHEYE SCH (01:00)
[2023-11-01] MEDS: SOD CHL 0.45% 1,000 ML IV SCH (01:00)
[2023-11-01] MEDS: prednisoLONE ACETATE 1% OPTH SUSP 5ML EACHEYE SCH (01:33)
[2023-11-01] MEDS: HYDROmorphone HCL 2 MG/ML VL/or syr IV PRN (03:21)
[2023-11-01] MEDS: SPIRONOLACTONE 25 MG TAB PO SCH (05:48)
[2023-11-01] MEDS: FUROSEMIDE 40 MG/4 ML VIAL IV ONE (06:43)
[2023-11-01 08:50] LABS: Basophils # (auto) 0 10 ^3/uL (0-0.2); Basophils % (auto) 0.8 % (0.0-2.0); Eosinophils # (auto) 0.2 10 ^3/uL (0-0.8); Eosinophils % (auto) 4.4 % (0.0-7.0); Hematocrit 32.4 % (36.0-46.0); Hemoglobin 10.8 g/dL (12.2-16.2); Lymphocytes % (auto) 20.7 % (10.0-50.0); Mean Corpuscular Hemoglobin 28.8 pg (28.0-32.0); Mean Corpuscular Hgb Conc. 33.4 g/dL (32.0-36.0); Mean Corpuscular Volume 86.4 fL (80.0-100.0); Monocytes # (auto) 0.6 10 ^3/uL (0-1.3); Monocytes % (auto) 12.4 % (0.0-12.0); Neutrophils # (auto) 2.9 10 ^3/uL (1.6-8.6); Neutrophils % (auto) 61.7 % (37.0-80.0); Nucleated Red Blood Cells % 0.1 %; Red Blood Cells 3.75 10^6/uL (4.0-5.20); Red Cell Distribution Width 15.3 % (11.8-14.3); White Blood Cell 4.7 10^3/uL (4.4-10.8)
[2023-11-01 09:06] LABS: Alanine Aminotransferase 38 U/L (7-40); Albumin 3.6 g/dL (3.2-4.8); Alkaline Phosphatase 148 U/L (46-116); Anion Gap 4 (5-15); Aspartate Aminotransferase 46 U/L (13-40); BUN/Creatinine Ratio 27.6 (10.0-20.0); Bilirubin, Total 0.6 mg/dL (0.2-1.0); Blood Urea Nitrogen 21 mg/dL (9-23); Calcium 9.5 mg/dL (8.5-10.1); Carbon Dioxide 28 mmol/L (20-30); Chloride 104 mmol/L (98-107); Glucose 97 mg/dL (74-106); Potassium 3.9 mmol/L (3.5-5.1); Sodium 136 mmol/L (136-145); Total Protein 7.2 g/dL (5.7-8.2)
[2023-11-01] MEDS: LEVOTHYROXINE SODIUM 112 MCG TAB PO SCH (09:38)
[2023-11-01] MEDS: LEVOTHYROXINE SODIUM 50 MCG TAB PO SCH (09:38)
[2023-11-01 13:15] VITALS: BP 105/68; PULSE 74; RESP 20; TEMP 97.7; O2SAT 98
[2023-11-01 17:00] VITALS: BP 112/73; PULSE 87; RESP 20; TEMP 97; O2SAT 98
[2023-11-01 20:00] VITALS: PULSE 87; RESP 17; O2SAT 97
[2023-11-01 21:00] VITALS: BP 112/52; PULSE 87; RESP 17; TEMP 98.8; O2SAT 97
[2023-11-02 01:00] VITALS: BP 108/67; PULSE 83; RESP 18; TEMP 98.8; O2SAT 96
[2023-11-02] MEDS ORDERED: SUL10OS EACHEYE (06:54)
[2023-11-02] MEDS ORDERED: TORS20TA19 GT (06:54)
[2023-11-02] MEDS ORDERED: PRED1SUS4 EACHEYE (06:54)
[2023-11-02] MEDS ORDERED: LEV100T GT (06:54)
[2023-11-02] MEDS ORDERED: SPIR25TA PO (06:54)
[2023-11-02] MEDS ORDERED: AMPI500C9 PO (06:58)
[2023-11-02 09:00] VITALS: BP 102/64; PULSE 71; RESP 18; TEMP 97.9; O2SAT 95
[2023-11-02 13:00] VITALS: BP 133/57; PULSE 76; RESP 18; TEMP 97.8; O2SAT 93
[2023-11-02 17:00] VITALS: BP 116/77; PULSE 94; RESP 16; TEMP 97.8; O2SAT 96
== END 2023-11-02 19:00 | disposition home or self-care (01) | DRG 602 ==
LOC: WEST WING 23:17
PROVIDERS: ADMIT Specialist; ATTEND Specialist
PROC: 05HY33Z Insertion of Infusion Device into Upper Vein, Percutaneous Approach (ICD-10-PCS; principal; 2023-10-30)
PROC: B54NZZA Ultrasonography of Left Upper Extremity Veins, Guidance (ICD-10-PCS; 2023-10-30)
DX: L03.115 Cellulitis of right lower limb (principal); I50.23 Acute on chronic systolic (congestive) heart failure; F11.20 Opioid dependence, uncomplicated; Z68.44 Body mass index [BMI] 60.0-69.9, adult; D84.89 Other immunodeficiencies; I82.401 Acute embolism and thrombosis of unspecified deep veins of right lower extremity; I82.601 Acute embolism and thrombosis of unspecified veins of right upper extremity; E66.01 Morbid (severe) obesity due to excess calories; E03.9 Hypothyroidism, unspecified; I11.0 Hypertensive heart disease with heart failure; G89.4 Chronic pain syndrome; K21.9 Gastro-esophageal reflux disease without esophagitis; F25.9 Schizoaffective disorder, unspecified; J44.9 Chronic obstructive pulmonary disease, unspecified; Z86.718 Personal history of other venous thrombosis and embolism; Z91.199 Patient's noncompliance with other medical treatment and regimen due to unspecified reason; Z83.3 Family history of diabetes mellitus; Z86.711 Personal history of pulmonary embolism; Z82.49 Family history of ischemic heart disease and other diseases of the circulatory system; Z81.8 Family history of other mental and behavioral disorders; Z79.01 Long term (current) use of anticoagulants; Z82.62 Family history of osteoporosis; Z82.3 Family history of stroke; Z82.5 Family history of asthma and other chronic lower respiratory diseases
CPT/HCPCS: 36415; 80053; 81001; 82533; 83880; 84443; 85025; 85379; 85610; 85730; 87077; 87081; 87186; 87205; 93971; G0378; J0692

== ENCOUNTER 2023-11-25 15:39 | Inpatient (IN) | payer MEDICARE, MEDICAID ==
[~2023-11-25] VITALS: Ht 162.6 cm; Wt 182.9 kg
[~2023-11-25 15:39] MED LIST changes: +AMPI500C9 PO; -CARV-214 PO; -CARV6.2551 PO; -CYA100I IM; -DOXY-111 PO; -FER325T PO; +LEV100T GT; -LEV50T PO; +METF-370 PO; +PRED1SUS4 EACHEYE; +SPIR25TA PO; +SUCR1TAB PO; +SUL10OS EACHEYE; +TORS20TA20 PO
[2023-11-25] MEDS ORDERED: MORPHINE SULFATE INJ 2 MG/ml SYRG IV PRN (21:00)
[2023-11-25] MEDS ORDERED: NITROGLYCERIN 0.4 MG SL TAB SL PRN (21:00)
[2023-11-25] MEDS: SACUBITRIL-VALSARTAN 24mg/26mg TAB PO SCH (22:00)
[2023-11-25] MEDS: CARVEDILOL 3.125 MG TAB PO SCH (22:00)
[2023-11-25 23:41] VITALS: BP 111/73; PULSE 97; RESP 17; TEMP 98.4; O2SAT 94
[2023-11-26] VITALS (10 sets, daily range): BP systolic 111–139; BP diastolic 68–85; PULSE 65–99; RESP 16–20; TEMP 97.5–99.2; O2SAT 92–99
[2023-11-26] LABS: Basophils # (auto) 0 10 ^3/uL (0-0.2); Basophils % (auto) 0.4 % (0.0-2.0); Eosinophils # (auto) 0.1 10 ^3/uL (0-0.8); Eosinophils % (auto) 2.4 % (0.0-7.0); Hematocrit 34.8 % (36.0-46.0); Hemoglobin 11.6 g/dL (12.2-16.2); Lymphocytes # (auto) 0.6 10 ^3/uL (0.4-5.4); Lymphocytes % (auto) 11.9 % (10.0-50.0); Mean Corpuscular Hemoglobin 28.8 pg (28.0-32.0); Mean Corpuscular Hgb Conc. 33.2 g/dL (32.0-36.0); Mean Corpuscular Volume 86.6 fL (80.0-100.0); Monocytes # (auto) 0.4 10 ^3/uL (0-1.3); Neutrophils # (auto) 4.3 10 ^3/uL (1.6-8.6); Neutrophils % (auto) 78.3 % (37.0-80.0); Nucleated Red Blood Cells % 0.1 %; Red Blood Cells 4.02 10^6/uL (4.0-5.20); Red Cell Distribution Width 15.6 % (11.8-14.3); White Blood Cell 5.4 10^3/uL (4.4-10.8)
[2023-11-26 00:16] LABS: Alanine Aminotransferase 11 U/L (7-40); Albumin 4.1 g/dL (3.2-4.8); Alkaline Phosphatase 140 U/L (46-116); Anion Gap 6 (5-15); Aspartate Aminotransferase < 8 U/L (13-40); BUN/Creatinine Ratio 11.7 (10.0-20.0); Blood Urea Nitrogen 9 mg/dL (9-23); Calcium 9.1 mg/dL (8.7-10.4); Carbon Dioxide 22 mmol/L (20-30); Chloride 107 mmol/L (98-107); Glucose 101 mg/dL (74-106); Potassium 3.7 mmol/L (3.5-5.1); Sodium 135 mmol/L (136-145)
[2023-11-26 00:17] LABS: Bilirubin, Total 0.9 mg/dL (0.2-1.0); Total Protein 8.5 g/dL (5.7-8.2)
[2023-11-26] MEDS: HYDROmorphone HCL 2 MG/ML VL/or syr IV PRN ×2 (02:37→10:50)
[2023-11-26 04:40] LABS: Basophils # (auto) 0.1 10 ^3/uL (0-0.2); Basophils % (auto) 0.9 % (0.0-2.0); Eosinophils # (auto) 0.2 10 ^3/uL (0-0.8); Eosinophils % (auto) 2.8 % (0.0-7.0); Hematocrit 34.1 % (36.0-46.0); Hemoglobin 10.9 g/dL (12.2-16.2); Lymphocytes # (auto) 0.9 10 ^3/uL (0.4-5.4); Lymphocytes % (auto) 16.3 % (10.0-50.0); Mean Corpuscular Hgb Conc. 31.8 g/dL (32.0-36.0); Mean Corpuscular Volume 87.8 fL (80.0-100.0); Monocytes # (auto) 0.6 10 ^3/uL (0-1.3); Monocytes % (auto) 10.9 % (0.0-12.0); Neutrophils # (auto) 3.9 10 ^3/uL (1.6-8.6); Neutrophils % (auto) 69.1 % (37.0-80.0); Nucleated Red Blood Cells % 0.4 %; Red Blood Cells 3.89 10^6/uL (4.0-5.20); White Blood Cell 5.7 10^3/uL (4.4-10.8)
[2023-11-26 04:44] LABS: Albumin 3.8 g/dL (3.2-4.8); Alkaline Phosphatase 131 U/L (46-116); Anion Gap 10 (5-15); Aspartate Aminotransferase < 8 U/L (13-40); BUN/Creatinine Ratio 9.3 (10.0-20.0); Bilirubin, Total 0.9 mg/dL (0.2-1.0); Blood Urea Nitrogen 7 mg/dL (9-23); Calcium 8.9 mg/dL (8.7-10.4); Carbon Dioxide 21 mmol/L (20-30); Chloride 106 mmol/L (98-107); Glucose 100 mg/dL (74-106); Potassium 3.8 mmol/L (3.5-5.1); Sodium 137 mmol/L (136-145)
[2023-11-26 04:45] LABS: Total Protein 7.8 g/dL (5.7-8.2)
[2023-11-26 04:52] LABS: Alanine Aminotransferase < 9 U/L (7-40)
[2023-11-26] MEDS: LEVOTHYROXINE SODIUM 50 MCG TAB PO SCH (06:22)
[2023-11-26] MEDS: PANTOPRAZOLE 40 MG TAB PO SCH (06:23)
[2023-11-26] MEDS: FERROUS SULFATE 325mg EC TAB PO SCH (08:00)
[2023-11-26] MEDS: CYANOCOBALAMIN 500 MCG TAB PO SCH (10:00)
[2023-11-26] MEDS: CEFEPIME 1GM/ 50ML 50 ML IV SCH (10:00)
[2023-11-26] MEDS: TORSEMIDE 20 MG TAB PO SCH (10:00)
[2023-11-27] VITALS (10 sets, daily range): BP systolic 103–143; BP diastolic 65–97; PULSE 65–98; RESP 16–20; TEMP 97.4–98.1; O2SAT 94–99
[2023-11-27 04:12] LABS: Basophils # (auto) 0 10 ^3/uL (0-0.2); Basophils % (auto) 0.5 % (0.0-2.0); Eosinophils # (auto) 0.1 10 ^3/uL (0-0.8); Eosinophils % (auto) 2.4 % (0.0-7.0); Hematocrit 33.5 % (36.0-46.0); Hemoglobin 11.1 g/dL (12.2-16.2); Lymphocytes # (auto) 0.5 10 ^3/uL (0.4-5.4); Mean Corpuscular Hemoglobin 28.9 pg (28.0-32.0); Mean Corpuscular Volume 87.4 fL (80.0-100.0); Monocytes # (auto) 0.3 10 ^3/uL (0-1.3); Monocytes % (auto) 5.5 % (0.0-12.0); Neutrophils # (auto) 4.9 10 ^3/uL (1.6-8.6); Neutrophils % (auto) 82.6 % (37.0-80.0); Red Blood Cells 3.83 10^6/uL (4.0-5.20); Red Cell Distribution Width 15.6 % (11.8-14.3); White Blood Cell 5.9 10^3/uL (4.4-10.8)
[2023-11-27 04:28] LABS: Albumin 3.9 g/dL (3.2-4.8); Alkaline Phosphatase 125 U/L (46-116); Anion Gap 6 (5-15); Aspartate Aminotransferase < 8 U/L (13-40); BUN/Creatinine Ratio 14.3 (10.0-20.0); Blood Urea Nitrogen 12 mg/dL (9-23); Calcium 9.2 mg/dL (8.7-10.4); Carbon Dioxide 25 mmol/L (20-30); Chloride 103 mmol/L (98-107); Glucose 133 mg/dL (74-106); Potassium 3.9 mmol/L (3.5-5.1); Sodium 134 mmol/L (136-145)
[2023-11-27 04:29] LABS: Bilirubin, Total 0.7 mg/dL (0.2-1.0); Total Protein 8.4 g/dL (5.7-8.2)
[2023-11-27 04:53] LABS: Alanine Aminotransferase < 9 U/L (7-40)
[2023-11-27] MEDS: BUMETANIDE 2.5mg/10ml (0.25 mg/ml) INJ IV ONE (11:04)
[2023-11-28] VITALS (8 sets, daily range): BP systolic 106–127; BP diastolic 52–87; PULSE 68–82; RESP 18–24; TEMP 97.5–98.7; O2SAT 98–100
[2023-11-28 04:58] LABS: Basophils # (auto) 0.1 10 ^3/uL (0-0.2); Basophils % (auto) 0.8 % (0.0-2.0); Eosinophils # (auto) 0.3 10 ^3/uL (0-0.8); Eosinophils % (auto) 4.7 % (0.0-7.0); Hematocrit 33.1 % (36.0-46.0); Hemoglobin 10.9 g/dL (12.2-16.2); Lymphocytes # (auto) 0.9 10 ^3/uL (0.4-5.4); Mean Corpuscular Hemoglobin 29.4 pg (28.0-32.0); Mean Corpuscular Volume 89.2 fL (80.0-100.0); Monocytes # (auto) 0.7 10 ^3/uL (0-1.3); Neutrophils # (auto) 4.8 10 ^3/uL (1.6-8.6); Neutrophils % (auto) 70.5 % (37.0-80.0); Nucleated Red Blood Cells % 0.1 %; Red Blood Cells 3.71 10^6/uL (4.0-5.20); White Blood Cell 6.7 10^3/uL (4.4-10.8)
[2023-11-28 05:13] LABS: Alkaline Phosphatase 106 U/L (46-116); BUN/Creatinine Ratio 15.7 (10.0-20.0); Blood Urea Nitrogen 13 mg/dL (9-23); Calcium 8.9 mg/dL (8.7-10.4); Carbon Dioxide 22 mmol/L (20-30); Glucose 113 mg/dL (74-106)
[2023-11-28 05:14] LABS: Albumin 3.5 g/dL (3.2-4.8); Aspartate Aminotransferase < 8 U/L (13-40); Bilirubin, Total 0.4 mg/dL (0.2-1.0); Total Protein 7.8 g/dL (5.7-8.2)
[2023-11-28 05:29] LABS: Alanine Aminotransferase < 9 U/L (7-40)
[2023-11-28 05:41] LABS: Anion Gap 6 (5-15); Chloride 106 mmol/L (98-107); Potassium 4.1 mmol/L (3.5-5.1); Sodium 134 mmol/L (136-145)
[2023-11-28] MEDS: BUMETANIDE 2.5mg/10ml (0.25 mg/ml) INJ IV SCH (10:15)
[2023-11-28] MEDS: SODIUM CHLORIDE 0.9% 1,000 ML IV SCH (15:08)
[2023-11-28] MEDS: metOLazone 5 MG TAB PO ONE (18:07)
[2023-11-28] MEDS: ALBUMIN 25% 50 ML IV SCH (18:08)
[2023-11-28] MEDS: BUMETANIDE INJECTION 12.5 MG in GIVE UN-DILUTED 0 ML IV SCH (19:00)
[2023-11-28] MEDS: HYDROmorphone HCL 2 MG/ML VL/or syr IV PRN (22:32)
[2023-11-29] VITALS (8 sets, daily range): BP systolic 93–133; BP diastolic 60–78; PULSE 74–90; RESP 18–20; TEMP 97.8–98.7; O2SAT 93–97
[2023-11-29] MEDS: HYDROmorphone HCL 2 MG/ML VL/or syr IV PRN (03:56)
[2023-11-29 06:54] LABS: Basophils # (auto) 0 10 ^3/uL (0-0.2); Basophils % (auto) 0.6 % (0.0-2.0); Eosinophils # (auto) 0.2 10 ^3/uL (0-0.8); Eosinophils % (auto) 4.1 % (0.0-7.0); Hematocrit 33.1 % (36.0-46.0); Hemoglobin 10.8 g/dL (12.2-16.2); Lymphocytes # (auto) 0.8 10 ^3/uL (0.4-5.4); Lymphocytes % (auto) 15.3 % (10.0-50.0); Mean Corpuscular Hemoglobin 28.7 pg (28.0-32.0); Mean Corpuscular Hgb Conc. 32.6 g/dL (32.0-36.0); Mean Corpuscular Volume 87.9 fL (80.0-100.0); Monocytes # (auto) 0.5 10 ^3/uL (0-1.3); Monocytes % (auto) 9.7 % (0.0-12.0); Neutrophils # (auto) 3.6 10 ^3/uL (1.6-8.6); Neutrophils % (auto) 70.3 % (37.0-80.0); Nucleated Red Blood Cells % 0.1 %; Red Blood Cells 3.77 10^6/uL (4.0-5.20); Red Cell Distribution Width 15.4 % (11.8-14.3); White Blood Cell 5.1 10^3/uL (4.4-10.8)
[2023-11-29] MEDS ORDERED: ALBUMIN 25% 50 ML IV SCH (07:15)
[2023-11-29 07:41] LABS: Alkaline Phosphatase 102 U/L (46-116); Chloride 103 mmol/L (98-107); Glucose 108 mg/dL (74-106); Sodium 137 mmol/L (136-145)
[2023-11-29 07:42] LABS: Albumin 3.8 g/dL (3.2-4.8); Aspartate Aminotransferase < 8 U/L (13-40); Bilirubin, Total 0.5 mg/dL (0.2-1.0); Total Protein 7.7 g/dL (5.7-8.2)
[2023-11-29 07:47] LABS: Calcium 9.4 mg/dL (8.7-10.4)
[2023-11-29 08:01] LABS: Alanine Aminotransferase < 9 U/L (7-40)
[2023-11-29 08:19] LABS: Anion Gap 7 (5-15); Carbon Dioxide 27 mmol/L (20-30)
[2023-11-29 08:20] LABS: BUN/Creatinine Ratio 20.5 (10.0-20.0); Blood Urea Nitrogen 18 mg/dL (9-23)
[2023-11-29] MEDS ORDERED: SODIUM CHLORIDE 0.9% 1,000 ML IV SCH (10:30)
[2023-11-30] VITALS (8 sets, daily range): BP systolic 103–141; BP diastolic 61–81; PULSE 72–84; RESP 16–20; TEMP 97.7–98.4; O2SAT 93–98
[2023-11-30 06:07] LABS: Basophils # (auto) 0 10 ^3/uL (0-0.2); Basophils % (auto) 0.7 % (0.0-2.0); Eosinophils # (auto) 0.2 10 ^3/uL (0-0.8); Eosinophils % (auto) 3.7 % (0.0-7.0); Hemoglobin 10.7 g/dL (12.2-16.2); Lymphocytes # (auto) 0.8 10 ^3/uL (0.4-5.4); Lymphocytes % (auto) 14.2 % (10.0-50.0); Mean Corpuscular Hgb Conc. 33.4 g/dL (32.0-36.0); Mean Corpuscular Volume 86.9 fL (80.0-100.0); Monocytes # (auto) 0.5 10 ^3/uL (0-1.3); Monocytes % (auto) 8.5 % (0.0-12.0); Neutrophils # (auto) 4.2 10 ^3/uL (1.6-8.6); Neutrophils % (auto) 72.9 % (37.0-80.0); Red Blood Cells 3.69 10^6/uL (4.0-5.20); Red Cell Distribution Width 15.8 % (11.8-14.3); White Blood Cell 5.7 10^3/uL (4.4-10.8)
[2023-11-30 06:10] LABS: Albumin 3.8 g/dL (3.2-4.8); Alkaline Phosphatase 99 U/L (46-116); Anion Gap 7 (5-15); Aspartate Aminotransferase < 8 U/L (13-40); BUN/Creatinine Ratio 26.4 (10.0-20.0); Bilirubin, Total 0.5 mg/dL (0.2-1.0); Blood Urea Nitrogen 24 mg/dL (9-23); Calcium 9.3 mg/dL (8.7-10.4); Carbon Dioxide 28 mmol/L (20-30); Chloride 102 mmol/L (98-107); Glucose 105 mg/dL (74-106); Potassium 4.1 mmol/L (3.5-5.1); Sodium 137 mmol/L (136-145); Total Protein 8.2 g/dL (5.7-8.2)
[2023-11-30] MEDS: LEVOTHYROXINE SODIUM 100 MCG/5 ML INJ IV SCH (06:24)
[2023-11-30 06:31] LABS: Alanine Aminotransferase < 9 U/L (7-40)
[2023-11-30] MEDS: SODIUM CHLORIDE 0.9% 1,000 ML IV SCH (18:45)
[2023-12-01 01:30] VITALS: BP 114/59; PULSE 81; RESP 18; TEMP 97.9; O2SAT 97
[2023-12-01 05:00] VITALS: BP 99/49; PULSE 76; RESP 17; TEMP 98.6; O2SAT 98
[2023-12-01 08:00] VITALS: PULSE 59; RESP 22; O2SAT 94
[2023-12-01 08:37] VITALS: BP 102/59; PULSE 59; RESP 22; TEMP 97.4; O2SAT 94
[2023-12-01 16:59] VITALS: BP 123/68; PULSE 73; RESP 18; TEMP 98.4; O2SAT 99
[2023-12-01 21:00] VITALS: BP 135/80; PULSE 92; RESP 20; TEMP 96.3; O2SAT 99
[2023-12-02 01:00] VITALS: BP 116/67; PULSE 82; RESP 20; TEMP 97.6; O2SAT 93
[2023-12-02 05:00] VITALS: BP 112/62; PULSE 80; RESP 18; TEMP 98.5; O2SAT 92
[2023-12-02 08:00] VITALS: PULSE 68; RESP 20; O2SAT 94
[2023-12-02 08:31] VITALS: BP 104/58; PULSE 69; RESP 19; TEMP 97.5; O2SAT 97
[2023-12-02 13:00] VITALS: BP 113/85; PULSE 67; RESP 20; TEMP 97.7; O2SAT 98
[2023-12-02 15:38] LABS: Alanine Aminotransferase 12 U/L (7-40); Albumin 3.5 g/dL (3.2-4.8); Alkaline Phosphatase 97 U/L (46-116); Anion Gap 7 (5-15); Aspartate Aminotransferase < 8 U/L (13-40); BUN/Creatinine Ratio 35.3 (10.0-20.0); Blood Urea Nitrogen 24 mg/dL (9-23); Calcium 8.8 mg/dL (8.7-10.4); Carbon Dioxide 25 mmol/L (20-30); Chloride 104 mmol/L (98-107); Glucose 120 mg/dL (74-106); Potassium 4.6 mmol/L (3.5-5.1); Sodium 136 mmol/L (136-145)
[2023-12-02 15:39] LABS: Bilirubin, Total 0.6 mg/dL (0.2-1.0); Total Protein 7.4 g/dL (5.7-8.2)
[2023-12-02 16:13] VITALS: BP 123/75; PULSE 83; RESP 19; TEMP 97.7; O2SAT 99
== END 2023-12-02 17:10 | disposition home or self-care (01) | DRG 603 ==
LOC: CENTRAL 23:08
PROVIDERS: ADMIT Internal Medicine Infectious Disease; ATTEND Internal Medicine Infectious Disease
PROC: 05HA33Z Insertion of Infusion Device into Left Brachial Vein, Percutaneous Approach (ICD-10-PCS; principal; 2023-11-27)
PROC: B54NZZA Ultrasonography of Left Upper Extremity Veins, Guidance (ICD-10-PCS; 2023-11-27)
DX: L03.115 Cellulitis of right lower limb (principal); Z68.44 Body mass index [BMI] 60.0-69.9, adult; N17.9 Acute kidney failure, unspecified; J44.9 Chronic obstructive pulmonary disease, unspecified; E03.9 Hypothyroidism, unspecified; E66.01 Morbid (severe) obesity due to excess calories; I89.0 Lymphedema, not elsewhere classified; E11.621 Type 2 diabetes mellitus with foot ulcer; E86.9 Volume depletion, unspecified; L97.519 Non-pressure chronic ulcer of other part of right foot with unspecified severity; I50.9 Heart failure, unspecified; I11.0 Hypertensive heart disease with heart failure; F10.20 Alcohol dependence, uncomplicated; Z80.0 Family history of malignant neoplasm of digestive organs; Z79.4 Long term (current) use of insulin; Z82.62 Family history of osteoporosis; Z81.8 Family history of other mental and behavioral disorders; Z82.3 Family history of stroke; Z82.49 Family history of ischemic heart disease and other diseases of the circulatory system; Z83.3 Family history of diabetes mellitus; Z82.5 Family history of asthma and other chronic lower respiratory diseases; Y90.9 Presence of alcohol in blood, level not specified
CPT/HCPCS: 36415; 76775; 80053; 84443; 85025; 85379; 87040; 87077; 87081; 87186; 87205; 93306; G0378; J3490

== ENCOUNTER 2024-05-26 17:09 | Inpatient (IN) | payer MEDICARE, MEDICAID ==
[~2024-05-26] VITALS: Ht 162.6 cm; Wt 190.1 kg
[~2024-05-26 17:09] MED LIST changes: -AMPI500C9 PO; +DOX100T PO; -LEV100T GT; +LEVO100T8 PO; +LEVO175T4 PO; -METF-370 PO; -PANT40T PO; -TORS20TA19 GT
[2024-05-26 21:29] VITALS: BP 120/85; PULSE 68; RESP 18; TEMP 97.7; O2SAT 100
[2024-05-26 21:50] VITALS: BP 127/85; PULSE 68; PULSE 89; RESP 18; TEMP 97.7; O2SAT 100; O2SAT 97
[2024-05-26] MEDS ORDERED: ACETAMINOPHEN 500 MG TAB or CAP PO PRN (22:45)
[2024-05-26] MEDS ORDERED: NITROGLYCERIN 0.4 MG SL TAB SL PRN (22:45)
[2024-05-26] MEDS ORDERED: MORPHINE SULFATE INJ 2 MG/ml SYRG IV PRN (22:45)
--- NOTE | 2024-05-26 23:29 | DVHINCON2 ---
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 Local pains tenderness at on nonhealing open ulcerated wound of RLE expressing seropurulent Discharges for last 3 weeks. She also reports chills low-grade fever and chills accompanying above symptoms In clinical profile, the patient has a known long history of nonhealing open wound affecting distal R LE infected with multiple gram-negative infections such as Enterococcus, Enterobacter, Proteus, Pseudomonas and MRSA over the past 4-5 years. She has received multiple rounds of IV antibiotics, multiple excisional skin debridements followed by skin graft procurements by Dr. Wlels at [facility] in 11/2020 and 01/2021. Etiology cause of failed skin graft procurements vary from poor hygiene, noncompliance with wound care and intake of antibiotics as well as physical trauma. As per patient, decreased he was treated with oral Doxycycline in combination with Rocephin and consult with Dr. Lorne Roman She was recommended to visit ER since her symptoms continue to persist Upon arrival to this ER, she appeared to be clinically ill-noted erythema edema pains Tenderness around nonhealing wound of R distal RLE with purulent discharge Her labs are remarkable for chronic anemia Following my case discussion with ERP, the patient was admitted to medical floor with telemetry Vital Signs Vital Signs Date Time Temp Pulse Resp B/P (MAP) Pulse Ox O2 Delivery O2 Flow Rate FiO2 10/27/23 21:32 70 131/81 10/27/23 21:00 97.6 16 99 97.6 10/27/23 07:50 Room Air* 0 21 Results Labs Test 10/27/23 12:49 10/27/23 02:42 Range/Units Urine Color Yellow Yellow Urine Clarity Turbid H Clear Urine pH 5.5 5.0-9.0 Urine Specific [place] 1.025 1.001-1.035 Urine Protein 1+ H Negative Urine Ketones Negative Negative Urine Blood Negative Negative /uL Urine Nitrite Negative Negative Urine Bilirubin Negative Negative Urine Urobilinogen 2 H Negative mg/dL Urine Leukocyte Esterase 2+ Negative /uL Urine RBC 4 0 - 4 /hpf Urine WBC 47 0 - 5 /hpf Urine Squamous Epithelial Cells Few <5 /hpf Urine Bacteria Few H None Seen /hpf Urine Mucus Few None Seen Urine Glucose Normal Normal mg/dL White Blood Count 5.2 4.4-10.8 10^3/uL Red Blood Count 4.31 4.0-5.20 10^6/uL Hemoglobin 12.2 12.2-16.2 g/dL Hematocrit 38.0 36.0-46.0 % Mean Corpuscular Volume 88.1 80.0-100.0 fL Mean Corpuscular Hemoglobin 28.4 28.0-32.0 pg Mean Corpuscular Hemoglobin Concent 32.2 32.0-36.0 g/dL Red Cell Distribution Width 15.5 H 11.8-14.3 % Platelet Count 368 140-450 10^3/uL Mean Platelet Volume 7.9 6.9-10.8 fL Neutrophils (%) (Auto) 72.8 37.0-80.0 % Lymphocytes (%) (Auto) 16.3 10.0-50.0 % Monocytes (%) (Auto) 7.8 0.0-12.0 % Eosinophils (%) (Auto) 2.4 0.0-7.0 % Basophils (%) (Auto) 0.7 0.0-2.0 % Neutrophils # (Auto) 3.8 1.6-8.6 10 ^3/uL Lymphocytes # (Auto) 0.9 0.4-5.4 10 ^3/uL Monocytes # (Auto) 0.4 0-1.3 10 ^3/uL Eosinophils # (Auto) 0.1 0-0.8 10 ^3/uL Basophils # (Auto) 0 0-0.2 10 ^3/uL Nucleated Red Blood Cells 0.1 % Thyroid Stimulating Hormone (TSH) 6.15 H 0.358-3.74 uIU/mL Microbiology Date/Time Source Procedure Growth Status 10/27/23 01:30 Nose MRSA Screen - Final Complete Past Medical History Past Medical History Past Medical History Past medical records: reviewed Cardiovascular : Known history of hypertension and cardiomyopathy EF 32% by 2D echo-history of substance abuse.No known history of acute KS or CAD-follows with Dr. Kelvin Pike, cardiology History ofdeep venous thrombosis ofRcommon femoral vein History of DVT affecting upper extremity s/p Mike filter placement-Currently on oral apixaban Respiratory: Pulmonary embolism, obesity hypoventilation,history of cor pulmonale Gastrointestinal: GERD Endocrine: Hypothyroidism-currently on L-thyroxine hormone replacement Morbidobesitywith current BMI high at 48 4 kg/m As per patient, she had intentional weight loss of 100 LBS Musculoskeletal: known history of open nonhealing wounds affecting bilateral lower Exts-multiple hospitalizations since August 2016 throughthis yr known to me since August 2020 when she was treated for DVT affecting R common femoral veinandnonhealing wound of RLE. -Received excisional surgical debridementonMay 2020 Followed by home IV antibiotics-IV meropenem and vancomycin for 6 weeks-indicated for infection noted in proximity in OR by Dr. Wells. It is noteworthy that her imaging studies are limited because of her body habitus Received several excisional surgical debridement followed by artificial skin graft procurement by Dr. Wells as of 12/08/2020 and February 22, 2021 at this facilitynoted significantclosure of medial aspect ofRLEwoundas a result. Wound cultures positive for multiple organisms from MRSA Enterococcus,Pseudomonas,Serratia and Enterobacter Chronic back pains and narcoticdependence Recommended safe and rational use of narcotic analgesics for pain management.Over that time she has developed chronic narcotic dependence Cited her being high risk to develop acute respiratory failure Life-threatening cardiac arrhythmia from hypoxia and sudden . Referredto Dr. Loza for pain management Hemato oncology: History ofrecurrentDVT affecting upper and lower extremity complicated by PE S/p Mike filter placement. -Currently on apixaban Psychiatric:Mixed affect-schizoaffective disorder Past Surgical History Past Surgical History Surgical procedure Laterality Date CHOLECYSTECTOMY DEBRIDEMENT Right LE 09/18/2020 Procedure: WOUND DEBRIDEMENT AND REPAIR OF RIGHT LEG WOUND; Surgeon: Khari Young MD; Location:[facility] MAIN OR DEBRIDEMENT Right 11/07/2020 Procedure: SURGICAL DEBRIDEMENT AND REPAIR OF SURGICAL WOUND AND LAVAGE; Surgeon: Khari Young MD; Location: [facility] MAIN OR DEBRIDEMENT Right 02/22/2021 Procedure: DEBRIDEMENT, LAVAGE, REPAIR RIGHT LEG MEDIAL AND LATERAL WOUNDS WITH STRAVIXPL ARTIFICIAL SKIN GRAFTS, 3CM X 6CM X 2; Surgeon: Khari Young MD; Location: [facility] MAIN OR DEBRIDEMENT Right 04/07/2021 Procedure: RIGHT LEG LATERAL AND NTERIOR WOUND DEBRIDEMENT AND CLOSURE WITH SYNTHETIC SKIN GRAFT; RIGHT LEG MEDIAL WOUND DEBRIDEMENT AND REPAIR WITH FLAP CLOSURE; Surgeon: Khari Young MD; Location: [facility] MAIN OR DEBRIDEMENT Right 06/09/2021 Procedure: SURGICAL DEBRIDEMENT / IRRIGATION / LAVAGE OF RIGHT LEG WOUND; Surgeon: Khari Young MD; Location:[facility] MAIN OR DEBRIDEMENT Right 12/02/2020 Procedure: DEBRIDEMENT, REPAIR WITH FLAP CLOSURE OF MEDIAL WOUND RIGHT LOWER EXTREMITY, DEBRIDEMENT, REPAIR WITH ALLO SKIN GRAFT OF LATERAL RIGHT LOWER EXTREMITY; Surgeon: Khari Young MD; Location:[facility] MAIN OR DEBRIDEMENT Right 08/30/2021 Procedure: SURGICAL DEBRIDEMENT LAVAGE, REPAIR RIGHT LEG WITH SYNTHETIC GRAFT; Surgeon: Khari Young MD; Location: [facility] MAIN OR IVC FILTER TUNNELED VENOUS CATHETER PLACEMENT 11/12/2020 TUNNELED VENOUS CATHETER PLACEMENT 11/23/2020 Family History: Alcoholism Cancer Cancer of colon Chronic obstructive lung disease (situation) FH: thyroid disease G8 MOTHER, Onset:Unknown Family history: Arthritis Family history: Asthma Family history: Blood disorder Family history: Cardiovascular disease G8 MOTHER, Onset:Unknown G8 FATHER, Onset:Unknown G8 SISTER, Onset:Unknown Family history: Depression (situation) Family history: Diabetes mellitus G8 FATHER, Onset:Unknown Family history: Hypertension G8 MOTHER, Onset:Unknown G8 FATHER, Onset:Unknown Family history: Osteoporosis Ischemic heart disease Stroke No Family History of: Family history: Autoimmune disease (situation) Social History Currently disabled, lives with her mom and caregiver History of smoking: Cigarettes: Denies History of smoking E cigarettes: Denies History of smoking marijuana: Admits to have been smoking marijuana History of drinking alcohol: Denies History of substance abuse: History of substance abuse in past Allergies: Coded Allergies: Tuna Flavor (Verified Allergy, Severe, TUNA FISH, 01/07/22) Ceftriaxone (Verified Allergy, Mild, ITCHING, 12/22/19) User: Minda Beckford RN Date: 12/16/14 12:48 Type: Emergency Department Notes ALLERGIC REACTION PT C/O ITCHING WHILE ROCEPHIN WAS INFUSING, STOPPED ABX AND NOTIFIED DR TREADWELL. 0.9NS INFUSING AT THIS TIME. RECIEVED ORDER TO GIVE BENADRYL BUT TO CONTINUE ROCEPHIN Levofloxacin (Verified Allergy, Mild, 12/22/19) ITCHINESS Acetaminophen (Verified Allergy, Unknown, 08/02/22) BLISTER IN MOUTH PER PATIENT Hydrocodone (Verified Allergy, Unknown, 08/02/22) BLISTER IN MOUTH PER PATIENT Meperidine (Verified Allergy, Unknown, BLISTERS, SOB, 12/22/19) Penicillins (Verified Allergy, Unknown, 12/22/19) Pineapple (Verified Allergy, Unknown, 01/06/22) Piperacillin (Verified Allergy, Unknown, 12/22/19) ITCHING Sulfa Antibiotics (Verified Allergy, Unknown, 09/21/22) Tazobactam (Verified Allergy, Unknown, 12/22/19) ITCHING Vancomycin (Verified Allergy, Unknown, 12/22/19) (allergic to constrast & got reactions after receiving vancomycin -- D/Jesus Vancomycin order) Iohexol (Verified Adverse Reaction, Severe, VOMITING, 05/24/22) Home Meds Active Scripts Doxycycline Monohydrate (Doxycycline Monohydrate) 100 Mg Tab, 100 MG PO Q12HR for 15 Days, #30 TAB Prov:CORI ROMAN MD 01/18/24 Prednisolone Acetate (Ophth) (Pred Forte) 1 % Karen, 1 DROP EACHEYE Q4HR for 5 Days, #5 ML Prov:CORI ROMAN MD 11/02/23 Spironolactone (Aldactone) 25 Mg Tab, 25 MG PO BIDD for 20 Days, #60 TAB Prov:CORI ROMAN MD 11/02/23 Sulfacetamide Sodium (Sulamyd) [address], 1 DROP EACHEYE Q3H for 5 Days, #30 DROP Prov:CORI ROMAN MD 11/02/23 Apixaban Base (ELIQUIS) 5 Mg Tab, 5 MG PO BID for 100 Days, #200 TAB Hold if internal bleeding Prov:CORI ROAMN MD 06/24/23 Sacubitril-Valsartan (Entresto 24-26 mg) 1 Tab Tab, 1 TAB PO BID for 45 Days, #90 TAB Hold if dizzy, systolic BP <110, Report to PMD if edema of the lips, persistent dry cough Prov:CORI ROMAN MD 01/10/22 Reported Medications Levothyroxine Sodium (Levothyroxine Sodium) 175 Mcg Tab, 175 MCG PO QAM, MCG 01/15/24 Torsemide (Torsemide) 20 Mg Tab, 1 TAB PO DAILY 10/30/23 Sucralfate (Sucralfate) 1 Gm Tab, 1 TAB PO TID 10/30/23 Discontinued Scripts Levothyroxine Sodium (Levothyroxine Sodium) 100 Mcg Tab, 200 MCG PO DAILY@0600 for 50 Days, #50 TAB Prov:CORI ROMAN MD 01/18/24 Review of Systems Constitutional: Reports easy tiredness, low-grade fever no chills weight loss HEENT: Denies headache/conjunctival/ENT pains or congestion, Denies hoarse voice, hearing or visual deficit Neck: Denies cervical spine local/radicular pains, denies goiters/stridor Denies stiffness spasms, reduced ROM, RS: Denies chest congestion, cough, wheezing, SOB, pleuritic chest pains CVS: Reports exertional shortness of breath denies angina, palpitation, GI: Denies loss of appetite, abdominal pains, tenderness, N/V/D, Denies melena, GI bleeding,constipation, : Denies dysuria, flank pains, frequency, hematuria, Denies passing foul odor/cloudy turbid urine, nocturia MS: Denies generalized aches/pains, back pains, spasms, stiffness, Denies radicular pains, denies generalized myalgias/muscle weakness EXTs: Recurrence of infection of nonhealing open wound with copious discharge Local pain and tenderness NEURO: Denies hypersomnolence, confused mental status, Denies focal weakness or seizures/tremors/myoclonic jerks SKIN: Denies rashes or open ulcerated wound ENDOCRINE: Reports polyuria, polydipsia, denies intolerance to heat and cold HEM/LYMPH: Reports easy tiredness, denies bruising, lymphadenopathy ALLERGY: Denies allergic reactions Psychiatry: Denies anxiety or depression disorder Otherwise the Review of Systems is Negative as per History & Physical Interview: Yes Vital Signs Vital Signs Date Time Temp Pulse Resp B/P (MAP) Pulse Ox O2 Delivery O2 Flow Rate FiO2 05/26/24 21:29 97.7 68 18 120/85 (97) 100 97.7 Physical Exam Physical Exam General appearance: Short statured morbidly obese, young middle-aged white female Awake alert oriented x3 in no respiratory distress Head: Normocephalic nontraumatic Eyes: EOMI, JASS, sclera nonicteric, conju nctive-pale ENT: No congestion, NSL bilateral symmetrical, oral mucosa dry Neck: Supple, carotid upstroke +2, trachea R off midline, JVD 3 cm No goiter, no stridor, no lymphadenopathy, no use of sternomastoid muscle [id number] ROM Breasts: Self exam by patient-bilateral hyperplasia, no mass/no nipple abnormality Chest : Hypoventilation at bilateral bases, No costochondral tenderness Lungs: clear breath sounds all over except reduced at bases CVS: PMI-2 cm lateral to L MCL in fifth ICS , S1-S2 NSR no S3 GI: Abdomen soft, obese+4, bowel sounds normoactive No focal/rebound tenderness, no mass no hernia, No hepatosplenomegaly : No CVA tenderness, no bladder mass palpable, genitalia-NE SKIN: Nonhealing open wound 6 cms L x 3 cms w x 0.2 cms deep over RLE with erythema, edema on medial aspect- covered by purulent discharge Skin turgor dry, color pale, no rash, no icterus, no varicosity EXTs: Extensive lymphatic edema over bilateral lower extremity (preexistent) RLE-cellulitic erythema edema pain tenderness over medial aspect of non-healing open wound over distal aspect of RLE-purulent discharge Calf tenderness-? Present, Homans' sign? Present LLE-healed scars of open wounds distal pulses +1 capillary refill <2 seconds JOINTS; reduced range of motion BACK: No apparent lumbosacral spinal muscle tenderness, LYMPH NODES: No cervical, axillary or inguinal lymph nodes Neuro: Awake alert oriented 4, coherent, affect anxious Cognitive's-intact, speech fluent No pronator drift, no focal motor deficit, Changes of peripheral neuropathy, DTR +2, gait wide base PSYCH: Affect mildly depressed-mixed with anxiety, no suicidal ideation Assessment Primary Diagnosis 1. Recurrence of cellulitis of RLE 2. Recurrence of RLE wound infection 3. Failure to outpatient Measures. Admitting Diagnosis: 1. Recurrence of cellulitis of RLE 2. Recurrence of RLE wound infection a. nonhealing open infected wound of RLE b. Short of antibiotics c. Lymphatic edema of bilateral lower extremities d. Lack of hygienic care 3. Failure to outpatient measures 4. Fairly well-controlled diabetes 2' Diagnosis/Comorbidities Primary Diagnosis Admitting Diagnosis: 2' Diagnosis/Comorbidities 1. 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 Morbid obesity with current BMI >60 to 65 kg/m 4. Chronic narcotic dependence 5. noncompliance Medical decision making Overall patient's general condition appears to be clinically ill from development of Recurrence of cellulitis and open wound infection of R lower extremity * Known history of multiple rounds of infections such as E. coli, Proteus, Pseudomonas, Enterobacter, Gram-positive sepsis MSSA, MRSA * Received multiple rounds of home IV antibiotics in consult with ID for last 4 to 5 years * Last culture results positive for MRSA * Chronic lymphatic edema and uncontrolled diabetes predispose her to be an immunocompromised host * Case discussed with ER physician * Consensus is to hospitalize patient for IV antibiotics * start patient on IV cefepime vancomycin * Will refer to lumber sticker for daily wound care * Will refer patient to Dr. Lorne Roman infectious disease * For diet-controlled diabetes we will check her blood sugar and provide Humalog through sliding scale Known history of recurrent deep venous thrombosis of Lower extremity Present at time of admission: NO Status: Chronic Problem specific AP * Patient reports pain lower extremity * Known prior history of DVT affecting bilateral upper and lower extremities * Risk factors-morbid obesity, immobility and noncompliance * failed to oral Coumadin * Continued patient on Eliquis Morbid obesity with current BMI 70 kg/m Current body weight exceeds to ideal body weight by250 LBS All recommended her to have intentional weight loss of 250 LBS through Low-carb low calorie 1800-calorie diet and aerobic exercises as tolerated Informed patient about complications of morbid obesity which includes but not limited to a. RS -obesity hypoventilation and hypoxia, pulmonary embolism, sudden b.CVS-cardiac arrhythmia, embolic events c. GI-GE reflux d. Endocrine-diabetes and comorbidities from diabetes e Neuro-embolic CVA, lifelong disability [id number] susceptibility for Covid infection and comorbidities s-[id number] risk for cancer Recommended patient to follow a. daily weight, b. ADA 1800-calorie diet-40% calories from breakfast 30% calories from lunch and dinner each, avoid carbonated soda c. Recommended aerobic exercises like walking 1-5 miles per day, riding on a stationary bike for 1-2 hours Chronic pain syndrome and narcotic dependence Recommended patient for rational and safe use of narcotics Educated patient about ill effects of narcotics which could include But not limited to life-threatening respiratory depression and sudden Patient agrees to follow my recommendations Diabetes education A. Recommended 2200 calorie ADA diet and compliance with medications B.. Recommended intentional weight loss of 250 lbs through diet and exercise C. Recommended recheck every 3-4 monthly hemoglobin A1c, bi annual lipid panel D. Recommended annual arterial duplex study and 24-hour urine for microalbuminuria E. Recommended biannual complete physical, annual dental and eye and foot exam F. Recommended diabetic shoes, podiatry care with early sign of diabetic ulcer f. Recommended to wear diabetic shoes, to see podiatry in case of G. Informed about long-term complications of diabetes-CHD, PAD, CVA, blindness Plan/Recommendation Treatment plans as of today 1. Admit to medical floor telemetry 2. Obtain wound and blood cultures 3. IV antibiotics-IV cefepime 4. Refer patient to Dr. Lorne Roman, ID-Case was discussed with him 5. Refer to wound care nurse for wound care 4. Blood cultures x3 as needed for temp > 101.5 F 5. Accu-Chek before every meal and at bedtime 6. Inj. Humalog through sliding scale 7. Continue IV Lasix and Entresto 8. Continue apixaban 9. CBC CMP TSH ESR 10. Pain management 11.VTE precautions 12, CODE STATUS full code Update patient The patient and/or family is well informed by me about 1. Clinical impression, treatment plans, side effects of medications, course of the disease and guarded prognosis 2. All patient's question/ concerns raised by patient are satisfactorily addressed by me Plan discussed with: Patient CORI ROMAN MD May 26, 2024 23:29
[2024-05-27 00:44] LABS: Basophils # (auto) 0 10 ^3/uL (0-0.2); Basophils % (auto) 0.7 % (0.0-2.0); Eosinophils # (auto) 0.2 10 ^3/uL (0-0.8); Eosinophils % (auto) 3.5 % (0.0-7.0); Hematocrit 34.2 % (36.0-46.0); Hemoglobin 11.2 g/dL (12.2-16.2); Lymphocytes % (auto) 17.8 % (10.0-50.0); Mean Corpuscular Hemoglobin 28.7 pg (28.0-32.0); Mean Corpuscular Hgb Conc. 32.6 g/dL (32.0-36.0); Mean Corpuscular Volume 87.8 fL (80.0-100.0); Monocytes # (auto) 0.5 10 ^3/uL (0-1.3); Monocytes % (auto) 8.8 % (0.0-12.0); Neutrophils # (auto) 3.7 10 ^3/uL (1.6-8.6); Neutrophils % (auto) 69.2 % (37.0-80.0); Nucleated Red Blood Cells % 0.1 %; Platelet Count (auto) 345 10^3/uL (140-450); Red Cell Distribution Width 15.9 % (11.8-14.3); White Blood Cell 5.4 10^3/uL (4.4-10.8)
[2024-05-27] MEDS: HYDROmorphone HCL 2 MG/ML VL/or syr IV PRN ×2 (00:58→06:03)
[2024-05-27 01:00] VITALS: BP 115/72; PULSE 52; RESP 18; TEMP 98; O2SAT 92
[2024-05-27 01:01] LABS: Albumin 3.7 g/dL (3.2-4.8); Alkaline Phosphatase 56 U/L (46-116); Anion Gap 8 (5-15); BUN/Creatinine Ratio 25.5 (10.0-20.0); Bilirubin, Total 0.4 mg/dL (0.2-1.0); Blood Urea Nitrogen 25 mg/dL (9-23); Calcium 9.8 mg/dL (8.7-10.4); Carbon Dioxide 21 mmol/L (20-31); Chloride 107 mmol/L (98-107); Glucose 120 mg/dL (74-106); INR 1.03 (0.9-1.15); Magnesium 2.1 mg/dL (1.6-2.6); Partial Thromboplastin Time 28.9 SEC (24.5-34.5); Potassium 4.2 mmol/L (3.5-5.1); Prothrombin Time 10.9 sec (9.3-11.8); Sodium 136 mmol/L (136-145); Total Protein 8.1 g/dL (5.7-8.2)
[2024-05-27 01:02] LABS: Alanine Aminotransferase < 9 U/L (7-40); Aspartate Aminotransferase < 8 U/L (13-40)
[2024-05-27 01:42] LABS: CRP High Sensitivity 0.62 mg/dL (<1.0)
[2024-05-27 01:43] LABS: Cholesterol 162 mg/dL (< 200)
[2024-05-27 01:49] LABS: HDL Cholesterol 38 mg/dL (40-59); Triglycerides 161 mg/dL (< 150)
[2024-05-27 01:50] LABS: LDL Cholesterol 106 mg/dL (< 100)
[2024-05-27] MEDS: prednisoLONE ACETATE 1% OPTH SUSP 5ML EACHEYE SCH (02:00)
[2024-05-27 05:00] VITALS: BP 110/89; PULSE 93; RESP 18; TEMP 98.4; O2SAT 94
[2024-05-27] MEDS: LEVOTHYROXINE SODIUM 100 MCG TAB PO SCH (05:52)
[2024-05-27] MEDS: SUCRALFATE 1 GM TAB PO SCH (05:52)
[2024-05-27] MEDS: LEVOTHYROXINE SODIUM 25 MCG TAB PO SCH (05:52)
[2024-05-27] MEDS: SPIRONOLACTONE 25 MG TAB PO SCH (05:52)
[2024-05-27] MEDS ORDERED: PATIENTS OWN MEDICATION (Levothyroxine Sodium 175 MCG) PO SCH (07:00)
[2024-05-27 07:29] LABS: Basophils # (auto) 0 10 ^3/uL (0-0.2); Basophils % (auto) 0.6 % (0.0-2.0); Eosinophils # (auto) 0.2 10 ^3/uL (0-0.8); Eosinophils % (auto) 4.6 % (0.0-7.0); Hematocrit 33.9 % (36.0-46.0); Lymphocytes % (auto) 22.9 % (10.0-50.0); Mean Corpuscular Hemoglobin 28.2 pg (28.0-32.0); Mean Corpuscular Hgb Conc. 32.4 g/dL (32.0-36.0); Mean Corpuscular Volume 86.9 fL (80.0-100.0); Monocytes # (auto) 0.5 10 ^3/uL (0-1.3); Monocytes % (auto) 10.7 % (0.0-12.0); Neutrophils # (auto) 2.8 10 ^3/uL (1.6-8.6); Neutrophils % (auto) 61.2 % (37.0-80.0); Nucleated Red Blood Cells % 0.1 %; Platelet Count (auto) 359 10^3/uL (140-450); Red Cell Distribution Width 15.2 % (11.8-14.3); White Blood Cell 4.6 10^3/uL (4.4-10.8)
[2024-05-27 07:35] LABS: Alkaline Phosphatase 55 U/L (46-116); Calcium 9.3 mg/dL (8.7-10.4); Carbon Dioxide 23 mmol/L (20-31); Chloride 104 mmol/L (98-107)
[2024-05-27 07:36] LABS: Alanine Aminotransferase < 9 U/L (7-40); Albumin 3.9 g/dL (3.2-4.8); Anion Gap 9 (5-15); Aspartate Aminotransferase < 8 U/L (13-40); Glucose 109 mg/dL (74-106); Sodium 136 mmol/L (136-145)
[2024-05-27 07:37] LABS: Bilirubin, Total 0.6 mg/dL (0.2-1.0); Total Protein 8.1 g/dL (5.7-8.2)
[2024-05-27 07:39] LABS: Blood Urea Nitrogen 31 mg/dL (9-23)
[2024-05-27 09:00] VITALS: BP 102/60; PULSE 81; RESP 17; TEMP 97.8; O2SAT 94
[2024-05-27] MEDS: DOXYCYCLINE 100 MG TAB/CAP PO SCH (09:17)
[2024-05-27] MEDS: SACUBITRIL-VALSARTAN 24mg/26mg TAB PO SCH (09:18)
[2024-05-27] MEDS: APIXABAN 5 MG TAB PO SCH (09:18)
[2024-05-27] MEDS: TORSEMIDE 20 MG TAB PO SCH (09:18)
[2024-05-27 13:00] VITALS: BP 128/59; PULSE 66; RESP 16; TEMP 97.9; O2SAT 95
[2024-05-27 17:00] VITALS: BP 137/60; PULSE 84; RESP 14; TEMP 97.9; O2SAT 96
[2024-05-27 18:49] LABS: Urine Bacteria None Seen /hpf (None Seen)
[2024-05-27 19:09] LABS: Urine Blood Negative /uL (Negative); Urine Clarity Clear (Clear); Urine Color Light-Yellow (Yellow); Urine Mucus FEW (None Seen); Urine Protein, UAD Negative (Negative); Urine Specific Gravity 1.009 (1.001-1.035); Urine Squamous Epithelial Cell FEW /hpf (<5); Urine Urobilinogen Normal (Negative); Urine WBC 4 /HPF (0-5)
[2024-05-27 21:00] VITALS: BP 119/66; PULSE 99; RESP 18; TEMP 98; O2SAT 94
--- NOTE | 2024-05-27 21:40 | DVHINCON2 ---
Date of service: May 27, 2024 Referring Physician Frantz Roman Reason for Consultation History: History obtained from: Patient The patient's past medical history includes bilateral lymphedema and recurrent DVTs, along with cardiomyopathy and a history of pulmonary embolism. The patient is also on chronic opioids and has undergone multiple debridements of ulcers in the past. now presents w/ recurrent posterior leg seropurulent discharge and progressive erythema and edema adjacent to the chronic leg ulcer patient has on anteriomedial leg. unresponsive to outpatient antibiotic therapy worsened in the last week endorses excessive odorous drainage and fevers Review of Systems: A complete 10-system review of systems was completed and negative except as noted in the HPI or here. ROS: - CONSTITUTIONAL: Patient endorses subjective fevers and chills. - HEENT: Denies changes in vision and hearing. - RESPIRATORY: Denies shortness of breath and cough. - CV: Denies palpitations and chest pain. - GI: Denies abdominal pain, nausea, vomiting, and diarrhea. - : Denies dysuria and urinary frequency. - MSK: Denies myalgia and joint pain. - SKIN: Endorses swelling and rash on the legs. - NEUROLOGICAL: Denies headache and syncope. - PSYCHIATRIC: Denies recent changes in mood, anxiety, and depression. Past Medical History: - Bilateral lymphedema - Recurrent DVT affecting upper and lower extremities - History of pulmonary embolism - Cardiomyopathy Past Surgical History: History reviewed. No pertinent surgical history. Home Medications: - Levothyroxine - Metformin - Vitamin B12 - Torsemide - Entresto - Pantoprazole - Carvedilol - Apixaban - Iron - Docusate - Pregabalin - Carvedilol Allergies: - Multiple antibiotic allergies of unclear significance but none causing anaphylaxis or shock. Family History: - Alcoholism: Father - Colon cancer: Father - COPD: Father - Thyroid disease: Father - Cardiovascular disease: Mother - Diabetes: Father - Hypertension: Mother and Father Social History: - Socioeconomic History: - Marital status: Not specified - Tobacco Use: - Never - Vaping Use: - Never Used - Substance and Sexual Activity: - Alcohol use: Never - Drug use: Never - Sexual activity: Not currently Family History: Alcoholism Alcoholism Cancer Cancer of colon Chronic obstructive lung disease (situation) FH: thyroid disease G8 MOTHER, Onset:Unknown Family history: Arthritis Family history: Asthma Family history: Blood disorder Family history: Cardiovascular disease G8 MOTHER, Onset:Unknown G8 FATHER, Onset:Unknown G8 SISTER, Onset:Unknown Family history: Depression (situation) Family history: Diabetes mellitus G8 FATHER, Onset:Unknown Family history: Hypertension G8 MOTHER, Onset:Unknown G8 FATHER, Onset:Unknown Family history: Osteoporosis Ischemic heart disease Stroke No Family History of: Family history: Autoimmune disease (situation) Allergies: Coded Allergies: Tuna Flavor (Verified Allergy, Severe, TUNA FISH, 01/07/22) Ceftriaxone (Verified Allergy, Mild, ITCHING, 12/22/19) User: Minda Beckford AMADO Date: 12/16/14 12:48 Type: Emergency Department Notes ALLERGIC REACTION PT C/O ITCHING WHILE ROCEPHIN WAS INFUSING, STOPPED ABX AND NOTIFIED DR TREADWELL. 0.9NS INFUSING AT THIS TIME. RECIEVED ORDER TO GIVE BENADRYL BUT TO CONTINUE ROCEPHIN Levofloxacin (Verified Allergy, Mild, 12/22/19) ITCHINESS Acetaminophen (Verified Allergy, Unknown, 08/02/22) BLISTER IN MOUTH PER PATIENT Hydrocodone (Verified Allergy, Unknown, 08/02/22) BLISTER IN MOUTH PER PATIENT Meperidine (Verified Allergy, Unknown, BLISTERS, SOB, 12/22/19) Penicillins (Verified Allergy, Unknown, 12/22/19) Pineapple (Verified Allergy, Unknown, 01/06/22) Piperacillin (Verified Allergy, Unknown, 12/22/19) ITCHING Sulfa Antibiotics (Verified Allergy, Unknown, 09/21/22) Tazobactam (Verified Allergy, Unknown, 12/22/19) ITCHING Vancomycin (Verified Allergy, Unknown, 12/22/19) (allergic to constrast & got reactions after receiving vancomycin --MD D/C Vancomycin order) Iohexol (Verified Adverse Reaction, Severe, VOMITING, 05/24/22) Home Meds Active Scripts Doxycycline Monohydrate (Doxycycline Monohydrate) 100 Mg Tab, 100 MG PO Q12HR for 15 Days, #30 TAB Prov:FRANTZ ROMAN MD 01/18/24 Prednisolone Acetate (Ophth) (Pred Forte) 1 % Karen, 1 DROP EACHEYE Q4HR for 5 Days, #5 ML Prov:FRANTZ ROMAN MD 11/02/23 Spironolactone (Aldactone) 25 Mg Tab, 25 MG PO BIDD for 20 Days, #60 TAB Prov:FRANTZ ROMAN MD 11/02/23 Sulfacetamide Sodium (Sulamyd) [address], 1 DROP EACHEYE Q3H for 5 Days, #30 DROP Prov:FRANTZ ROMAN MD 11/02/23 Apixaban Base (ELIQUIS) 5 Mg Tab, 5 MG PO BID for 100 Days, #200 TAB Hold if internal bleeding Prov:FRANTZ ROMAN MD 06/24/23 Sacubitril-Valsartan (Entresto 24-26 mg) 1 Tab Tab, 1 TAB PO BID for 45 Days, #90 TAB Hold if dizzy, systolic BP <110, Report to PMD if edema of the lips, persistent dry cough Prov:FRANTZ ROMAN MD 01/10/22 Reported Medications Levothyroxine Sodium (Levothyroxine Sodium) 175 Mcg Tab, 175 MCG PO QAM, MCG 01/15/24 Torsemide (Torsemide) 20 Mg Tab, 1 TAB PO DAILY 10/30/23 Sucralfate (Sucralfate) 1 Gm Tab, 1 TAB PO TID 10/30/23 Discontinued Scripts Levothyroxine Sodium (Levothyroxine Sodium) 100 Mcg Tab, 200 MCG PO DAILY@0600 for 50 Days, #50 TAB Prov:FRANTZ ROMAN MD 01/18/24 Current Medications Current Medications Medications (Trade) Dose Ordered Sig/Priscilla Route PRN Reason Start Time Stop Time Status Last Admin Apixaban (Eliquis) 5 mg BID PO 05/27/24 10:00 05/27/24 21:21 Doxycycline Monohydrate (Vibramycin Tablet) 100 mg Q12HR PO 05/27/24 10:00 05/27/24 21:21 Prednisolone Acetate (Pred Forte) 1 drop Q4HR EACHEYE 05/27/24 02:00 Sacubitril/ Valsartan (Entresto 24-26 Mg tab) 1 tab BID PO 05/27/24 10:00 05/27/24 21:21 Spironolactone (Aldactone) 25 mg BIDD PO 05/27/24 06:00 05/27/24 16:55 Sucralfate (Carafate Tab) 1 gm TID PO 05/27/24 06:00 05/27/24 21:21 Torsemide (Demadex Tab) 20 mg DAILY PO 05/27/24 10:00 05/27/24 09:18 Patient Own Medication 175 mcg QAM PO 05/27/24 07:00 05/26/24 23:31 DC Nitroglycerin (Ntrostat Sublingual) 0.4 mg Q5MINP PRN SL FOR CHEST PAIN 05/26/24 22:45 Morphine Sulfate 2 mg Q30M PRN IV FOR CHEST PAIN 05/26/24 22:45 Acetaminophen (Tylenol Tablet Or Capsule) 500 mg Q6HP PRN PO MILD PAIN (1-3 PAIN SCALE) 05/26/24 22:45 Hold Hydromorphone HCl (Dilaudid Injection) 0.8 mg Q4HP PRN IV Mod severe PAIN (4-7/10 PAIN ) 05/26/24 22:45 05/27/24 06:03 Hydromorphone HCl (Dilaudid Injection) 1 mg Q4HP PRN IV Severe Pains(8-10/10 Pain scal 05/26/24 22:45 05/27/24 21:22 Levothyroxine Sodium (Synthroid Tablet) 150 mcg QAM PO 05/27/24 07:00 05/27/24 05:52 Levothyroxine Sodium (Synthroid Tablet) 25 mcg QAM PO 05/27/24 07:00 05/27/24 05:52 Vital Signs Vital Signs Date Time Temp Pulse Resp B/P (MAP) Pulse Ox O2 Delivery O2 Flow Rate FiO2 05/27/24 21:22 88 18 119/66 05/27/24 20:00 Room Air* 0 21 05/27/24 17:00 97.9 96 97.9 Physical Exam Physical Exam: - General: NAD - Neck: Supple. No masses. - HEENT: PERRL. Normal lids and conjunctiva. Moist mucous membranes. Oropharynx without lesions, exudates, or excessive erythema. Normal appearance of the external aspects of the nose and ears. - Heart: Regular rhythm, normal rate. No murmur. No lower extremity edema. - Lungs: Normal respiratory effort. Clear to auscultation bilaterally. No wheezes. No crackles. - Abdomen: Soft. Non-tender. Non-distended. No masses or abdominal hernia. - Msk: No digital cyanosis. Normal strength and tone in all 4 limbs. - Skin: Warm and dry, no rashes. New open wound on posterior right lower extremity with purulent drainage and odor. - Neuro: Alert. No facial droop or slurred speech. Extra-ocular movements intact. Sensation intact to soft touch in all 4 limbs. - Psych: Appropriate mood. Full affect. Oriented to person, place, time, and situation. Diagnostic Studies: Available diagnostic studies were reviewed personally. Significant relevant results and findings are outlined below or addressed in the Assessment and Plan above. Pertinent Imaging: XR Tibia and Fibula: - Periosteal thickening of the diaphysis of the right tibial and fibula, nonspecific. Laboratory Results: - Temperature: 98.1 - Blood pressure: 103/53 - Respiratory rate: 19 - Pulse: 87 - White blood cell count: 6.5 - Hemoglobin: 10.8 - Platelet count: 605,000/mcL - Creatinine: 0.78 mg/dL - Sodium: 136 - Blood cultures: Negative, no growth to date. Labs/Diagnostic Data Labs Test 05/27/24 17:05 05/27/24 06:04 05/27/24 00:15 Range/Units Urine Color Light-yellow Yellow Urine Clarity Clear Clear Urine pH 5.0 5.0-9.0 Urine Specific [place] 1.009 1.001-1.035 Urine Protein Negative Negative Urine Ketones Negative Negative Urine Blood Negative Negative /uL Urine Nitrite Negative Negative Urine Bilirubin Negative Negative Urine Urobilinogen Normal Negative mg/dL Urine Leukocyte Esterase Trace Negative /uL Urine RBC <1 0 - 4 /hpf Urine Microscopic WBC 4 0-5 /HPF Urine Squamous Epithelial Cells Few <5 /hpf Urine Bacteria None seen None Seen /hpf Urine Mucus Few None Seen Urine Glucose Normal Normal mg/dL White Blood Count 4.6 4.4-10.8 10^3/uL Red Blood Count 3.90 L 4.0-5.20 10^6/uL Hemoglobin 11.0 L 12.2-16.2 g/dL Hematocrit 33.9 L 36.0-46.0 % Mean Corpuscular Volume 86.9 80.0-100.0 fL Mean Corpuscular Hemoglobin 28.2 28.0-32.0 pg Mean Corpuscular Hemoglobin Concent 32.4 32.0-36.0 g/dL Red Cell Distribution Width 15.2 H 11.8-14.3 % Platelet Count 359 140-450 10^3/uL Mean Platelet Volume 7.9 6.9-10.8 fL Neutrophils (%) (Auto) 61.2 37.0-80.0 % Lymphocytes (%) (Auto) 22.9 10.0-50.0 % Monocytes (%) (Auto) 10.7 0.0-12.0 % Eosinophils (%) (Auto) 4.6 0.0-7.0 % Basophils (%) (Auto) 0.6 0.0-2.0 % Neutrophils # (Auto) 2.8 1.6-8.6 10 ^3/uL Lymphocytes # (Auto) 1.0 0.4-5.4 10 ^3/uL Monocytes # (Auto) 0.5 0-1.3 10 ^3/uL Eosinophils # (Auto) 0.2 0-0.8 10 ^3/uL Basophils # (Auto) 0 0-0.2 10 ^3/uL Nucleated Red Blood Cells 0.1 % Sodium Level 136 136-145 mmol/L Potassium Level 4.0 3.5-5.1 mmol/L Chloride Level 104 98-107 mmol/L Carbon Dioxide Level 23 20-31 mmol/L Anion Gap 9 5-15 Blood Urea Nitrogen 31 H 9-23 mg/dL Creatinine 1.24 H 0.550-1.02 mg/dL Glomerular Filtration Rate Calc 54 >90 mL/min BUN/Creatinine Ratio 25.0 H 10.0-20.0 Serum Glucose 109 H 74-106 mg/dL Calcium Level 9.3 8.7-10.4 mg/dL Total Bilirubin 0.6 0.2-1.0 mg/dL Aspartate Amino Transferase (AST) < 8 L 13-40 U/L Alanine Aminotransferase (ALT) < 9 7-40 U/L Alkaline Phosphatase 55 46-116 U/L Total Protein 8.1 5.7-8.2 g/dL Albumin 3.9 3.2-4.8 g/dL Prothrombin Time 10.9 9.3-11.8 sec Prothrombin Time INR 1.03 0.9-1.15 Activated Partial Thromboplast Time 28.9 24.5-34.5 SEC D-Dimer, Quantitative 0.47 0.0-0.49 mg/L FEU Hemoglobin A1c 5.6 <5.7 % A1C Phosphorus Level 5.0 2.4-5.1 mg/dL Magnesium Level 2.1 1.6-2.6 mg/dL C-Reactive Protein High Sensitivity 0.62 <1.0 mg/dL Triglycerides Level 161 H < 150 mg/dL Cholesterol Level 162 < 200 mg/dL LDL Cholesterol 106 H < 100 mg/dL HDL Cholesterol 38 L 40-59 mg/dL Folic Acid 10.52 >5.38 ng/mL Thyroid Stimulating Hormone (TSH) 5.69 H 0.55-4.78 uIU/mL Microbiology Date/Time Source Procedure Growth Status 05/27/24 05:55 Nose MRSA Screen - Final Complete Problems(with codes): (1) Chronic kidney disease, stage III (moderate) (2) Cellulitis of right thigh Plan/Recommendation (1) Skin breakdown (2) Deep venous thrombosis of right upper extremity (3) Lymphedema of leg (4) Chronic wound of extremity (5) Cellulitis of right leg Plan/Recommendation Assessment and Plan: ID Problem List: -- Chronic ulcer with superimposed cellulitis -- Bilateral lymphedema -- History of cardiomyopathy -- 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 female with a past medical history significant for recurrent DVT, pulmonary embolism, cardiomyopathy, and bilateral lymphedema. The patient presents with bilateral leg edema and a draining ulcer on the right lower extremity following a bandage change. The wound exhibits excess drainage, odor, and erythema, which has been a recurrent issue for her. The patient has received multiple treatments with IV antibiotics in the past and anticipates similar management during this admission. On exam, the right lower extremity shows a stage 1 ulcer on the posterior aspect with purulent drainage and an odor. There is noted swelling and erythema around the wound. Plan: -- continue patient on cefepime and doxycycline given the patient's history of multiple antibiotic allergies. -- Request wound culture and blood cultures. Follow up on results. -- Recommend wound care evaluation after admission. -- Monitor clinically for signs of improvement in cellulitis during hospitalization. -- Continue to assess and manage her chronic conditions including DVT and cardiomyopathy. Plan is subject to change pending incorporation of new incoming informat ion/diagnostics. Updates may be added as addendum at the bottom (OR TOP) of this note. Plan discussed with: Patient KAMARI ROMAN MD May 27, 2024 21:40
--- NOTE | 2024-05-27 22:44 | DVHPN2 ---
Progress Note - Dictate Date Seen: May 27, 2024 Subjective Currently being treated for symptoms of cellulitis erythema edema Surrounding the open wound infection of RLE -remains hemodynamically stable and afebrile * Currently on IV antibiotics * Wound cultures are pending * Seen by Dr. Lorne Roman from Infectious Disease perspective * Overnight events are reviewed through medical chart and case discussion with patient's assigned RN while making rounds on patient on the day of service vital signs Vital Sign Date Time Temp Pulse Resp B/P (MAP) Pulse Ox O2 Delivery O2 Flow Rate FiO2 05/27/24 21:22 88 18 119/66 05/27/24 20:00 Room Air* 0 21 05/27/24 17:00 97.9 96 97.9 Total Intake and Output 05/26/24 05/26/24 05/27/24 15:00 23:00 07:00 Intake Total 800 ml Balance 800 ml medications Current Medications Medications Dose Ordered Sig/Priscilla Route Start Time Stop Time Status Last Admin Dose Admin Apixaban 5 mg BID PO 05/27/24 10:00 05/27/24 21:21 5 MG Doxycycline Monohydrate 100 mg Q12HR PO 05/27/24 10:00 05/27/24 21:21 100 MG Prednisolone Acetate 1 drop Q4HR EACHEYE 05/27/24 02:00 Sacubitril/ Valsartan 1 tab BID PO 05/27/24 10:00 05/27/24 21:21 1 TAB Spironolactone 25 mg BIDD PO 05/27/24 06:00 05/27/24 16:55 25 MG Sucralfate 1 gm TID PO 05/27/24 06:00 05/27/24 21:21 1 GM Torsemide 20 mg DAILY PO 05/27/24 10:00 05/27/24 09:18 20 MG Nitroglycerin 0.4 mg Q5MINP PRN SL 05/26/24 22:45 Morphine Sulfate 2 mg Q30M PRN IV 05/26/24 22:45 Acetaminophen 500 mg Q6HP PRN PO 05/26/24 22:45 Hold Hydromorphone HCl 0.8 mg Q4HP PRN IV 05/26/24 22:45 05/27/24 06:03 0.8 MG Hydromorphone HCl 1 mg Q4HP PRN IV 05/26/24 22:45 05/27/24 21:22 1 MG Levothyroxine Sodium 150 mcg QAM PO 05/27/24 07:00 05/27/24 05:52 150 MCG Levothyroxine Sodium 25 mcg QAM PO 05/27/24 07:00 05/27/24 05:52 25 MCG objective General appearance: Well-developed, well-nourished Awake alert oriented x3 no respiratory distress Head: Normocephalic nontraumatic Eyes: EOMI, JASS, sclera nonicteric, conjunctive- pale ENT: No congestion, NSL bilateral symmetrical, oral mucosa dry Neck: Supple, carotid upstroke +2, trachea midline, JVD-3 cm, C spine- Full ROM No thyroid or lymph node , no use of sternomastoid muscle Chest: Bilateral symmetrical expansions, No costochondral tenderness Breasts: I exam - Bilateral symmetrical, Pexam - deferred Lungs: clear breath sounds all over except reduced at bases CVS: PMI- cm medial to L MCL in fifth ICS , S1- S2 NSR no S3 GI: Abdomen soft, obese, bowel sounds normoactive No focal tenderness, no rebound tenderness No hepatosplenomegaly, no mass no hernia , : No CVA tenderness, no bladder mass palpable, genitalia-NE SKIN: Turgor normal, color pink, no rash, no icterus, No varicosity, no ulcers or wounds EXTs: No edema, color pink, no rash, no ecchymosis distal pulses +2 capillary refill <2 seconds, No open wounds JOINTS; full range of motion BACK: No apparent lumbosacral spinal muscle tenderness, LYMPH NODES: No cervical, axillary or inguinal lymph nodes Neuro: Awake alert oriented 4, coherent, all cognitives- intact No pronator drift, no focal motor deficit, No focal sensory deficit, DTR +2, gait steady PSYCH: Affect mildly depressed-denies suicidal ideation laboratory and microbiology Laboratory Tests 05/27/24 06:04 Test 05/27/24 06:04 Range/Units Serum Glucose 109 H 74-106 mg/dL Assessment/Plan Primary Diagnosis 1. Recurrence of cellulitis of RLE 2. Recurrence of RLE wound infection 3. Failure to outpatient Measures. Admitting Diagnosis: 1. Recurrence of cellulitis of RLE 2. Recurrence of RLE wound infection a. nonhealing open infected wound of RLE b. Short of antibiotics c. Lymphatic edema of bilateral lower extremities d. Lack of hygienic care 3. Failure to outpatient measures 4. Fairly well-controlled diabetes 2' Diagnosis/Comorbidities Primary Diagnosis Admitting Diagnosis: 2' Diagnosis/Comorbidities 1. 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 Morbid obesity with current BMI >60 to 65 kg/m 4. Chronic narcotic dependence 5. noncompliance Medical decision making Overall patient's general condition appears to be clinically ill from development of Recurrence of cellulitis and open wound infection of R lower extremity * Known history of multiple rounds of infections such as E. coli, Proteus, Pseudomonas, Enterobacter, Gram-positive sepsis MSSA, MRSA * Received multiple rounds of home IV antibiotics in consult with ID for last 4 to 5 years * Last culture results positive for MRSA * Chronic lymphatic edema and uncontrolled diabetes predispose her to be an immunocompromised host * Case discussed with ER physician * Consensus is to hospitalize patient for IV antibiotics * start patient on IV cefepime vancomycin * Will refer to interior design instructor for daily wound care * Will refer patient to Dr. Lorne Roman infectious disease * For diet-controlled diabetes we will check her blood sugar and provide Humalog through sliding scale Known history of recurrent deep venous thrombosis of Lower extremity Present at time of admission: NO Status: Chronic Problem specific AP * Patient reports pain lower extremity * Known prior history of DVT affecting bilateral upper and lower extremities * Risk factors-morbid obesity, immobility and noncompliance * failed to oral Coumadin * Continued patient on Eliquis Morbid obesity with current BMI 70 kg/m Current body weight exceeds to ideal body weight by250 LBS All recommended her to have intentional weight loss of 250 LBS through Low-carb low calorie 1800-calorie diet and aerobic exercises as tolerated Informed patient about complications of morbid obesity which includes but not limited to a. RS -obesity hypoventilation and hypoxia, pulmonary embolism, sudden b.CVS-cardiac arrhythmia, embolic events c. GI-GE reflux d. Endocrine-diabetes and comorbidities from diabetes e Neuro-embolic CVA, lifelong disability [id number] susceptibility for Covid infection and comorbidities [id number] risk for cancer Recommended patient to follow a. daily weight, b. ADA 1800-calorie diet-40% calories from breakfast 30% calories from lunch and dinner each, avoid carbonated soda c. Recommended aerobic exercises like walking 1-5 miles per day, riding on a stationary bike for 1-2 hours Chronic pain syndrome and narcotic dependence Recommended patient for rational and safe use of narcotics Educated patient about ill effects of narcotics which could include But not limited to life-threatening respiratory depression and sudden Patient agrees to follow my recommendations Diabetes education A. Recommended 2200 calorie ADA diet and compliance with medications B.. Recommended intentional weight loss of 250 lbs through diet and exercise C. Recommended recheck every 3-4 monthly hemoglobin A1c, bi annual lipid panel D. Recommended annual arterial duplex study and 24-hour urine for microalbuminuria E. Recommended biannual complete physical, annual dental and eye and foot exam F. Recommended diabetic shoes, podiatry care with early sign of diabetic ulcer f. Recommended to wear diabetic shoes, to see podiatry in case of G. Informed about long-term complications of diabetes-CHD, PAD, CVA, blindness CORI ROMAN MD May 27, 2024 22:44
[2024-05-28 01:00] VITALS: BP_SYST 102; BP_SYST 126; BP_DIAS 55; BP_DIAS 58; PULSE 68; PULSE 93; RESP 18; RESP 19; TEMP 97.4; TEMP 98.1; O2SAT 91; O2SAT 98
[2024-05-28 05:00] VITALS: BP 101/49; PULSE 79; RESP 18; TEMP 97.8; O2SAT 91
[2024-05-28 09:00] VITALS: BP 109/69; PULSE 77; RESP 16; TEMP 97.4; O2SAT 98
--- NOTE | 2024-05-28 09:59 | DVH ---
EXAM: XR Chest, 2 Views CLINICAL INDICATION: CHF VS PNEUMONIA TECHNIQUE: Frontal and lateral views of the chest. COMPARISON: CS2 on DOS: 04/03/22, CS2 on DOS: 03/02/22 FINDINGS: LUNGS AND PLEURAL SPACES: Unremarkable. No consolidation. No pneumothorax. HEART: Unremarkable. No cardiomegaly. MEDIASTINUM: Unremarkable. Normal mediastinal contour. BONES/JOINTS: Unremarkable. No acute fracture. OTHER FINDINGS: . None. . IMPRESSION: No acute cardiopulmonary process.
[2024-05-28 13:00] VITALS: BP 115/67; PULSE 78; RESP 18; TEMP 97.7; O2SAT 97
[2024-05-28 17:00] VITALS: BP 99/58; PULSE 85; RESP 18; TEMP 97.6; O2SAT 99
[2024-05-28] MEDS: Juven Orange Powder PACKET 27.5gm PO SCH (18:38)
--- NOTE | 2024-05-28 23:14 | DVHPN2 ---
Consult Progress Note Date Seen: May 28, 2024 Subjective Patient reports: Other (still having pain with any movement of her leg and not able to tolerate much palpation around posterior aspect of her right leg which is red and tender ) Objective vital signs Vital Sign Date Time Temp Pulse Resp B/P (MAP) Pulse Ox O2 Delivery O2 Flow Rate FiO2 05/28/24 20:33 84 18 100/52 05/28/24 20:00 Room Air* 0 21 05/28/24 17:00 97.6 99 97.6 Total Intake and Output 05/27/24 05/27/24 05/28/24 15:00 23:00 07:00 Intake Total 240 ml 860 ml 550 ml Balance 240 ml 860 ml 550 ml medications Current Medications Medications Dose Ordered Sig/Priscilla Route Start Time Stop Time Status Last Admin Dose Admin Apixaban 5 mg BID PO 05/27/24 10:00 05/28/24 21:27 5 MG Doxycycline Monohydrate 100 mg Q12HR PO 05/27/24 10:00 05/28/24 21:27 100 MG Prednisolone Acetate 1 drop Q4HR EACHEYE 05/27/24 02:00 Sacubitril/ Valsartan 1 tab BID PO 05/27/24 10:00 05/28/24 21:27 1 TAB Spironolactone 25 mg BIDD PO 05/27/24 06:00 05/28/24 06:48 25 MG Sucralfate 1 gm TID PO 05/27/24 06:00 05/28/24 21:27 1 GM Torsemide 20 mg DAILY PO 05/27/24 10:00 05/28/24 08:59 20 MG Nitroglycerin 0.4 mg Q5MINP PRN SL 05/26/24 22:45 Morphine Sulfate 2 mg Q30M PRN IV 05/26/24 22:45 Acetaminophen 500 mg Q6HP PRN PO 05/26/24 22:45 Hold Hydromorphone HCl 0.8 mg Q4HP PRN IV 05/26/24 22:45 05/27/24 06:03 0.8 MG Hydromorphone HCl 1 mg Q4HP PRN IV 05/26/24 22:45 05/28/24 19:41 1 MG Levothyroxine Sodium 150 mcg QAM PO 05/27/24 07:00 05/28/24 06:48 150 MCG Levothyroxine Sodium 25 mcg QAM PO 05/27/24 07:00 05/28/24 06:48 25 MCG Enteral Nutritional Formula 27.5 gm BIDWM PO 05/28/24 18:00 Physical Exam: - General: NAD - Neck: Supple. No masses. - HEENT: PERRL. Normal lids and conjunctiva. Moist mucous membranes. Oropharynx without lesions, exudates, or excessive erythema. Normal appearance of the external aspects of the nose and ears. - Heart: Regular rhythm, normal rate. No murmur. No lower extremity edema. - Lungs: Normal respiratory effort. Clear to auscultation bilaterally. No wheezes. No crackles. - Abdomen: Soft. Non-tender. Non-distended. No masses or abdominal hernia. - Msk: No digital cyanosis. Normal strength and tone in all 4 limbs. - Skin: Warm and dry, no rashes. New open wound on posterior right lower extremity with purulent drainage and odor. - Neuro: Alert. No facial droop or slurred speech. Extra-ocular movements intact. Sensation intact to soft touch in all 4 limbs. - Psych: Appropriate mood. Full affect. Oriented to person, place, time, and situation. laboratory and microbiology Laboratory Tests 05/27/24 06:04 Test 05/27/24 06:04 Range/Units Serum Glucose 109 H 74-106 mg/dL Problem List/Assessment/Plan Problems(with codes): (1) History of skin graft (2) Status post right foot surgery (3) PAIN IN LEFT ANKLE AND JOINTS OF LEFT FOOT (4) CELLULITIS OF LEFT LOWER LIMB (5) Ulcer of ankle (6) Pain in joint, ankle and foot (7) History of deep venous thrombosis (8) Morbid obesity (9) Chronic acquired lymphedema (10) Asthma exacerbation Problem List/Assessment/Plan ID Problem List: -- Chronic ulcer with superimposed cellulitis -- Bilateral lymphedema -- History of cardiomyopathy -- 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 female with a past medical history significant for recurrent DVT, pulmonary embolism, cardiomyopathy, and bilateral lymphedema. The patient presents with bilateral leg edema and a draining ulcer on the right lower extremity following a bandage change. The wound exhibits excess drainage, odor, and erythema, which has been a recurrent issue for her. The patient has received multiple treatments with IV antibiotics in the past and anticipates similar management during this admission. On exam, the right lower extremity shows a stage 1 ulcer on the posterior aspect with purulent drainage and an odor. There is noted swelling and erythema around the wound. 05/28: superfical cultures are growing coag negative staph , chest xray shows no acute cardio pulmonary disease , whitecount is 5.4 and patient is developing an acute kidney injury with kreatin of 1.24 , BUN 31 Plan: -- avoid nephrotoxic agents in setting of TITO -- defer primary team for management of diuretics and development of TITO -- due to patient being mildly hypotensive would consider fluid bolus -- continue patient on cefepime and doxycycline given the patient's history of multiple antibiotic allergies. -- Request wound culture and blood cultures. Follow up on results. -- Recommend wound care evaluation after admission. -- Monitor clinically for signs of improvement in cellulitis during hospitalization. -- Continue to assess and manage her chronic conditions including DVT and cardiomyopathy. Plan discussed with: Other Dietary Evaluation Review Comments: 1. Follow MDs diet order 2. Consider adding Simeon BID (180kcal, 5g pro) for wound healing Expected Outcomes/Goals: 1. Pt's wt will trend towards KAMARI FIELDS MD May 28, 2024 23:14
--- NOTE | 2024-05-28 23:14 | DVHPN2 ---
Progress Note - Dictate Date Seen: May 28, 2024 Subjective Currently being treated for symptoms of cellulitis erythema edema Surrounding the open wound infection of RLE -remains hemodynamically stable and afebrile * Currently on IV antibiotics * Wound cultures are pending * Seen by Dr. Lorne Roman from Infectious Disease perspective * Overnight events are reviewed through medical chart and case discussion with patient's assigned RN while making rounds on patient on the day of service vital signs Vital Sign Date Time Temp Pulse Resp B/P (MAP) Pulse Ox O2 Delivery O2 Flow Rate FiO2 05/28/24 20:33 84 18 100/52 05/28/24 20:00 Room Air* 0 21 05/28/24 17:00 97.6 99 97.6 Total Intake and Output 05/27/24 05/27/24 05/28/24 15:00 23:00 07:00 Intake Total 240 ml 860 ml 550 ml Balance 240 ml 860 ml 550 ml medications Current Medications Medications Dose Ordered Sig/Priscilla Route Start Time Stop Time Status Last Admin Dose Admin Apixaban 5 mg BID PO 05/27/24 10:00 05/28/24 21:27 5 MG Doxycycline Monohydrate 100 mg Q12HR PO 05/27/24 10:00 05/28/24 21:27 100 MG Prednisolone Acetate 1 drop Q4HR EACHEYE 05/27/24 02:00 Sacubitril/ Valsartan 1 tab BID PO 05/27/24 10:00 05/28/24 21:27 1 TAB Spironolactone 25 mg BIDD PO 05/27/24 06:00 05/28/24 06:48 25 MG Sucralfate 1 gm TID PO 05/27/24 06:00 05/28/24 21:27 1 GM Torsemide 20 mg DAILY PO 05/27/24 10:00 05/28/24 08:59 20 MG Nitroglycerin 0.4 mg Q5MINP PRN SL 05/26/24 22:45 Morphine Sulfate 2 mg Q30M PRN IV 05/26/24 22:45 Acetaminophen 500 mg Q6HP PRN PO 05/26/24 22:45 Hold Hydromorphone HCl 0.8 mg Q4HP PRN IV 05/26/24 22:45 05/27/24 06:03 0.8 MG Hydromorphone HCl 1 mg Q4HP PRN IV 05/26/24 22:45 05/28/24 19:41 1 MG Levothyroxine Sodium 150 mcg QAM PO 05/27/24 07:00 05/28/24 06:48 150 MCG Levothyroxine Sodium 25 mcg QAM PO 05/27/24 07:00 05/28/24 06:48 25 MCG Enteral Nutritional Formula 27.5 gm BIDWM PO 05/28/24 18:00 objective General appearance: Well-developed, well-nourished Awake alert oriented x3 no respiratory distress Head: Normocephalic nontraumatic Eyes: EOMI, JASS, sclera nonicteric, conjunctive- pale ENT: No congestion, NSL bilateral symmetrical, oral mucosa dry Neck: Supple, carotid upstroke +2, trachea midline, JVD-3 cm, C spine- Full ROM No thyroid or lymph node , no use of sternomastoid muscle Chest: Bilateral symmetrical expansions, No costochondral tenderness Breasts: I exam - Bilateral symmetrical, Pexam - deferred Lungs: clear breath sounds all over except reduced at bases CVS: PMI- cm medial to L MCL in fifth ICS , S1- S2 NSR no S3 GI: Abdomen soft, obese, bowel sounds normoactive No focal tenderness, no rebound tenderness No hepatosplenomegaly, no mass no hernia , : No CVA tenderness, no bladder mass palpable, genitalia-NE SKIN: Turgor normal, color pink, no rash, no icterus, No varicosity, no ulcers or wounds EXTs: No edema, color pink, no rash, no ecchymosis distal pulses +2 capillary refill <2 seconds, No open wounds JOINTS; full range of motion BACK: No apparent lumbosacral spinal muscle tenderness, LYMPH NODES: No cervical, axillary or inguinal lymph nodes Neuro: Awake alert oriented 4, coherent, all cognitives- intact No pronator drift, no focal motor deficit, No focal sensory deficit, DTR +2, gait steady PSYCH: Affect mildly depressed-denies suicidal ideation laboratory and microbiology Laboratory Tests 05/27/24 06:04 Test 05/27/24 06:04 Range/Units Serum Glucose 109 H 74-106 mg/dL Assessment/Plan Primary Diagnosis 1. Recurrence of cellulitis of RLE 2. Recurrence of RLE wound infection 3. Failure to outpatient Measures. Admitting Diagnosis: 1. Recurrence of cellulitis of RLE 2. Recurrence of RLE wound infection a. nonhealing open infected wound of RLE b. Short of antibiotics c. Lymphatic edema of bilateral lower extremities d. Lack of hygienic care 3. Failure to outpatient measures 4. Fairly well-controlled diabetes 2' Diagnosis/Comorbidities Primary Diagnosis Admitting Diagnosis: 2' Diagnosis/Comorbidities 1. 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 Morbid obesity with current BMI >60 to 65 kg/m 4. Chronic narcotic dependence 5. noncompliance Medical decision making Overall patient's general condition appears to be clinically ill from development of Recurrence of cellulitis and open wound infection of R lower extremity * Known history of multiple rounds of infections such as E. coli, Proteus, Pseudomonas, Enterobacter, Gram-positive sepsis MSSA, MRSA * Received multiple rounds of home IV antibiotics in consult with ID for last 4 to 5 years * Last culture results positive for MRSA * Chronic lymphatic edema and uncontrolled diabetes predispose her to be an immunocompromised host * Case discussed with ER physician * Consensus is to hospitalize patient for IV antibiotics * start patient on IV cefepime vancomycin * Will refer to shoe singer for daily wound care * Will refer patient to Dr. Lorne Roman infectious disease * For diet-controlled diabetes we will check her blood sugar and provide Humalog through sliding scale Known history of recurrent deep venous thrombosis of Lower extremity Present at time of admission: NO Status: Chronic Problem specific AP * Patient reports pain lower extremity * Known prior history of DVT affecting bilateral upper and lower extremities * Risk factors-morbid obesity, immobility and noncompliance * failed to oral Coumadin * Continued patient on Eliquis Morbid obesity with current BMI 70 kg/m Current body weight exceeds to ideal body weight by250 LBS All recommended her to have intentional weight loss of 250 LBS through Low-carb low calorie 1800-calorie diet and aerobic exercises as tolerated Informed patient about complications of morbid obesity which includes but not limited to a. RS -obesity hypoventilation and hypoxia, pulmonary embolism, sudden b.CVS-cardiac arrhythmia, embolic events c. GI-GE reflux d. Endocrine-diabetes and comorbidities from diabetes e Neuro-embolic CVA, lifelong disability [id number]-[id number] susceptibility for Covid infection and comorbidities [id number] risk for cancer Recommended patient to follow a. daily weight, b. ADA 1800-calorie diet-40% calories from breakfast 30% calories from lunch and dinner each, avoid carbonated soda c. Recommended aerobic exercises like walking 1-5 miles per day, riding on a stationary bike for 1-2 hours Chronic pain syndrome and narcotic dependence Recommended patient for rational and safe use of narcotics Educated patient about ill effects of narcotics which could include But not limited to life-threatening respiratory depression and sudden Patient agrees to follow my recommendations Diabetes education A. Recommended 2200 calorie ADA diet and compliance with medications B.. Recommended intentional weight loss of 250 lbs through diet and exercise C. Recommended recheck every 3-4 monthly hemoglobin A1c, bi annual lipid panel D. Recommended annual arterial duplex study and 24-hour urine for microalbuminuria E. Recommended biannual complete physical, annual dental and eye and foot exam F. Recommended diabetic shoes, podiatry care with early sign of diabetic ulcer f. Recommended to wear diabetic shoes, to see podiatry in case of G. Informed about long-term complications of diabetes-CHD, PAD, CVA, blindness Dietary Evaluation Review Comments: 1. Follow MDs diet order 2. Consider adding Simeon BID (180kcal, 5g pro) for wound healing Expected Outcomes/Goals: 1. Pt's wt will trend towards W CORI ROMAN MD May 28, 2024 23:14
[2024-05-29] VITALS (7 sets, daily range): BP systolic 102–134; BP diastolic 55–89; PULSE 74–104; RESP 16–20; TEMP 97.6–98.1; O2SAT 93–99
--- NOTE | 2024-05-29 16:39 | DVHPN2 ---
Progress Note - Dictate Date Seen: May 29, 2024 Subjective Currently being treated for symptoms of cellulitis erythema edema Surrounding the open wound infection of RLE -remains hemodynamically stable and afebrile * Currently on IV antibiotics * Wound cultures are pending * Seen by Dr. Lorne Roman from Infectious Disease perspective * Overnight events are reviewed through medical chart and case discussion with patient's assigned RN while making rounds on patient on the day of service vital signs Vital Sign Date Time Temp Pulse Resp B/P (MAP) Pulse Ox O2 Delivery O2 Flow Rate FiO2 05/29/24 16:05 97.6 104 20 102/81 (88) 99 97.6 05/28/24 20:00 Room Air* 0 21 Total Intake and Output 05/28/24 05/28/24 05/29/24 15:00 23:00 07:00 Intake Total 760 ml 1100 ml Balance 760 ml 1100 ml medications Current Medications Medications Dose Ordered Sig/Priscilla Route Start Time Stop Time Status Last Admin Dose Admin Apixaban 5 mg BID PO 05/27/24 10:00 05/29/24 10:04 5 MG Doxycycline Monohydrate 100 mg Q12HR PO 05/27/24 10:00 05/29/24 10:04 100 MG Prednisolone Acetate 1 drop Q4HR EACHEYE 05/27/24 02:00 Sacubitril/ Valsartan 1 tab BID PO 05/27/24 10:00 05/29/24 10:04 1 TAB Spironolactone 25 mg BIDD PO 05/27/24 06:00 05/29/24 05:48 25 MG Sucralfate 1 gm TID PO 05/27/24 06:00 05/29/24 05:48 1 GM Torsemide 20 mg DAILY PO 05/27/24 10:00 05/29/24 10:04 20 MG Nitroglycerin 0.4 mg Q5MINP PRN SL 05/26/24 22:45 Morphine Sulfate 2 mg Q30M PRN IV 05/26/24 22:45 Acetaminophen 500 mg Q6HP PRN PO 05/26/24 22:45 Hold Hydromorphone HCl 0.8 mg Q4HP PRN IV 05/26/24 22:45 05/27/24 06:03 0.8 MG Hydromorphone HCl 1 mg Q4HP PRN IV 05/26/24 22:45 2/2/25 10:02 1 MG Levothyroxine Sodium 150 mcg QAM PO 05/27/24 07:00 05/29/24 05:48 150 MCG Levothyroxine Sodium 25 mcg QAM PO 05/27/24 07:00 05/29/24 05:48 25 MCG Enteral Nutritional Formula 27.5 gm BIDWM PO 05/28/24 18:00 05/29/24 10:05 27.5 GM objective General appearance: Well-developed, well-nourished Awake alert oriented x3 no respiratory distress Head: Normocephalic nontraumatic Eyes: EOMI, JASS, sclera nonicteric, conjunctive- pale ENT: No congestion, NSL bilateral symmetrical, oral mucosa dry Neck: Supple, carotid upstroke +2, trachea midline, JVD-3 cm, C spine- Full ROM No thyroid or lymph node , no use of sternomastoid muscle Chest: Bilateral symmetrical expansions, No costochondral tenderness Breasts: I exam - Bilateral symmetrical, Pexam - deferred Lungs: clear breath sounds all over except reduced at bases CVS: PMI- cm medial to L MCL in fifth ICS , S1- S2 NSR no S3 GI: Abdomen soft, obese, bowel sounds normoactive No focal tenderness, no rebound tenderness No hepatosplenomegaly, no mass no hernia , : No CVA tenderness, no bladder mass palpable, genitalia-NE SKIN: Turgor normal, color pink, no rash, no icterus, No varicosity, no ulcers or wounds EXTs: No edema, color pink, no rash, no ecchymosis distal pulses +2 capillary refill <2 seconds, No open wounds JOINTS; full range of motion BACK: No apparent lumbosacral spinal muscle tenderness, LYMPH NODES: No cervical, axillary or inguinal lymph nodes Neuro: Awake alert oriented 4, coherent, all cognitives- intact No pronator drift, no focal motor deficit, No focal sensory deficit, DTR +2, gait steady PSYCH: Affect mildly depressed-denies suicidal ideation laboratory and microbiology Laboratory Tests 05/27/24 06:04 Test 05/27/24 06:04 Range/Units Serum Glucose 109 H 74-106 mg/dL Assessment/Plan Primary Diagnosis 1. Recurrence of cellulitis of RLE 2. Recurrence of RLE wound infection 3. Failure to outpatient Measures. Admitting Diagnosis: 1. Recurrence of cellulitis of RLE 2. Recurrence of RLE wound infection a. nonhealing open infected wound of RLE b. Short of antibiotics c. Lymphatic edema of bilateral lower extremities d. Lack of hygienic care 3. Failure to outpatient measures 4. Fairly well-controlled diabetes 2' Diagnosis/Comorbidities Primary Diagnosis Admitting Diagnosis: 2' Diagnosis/Comorbidities 1. 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 Morbid obesity with current BMI >60 to 65 kg/m 4. Chronic narcotic dependence 5. noncompliance Medical decision making Overall patient's general condition appears to be clinically ill from development of Recurrence of cellulitis and open wound infection of R lower extremity * Known history of multiple rounds of infections such as E. coli, Proteus, Pseudomonas, Enterobacter, Gram-positive sepsis MSSA, MRSA * Received multiple rounds of home IV antibiotics in consult with ID for last 4 to 5 years * Last culture results positive for MRSA * Chronic lymphatic edema and uncontrolled diabetes predispose her to be an immunocompromised host * Case discussed with ER physician * Consensus is to hospitalize patient for IV antibiotics * start patient on IV cefepime vancomycin * Will refer to lift mechanic for daily wound care * Will refer patient to Dr. Lorne Roman infectious disease * For diet-controlled diabetes we will check her blood sugar and provide Humalog through sliding scale Known history of recurrent deep venous thrombosis of Lower extremity Present at time of admission: NO Status: Chronic Problem specific AP * Patient reports pain lower extremity * Known prior history of DVT affecting bilateral upper and lower extremities * Risk factors-morbid obesity, immobility and noncompliance * failed to oral Coumadin * Continued patient on Eliquis Morbid obesity with current BMI 70 kg/m Current body weight exceeds to ideal body weight by250 LBS All recommended her to have intentional weight loss of 250 LBS through Low-carb low calorie 1800-calorie diet and aerobic exercises as tolerated Informed patient about complications of morbid obesity which includes but not limited to a. RS -obesity hypoventilation and hypoxia, pulmonary embolism, sudden b.CVS-cardiac arrhythmia, embolic events c. GI-GE reflux d. Endocrine-diabetes and comorbidities from diabetes e Neuro-embolic CVA, lifelong disability [id number] susceptibility for Covid infection and comorbidities u-fqjhemvr-[id number] risk for cancer Recommended patient to follow a. daily weight, b. ADA 1800-calorie diet-40% calories from breakfast 30% calories from lunch and dinner each, avoid carbonated soda c. Recommended aerobic exercises like walking 1-5 miles per day, riding on a stationary bike for 1-2 hours Chronic pain syndrome and narcotic dependence Recommended patient for rational and safe use of narcotics Educated patient about ill effects of narcotics which could include But not limited to life-threatening respiratory depression and sudden Patient agrees to follow my recommendations Diabetes education A. Recommended 2200 calorie ADA diet and compliance with medications B.. Recommended intentional weight loss of 250 lbs through diet and exercise C. Recommended recheck every 3-4 monthly hemoglobin A1c, bi annual lipid panel D. Recommended annual arterial duplex study and 24-hour urine for microalbuminuria E. Recommended biannual complete physical, annual dental and eye and foot exam F. Recommended diabetic shoes, podiatry care with early sign of diabetic ulcer f. Recommended to wear diabetic shoes, to see podiatry in case of G. Informed about long-term complications of diabetes-CHD, PAD, CVA, blindness Dietary Evaluation Review Comments: 1. Follow MDs diet order 2. Consider adding Simeon BID (180kcal, 5g pro) for wound healing Expected Outcomes/Goals: 1. Pt's wt will trend towards CORI FIELDS MD May 29, 2024 16:39
--- NOTE | 2024-05-29 16:54 | DVHDS2 ---
Discharge Summary Date of Admission May 26, 2024 at 20:34 Date of Discharge: May 29, 2024 Admitting Diagnosis 1. Recurrence of cellulitis of RLE 2. Recurrence of RLE wound infection a. nonhealing open infected wound of RLE b. Short of antibiotics c. Lymphatic edema of bilateral lower extremities d. Lack of hygienic care 3. Failure to outpatient measures 4. Labs/Diagnostic Data: Laboratory Results Test 05/27/24 17:05 05/27/24 06:04 05/27/24 00:15 Urine Color Light-yellow (Yellow) Urine Clarity Clear (Clear) Urine pH 5.0 (5.0-9.0) Urine Specific [place] 1.009 (1.001-1.035) Urine Protein Negative (Negative) Urine Ketones Negative (Negative) Urine Blood Negative /uL (Negative) Urine Nitrite Negative (Negative) Urine Bilirubin Negative (Negative) Urine Urobilinogen Normal mg/dL (Negative) Urine Leukocyte Esterase Trace /uL (Negative) Urine RBC <1 /hpf (0 - 4) Urine Microscopic WBC 4 /HPF (0-5) Urine Squamous Epithelial Cells Few /hpf (<5) Urine Bacteria None seen /hpf (None Seen) Urine Mucus Few (None Seen) Urine Glucose Normal mg/dL (Normal) White Blood Count 4.6 10^3/uL (4.4-10.8) Red Blood Count 3.90 10^6/uL (4.0-5.20) Hemoglobin 11.0 g/dL (12.2-16.2) Hematocrit 33.9 % (36.0-46.0) Mean Corpuscular Volume 86.9 fL (80.0-100.0) Mean Corpuscular Hemoglobin 28.2 pg (28.0-32.0) Mean Corpuscular Hemoglobin Concent 32.4 g/dL (32.0-36.0) Red Cell Distribution Width 15.2 % (11.8-14.3) Platelet Count 359 10^3/uL (140-450) Mean Platelet Volume 7.9 fL (6.9-10.8) Neutrophils (%) (Auto) 61.2 % (37.0-80.0) Lymphocytes (%) (Auto) 22.9 % (10.0-50.0) Monocytes (%) (Auto) 10.7 % (0.0-12.0) Eosinophils (%) (Auto) 4.6 % (0.0-7.0) Basophils (%) (Auto) 0.6 % (0.0-2.0) Neutrophils # (Auto) 2.8 10 ^3/uL (1.6-8.6) Lymphocytes # (Auto) 1.0 10 ^3/uL (0.4-5.4) Monocytes # (Auto) 0.5 10 ^3/uL (0-1.3) Eosinophils # (Auto) 0.2 10 ^3/uL (0-0.8) Basophils # (Auto) 0 10 ^3/uL (0-0.2) Nucleated Red Blood Cells 0.1 % Sodium Level 136 mmol/L (136-145) Potassium Level 4.0 mmol/L (3.5-5.1) Chloride Level 104 mmol/L (98-107) Carbon Dioxide Level 23 mmol/L (20-31) Anion Gap 9 (5-15) Blood Urea Nitrogen 31 mg/dL (9-23) Creatinine 1.24 mg/dL (0.550-1.02) Glomerular Filtration Rate Calc 54 mL/min (>90) BUN/Creatinine Ratio 25.0 (10.0-20.0) Serum Glucose 109 mg/dL (74-106) Calcium Level 9.3 mg/dL (8.7-10.4) Total Bilirubin 0.6 mg/dL (0.2-1.0) Aspartate Amino Transferase (AST) < 8 U/L (13-40) Alanine Aminotransferase (ALT) < 9 U/L (7-40) Alkaline Phosphatase 55 U/L (46-116) Total Protein 8.1 g/dL (5.7-8.2) Albumin 3.9 g/dL (3.2-4.8) Prothrombin Time 10.9 sec (9.3-11.8) Prothrombin Time INR 1.03 (0.9-1.15) Activated Partial Thromboplast Time 28.9 SEC (24.5-34.5) D-Dimer, Quantitative 0.47 mg/L FEU (0.0-0.49) Hemoglobin A1c 5.6 % A1C (<5.7) Phosphorus Level 5.0 mg/dL (2.4-5.1) Magnesium Level 2.1 mg/dL (1.6-2.6) C-Reactive Protein High Sensitivity 0.62 mg/dL (<1.0) Triglycerides Level 161 mg/dL (< 150) Cholesterol Level 162 mg/dL (< 200) LDL Cholesterol 106 mg/dL (< 100) HDL Cholesterol 38 mg/dL (40-59) Folic Acid 10.52 ng/mL (>5.38) Thyroid Stimulating Hormone (TSH) 5.69 uIU/mL (0.55-4.78) Other Laboratory Tests 05/27/24 06:04 Final Diagnosis/Problems List 1. Recurrence of cellulitis of RLE 2. Recurrence of RLE wound infection a. nonhealing open infected wound of RLE b. Short of antibiotics c. Lymphatic edema of bilateral lower extremities d. Lack of hygienic care 3. Failure to outpatient measures Discharge Disposition: Home Discharge Instruct/Medications Diet: Consistent carbohydrate, Cardiac 2g Na,low cholest Diet comment: 2000 isatu ADA Low salt 2g, low cholesterol Activity: Light activity Activity comment: Daily wound care -apply santyl Follow Up/Referral: Joao guy MD in 1-5 days Irene guy MD in 1 week Medications: as per [facility] med rec Discharge Statement: "Patient was advised to return to the ER or call 911 if any headaches, dizziness, shortness of breath, chest pain, abdominal pain, bleeding, fevers, or worsening of medical condition. Patient was counseled about treatment plan, medications, possible side effects, patientverbalized understanding. All questions were answered to the best of my ability. This discharge took greater then 30 minutes in planning, reviewing documentation, counseling the patient, and discussing with other team members." ASSESSMENT ASSESSMENT Assessment 1. Recurrence of cellulitis of RLE 2. Recurrence of RLE wound infection a. nonhealing open infected wound of RLE b. Short of antibiotics c. Lymphatic edema of bilateral lower extremities d. Lack of hygienic care 3. Failure to outpatient measures CORI GUY MD May 29, 2024 16:53
--- NOTE | 2024-05-29 22:37 | DVHPN2 ---
Consult Progress Note Date Seen: May 29, 2024 Subjective Patient reports: Other (patient is in a eaton to go home and states that her wound is not draining anymore on the posterior aspect of her right lower extremity has a small ulcer that has slight drainage but improved ) Objective vital signs Vital Sign Date Time Temp Pulse Resp B/P (MAP) Pulse Ox O2 Delivery O2 Flow Rate FiO2 05/29/24 17:50 97.6 74 16 98 05/29/24 16:05 102/81 (88) 05/29/24 08:00 Room Air* 0 21 Total Intake and Output 05/28/24 05/28/24 05/29/24 15:00 23:00 07:00 Intake Total 760 ml 1100 ml Balance 760 ml 1100 ml medications Physical Exam: - General: NAD - Neck: Supple. No masses. - HEENT: PERRL. Normal lids and conjunctiva. Moist mucous membranes. Oropharynx without lesions, exudates, or excessive erythema. Normal appearance of the external aspects of the nose and ears. - Heart: Regular rhythm, normal rate. No murmur. No lower extremity edema. - Lungs: Normal respiratory effort. Clear to auscultation bilaterally. No wheezes. No crackles. - Abdomen: Soft. Non-tender. Non-distended. No masses or abdominal hernia. - Msk: No digital cyanosis. Normal strength and tone in all 4 limbs. - Skin: Warm and dry, no rashes. New open wound on posterior right lower extremity with purulent drainage and odor. - Neuro: Alert. No facial droop or slurred speech. Extra-ocular movements intact. Sensation intact to soft touch in all 4 limbs. - Psych: Appropriate mood. Full affect. Oriented to person, place, time, and situation. 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 female with a past medical history significant for recurrent DVT, pulmonary embolism, cardiomyopathy, and bilateral lymphedema. The patient presents with bilateral leg edema and a draining ulcer on the right lower extremity following a bandage change. The wound exhibits excess drainage, odor, and erythema, which has been a recurrent issue for her. The patient has received multiple treatments with IV antibiotics in the past and anticipates similar management during this admission. On exam, the right lower extremity shows a stage 1 ulcer on the posterior aspect with purulent drainage and an odor. There is noted swelling and erythema around the wound. 2/: superfical cultures are growing coag negative staph , chest xray shows no acute cardio pulmonary disease , whitecount is 5.4 and patient is developing an acute kidney injury with kreatin of 1.24 , BUN 31 2: patient appears to respond to IV antibiotics while in patient Plan: -- recommend patient go home on oral doxycycline to complete 14 day course -- continue cefepime and doxycycline while in patient -- avoid nephrotoxic agents in setting of TITO -- defer primary team for management of diuretics and development of TIOT -- due to patient being mildly hypotensive would consider fluid bolus -- continue patient on cefepime and doxycycline given the patient's history of multiple antibiotic allergies. -- Request wound culture and blood cultures. Follow up on results. -- Recommend wound care evaluation after admission. -- Monitor clinically for signs of improvement in cellulitis during hospitalization. -- Continue to assess and manage her chronic conditions including DVT and cardiomyopathy. Plan discussed with: Other Dietary Evaluation Review Comments: 1. Follow MDs diet order 2. Consider adding Simeon BID (180kcal, 5g pro) for wound healing Expected Outcomes/Goals: 1. Pt's wt will trend towards KAMARI FIELDS MD May 29, 2024 22:37
== END 2024-05-29 18:10 | disposition home or self-care (01) | DRG 920 ==
LOC: TELE-WESTW 20:34 → TELE-EAST 05-29 00:37
PROVIDERS: ADMIT Specialist; ATTEND Specialist
DX: T81.89XA Other complications of procedures, not elsewhere classified, initial encounter (principal); E66.2 Morbid (severe) obesity with alveolar hypoventilation; L03.115 Cellulitis of right lower limb; Z68.45 Body mass index [BMI] 70 or greater, adult; I42.9 Cardiomyopathy, unspecified; F11.20 Opioid dependence, uncomplicated; J45.901 Unspecified asthma with (acute) exacerbation; L97.329 Non-pressure chronic ulcer of left ankle with unspecified severity; L97.919 Non-pressure chronic ulcer of unspecified part of right lower leg with unspecified severity; L03.116 Cellulitis of left lower limb; T86.822 Skin graft (allograft) (autograft) infection; K21.9 Gastro-esophageal reflux disease without esophagitis; S81.801A Unspecified open wound, right lower leg, initial encounter; I50.9 Heart failure, unspecified; I11.0 Hypertensive heart disease with heart failure; G89.4 Chronic pain syndrome; F25.9 Schizoaffective disorder, unspecified; Z79.01 Long term (current) use of anticoagulants; Z83.49 Family history of other endocrine, nutritional and metabolic diseases; Z83.3 Family history of diabetes mellitus; Z82.62 Family history of osteoporosis; Z82.5 Family history of asthma and other chronic lower respiratory diseases; Z82.49 Family history of ischemic heart disease and other diseases of the circulatory system; Z82.3 Family history of stroke; Z81.8 Family history of other mental and behavioral disorders; Z81.1 Family history of alcohol abuse and dependence; Z80.0 Family history of malignant neoplasm of digestive organs; Z88.1 Allergy status to other antibiotic agents; Z86.718 Personal history of other venous thrombosis and embolism; Z86.711 Personal history of pulmonary embolism; X58.XXXA Exposure to other specified factors, initial encounter; Y93.89 Activity, other specified; Y92.89 Other specified places as the place of occurrence of the external cause; Y99.8 Other external cause status; E03.9 Hypothyroidism, unspecified; E11.65 Type 2 diabetes mellitus with hyperglycemia
CPT/HCPCS: 36415; 71046; 80053; 80061; 81001; 82746; 83036; 83735; 84100; 84443; 85025; 85379; 85610; 85730; 86141; 87040; 87081; 87086; 87205; G0378

== ENCOUNTER 2024-10-29 13:43 | Inpatient (IN) | payer MEDICARE, MEDICAID ==
[~2024-10-29] VITALS: Ht 177.8 cm; Wt 183.2 kg
[~2024-10-29 13:43] MED LIST changes: -LEVO100T8 PO
[2024-10-29 15:03] VITALS: BP 108/66; PULSE 68; RESP 18; TEMP 96.7; O2SAT 100
[2024-10-29] MEDS ORDERED: MORPHINE SULFATE INJ 2 MG/ml SYRG IV PRN (15:45)
[2024-10-29] MEDS ORDERED: NITROGLYCERIN 0.4 MG SL TAB SL PRN (15:45)
[2024-10-29] MEDS ORDERED: SULFACETAMIDE SOD 10% OPTH(EYE) SOL 15ML EACHEYE SCH (15:45)
[2024-10-29 16:30] VITALS: BP 146/64; PULSE 71; RESP 22; TEMP 97.4; O2SAT 100
[2024-10-29 16:46] LABS: Hematocrit 33.8 % (36.0-46.0); Hemoglobin 10.6 g/dL (12.2-16.2); Mean Corpuscular Hemoglobin 27.3 pg (28.0-32.0); Mean Corpuscular Volume 86.9 fL (80.0-100.0); Nucleated Red Blood Cells % 0.0 %
[2024-10-29 17:00] LABS: INR 1.06 (0.9-1.15); Partial Thromboplastin Time 27.6 SEC (24.5-34.5); Prothrombin Time 11.2 sec (9.3-11.8)
[2024-10-29 17:04] LABS: Alkaline Phosphatase 65 U/L (46-116); Anion Gap 10 (5-15); BUN/Creatinine Ratio 14.5 (10.0-20.0); Blood Urea Nitrogen 19 mg/dL (9-23); Calcium 9.6 mg/dL (8.7-10.4); Carbon Dioxide 22 mmol/L (20-31); Chloride 106 mmol/L (98-107); Glucose 88 mg/dL (74-106); Magnesium 1.9 mg/dL (1.6-2.6); Potassium 3.8 mmol/L (3.5-5.1); Sodium 138 mmol/L (136-145); Total Protein 7.8 g/dL (5.7-8.2)
[2024-10-29 17:05] LABS: Albumin 3.8 g/dL (3.2-4.8); Bilirubin, Total 0.7 mg/dL (0.2-1.0)
[2024-10-29 17:47] LABS: Alanine Aminotransferase < 9 U/L (7-40)
[2024-10-29] MEDS: prednisoLONE ACETATE 1% OPTH SUSP 5ML EACHEYE SCH (18:00)
[2024-10-29] MEDS: SPIRONOLACTONE 25 MG TAB PO SCH (18:30)
[2024-10-29] MEDS: CEFEPIME 1GM/ 50ML 50 ML IV ONE (18:30)
[2024-10-29] MEDS ORDERED: OXYCODONE W/ ACETAMINOPHEN 5/325MG TABLET PO PRN (18:30)
[2024-10-29 19:28] LABS: Urine Protein, UAD Negative (Negative)
[2024-10-29] MEDS ORDERED: HYDROmorphone HCL 2 MG/ML VL/or syr IV PRN (19:45)
--- NOTE | 2024-10-29 19:56 | DVHHP2 ---
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 She also reports to have low-grade fever In clinical profile, the patient has a known long history of nonhealing open wound affecting distal R LE infected with multiple gram-negative infections such as Enterococcus, Enterobacter, Proteus, Pseudomonas and MRSA over the past 4-5 years. She has received multiple rounds of IV antibiotics, multiple excisional skin debridements followed by skin graft procurements by Dr. Wells at [facility] through may 2021. The patient has been receiving home health care As a result of which, 80-85% of the wound has been healed Upon arrival, she appeared to be clinically ill with with development of cellulitis Her labs are remarkable for chronic anemia and acute kidney injury on CKD Following to my case discussion with Dr. Lorne Roman I have attended on evening of 05/26/2024 and admitted patient to medical floor with telemetry Past Medical History FH: thyroid disease G8 MOTHER, Onset:Unknown Family history: Arthritis Family history: Asthma Family history: Blood disorder Family history: Cardiovascular disease G8 MOTHER, Onset:Unknown G8 FATHER, Onset:Unknown G8 SISTER, Onset:Unknown Family history: Depression (situation) Family history: Diabetes mellitus G8 FATHER, Onset:Unknown Family history: Hypertension G8 MOTHER, Onset:Unknown G8 FATHER, Onset:Unknown Family history: Osteoporosis Ischemic heart disease Stroke No Family History of: Family history: Autoimmune disease (situation) Social History Currently disabled, lives with her mom and caregiver History of smoking: Cigarettes: Denies History of smoking E cigarettes: Denies History of smoking marijuana: Admits to have been smoking marijuana History of drinking alcohol: Denies History of substance abuse: History of substance abuse in past Allergies: Coded Allergies: Tuna Flavor (Verified Allergy, Severe, TUNA FISH, 01/07/22) Ceftriaxone (Verified Allergy, Mild, ITCHING, 12/22/19) User: Minda Beckford RN Date: 12/16/14 12:48 Type: Emergency Department Notes ALLERGIC REACTION PT C/O ITCHING WHILE ROCEPHIN WAS INFUSING, STOPPED ABX AND NOTIFIED DR TREADWELL. 0.9NS INFUSING AT THIS TIME. RECIEVED ORDER TO GIVE BENADRYL BUT TO CONTINUE ROCEPHIN Levofloxacin (Verified Allergy, Mild, 12/22/19) ITCHINESS Acetaminophen (Verified Allergy, Unknown, 08/02/22) BLISTER IN MOUTH PER PATIENT Hydrocodone (Verified Allergy, Unknown, 08/02/22) BLISTER IN MOUTH PER PATIENT Meperidine (Verified Allergy, Unknown, BLISTERS, SOB, 12/22/19) Penicillins (Verified Allergy, Unknown, 12/22/19) Pineapple (Verified Allergy, Unknown, 01/06/22) Piperacillin (Verified Allergy, Unknown, 12/22/19) ITCHING Sulfa Antibiotics (Verified Allergy, Unknown, 09/21/22) Tazobactam (Verified Allergy, Unknown, 12/22/19) ITCHING Vancomycin (Verified Allergy, Unknown, 12/22/19) (allergic to constrast & got reactions after receiving vancomycin -- D/C Vancomycin order) Iohexol (Verified Adverse Reaction, Severe, VOMITING, 05/24/22) Past Medical History Past medical records: reviewed Cardiovascular : Known history of hypertension and cardiomyopathy EF 32% by 2D echo-history of substance abuse.No known history of acute [place] or CAD-follows with Dr. Kelvin Pike, cardiology History ofdeep venous thrombosis ofRcommon femoral vein History of DVT affecting upper extremity s/p Mike filter placement-Currently on oral apixaban Respiratory: Pulmonary embolism, obesity hypoventilation,history of cor pulmonale Gastrointestinal: GERD Endocrine: Hypothyroidism-currently on L-thyroxine hormone replacement Morbidobesitywith current BMI high at 48 4 kg/m As per patient, she had intentional weight loss of 100 LBS Musculoskeletal: known history of open nonhealing wounds affecting bilateral lower Exts-multiple hospitalizations since August 2016 throughthis yr known to me since August 2020 when she was treated for DVT affecting R common femoral veinandnonhealing wound of RLE. -Received excisional surgical debridementonMay 2020 Followed by home IV antibiotics-IV meropenem and vancomycin for 6 weeks-indicated for infection noted in proximity in OR by Dr. Wells. It is noteworthy that her imaging studies are limited because of her body habitus Received several excisional surgical debridement followed by artificial skin graft procurement by Dr. Wells as of 12/08/2020 and February 22, 2021 at this facilitynoted significantclosure of medial aspect ofRLEwoundas a result. Wound cultures positive for multiple organisms from MRSA Enterococcus,Pseudomonas,Serratia and Enterobacter Chronic back pains and narcoticdependence Recommended safe and rational use of narcotic analgesics for pain management.Over that time she has developed chronic narcotic dependence Cited her being high risk to develop acute respiratory failure Life-threatening cardiac arrhythmia from hypoxia and sudden . Referredto Dr. Loza for pain management Hemato oncology: History ofrecurrentDVT affecting upper and lower extremity complicated by PE S/p Paisley filter placement. -Currently on apixaban Psychiatric:Mixed affect-schizoaffective disorder Family History: Alcoholism Cancer Cancer of colon Chronic obstructive lung disease (situation) Past Surgical History Surgical procedure Laterality Date CHOLECYSTECTOMY DEBRIDEMENT Right LE 09/18/2020 Procedure: WOUND DEBRIDEMENT AND REPAIR OF RIGHT LEG WOUND; Surgeon: Khari Young MD; Location:[facility] MAIN OR DEBRIDEMENT Right 11/07/2020 Procedure: SURGICAL DEBRIDEMENT AND REPAIR OF SURGICAL WOUND AND LAVAGE; Surgeon: Khari Young MD; Location: [facility] MAIN OR DEBRIDEMENT Right 02/22/2021 Procedure: DEBRIDEMENT, LAVAGE, REPAIR RIGHT LEG MEDIAL AND LATERAL WOUNDS WITH STRAVIXPL ARTIFICIAL SKIN GRAFTS, 3CM X 6CM X 2; Surgeon: Khari Young MD; Location: [facility] MAIN OR DEBRIDEMENT Right 04/07/2021 Procedure: RIGHT LEG LATERAL AND NTERIOR WOUND DEBRIDEMENT AND CLOSURE WITH SYNTHETIC SKIN GRAFT; RIGHT LEG MEDIAL WOUND DEBRIDEMENT AND REPAIR WITH FLAP CLOSURE; Surgeon: Khari Young MD; Location: [facility] MAIN OR DEBRIDEMENT Right 06/09/2021 Procedure: SURGICAL DEBRIDEMENT / IRRIGATION / LAVAGE OF RIGHT LEG WOUND; Surgeon: Khari Young MD; Location:[facility] MAIN OR DEBRIDEMENT Right 12/02/2020 Procedure: DEBRIDEMENT, REPAIR WITH FLAP CLOSURE OF MEDIAL WOUND RIGHT LOWER EXTREMITY, DEBRIDEMENT, REPAIR WITH ALLO SKIN GRAFT OF LATERAL RIGHT LOWER EXTREMITY; Surgeon: Khari Young MD; Location:[facility] MAIN OR DEBRIDEMENT Right 08/30/2021 Procedure: SURGICAL DEBRIDEMENT LAVAGE, REPAIR RIGHT LEG WITH SYNTHETIC GRAFT; Surgeon: Khari oYung MD; Location: [facility] MAIN OR IVC FILTER TUNNELED VENOUS CATHETER PLACEMENT 11/12/2020 TUNNELED VENOUS CATHETER PLACEMENT 11/23/2020 Patient Family History: Alcoholism Alcoholism Cancer Cancer of colon Chronic obstructive lung disease (situation) FH: thyroid disease G8 MOTHER, Onset:Unknown Family history: Arthritis Family history: Asthma Family history: Blood disorder Family history: Cardiovascular disease G8 MOTHER, Onset:Unknown G8 FATHER, Onset:Unknown G8 SISTER, Onset:Unknown Family history: Depression (situation) Family history: Diabetes mellitus G8 FATHER, Onset:Unknown Family history: Hypertension G8 MOTHER, Onset:Unknown G8 FATHER, Onset:Unknown Family history: Osteoporosis Ischemic heart disease Stroke No Family History of: Family history: Autoimmune disease (situation) Allergies: Coded Allergies: Tuna Flavor (Verified Allergy, Severe, TUNA FISH, 01/07/22) Ceftriaxone (Verified Allergy, Mild, ITCHING, 12/22/19) User: Minda Beckford RN Date: 12/16/14 12:48 Type: Emergency Department Notes ALLERGIC REACTION PT C/O ITCHING WHILE ROCEPHIN WAS INFUSING, STOPPED ABX AND NOTIFIED DR TREADWELL. 0.9NS INFUSING AT THIS TIME. RECIEVED ORDER TO GIVE BENADRYL BUT TO CONTINUE ROCEPHIN Levofloxacin (Verified Allergy, Mild, 12/22/19) ITCHINESS Acetaminophen (Verified Allergy, Unknown, 08/02/22) BLISTER IN MOUTH PER PATIENT Hydrocodone (Verified Allergy, Unknown, 08/02/22) BLISTER IN MOUTH PER PATIENT Meperidine (Verified Allergy, Unknown, BLISTERS, SOB, 12/22/19) Penicillins (Verified Allergy, Unknown, 12/22/19) Pineapple (Verified Allergy, Unknown, 01/06/22) Piperacillin (Verified Allergy, Unknown, 12/22/19) ITCHING Sulfa Antibiotics (Verified Allergy, Unknown, 09/21/22) Tazobactam (Verified Allergy, Unknown, 12/22/19) ITCHING Vancomycin (Verified Allergy, Unknown, 12/22/19) (allergic to constrast & got reactions after receiving vancomycin --MD Keller/Jesus Vancomycin order) Iohexol (Verified Adverse Reaction, Severe, VOMITING, 05/24/22) Home Meds Active Scripts Doxycycline Monohydrate (Doxycycline Monohydrate) 100 Mg Tab, 100 MG PO Q12HR for 15 Days, #30 TAB Prov:CORI ROMAN MD 01/18/24 Prednisolone Acetate (Ophth) (Pred Forte) 1 % Karen, 1 DROP EACHEYE Q4HR for 5 Days, #5 ML Prov:CORI ROMAN MD 11/02/23 Spironolactone (Aldactone) 25 Mg Tab, 25 MG PO BIDD for 20 Days, #60 TAB Prov:CORI ROMAN MD 11/02/23 Sulfacetamide Sodium (Sulamyd) [address], 1 DROP EACHEYE Q3H for 5 Days, #30 DROP Prov:CORI ROMAN MD 11/02/23 Apixaban Base (ELIQUIS) 5 Mg Tab, 5 MG PO BID for 100 Days, #200 TAB Hold if internal bleeding Prov:CORI ROMAN MD 06/24/23 Sacubitril-Valsartan (Entresto 24-26 mg) 1 Tab Tab, 1 TAB PO BID for 45 Days, #90 TAB Hold if dizzy, systolic BP <110, Report to PMD if edema of the lips, persistent dry cough Prov:CORI ROMAN MD 01/10/22 Reported Medications Levothyroxine Sodium (Levothyroxine Sodium) 175 Mcg Tab, 175 MCG PO QAM, MCG 01/15/24 Torsemide (Torsemide) 20 Mg Tab, 1 TAB PO DAILY 10/30/23 Sucralfate (Sucralfate) 1 Gm Tab, 1 TAB PO TID 10/30/23 Current Medications Current Medications Medications (Trade) Dose Ordered Sig/Priscilla Route PRN Reason Start Time Stop Time Status Last Admin Nitroglycerin (Ntrostat Sublingual) 0.4 mg Q5MINP PRN SL FOR CHEST PAIN 10/29/24 15:45 Morphine Sulfate 2 mg Q30M PRN IV FOR CHEST PAIN 10/29/24 15:45 Apixaban (Eliquis) 5 mg BID PO 10/29/24 22:00 Prednisolone Acetate (Pred Forte) 1 drop Q4HR EACHEYE 10/29/24 18:00 Sacubitril/ Valsartan (Entresto 24-26 Mg tab) 1 tab BID PO 10/29/24 22:00 Spironolactone (Aldactone) 25 mg BIDD PO 10/29/24 18:00 10/29/24 18:30 Sucralfate (Carafate Tab) 1 gm TID PO 10/29/24 22:00 Sulfacetamide Sodium (Sulamyd) 1 drop Q3H EACHEYE 10/29/24 15:45 UNV Torsemide (Demadex Tab) 20 mg DAILY PO 10/30/24 10:00 Future Hold Levothyroxine Sodium (Synthroid Tablet) 100 mcg QAM PO 10/30/24 07:00 Furosemide (Lasix Injection) 40 mg DAILY IV 10/30/24 10:00 Levothyroxine Sodium (Synthroid Tablet) 75 mcg QAM PO 10/30/24 07:00 Cefepime HCl 50 ml @ 12.5 mls/hr Q8H IV 10/29/24 22:00 Oxycodone/ Acetaminophen (Percocet 5/ 325MG Tablet) 2 tab Q6HP PRN PO SEVERE PAIN (7-10 PAIN SCALE) 10/29/24 18:30 10/29/24 19:03 DC Hydromorphone HCl (Dilaudid Tablet) 2 mg Q6HPRN PO 10/30/24 00:00 10/29/24 19:48 DC Hydromorphone HCl (Dilaudid Injection) 0.6 mg Q4HP PRN IV Mod PAIN (6-7/10) 10/29/24 19:45 UNV Hydromorphone HCl (Dilaudid Injection) 0.8 mg Q4HP PRN IV SEVERE PAIN (8-10 PAIN SCALE) 10/29/24 19:45 UNV Review of Systems Constitutional: Reports easy tiredness, low-grade fever no chills weight loss HEENT: Denies headache/conjunctival/ENT pains or congestion, Denies hoarse voice, hearing or visual deficit Neck: Denies cervical spine local/radicular pains, denies goiters/stridor Denies stiffness spasms, reduced ROM, RS: Denies chest congestion, cough, wheezing, SOB, pleuritic chest pains CVS: Reports exertional shortness of breath denies angina, palpitation, GI: Denies loss of appetite, abdominal pains, tenderness, N/V/D, Denies melena, GI bleeding,constipation, : Denies dysuria, flank pains, frequency, hematuria, Denies passing foul odor/cloudy turbid urine, nocturia MS: Denies generalized aches/pains, back pains, spasms, stiffness, Denies radicular pains, denies generalized myalgias/muscle weakness EXTs: Recurrence of infection of nonhealing open wound with copious discharge Local pain and tenderness NEURO: Denies hypersomnolence, confused mental status, Denies focal weakness or seizures/tremors/myoclonic jerks SKIN: Denies rashes or open ulcerated wound ENDOCRINE: Reports polyuria, polydipsia, denies intolerance to heat and cold HEM/LYMPH: Reports easy tiredness, denies bruising, lymphadenopathy ALLERGY: Denies allergic reactions Psychiatry: Denies anxiety or depression disorder Otherwise the Review of Systems is Negative as per History & Physical Interview: Yes Vital Signs Vital Signs Date Time Temp Pulse Resp B/P (MAP) Pulse Ox O2 Delivery O2 Flow Rate FiO2 10/29/24 16:30 97.4 71 22 146/64 (91) 100 97.4 10/29/24 15:22 Room Air* 0 21 Physical Exam Physical Exam General appearance: Short statured morbidly obese, young middle-aged white female Awake alert oriented x3 in no respiratory distress Head: Normocephalic nontraumatic Eyes: EOMI, JASS, sclera nonicteric, conjunctive-pale ENT: No congestion, NSL bilateral symmetrical, oral mucosa dry Neck: Supple, carotid upstroke +2, trachea R off midline, JVD 3 cm No goiter, no stridor, no lymphadenopathy, no use of sternomastoid muscle [id number] ROM Breasts: Self exam by patient-bilateral hyperplasia, no mass/no nipple abnormality Chest : Hypoventilation at bilateral bases, No costochondral tenderness Lungs: clear breath sounds all over except reduced at bases CVS: PMI-2 cm lateral to L MCL in fifth ICS , S1-S2 NSR no S3 GI: Abdomen soft, obese+4, bowel sounds normoactive No focal/rebound tenderness, no mass no hernia, No hepatosplenomegaly : No CVA tenderness, no bladder mass palpable, genitalia-NE SKIN: Nonhealing open wound 6 cms L x 3 cms w x 0.2 cms deep over RLE with erythema, edema on medial aspect- covered by purulent discharge Skin turgor dry, color pale, no rash, no icterus, no varicosity EXTs: Extensive lymphatic edema over bilateral lower extremity (preexistent) RLE-cellulitic erythema edema pain tenderness over medial aspect of non-healing open wound over distal aspect of RLE-purulent discharge Calf tenderness/Homans' sign absent LLE-healed scars of open wounds distal pulses +1 capillary refill <2 seconds JOINTS; reduced range of motion BACK: No apparent lumbosacral spinal muscle tenderness, LYMPH NODES: No cervical, axillary or inguinal lymph nodes Neuro: Awake alert oriented 4, coherent, affect anxious Cognitive's-intact, speech fluent No pronator drift, no focal motor deficit, Changes of peripheral neuropathy, DTR +2, gait wide base PSYCH: Affect mildly depressed-mixed with anxiety, no suicidal ideation Results Labs Test 10/29/24 18:30 10/29/24 16:33 Range/Units Urine Color Light-yellow Yellow Urine Clarity Clear Clear Urine pH 5.5 5.0-9.0 Urine Specific [place] 1.008 1.001-1.035 Urine Protein Negative Negative Urine Ketones Negative Negative Urine Blood Negative Negative /uL Urine Nitrite Negative Negative Urine Bilirubin Negative Negative Urine Urobilinogen Normal Negative mg/dL Urine Leukocyte Esterase 2+ Negative /uL Urine RBC 2 0 - 4 /hpf Urine Microscopic WBC 7 H 0-5 /HPF Urine Squamous Epithelial Cells Few <5 /hpf Urine Bacteria Few H None Seen /hpf Urine Hyaline Casts Few 0 - 2 /lpf Urine Glucose Normal Normal mg/dL White Blood Count 4.9 4.4-10.8 10^3/uL Red Blood Count 3.89 L 4.0-5.20 10^6/uL Hemoglobin 10.6 L 12.2-16.2 g/dL Hematocrit 33.8 L 36.0-46.0 % Mean Corpuscular Volume 86.9 80.0-100.0 fL Mean Corpuscular Hemoglobin 27.3 L 28.0-32.0 pg Mean Corpuscular Hemoglobin Concent 31.4 L 32.0-36.0 g/dL Red Cell Distribution Width 16.3 H 11.8-14.3 % Platelet Count 362 140-450 10^3/uL Mean Platelet Volume 7.6 6.9-10.8 fL Neutrophils (%) (Auto) 73.3 37.0-80.0 % Lymphocytes (%) (Auto) 15.0 10.0-50.0 % Monocytes (%) (Auto) 8.6 0.0-12.0 % Eosinophils (%) (Auto) 2.5 0.0-7.0 % Basophils (%) (Auto) 0.6 0.0-2.0 % Neutrophils # (Auto) 3.6 1.6-8.6 10 ^3/uL Lymphocytes # (Auto) 0.7 0.4-5.4 10 ^3/uL Monocytes # (Auto) 0.4 0-1.3 10 ^3/uL Eosinophils # (Auto) 0.1 0-0.8 10 ^3/uL Basophils # (Auto) 0 0-0.2 10 ^3/uL Nucleated Red Blood Cells 0.0 % Prothrombin Time 11.2 9.3-11.8 sec Prothrombin Time INR 1.06 0.9-1.15 Activated Partial Thromboplast Time 27.6 24.5-34.5 SEC D-Dimer, Quantitative 0.50 H 0.0-0.49 mg/L FEU Sodium Level 138 136-145 mmol/L Potassium Level 3.8 3.5-5.1 mmol/L Chloride Level 106 98-107 mmol/L Carbon Dioxide Level 22 20-31 mmol/L Anion Gap 10 5-15 Blood Urea Nitrogen 19 9-23 mg/dL Creatinine 1.31 H 0.550-1.02 mg/dL Glomerular Filtration Rate Calc 51 >90 mL/min BUN/Creatinine Ratio 14.5 10.0-20.0 Serum Glucose 88 74-106 mg/dL Calcium Level 9.6 8.7-10.4 mg/dL Phosphorus Level 4.2 2.4-5.1 mg/dL Magnesium Level 1.9 1.6-2.6 mg/dL Total Bilirubin 0.7 0.2-1.0 mg/dL Aspartate Amino Transferase (AST) 11 L 13-40 U/L Alanine Aminotransferase (ALT) < 9 7-40 U/L Alkaline Phosphatase 65 46-116 U/L B-Type Natriuretic Peptide 97.06 0-100 pg/mL Total Protein 7.8 5.7-8.2 g/dL Albumin 3.8 3.2-4.8 g/dL Thyroid Stimulating Hormone (TSH) 0.16 L 0.55-4.78 uIU/mL Admitting Diagnosis: 1. Recurrence of cellulitis of RLE 2. Recurrence of RLE wound infection a. nonhealing open infected wound of RLE b. Short of antibiotics c. Lymphatic edema of bilateral lower extremities d. Lack of hygienic care 3. Failure to outpatient measures 4. Fairly well-controlled diabetes 2' Diagnosis/Comorbidities Primary Diagnosis 1. Recurrence of cellulitis of RLE 2. Recurrence of RLE wound infection 3. Failure to outpatient Measures. Admitting Diagnosis: 2' Diagnosis/Comorbidities Primary Diagnosis Admitting Diagnosis: 2' Diagnosis/Comorbidities 1. 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 Morbid obesity with current BMI >60 to 65 kg/m 4. Chronic narcotic dependence 5. noncompliance Medical decision making Overall patient's general condition appears to be clinically ill from development of Recurrence of cellulitis and open wound infection of R lower extremity * Known history of multiple infections such as E. coli, Proteus, Pseudomonas, Enterobacter, Gram-positive sepsis MSSA, MRSA * Received multiple rounds of home IV antibiotics in consult with ID for last 4 to 5 years * Last culture results positive for MRSA 10/2023 * Chronic lymphatic edema and uncontrolled diabetes predispose her to be an immunocompromised host * Case discussed with Dr. Lorne Roman infectious disease * Consensus is to hospitalize patient for IV antibiotics * start patient on IV cefepime vancomycin * Will refer to patient accounts clerk for daily wound care * For diet-controlled diabetes we will check her blood sugar and provide Humalog through sliding scale Known history of recurrent deep venous thrombosis of Lower extremity Present at time of admission: NO Status: Chronic Problem specific AP * Known prior history of DVT affecting bilateral upper and lower extremities * Risk factors-morbid obesity, immobility and noncompliance * failed to oral Coumadin * Continued patient on Eliquis Morbid obesity with current BMI 59 kg/m Current body weight exceeds to ideal body weight by 220 LBS All recommended her to have intentional weight loss of 220 LBS through Low-carb low calorie 1800-calorie diet and aerobic exercises as tolerated Informed patient about complications of morbid obesity which includes but not limited to a. RS -obesity hypoventilation and hypoxia, pulmonary embolism, sudden b.CVS-cardiac arrhythmia, embolic events c. GI-GE reflux d. Endocrine-diabetes and comorbidities from diabetes e Neuro-embolic CVA, lifelong disability [id number] susceptibility for Covid infection and comorbidities [id number] risk for cancer Recommended patient to follow a. daily weight, b. ADA 1800-calorie diet-40% calories from breakfast 30% calories from lunch and dinner each, avoid carbonated soda c. Recommended aerobic exercises like walking 1-5 miles per day, riding on a stationary bike for 1-2 hours Chronic pain syndrome and narcotic dependence Recommended patient for rational and safe use of narcotics Educated patient about ill effects of narcotics which could include But not limited to life-threatening respiratory depression and sudden Patient agrees to follow my recommendations Diabetes education A. Recommended 2200 calorie ADA diet and compliance with medications B.. Recommended intentional weight loss of 270 lbs through diet and exercise C. Recommended recheck every 3-4 monthly hemoglobin A1c, bi annual lipid panel D. Recommended annual arterial duplex study and 24-hour urine for microalbuminuria E. Recommended biannual complete physical, annual dental and eye and foot exam F. Recommended diabetic shoes, podiatry care with early sign of diabetic ulcer f. Recommended to wear diabetic shoes, to see podiatry in case of G. Informed about long-term complications of diabetes-CHD, PAD, CVA, blindness Plan/Recommendation Treatment plans as of today 1. Admit to medical floor telemetry 2. Obtain wound and blood cultures 3. IV antibiotics-IV cefepime 4. Refer patient to Dr. Lorne Roman, ID-Case was discussed with him 5. Refer to wound care nurse for wound care 4. Blood cultures x3 as needed for temp > 101.5 F 5. Accu-Chek before every meal and at bedtime 6. Inj. Humalog through sliding scale 7. Continue IV Lasix and Entresto 8. Continue apixaban 9. CBC CMP TSH ESR 10. Pain management 11.VTE precautions 12, CODE STATUS full code Update patient The patient and/or family is well informed by me about 1. Clinical impression, treatment plans, side effects of medications, course of the disease and guarded prognosis 2. All patient's question/ concerns raised by patient are satisfactorily addressed by me total time: 100 mins includes H & P, review of xray lab exam, senior research consultant's input Plan discussed with: Patient CORI ROMAN MD May 26, 2024 23:29 DICTATED BY:CORI ROMAN MD DICTATED DATE/TIME:05/26/24 8890 ELECTRONICALLY SIGNED BY:CORI ROMAN MD 07/14/24 7041 ELECTRONICALLY CO-SIGNED BY: CORI ROMAN MD Oct 29, 2024 19:56
[2024-10-29 20:00] VITALS: PULSE 68
[2024-10-29] MEDS: HYDROmorphone HCL 2 MG/ML VL/or syr IV PRN (20:35)
[2024-10-29 21:00] VITALS: BP 104/65; PULSE 84; RESP 17; TEMP 98.2; O2SAT 93
[2024-10-29] MEDS: APIXABAN 5 MG TAB PO SCH (21:06)
[2024-10-29] MEDS: SACUBITRIL-VALSARTAN 24mg/26mg TAB PO SCH (21:06)
[2024-10-29] MEDS: CEFEPIME 1GM/ 50ML 50 ML IV SCH (21:06)
[2024-10-29] MEDS: SUCRALFATE 1 GM TAB PO SCH (21:06)
[2024-10-29] MEDS: HYDROmorphone HCL 2 MG/ML VL/or syr IV ONE (21:53)
[2024-10-30] VITALS (8 sets, daily range): BP systolic 112–146; BP diastolic 61–78; PULSE 74–92; RESP 17–22; TEMP 96.2–98.2; O2SAT 92–97
[2024-10-30 06:06] LABS: Hematocrit 31.5 % (36.0-46.0); Hemoglobin 10.3 g/dL (12.2-16.2); Mean Corpuscular Hemoglobin 27.9 pg (28.0-32.0); Mean Corpuscular Volume 85.2 fL (80.0-100.0); Nucleated Red Blood Cells % 0.1 %
[2024-10-30 06:27] LABS: Albumin 3.7 g/dL (3.2-4.8); Alkaline Phosphatase 63 U/L (46-116); Anion Gap 8 (5-15); BUN/Creatinine Ratio 15.3 (10.0-20.0); Bilirubin, Total 0.6 mg/dL (0.2-1.0); Blood Urea Nitrogen 19 mg/dL (9-23); Calcium 9.8 mg/dL (8.7-10.4); Carbon Dioxide 21 mmol/L (20-31); Cholesterol 146 mg/dL (< 200); Glucose 92 mg/dL (74-106); Potassium 4.0 mmol/L (3.5-5.1); Sodium 138 mmol/L (136-145); Total Protein 7.7 g/dL (5.7-8.2); Triglycerides 104 mg/dL (< 150)
[2024-10-30 06:28] LABS: Alanine Aminotransferase < 9 U/L (7-40); Chloride 109 mmol/L (98-107); HDL Cholesterol 40 mg/dL (40-59)
[2024-10-30] MEDS: LEVOTHYROXINE SODIUM 50 MCG TAB PO SCH (06:29)
[2024-10-30] MEDS: LEVOTHYROXINE SODIUM 100 MCG TAB PO SCH (06:29)
[2024-10-30] MEDS: FUROSEMIDE 40 MG/4 ML VIAL IV SCH (08:19)
[2024-10-30] MEDS ORDERED: TORSEMIDE 20 MG TAB PO SCH (10:00)
--- NOTE | 2024-10-30 17:39 | DVHINCON2 ---
Date of service: Oct 29, 2024 Referring Physician cori guy Reason for Consultation cellulitis History of Present Illness History: History obtained from: Patient The patient's past medical history includes bilateral lymphedema and recurrent DVTs, along with cardiomyopathy and a history of pulmonary embolism. The patient is also on chronic opioids and has undergone multiple debridement of ulcers in the past. now presents w/ recurrent posterior leg seropurulent discharge and progressive erythema and edema adjacent to the chronic leg ulcer patient has on anteromedial leg. worsened in the last week endorses excessive odorous drainage. Review of Systems: A complete 10-system review of systems was completed and negative except as noted in the HPI or here. ROS: - CONSTITUTIONAL: Patient endorses subjective fevers and chills. - HEENT: Denies changes in vision and hearing. - RESPIRATORY: Denies shortness of breath and cough. - CV: Denies palpitations and chest pain. - GI: Denies abdominal pain, nausea, vomiting, and diarrhea. - : Denies dysuria and urinary frequency. - MSK: Denies myalgia and joint pain. - SKIN: Endorses swelling and rash on the legs. - NEUROLOGICAL: Denies headache and syncope. - PSYCHIATRIC: Denies recent changes in mood, anxiety, and depression. Past Medical History: - Bilateral lymphedema - Recurrent DVT affecting upper and lower extremities - History of pulmonary embolism - Cardiomyopathy Past Surgical History: History reviewed. No pertinent surgical history. Home Medications: - Levothyroxine - Metformin - Vitamin B12 - Torsemide - Entresto - Pantoprazole - Carvedilol - Apixaban - Iron - Docusate - Pregabalin - Carvedilol Allergies: - Multiple antibiotic allergies of unclear significance but none causing anaphylaxis or shock. Family History: - Alcoholism: Father - Colon cancer: Father - COPD: Father - Thyroid disease: Father - Cardiovascular disease: Mother - Diabetes: Father - Hypertension: Mother and Father Social History: - Socioeconomic History: - Marital status: Not specified - Tobacco Use: - Never - Vaping Use: - Never Used - Substance and Sexual Activity: - Alcohol use: Never - Drug use: Never - Sexual activity: Not currently Family History: Alcoholism Alcoholism Cancer Cancer of colon Chronic obstructive lung disease (situation) FH: thyroid disease G8 MOTHER, Onset:Unknown Family history: Arthritis Family history: Asthma Family history: Blood disorder Family history: Cardiovascular disease G8 MOTHER, Onset:Unknown G8 FATHER, Onset:Unknown G8 SISTER, Onset:Unknown Family history: Depression (situation) Family history: Diabetes mellitus G8 FATHER, Onset:Unknown Family history: Hypertension G8 MOTHER, Onset:Unknown G8 FATHER, Onset:Unknown Family history: Osteoporosis Ischemic heart disease Stroke No Family History of: Family history: Autoimmune disease (situation) Allergies: Coded Allergies: Tuna Flavor (Verified Allergy, Severe, TUNA FISH, 01/07/22) Ceftriaxone (Verified Allergy, Mild, ITCHING, 12/22/19) User: Minda Beckford AMADO Date: 12/16/14 12:48 Type: Emergency Department Notes ALLERGIC REACTION PT C/O ITCHING WHILE ROCEPHIN WAS INFUSING, STOPPED ABX AND NOTIFIED DR TREADWELL. 0.9NS INFUSING AT THIS TIME. RECIEVED ORDER TO GIVE BENADRYL BUT TO CONTINUE ROCEPHIN Levofloxacin (Verified Allergy, Mild, 12/22/19) ITCHINESS Acetaminophen (Verified Allergy, Unknown, 08/02/22) BLISTER IN MOUTH PER PATIENT Hydrocodone (Verified Allergy, Unknown, 08/02/22) BLISTER IN MOUTH PER PATIENT Meperidine (Verified Allergy, Unknown, BLISTERS, SOB, 12/22/19) Penicillins (Verified Allergy, Unknown, 12/22/19) Pineapple (Verified Allergy, Unknown, 01/06/22) Piperacillin (Verified Allergy, Unknown, 12/22/19) ITCHING Sulfa Antibiotics (Verified Allergy, Unknown, 09/21/22) Tazobactam (Verified Allergy, Unknown, 12/22/19) ITCHING Vancomycin (Verified Allergy, Unknown, 12/22/19) (allergic to constrast & got reactions after receiving vancomycin --MD D/C Vancomycin order) Iohexol (Verified Adverse Reaction, Severe, VOMITING, 05/24/22) Home Meds Active Scripts Doxycycline Monohydrate (Doxycycline Monohydrate) 100 Mg Tab, 100 MG PO Q12HR for 15 Days, #30 TAB Prov:CORI GUY MD 01/18/24 Prednisolone Acetate (Ophth) (Pred Forte) 1 % Karen, 1 DROP EACHEYE Q4HR for 5 Days, #5 ML Prov:CORI GUY MD 11/02/23 Spironolactone (Aldactone) 25 Mg Tab, 25 MG PO BIDD for 20 Days, #60 TAB Prov:CORI GUY MD 11/02/23 Sulfacetamide Sodium (Sulamyd) [address], 1 DROP EACHEYE Q3H for 5 Days, #30 DROP Prov:CORI GUY MD 11/02/23 Apixaban Base (ELIQUIS) 5 Mg Tab, 5 MG PO BID for 100 Days, #200 TAB Hold if internal bleeding Prov:CORI GUY MD 06/24/23 Sacubitril-Valsartan (Entresto 24-26 mg) 1 Tab Tab, 1 TAB PO BID for 45 Days, #90 TAB Hold if dizzy, systolic BP <110, Report to PMD if edema of the lips, persistent dry cough Prov:CORI GUY MD 01/10/22 Reported Medications Levothyroxine Sodium (Levothyroxine Sodium) 175 Mcg Tab, 175 MCG PO QAM, MCG 01/15/24 Torsemide (Torsemide) 20 Mg Tab, 1 TAB PO DAILY 10/30/23 Sucralfate (Sucralfate) 1 Gm Tab, 1 TAB PO TID 10/30/23 Discontinued Scripts Levothyroxine Sodium (Levothyroxine Sodium) 100 Mcg Tab, 200 MCG PO DAILY@0600 for 50 Days, #50 TAB Prov:CORI GUY MD 01/18/24 Family History: Alcoholism Alcoholism Cancer Cancer of colon Chronic obstructive lung disease (situation) FH: thyroid disease G8 MOTHER, Onset:Unknown Family history: Arthritis Family history: Asthma Family history: Blood disorder Family history: Cardiovascular disease G8 MOTHER, Onset:Unknown G8 FATHER, Onset:Unknown G8 SISTER, Onset:Unknown Family history: Depression (situation) Family history: Diabetes mellitus G8 FATHER, Onset:Unknown Family history: Hypertension G8 MOTHER, Onset:Unknown G8 FATHER, Onset:Unknown Family history: Osteoporosis Ischemic heart disease Stroke No Family History of: Family history: Autoimmune disease (situation) Allergies: Coded Allergies: Tuna Flavor (Verified Allergy, Severe, TUNA FISH, 01/07/22) Ceftriaxone (Verified Allergy, Mild, ITCHING, 12/22/19) User: Minda Beckford AMADO Date: 12/16/14 12:48 Type: Emergency Department Notes ALLERGIC REACTION PT C/O ITCHING WHILE ROCEPHIN WAS INFUSING, STOPPED ABX AND NOTIFIED DR TREADWELL. 0.9NS INFUSING AT THIS TIME. RECIEVED ORDER TO GIVE BENADRYL BUT TO CONTINUE ROCEPHIN Levofloxacin (Verified Allergy, Mild, 12/22/19) ITCHINESS Acetaminophen (Verified Allergy, Unknown, 08/02/22) BLISTER IN MOUTH PER PATIENT Hydrocodone (Verified Allergy, Unknown, 08/02/22) BLISTER IN MOUTH PER PATIENT Meperidine (Verified Allergy, Unknown, BLISTERS, SOB, 12/22/19) Penicillins (Verified Allergy, Unknown, 12/22/19) Pineapple (Verified Allergy, Unknown, 01/06/22) Piperacillin (Verified Allergy, Unknown, 12/22/19) ITCHING Sulfa Antibiotics (Verified Allergy, Unknown, 09/21/22) Tazobactam (Verified Allergy, Unknown, 12/22/19) ITCHING Vancomycin (Verified Allergy, Unknown, 12/22/19) (allergic to constrast & got reactions after receiving vancomycin -- D/C Vancomycin order) Iohexol (Verified Adverse Reaction, Severe, VOMITING, 05/24/22) Home Meds Active Scripts Doxycycline Monohydrate (Doxycycline Monohydrate) 100 Mg Tab, 100 MG PO Q12HR for 15 Days, #30 TAB Prov:CORI GUY MD 01/18/24 Prednisolone Acetate (Ophth) (Pred Forte) 1 % Karen, 1 DROP EACHEYE Q4HR for 5 Days, #5 ML Prov:CORI GUY MD 11/02/23 Spironolactone (Aldactone) 25 Mg Tab, 25 MG PO BIDD for 20 Days, #60 TAB Prov:CORI GUY MD 11/02/23 Sulfacetamide Sodium (Sulamyd) [address], 1 DROP EACHEYE Q3H for 5 Days, #30 DROP Prov:CORI GUY MD 11/02/23 Apixaban Base (ELIQUIS) 5 Mg Tab, 5 MG PO BID for 100 Days, #200 TAB Hold if internal bleeding Prov:CORI GUY MD 06/24/23 Sacubitril-Valsartan (Entresto 24-26 mg) 1 Tab Tab, 1 TAB PO BID for 45 Days, #90 TAB Hold if dizzy, systolic BP <110, Report to PMD if edema of the lips, persistent dry cough Prov:CORI GUY MD 01/10/22 Reported Medications Levothyroxine Sodium (Levothyroxine Sodium) 175 Mcg Tab, 175 MCG PO QAM, MCG 01/15/24 Torsemide (Torsemide) 20 Mg Tab, 1 TAB PO DAILY 10/30/23 Sucralfate (Sucralfate) 1 Gm Tab, 1 TAB PO TID 10/30/23 Current Medications Current Medications Medications (Trade) Dose Ordered Sig/Priscilla Route PRN Reason Start Time Stop Time Status Last Admin Apixaban (Eliquis) 5 mg BID PO 10/29/24 22:00 10/30/24 08:29 Prednisolone Acetate (Pred Forte) 1 drop Q4HR EACHEYE 10/29/24 18:00 10/30/24 16:51 Sacubitril/ Valsartan (Entresto 24-26 Mg tab) 1 tab BID PO 10/29/24 22:00 Spironolactone (Aldactone) 25 mg BIDD PO 10/29/24 18:00 10/30/24 06:31 Sucralfate (Carafate Tab) 1 gm TID PO 10/29/24 22:00 10/30/24 16:37 Torsemide (Demadex Tab) 20 mg DAILY PO 10/30/24 10:00 Hold Levothyroxine Sodium (Synthroid Tablet) 100 mcg QAM PO 10/30/24 07:00 10/30/24 06:29 Furosemide (Lasix Injection) 40 mg DAILY IV 10/30/24 10:00 10/30/24 08:19 Levothyroxine Sodium (Synthroid Tablet) 75 mcg QAM PO 10/30/24 07:00 10/30/24 06:29 Cefepime HCl 50 ml @ 12.5 mls/hr Q8H IV 10/29/24 22:00 10/30/24 16:38 Oxycodone/ Acetaminophen (Percocet 5/ 325MG Tablet) 2 tab Q6HP PRN PO SEVERE PAIN (7-10 PAIN SCALE) 10/29/24 18:30 10/29/24 19:03 DC Hydromorphone HCl (Dilaudid Tablet) 2 mg Q6HPRN PO 10/30/24 00:00 10/29/24 19:48 DC Hydromorphone HCl (Dilaudid Injection) 0.6 mg Q4HP PRN IV Mod PAIN (6-7/10) 10/29/24 19:45 Hydromorphone HCl (Dilaudid Injection) 0.8 mg Q4HP PRN IV SEVERE PAIN (8-10 PAIN SCALE) 10/29/24 19:45 10/30/24 16:45 Vital Signs Vital Signs Date Time Temp Pulse Resp B/P (MAP) Pulse Ox O2 Delivery O2 Flow Rate FiO2 10/30/24 17:00 97.5 82 20 119/71 (87) 92 97.5 10/30/24 08:00 Room Air* 0 21 Labs/Diagnostic Data Labs Test 10/30/24 04:56 10/29/24 18:30 10/29/24 16:33 Range/Units White Blood Count 4.5 4.4-10.8 10^3/uL Red Blood Count 3.70 L 4.0-5.20 10^6/uL Hemoglobin 10.3 L 12.2-16.2 g/dL Hematocrit 31.5 L 36.0-46.0 % Mean Corpuscular Volume 85.2 80.0-100.0 fL Mean Corpuscular Hemoglobin 27.9 L 28.0-32.0 pg Mean Corpuscular Hemoglobin Concent 32.7 32.0-36.0 g/dL Red Cell Distribution Width 15.6 H 11.8-14.3 % Platelet Count 370 140-450 10^3/uL Mean Platelet Volume 7.9 6.9-10.8 fL Neutrophils (%) (Auto) 72.9 37.0-80.0 % Lymphocytes (%) (Auto) 14.2 10.0-50.0 % Monocytes (%) (Auto) 8.6 0.0-12.0 % Eosinophils (%) (Auto) 3.6 0.0-7.0 % Basophils (%) (Auto) 0.7 0.0-2.0 % Neutrophils # (Auto) 3.2 1.6-8.6 10 ^3/uL Lymphocytes # (Auto) 0.6 0.4-5.4 10 ^3/uL Monocytes # (Auto) 0.4 0-1.3 10 ^3/uL Eosinophils # (Auto) 0.2 0-0.8 10 ^3/uL Basophils # (Auto) 0 0-0.2 10 ^3/uL Nucleated Red Blood Cells 0.1 % Sodium Level 138 136-145 mmol/L Potassium Level 4.0 3.5-5.1 mmol/L Chloride Level 109 H 98-107 mmol/L Carbon Dioxide Level 21 20-31 mmol/L Anion Gap 8 5-15 Blood Urea Nitrogen 19 9-23 mg/dL Creatinine 1.24 H 0.550-1.02 mg/dL Glomerular Filtration Rate Calc 54 >90 mL/min BUN/Creatinine Ratio 15.3 10.0-20.0 Serum Glucose 92 74-106 mg/dL Hemoglobin A1c 5.5 <5.7 % A1C Calcium Level 9.8 8.7-10.4 mg/dL Total Bilirubin 0.6 0.2-1.0 mg/dL Aspartate Amino Transferase (AST) 10 L 13-40 U/L Alanine Aminotransferase (ALT) < 9 7-40 U/L Alkaline Phosphatase 63 46-116 U/L Total Protein 7.7 5.7-8.2 g/dL Albumin 3.7 3.2-4.8 g/dL Triglycerides Level 104 < 150 mg/dL Cholesterol Level 146 < 200 mg/dL LDL Cholesterol 95 < 100 mg/dL HDL Cholesterol 40 40-59 mg/dL Urine Color Light-yellow Yellow Urine Clarity Clear Clear Urine pH 5.5 5.0-9.0 Urine Specific [place] 1.008 1.001-1.035 Urine Protein Negative Negative Urine Ketones Negative Negative Urine Blood Negative Negative /uL Urine Nitrite Negative Negative Urine Bilirubin Negative Negative Urine Urobilinogen Normal Negative mg/dL Urine Leukocyte Esterase 2+ Negative /uL Urine RBC 2 0 - 4 /hpf Urine Microscopic WBC 7 H 0-5 /HPF Urine Squamous Epithelial Cells Few <5 /hpf Urine Bacteria Few H None Seen /hpf Urine Hyaline Casts Few 0 - 2 /lpf Urine Glucose Normal Normal mg/dL Prothrombin Time 11.2 9.3-11.8 sec Prothrombin Time INR 1.06 0.9-1.15 Activated Partial Thromboplast Time 27.6 24.5-34.5 SEC D-Dimer, Quantitative 0.50 H 0.0-0.49 mg/L FEU Phosphorus Level 4.2 2.4-5.1 mg/dL Magnesium Level 1.9 1.6-2.6 mg/dL B-Type Natriuretic Peptide 97.06 0-100 pg/mL Thyroid Stimulating Hormone (TSH) 0.16 L 0.55-4.78 uIU/mL Microbiology Date/Time Source Procedure Growth Status 10/29/24 20:38 Leg Right Gram Stain - Final Resulted 10/29/24 20:38 Leg Right Wound Culture - Preliminary Resulted Plan/Recommendation Physical Exam: - General: NAD - Neck: Supple. No masses. - HEENT: PERRL. Normal lids and conjunctiva. Moist mucous membranes. Oropharynx without lesions, exudates, or excessive erythema. Normal appearance of the external aspects of the nose and ears. - Heart: Regular rhythm, normal rate. No murmur. No lower extremity edema. - Lungs: Normal respiratory effort. Clear to auscultation bilaterally. No wheezes. No crackles. - Abdomen: Soft. Non-tender. Non-distended. No masses or abdominal hernia. - Msk: No digital cyanosis. Normal strength and tone in all 4 limbs. - Skin: Warm and dry, no rashes. New open wound on posterior right lower extremity with purulent drainage and odor. - Neuro: Alert. No facial droop or slurred speech. Extra-ocular movements intact. Sensation intact to soft touch in all 4 limbs. - Psych: Appropriate mood. Full affect. Oriented to person, place, time, and situation. 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 female with a past medical history significant for recurrent DVT, pulmonary embolism, cardiomyopathy, and bilateral lymphedema. The patient presents with bilateral leg edema and a draining ulcer on the right lower extremity following a bandage change. The wound exhibits excess drainage, odor, and erythema, which has been a recurrent issue for her. The patient has received multiple treatments with IV antibiotics in the past and anticipates similar management during this admission. On exam, the right lower extremity shows a stage 1 ulcer on the posterior aspect with purulent drainage and an odor. There is noted swelling and erythema around the wound. wound is largely improved over last several months suspect drainage is due to cellulitis vs lymphatic drainage. Plan: -- continue cefepime and doxycycline while in patient -- continue patient on cefepime and doxycycline given the patient's history of multiple antibiotic allergies. -- Request wound culture and blood cultures. Follow up on results. -- Recommend wound care evaluation after admission. -- Monitor clinically for signs of improvement in cellulitis during hospitalization. -- Continue to assess and manage her chronic conditions including DVT and cardiomyopathy. Plan discussed with: Patient KAMARI GUY MD Oct 30, 2024 17:39
--- NOTE | 2024-10-30 18:34 | DVHPN2 ---
Consult Progress Note Date Seen: Oct 30, 2024 Subjective Patient reports: Other (endorses leg pain and drainage throughout the night ) Objective vital signs Vital Sign Date Time Temp Pulse Resp B/P (MAP) Pulse Ox O2 Delivery O2 Flow Rate FiO2 10/30/24 17:00 97.5 82 20 119/71 (87) 92 97.5 10/30/24 08:00 Room Air* 0 21 Total Intake and Output 10/29/24 10/29/24 10/30/24 15:00 23:00 07:00 Intake Total 50 ml 350 ml Balance 50 ml 350 ml medications Current Medications Medications Dose Ordered Sig/Priscilla Route Start Time Stop Time Status Last Admin Dose Admin Nitroglycerin 0.4 mg Q5MINP PRN SL 10/29/24 15:45 Morphine Sulfate 2 mg Q30M PRN IV 10/29/24 15:45 Apixaban 5 mg BID PO 10/29/24 22:00 10/30/24 08:29 Prednisolone Acetate 1 drop Q4HR EACHEYE 10/29/24 18:00 10/30/24 16:51 Sacubitril/ Valsartan 1 tab BID PO 10/29/24 22:00 Spironolactone 25 mg BIDD PO 10/29/24 18:00 10/30/24 06:31 Sucralfate 1 gm TID PO 10/29/24 22:00 10/30/24 16:37 Sulfacetamide Sodium 1 drop Q3H EACHEYE 10/29/24 15:45 Hold Torsemide 20 mg DAILY PO 10/30/24 10:00 Hold Levothyroxine Sodium 100 mcg QAM PO 10/30/24 07:00 10/30/24 06:29 Furosemide 40 mg DAILY IV 10/30/24 10:00 10/30/24 08:19 Levothyroxine Sodium 75 mcg QAM PO 10/30/24 07:00 10/30/24 06:29 Cefepime HCl 50 ml @ 12.5 mls/hr Q8H IV 10/29/24 22:00 10/30/24 16:38 Hydromorphone HCl 0.6 mg Q4HP PRN IV 10/29/24 19:45 Hydromorphone HCl 0.8 mg Q4HP PRN IV 10/29/24 19:45 10/30/24 16:45 laboratory and microbiology Laboratory Tests 10/30/24 04:56 Test 10/30/24 04:56 Range/Units Serum Glucose 92 74-106 mg/dL Problem List/Assessment/Plan Problems(with codes): (1) CELLULITIS OF LEFT LOWER LIMB (2) PAIN IN LEFT ANKLE AND JOINTS OF LEFT FOOT (3) Ulcer of ankle (4) Pain in joint, ankle and foot (5) History of deep venous thrombosis (6) Morbid obesity (7) Chronic acquired lymphedema Problem List/Assessment/Plan ? Acute on chronic systolic heart failure. Lymphedema. History of pulmonary emboli and DVT. Hypothyroidism. Hypertension. This is a 49-year-old female with past medical history lymphedema, DVT, pulmonary emboli (status post IVC filter), hypothyroidism, hypertension, and heart failure who presented to the ED with c/o bilateral lower limb swelling. Per patient she has lymphedema since 5-6 years which has recently worsened and prompted this visit. She also reports of mild shortness of breaths. She denies chest pain, fever, cough, palpitation, or any recent sick contact. EKGs shows normal sinus rhythm with no significant ST or T-wave changes. BNP is within normal limits. Bilateral lower extremity venous duplex is negative for DVT. Patient was admitted to the hospital. I am asked to consult on this patient 10/30: patient drainage less odorous drainage not soaking through bandage Plan/Recommendation I agree with your ongoing assessment and care of plan. Patient has been seen by Nataliya Calixto, resident on my behalf. We have discussed the plan with the patient. Telemetry reviewed. IV diuretic Lasix 40 mg b.i.d. Continue home meds. Check echocardiogram. Rest of plan per primary team. Additional plan as per the hospital course. A total of 45 minutes was spent reviewing the patient record, examining the patient, making a diagnostic and therapeutic plan, discussing this plan with medical personnel, following up on diagnostic studies and following the patient for clinical stability excluding any and all procedures. At least 50% of this time was spent in direct, [id number] contact. recommend wound culture- gpc in pairs on gram stain continue cefepime and doxycycline Plan discussed with: Other Dietary Evaluation Review Comments: 1) Add cardiac restriction to 60g CCHO diet 2) Initiate MVI @ 1 tb qd 3) Initiate Pro-Stat @ 30 mL qd 4) Refer to outpatient RD for wegith management 5) Follow-up with cardiology 4) Continue to monitor I&O, labs, and skin integrity Expected Outcomes/Goals: 1) appetite and labs to improve 2) wounds to improve 3) f/u in 3-5 days KAMARI ELLIS MD Oct 30, 2024 18:33
--- NOTE | 2024-10-30 23:22 | DVHPN2 ---
Progress Note - Dictate Date Seen: Oct 30, 2024 Subjective Cellulitis of RLE open wound Bakercyst behind R Knee vital signs Vital Sign Date Time Temp Pulse Resp B/P (MAP) Pulse Ox O2 Delivery O2 Flow Rate FiO2 10/30/24 21:24 85 16 146/78 10/30/24 21:00 97.7 97 97.7 10/30/24 08:00 Room Air* 0 21 Total Intake and Output 10/29/24 10/29/24 10/30/24 15:00 23:00 07:00 Intake Total 50 ml 350 ml Balance 50 ml 350 ml medications Current Medications Medications Dose Ordered Sig/Priscilla Route Start Time Stop Time Status Last Admin Dose Admin Nitroglycerin 0.4 mg Q5MINP PRN SL 10/29/24 15:45 Morphine Sulfate 2 mg Q30M PRN IV 10/29/24 15:45 Apixaban 5 mg BID PO 10/29/24 22:00 10/30/24 21:44 5 MG Prednisolone Acetate 1 drop Q4HR EACHEYE 10/29/24 18:00 10/30/24 21:45 1 DROP Sacubitril/ Valsartan 1 tab BID PO 10/29/24 22:00 10/30/24 21:44 1 TAB Spironolactone 25 mg BIDD PO 10/29/24 18:00 10/30/24 18:04 25 MG Sucralfate 1 gm TID PO 10/29/24 22:00 10/30/24 21:44 1 GM Sulfacetamide Sodium 1 drop Q3H EACHEYE 10/29/24 15:45 Hold Levothyroxine Sodium 100 mcg QAM PO 10/30/24 07:00 10/30/24 06:29 100 MCG Furosemide 40 mg DAILY IV 10/30/24 10:00 10/30/24 08:19 40 MG Levothyroxine Sodium 75 mcg QAM PO 10/30/24 07:00 10/30/24 06:29 75 MCG Cefepime HCl 50 ml @ 12.5 mls/hr Q8H IV 10/29/24 22:00 10/30/24 16:38 12.5 MLS/HR Hydromorphone HCl 0.6 mg Q4HP PRN IV 10/29/24 19:45 Hydromorphone HCl 0.8 mg Q4HP PRN IV 10/29/24 19:45 10/30/24 20:54 0.8 MG objective General appearance: Short statured morbidly obese, young middle-aged white female Awake alert oriented x3 in no respiratory distress Head: Normocephalic nontraumatic Eyes: EOMI, JASS, sclera nonicteric, conjunctive-pale ENT: No congestion, NSL bilateral symmetrical, oral mucosa dry Neck: Supple, carotid upstroke +2, trachea R off midline, JVD 3 cm No goiter, no stridor, no lymphadenopathy, no use of sternomastoid muscle [id number] ROM Breasts: Self exam by patient-bilateral hyperplasia, no mass/no nipple abnormality Chest : Hypoventilation at bilateral bases, No costochondral tenderness Lungs: clear breath sounds all over except reduced at bases CVS: PMI-2 cm lateral to L MCL in fifth ICS , S1-S2 NSR no S3 GI: Abdomen soft, obese+4, bowel sounds normoactive No focal/rebound tenderness, no mass no hernia, No hepatosplenomegaly : No CVA tenderness, no bladder mass palpable, genitalia-NE SKIN: Nonhealing open wound 6 cms L x 3 cms w x 0.2 cms deep over RLE with erythema, edema on medial aspect- covered by purulent discharge Skin turgor dry, color pale, no rash, no icterus, no varicosity EXTs: Extensive lymphatic edema over bilateral lower extremity (preexistent) RLE-cellulitic erythema edema pain tenderness over medial aspect of non-healing open wound over distal aspect of RLE-purulent discharge Calf tenderness/Homans' sign absent LLE-healed scars of open wounds distal pulses +1 capillary refill <2 seconds JOINTS; reduced range of motion BACK: No apparent lumbosacral spinal muscle tenderness, LYMPH NODES: No cervical, axillary or inguinal lymph nodes Neuro: Awake alert oriented 4, coherent, affect anxious Cognitive's-intact, speech fluent No pronator drift, no focal motor deficit, Changes of peripheral neuropathy, DTR +2, gait wide base PSYCH: Affect mildly depressed-mixed with anxiety, no suicidal ideation laboratory and microbiology Laboratory Tests 10/30/24 04:56 Test 10/30/24 04:56 Range/Units Serum Glucose 92 74-106 mg/dL Problem List Primary Diagnosis 1. Recurrence of cellulitis of RLE 2. Recurrence of RLE wound infection 3. Failure to outpatient Measures. Admitting Diagnosis: 2' Diagnosis/Comorbidities Primary Diagnosis Admitting Diagnosis: 2' Diagnosis/Comorbidities 1. 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 Morbid obesity with current BMI >60 to 65 kg/m 4. Chronic narcotic dependence 5. noncompliance Assessment/Plan Medical decision making Overall patient's general condition appears to be clinically ill from development of Recurrence of cellulitis and open wound infection of R lower extremity * Known history of multiple infections such as E. coli, Proteus, Pseudomonas, Enterobacter, Gram-positive sepsis MSSA, MRSA * Received multiple rounds of home IV antibiotics in consult with ID for last 4 to 5 years * Last culture results positive for MRSA 10/2023 * Chronic lymphatic edema and uncontrolled diabetes predispose her to be an immunocompromised host * Case discussed with Dr. Lorne Roman infectious disease * Consensus is to hospitalize patient for IV antibiotics * start patient on IV cefepime vancomycin * Will refer to diver pumper for daily wound care * For diet-controlled diabetes we will check her blood sugar and provide Humalog through sliding scale Known history of recurrent deep venous thrombosis of Lower extremity Present at time of admission: NO Status: Chronic Problem specific AP * Known prior history of DVT affecting bilateral upper and lower extremities * Risk factors-morbid obesity, immobility and noncompliance * failed to oral Coumadin * Continued patient on Eliquis Morbid obesity with current BMI 59 kg/m Current body weight exceeds to ideal body weight by 220 LBS All recommended her to have intentional weight loss of 220 LBS through Low-carb low calorie 1800-calorie diet and aerobic exercises as tolerated Informed patient about complications of morbid obesity which includes but not limited to a. RS -obesity hypoventilation and hypoxia, pulmonary embolism, sudden b.CVS-cardiac arrhythmia, embolic events c. GI-GE reflux d. Endocrine-diabetes and comorbidities from diabetes e Neuro-embolic CVA, lifelong disability m-[id number]-wvgi susceptibility for Covid infection and comorbidities [id number]-[id number]-[id number] risk for cancer Recommended patient to follow a. daily weight, b. ADA 1800-calorie diet-40% calories from breakfast 30% calories from lunch and dinner each, avoid carbonated soda c. Recommended aerobic exercises like walking 1-5 miles per day, riding on a stationary bike for 1-2 hours Chronic pain syndrome and narcotic dependence Recommended patient for rational and safe use of narcotics Educated patient about ill effects of narcotics which could include But not limited to life-threatening respiratory depression and sudden Patient agrees to follow my recommendations Diabetes education A. Recommended 2200 calorie ADA diet and compliance with medications B.. Recommended intentional weight loss of 270 lbs through diet and exercise C. Recommended recheck every 3-4 monthly hemoglobin A1c, bi annual lipid panel D. Recommended annual arterial duplex study and 24-hour urine for microalbuminuria E. Recommended biannual complete physical, annual dental and eye and foot exam F. Recommended diabetic shoes, podiatry care with early sign of diabetic ulcer f. Recommended to wear diabetic shoes, to see podiatry in case of G. Informed about long-term complications of diabetes-CHD, PAD, CVA, blindness Plan/Recommendation Treatment plans as of today 1. Admit to medical floor telemetry 2. Obtain wound and blood cultures 3. IV antibiotics-IV cefepime 4. Refer patient to Dr. Lorne Roman, ID-Case was discussed with him 5. Refer to wound care nurse for wound care 4. Blood cultures x3 as needed for temp > 101.5 F 5. Accu-Chek before every meal and at bedtime 6. Inj. Humalog through sliding scale 7. Continue IV Lasix and Entresto 8. Continue apixaban 9. CBC CMP TSH ESR 10. Pain management 11.VTE precautions 12, CODE STATUS full code Update patient The patient and/or family is well informed by me about 1. Clinical impression, treatment plans, side effects of medications, course of the disease and guarded prognosis 2. All patient's question/ concerns raised by patient are satisfactorily addressed by me Dietary Evaluation Review Comments: 1) Add cardiac restriction to 60g CCHO diet 2) Initiate MVI @ 1 tb qd 3) Initiate Pro-Stat @ 30 mL qd 4) Refer to outpatient RD for wegith management 5) Follow-up with cardiology 4) Continue to monitor I&O, labs, and skin integrity Expected Outcomes/Goals: 1) appetite and labs to improve 2) wounds to improve 3) f/u in 3-5 days CORI ROMAN MD Oct 30, 2024 23:22
[2024-10-31] VITALS (7 sets, daily range): BP systolic 96–135; BP diastolic 50–85; PULSE 69–99; RESP 17–18; TEMP 97.7–98.2; O2SAT 93–97
--- NOTE | 2024-10-31 22:37 | DVHPN2 ---
Progress Note - Dictate Date Seen: Nov 01, 2024 Subjective Cellulitis of RLE open wound Bakercyst behind R Knee vital signs Vital Sign Date Time Temp Pulse Resp B/P (MAP) Pulse Ox O2 Delivery O2 Flow Rate FiO2 10/31/24 21:00 98.0 99 18 115/67 (83) 97 98.0 10/31/24 20:00 Room Air* 0 21 Total Intake and Output 10/30/24 10/30/24 10/31/24 15:00 23:00 07:00 Intake Total 410 ml 1290 ml 650 ml Output Total 1000 ml 1 ml Balance 410 ml 290 ml 649 ml medications Current Medications Medications Dose Ordered Sig/Priscilla Route Start Time Stop Time Status Last Admin Dose Admin Nitroglycerin 0.4 mg Q5MINP PRN SL 10/29/24 15:45 Morphine Sulfate 2 mg Q30M PRN IV 10/29/24 15:45 Apixaban 5 mg BID PO 10/29/24 22:00 10/31/24 21:04 5 MG Prednisolone Acetate 1 drop Q4HR EACHEYE 10/29/24 18:00 10/31/24 21:04 1 DROP Spironolactone 25 mg BIDD PO 10/29/24 18:00 10/31/24 18:56 25 MG Sucralfate 1 gm TID PO 10/29/24 22:00 10/31/24 21:04 1 GM Sulfacetamide Sodium 1 drop Q3H EACHEYE 10/29/24 15:45 Hold Levothyroxine Sodium 100 mcg QAM PO 10/30/24 07:00 10/31/24 06:07 100 MCG Furosemide 40 mg DAILY IV 10/30/24 10:00 10/31/24 09:36 40 MG Levothyroxine Sodium 75 mcg QAM PO 10/30/24 07:00 10/31/24 06:07 75 MCG Cefepime HCl 50 ml @ 12.5 mls/hr Q8H IV 10/29/24 22:00 10/31/24 21:03 12.5 MLS/HR Hydromorphone HCl 0.6 mg Q4HP PRN IV 10/29/24 19:45 Hydromorphone HCl 0.8 mg Q4HP PRN IV 10/29/24 19:45 10/31/24 18:57 0.8 MG Sacubitril/ Valsartan 2 tab QAM PO 11/01/24 07:00 UNV Sacubitril/ Valsartan 1 tab BID PO 11/01/24 10:00 UNV objective General appearance: Short statured morbidly obese, young middle-aged white female Awake alert oriented x3 in no respiratory distress Head: Normocephalic nontraumatic Eyes: EOMI, JASS, sclera nonicteric, conjunctive-pale ENT: No congestion, NSL bilateral symmetrical, oral mucosa dry Neck: Supple, carotid upstroke +2, trachea R off midline, JVD 3 cm No goiter, no stridor, no lymphadenopathy, no use of sternomastoid muscle [id number] ROM Breasts: Self exam by patient-bilateral hyperplasia, no mass/no nipple abnormality Chest : Hypoventilation at bilateral bases, No costochondral tenderness Lungs: clear breath sounds all over except reduced at bases CVS: PMI-2 cm lateral to L MCL in fifth ICS , S1-S2 NSR no S3 GI: Abdomen soft, obese+4, bowel sounds normoactive No focal/rebound tenderness, no mass no hernia, No hepatosplenomegaly : No CVA tenderness, no bladder mass palpable, genitalia-NE SKIN: Nonhealing open wound 6 cms L x 3 cms w x 0.2 cms deep over RLE with erythema, edema on medial aspect- covered by purulent discharge Skin turgor dry, color pale, no rash, no icterus, no varicosity EXTs: Extensive lymphatic edema over bilateral lower extremity (preexistent) RLE-cellulitic erythema edema pain tenderness over medial aspect of non-healing open wound over distal aspect of RLE-purulent discharge Calf tenderness/Homans' sign absent LLE-healed scars of open wounds distal pulses +1 capillary refill <2 seconds JOINTS; reduced range of motion BACK: No apparent lumbosacral spinal muscle tenderness, LYMPH NODES: No cervical, axillary or inguinal lymph nodes Neuro: Awake alert oriented 4, coherent, affect anxious Cognitive's-intact, speech fluent No pronator drift, no focal motor deficit, Changes of peripheral neuropathy, DTR +2, gait wide base PSYCH: Affect mildly depressed-mixed with anxiety, no suicidal ideation laboratory and microbiology Laboratory Tests 10/30/24 04:56 Test 10/30/24 04:56 Range/Units Serum Glucose 92 74-106 mg/dL Problem List Primary Diagnosis 1. Recurrence of cellulitis of RLE 2. Recurrence of RLE wound infection 3. Failure to outpatient Measures. Admitting Diagnosis: 2' Diagnosis/Comorbidities Primary Diagnosis Admitting Diagnosis: 2' Diagnosis/Comorbidities 1. 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 Morbid obesity with current BMI >60 to 65 kg/m 4. Chronic narcotic dependence 5. noncompliance Assessment/Plan Medical decision making Overall patient's general condition appears to be clinically ill from development of Recurrence of cellulitis and open wound infection of R lower extremity * Known history of multiple infections such as E. coli, Proteus, Pseudomonas, Enterobacter, Gram-positive sepsis MSSA, MRSA * Received multiple rounds of home IV antibiotics in consult with ID for last 4 to 5 years * Last culture results positive for MRSA 10/2023 * Chronic lymphatic edema and uncontrolled diabetes predispose her to be an immunocompromised host * Case discussed with Dr. Lorne Roman infectious disease * Consensus is to hospitalize patient for IV antibiotics * start patient on IV cefepime vancomycin * Will refer to road freight firer for daily wound care * For diet-controlled diabetes we will check her blood sugar and provide Humalog through sliding scale Known history of recurrent deep venous thrombosis of Lower extremity Present at time of admission: NO Status: Chronic Problem specific AP * Known prior history of DVT affecting bilateral upper and lower extremities * Risk factors-morbid obesity, immobility and noncompliance * failed to oral Coumadin * Continued patient on Eliquis Morbid obesity with current BMI 59 kg/m Current body weight exceeds to ideal body weight by 220 LBS All recommended her to have intentional weight loss of 220 LBS through Low-carb low calorie 1800-calorie diet and aerobic exercises as tolerated Informed patient about complications of morbid obesity which includes but not limited to a. RS -obesity hypoventilation and hypoxia, pulmonary embolism, sudden b.CVS-cardiac arrhythmia, embolic events c. GI-GE reflux d. Endocrine-diabetes and comorbidities from diabetes e Neuro-embolic CVA, lifelong disability m-[id number]-hihw susceptibility for Covid infection and comorbidities s-[id number]-[id number] risk for cancer Recommended patient to follow a. daily weight, b. ADA 1800-calorie diet-40% calories from breakfast 30% calories from lunch and dinner each, avoid carbonated soda c. Recommended aerobic exercises like walking 1-5 miles per day, riding on a stationary bike for 1-2 hours Chronic pain syndrome and narcotic dependence Recommended patient for rational and safe use of narcotics Educated patient about ill effects of narcotics which could include But not limited to life-threatening respiratory depression and sudden Patient agrees to follow my recommendations Diabetes education A. Recommended 2200 calorie ADA diet and compliance with medications B.. Recommended intentional weight loss of 270 lbs through diet and exercise C. Recommended recheck every 3-4 monthly hemoglobin A1c, bi annual lipid panel D. Recommended annual arterial duplex study and 24-hour urine for microalbuminuria E. Recommended biannual complete physical, annual dental and eye and foot exam F. Recommended diabetic shoes, podiatry care with early sign of diabetic ulcer f. Recommended to wear diabetic shoes, to see podiatry in case of G. Informed about long-term complications of diabetes-CHD, PAD, CVA, blindness Plan/Recommendation Treatment plans as of today 1. Admit to medical floor telemetry 2. Obtain wound and blood cultures 3. IV antibiotics-IV cefepime 4. Refer patient to Dr. Lorne Roman, ID-Case was discussed with him 5. Refer to wound care nurse for wound care 4. Blood cultures x3 as needed for temp > 101.5 F 5. Accu-Chek before every meal and at bedtime 6. Inj. Humalog through sliding scale 7. Continue IV Lasix and Entresto 8. Continue apixaban 9. CBC CMP TSH ESR 10. Pain management 11.VTE precautions 12, CODE STATUS full code Update patient The patient and/or family is well informed by me about 1. Clinical impression, treatment plans, side effects of medications, course of the disease and guarded prognosis 2. All patient's question/ concerns raised by patient are satisfactorily addressed by me Dietary Evaluation Review Comments: 1) Add cardiac restriction to 60g CCHO diet 2) Initiate MVI @ 1 tb qd 3) Initiate Pro-Stat @ 30 mL qd 4) Refer to outpatient RD for wegith management 5) Follow-up with cardiology 4) Continue to monitor I&O, labs, and skin integrity Expected Outcomes/Goals: 1) appetite and labs to improve 2) wounds to improve 3) f/u in 3-5 days CORI ROMAN MD Oct 31, 2024 22:37
--- NOTE | 2024-10-31 23:56 | DVH ---
Bilateral lower extremity venous duplex Clinical History: H/o DVT Comparison: US RT LOWER DVT on DOS: 10/28/23, US RT LOWER DVT on DOS: 06/19/23, US RT LOWER DVT on DOS: 05/02/23, US BILAT LOWER DVT on DOS: 02/18/23, US BILAT LOWER DVT on DOS: 11/03/22 Technique: Duplex Doppler evaluation of the deep venous systems of both lower extremities from the common femora l veins to the popliteal veins including color Doppler and spectral/pulsed waveform analysis was perf ormed. Findings: RIGHT SIDE: The common femoral vein demonstrates appropriate compressibility and waveform variability. There is compressibility/patency of the great saphenous vein at the proximal thigh. The femoral vein demonstrates appropriate compressibility and waveform variability. The deep femoral vein demonstrates appropriate compressibility and waveform variability. The popliteal vein demonstrates appropriate compressibility and waveform variability. There is normal compressibility at the tibioperoneal trunk. LEFT SIDE: The common femoral vein demonstrates appropriate compressibility and waveform variability. There is compressibility/patency of the great saphenous vein at the proximal thigh. The femoral vein demonstrates appropriate compressibility and waveform variability. The deep femoral vein demonstrates appropriate compressibility and waveform variability. The popliteal vein, trifurcation and posterior tibial vein were not adequately visualized. Impression: 1. No right or left femoropopliteal venous thrombosis. Limited exam secondary to patient body habitus . Deep venous thrombosis can not be excluded within the left popliteal and posterior tibial veins.
[2024-11-01] VITALS (8 sets, daily range): BP systolic 93–120; BP diastolic 47–73; PULSE 74–102; RESP 15–20; TEMP 97.9–98.4; O2SAT 94–100
[2024-11-01 06:42] LABS: Hematocrit 29.3 % (36.0-46.0); Hemoglobin 9.6 g/dL (12.2-16.2); Mean Corpuscular Hemoglobin 27.8 pg (28.0-32.0); Mean Corpuscular Volume 84.9 fL (80.0-100.0); Nucleated Red Blood Cells % 0.1 %
[2024-11-01] MEDS ORDERED: SACUBITRIL-VALSARTAN 24mg/26mg TAB PO SCH (07:00)
[2024-11-01 07:10] LABS: Albumin 3.3 g/dL (3.2-4.8); Alkaline Phosphatase 60 U/L (46-116); Anion Gap 8 (5-15); BUN/Creatinine Ratio 30.7 (10.0-20.0); Calcium 8.8 mg/dL (8.7-10.4); Carbon Dioxide 25 mmol/L (20-31); Chloride 107 mmol/L (98-107); Glucose 98 mg/dL (74-106); Potassium 4.3 mmol/L (3.5-5.1); Sodium 140 mmol/L (136-145); Total Protein 6.8 g/dL (5.7-8.2)
[2024-11-01 07:11] LABS: Bilirubin, Total 0.5 mg/dL (0.2-1.0); Blood Urea Nitrogen 31 mg/dL (9-23)
[2024-11-01 07:12] LABS: Alanine Aminotransferase < 9 U/L (7-40)
[2024-11-01] MEDS: SACUBITRIL-VALSARTAN 24mg/26mg TAB PO SCH (09:18)
--- NOTE | 2024-11-01 14:25 | DVHCONRES ---
Date Seen: Nov 01, 2024 Resident Creating Document: EJ CHÁVEZ RESDIENT History of Present Illness 49-year-old female with past medical history lymphedema, DVT, pulmonary emboli (status post IVC filter), hypothyroidism, hypertension, and heart failure came to the hospital due to bilateral lower limb swelling. Per patient she has lymphedema since 5-6 years which has recently worsened and prompted this visit. She also reports of mild shortness of breaths. She denies chest pain, fever, cough, palpitation, or any recent sick contact. PMHx: lymphedema, DVT, pulmonary emboli (status post IVC filter), hypothyroidism, hypertension, and heart failure Home medication: Carvedilol, furosemide, Eliquis, Entresto, levothyroxine, spironolactone Patient seen and examined at the bedside. Patient is still complaining of bilateral lower limb discomfort. Family History: Alcoholism Alcoholism Cancer Cancer of colon Chronic obstructive lung disease (situation) FH: thyroid disease G8 MOTHER, Onset:Unknown Family history: Arthritis Family history: Asthma Family history: Blood disorder Family history: Cardiovascular disease G8 MOTHER, Onset:Unknown G8 FATHER, Onset:Unknown G8 SISTER, Onset:Unknown Family history: Depression (situation) Family history: Diabetes mellitus G8 FATHER, Onset:Unknown Family history: Hypertension G8 MOTHER, Onset:Unknown G8 FATHER, Onset:Unknown Family history: Osteoporosis Ischemic heart disease Stroke No Family History of: Family history: Autoimmune disease (situation) Allergies: Coded Allergies: Tuna Flavor (Verified Allergy, Severe, TUNA FISH, 01/07/22) Ceftriaxone (Verified Allergy, Mild, ITCHING, 12/22/19) User: Minda Beckford RN Date: 12/16/14 12:48 Type: Emergency Department Notes ALLERGIC REACTION PT C/O ITCHING WHILE ROCEPHIN WAS INFUSING, STOPPED ABX AND NOTIFIED DR ZINI. 0.9NS INFUSING AT THIS TIME. RECIEVED ORDER TO GIVE BENADRYL BUT TO CONTINUE ROCEPHIN Levofloxacin (Verified Allergy, Mild, 12/22/19) ITCHINESS Acetaminophen (Verified Allergy, Unknown, 08/02/22) BLISTER IN MOUTH PER PATIENT Hydrocodone (Verified Allergy, Unknown, 08/02/22) BLISTER IN MOUTH PER PATIENT Meperidine (Verified Allergy, Unknown, BLISTERS, SOB, 12/22/19) Penicillins (Verified Allergy, Unknown, 12/22/19) Pineapple (Verified Allergy, Unknown, 01/06/22) Piperacillin (Verified Allergy, Unknown, 12/22/19) ITCHING Sulfa Antibiotics (Verified Allergy, Unknown, 09/21/22) Tazobactam (Verified Allergy, Unknown, 12/22/19) ITCHING Vancomycin (Verified Allergy, Unknown, 12/22/19) (allergic to constrast & got reactions after receiving vancomycin --MD Keller/Jesus Vancomycin order) Iohexol (Verified Adverse Reaction, Severe, VOMITING, 05/24/22) Home Meds Active Scripts Doxycycline Monohydrate (Doxycycline Monohydrate) 100 Mg Tab, 100 MG PO Q12HR for 15 Days, #30 TAB Prov:CORI ELLIS MD 01/18/24 Prednisolone Acetate (Ophth) (Pred Forte) 1 % Karen, 1 DROP EACHEYE Q4HR for 5 Days, #5 ML Prov:CORI ELLIS MD 11/02/23 Spironolactone (Aldactone) 25 Mg Tab, 25 MG PO BIDD for 20 Days, #60 TAB Prov:CORI ELLIS MD 11/02/23 Sulfacetamide Sodium (Sulamyd) [address], 1 DROP EACHEYE Q3H for 5 Days, #30 DROP Prov:CORI ELLIS MD 11/02/23 Apixaban Base (ELIQUIS) 5 Mg Tab, 5 MG PO BID for 100 Days, #200 TAB Hold if internal bleeding Prov:CORI ELLIS MD 06/24/23 Sacubitril-Valsartan (Entresto 24-26 mg) 1 Tab Tab, 1 TAB PO BID for 45 Days, #90 TAB Hold if dizzy, systolic BP <110, Report to PMD if edema of the lips, persistent dry cough Prov:CORI ELLIS MD 01/10/22 Reported Medications Levothyroxine Sodium (Levothyroxine Sodium) 175 Mcg Tab, 175 MCG PO QAM, MCG 01/15/24 Torsemide (Torsemide) 20 Mg Tab, 1 TAB PO DAILY 10/30/23 Sucralfate (Sucralfate) 1 Gm Tab, 1 TAB PO TID 10/30/23 Current Medications Current Medications Medications (Trade) Dose Ordered Sig/Priscilla Route PRN Reason Start Time Stop Time Status Last Admin Sacubitril/ Valsartan (Entresto 24-26 Mg tab) 2 tab QAM PO 11/01/24 07:00 11/01/24 08:07 DC Sacubitril/ Valsartan (Entresto 24-26 Mg tab) 1 tab BID PO 11/01/24 10:00 Vital Signs Vital Signs Date Time Temp Pulse Resp B/P (MAP) Pulse Ox O2 Delivery O2 Flow Rate FiO2 11/01/24 13:55 87 20 112/52 11/01/24 13:00 98.4 100 98.4 11/01/24 08:05 Room Air* 0 21 Physical Exam General Appearance: Alert, Oriented X3, Cooperative, No acute distress HEENT: Atraumatic, PERRLA, EOMI, Mucous membrane moist/pink Respiratory: Clear to auscultation, Normal air movement Cardiovascular: Regular rate, Normal S1, Normal S2, No murmurs, no chest wall tenderness Abdominal: Normal bowel sounds, Soft, No tenderness, No hepatospenomegaly, No masses Extremities: Bilateral lower limb swelling Skin: Multiple ulcers on right lower limb Neuro: Normal gait, Normal speech, Strength at 5/5 X4 ext, Normal tone, Sensation intact, Cranial nerves 3-12 NL, Reflexes 2+ Psych/Mental Status: Mental status NL, Mood NL Labs/Diagnostic Data Labs Test 11/01/24 06:11 10/30/24 04:56 10/29/24 18:30 10/29/24 16:33 Range/Units White Blood Count 4.0 L 4.4-10.8 10^3/uL Red Blood Count 3.45 L 4.0-5.20 10^6/uL Hemoglobin 9.6 L 12.2-16.2 g/dL Hematocrit 29.3 L 36.0-46.0 % Mean Corpuscular Volume 84.9 80.0-100.0 fL Mean Corpuscular Hemoglobin 27.8 L 28.0-32.0 pg Mean Corpuscular Hemoglobin Concent 32.8 32.0-36.0 g/dL Red Cell Distribution Width 15.9 H 11.8-14.3 % Platelet Count 336 140-450 10^3/uL Mean Platelet Volume 7.7 6.9-10.8 fL Neutrophils (%) (Auto) 71.0 37.0-80.0 % Lymphocytes (%) (Auto) 13.8 10.0-50.0 % Monocytes (%) (Auto) 8.8 0.0-12.0 % Eosinophils (%) (Auto) 5.7 0.0-7.0 % Basophils (%) (Auto) 0.7 0.0-2.0 % Neutrophils # (Auto) 2.9 1.6-8.6 10 ^3/uL Lymphocytes # (Auto) 0.6 0.4-5.4 10 ^3/uL Monocytes # (Auto) 0.4 0-1.3 10 ^3/uL Eosinophils # (Auto) 0.2 0-0.8 10 ^3/uL Basophils # (Auto) 0 0-0.2 10 ^3/uL Nucleated Red Blood Cells 0.1 % Sodium Level 140 136-145 mmol/L Potassium Level 4.3 3.5-5.1 mmol/L Chloride Level 107 98-107 mmol/L Carbon Dioxide Level 25 20-31 mmol/L Anion Gap 8 5-15 Blood Urea Nitrogen 31 H 9-23 mg/dL Creatinine 1.01 0.550-1.02 mg/dL Glomerular Filtration Rate Calc 69 >90 mL/min BUN/Creatinine Ratio 30.7 H 10.0-20.0 Serum Glucose 98 74-106 mg/dL Calcium Level 8.8 8.7-10.4 mg/dL Total Bilirubin 0.5 0.2-1.0 mg/dL Aspartate Amino Transferase (AST) 11 L 13-40 U/L Alanine Aminotransferase (ALT) < 9 7-40 U/L Alkaline Phosphatase 60 46-116 U/L Total Protein 6.8 5.7-8.2 g/dL Albumin 3.3 3.2-4.8 g/dL Hemoglobin A1c 5.5 <5.7 % A1C Triglycerides Level 104 < 150 mg/dL Cholesterol Level 146 < 200 mg/dL LDL Cholesterol 95 < 100 mg/dL HDL Cholesterol 40 40-59 mg/dL Urine Color Light-yellow Yellow Urine Clarity Clear Clear Urine pH 5.5 5.0-9.0 Urine Specific Crawford 1.008 1.001-1.035 Urine Protein Negative Negative Urine Ketones Negative Negative Urine Blood Negative Negative /uL Urine Nitrite Negative Negative Urine Bilirubin Negative Negative Urine Urobilinogen Normal Negative mg/dL Urine Leukocyte Esterase 2+ Negative /uL Urine RBC 2 0 - 4 /hpf Urine Microscopic WBC 7 H 0-5 /HPF Urine Squamous Epithelial Cells Few <5 /hpf Urine Bacteria Few H None Seen /hpf Urine Hyaline Casts Few 0 - 2 /lpf Urine Glucose Normal Normal mg/dL Prothrombin Time 11.2 9.3-11.8 sec Prothrombin Time INR 1.06 0.9-1.15 Activated Partial Thromboplast Time 27.6 24.5-34.5 SEC D-Dimer, Quantitative 0.50 H 0.0-0.49 mg/L FEU Phosphorus Level 4.2 2.4-5.1 mg/dL Magnesium Level 1.9 1.6-2.6 mg/dL B-Type Natriuretic Peptide 97.06 0-100 pg/mL Thyroid Stimulating Hormone (TSH) 0.16 L 0.55-4.78 uIU/mL Microbiology Date/Time Source Procedure Growth Status 10/30/24 13:49 Leg Right Gram Stain - Final Resulted 10/30/24 13:49 Leg Right Wound Culture - Preliminary Resulted Assessment ? Acute on chronic systolic heart failure Lymphedema History of pulmonary emboli and DVT Hypothyroidism Hypertension * EKGs shows normal sinus rhythm with no significant ST or T-wave changes * BNP is within normal limits Plan/recommendation * IV diuretic Lasix 40 mg b.i.d. * Continue home meds * Check echocardiogram * Rest of plan per primary team Thank you for giving us the opportunity to take care of your patient. Please call back if you have any question/concern. Plan discussed with: Patient, Other (RN) EJ CHÁVEZ Nov 01, 2024 14:25
[2024-11-01] MEDS: FUROSEMIDE 40 MG/4 ML VIAL IV SCH (17:42)
--- NOTE | 2024-11-01 21:46 | DVHPN2 ---
Progress Note - Dictate Date Seen: Nov 01, 2024 Subjective Cellulitis of RLE open wound Bakercyst behind R Knee vd STUDY nEG 2D ECHO PENDING vital signs Vital Sign Date Time Temp Pulse Resp B/P (MAP) Pulse Ox O2 Delivery O2 Flow Rate FiO2 11/01/24 20:00 102 17 94 Room Air* 0 21 11/01/24 18:57 108/76 11/01/24 17:00 98.2 98.2 Total Intake and Output 10/31/24 10/31/24 11/01/24 15:00 23:00 07:00 Intake Total 50 ml 1900 ml 550 ml Balance 50 ml 1900 ml 550 ml medications Current Medications Medications Dose Ordered Sig/Priscilla Route Start Time Stop Time Status Last Admin Dose Admin Nitroglycerin 0.4 mg Q5MINP PRN SL 10/29/24 15:45 Morphine Sulfate 2 mg Q30M PRN IV 10/29/24 15:45 Apixaban 5 mg BID PO 10/29/24 22:00 11/01/24 09:18 5 MG Prednisolone Acetate 1 drop Q4HR EACHEYE 10/29/24 18:00 11/01/24 17:44 1 DROP Spironolactone 25 mg BIDD PO 10/29/24 18:00 11/01/24 17:42 25 MG Sucralfate 1 gm TID PO 10/29/24 22:00 11/01/24 13:56 1 GM Sulfacetamide Sodium 1 drop Q3H EACHEYE 10/29/24 15:45 Hold Levothyroxine Sodium 100 mcg QAM PO 10/30/24 07:00 11/01/24 06:37 100 MCG Levothyroxine Sodium 75 mcg QAM PO 10/30/24 07:00 11/01/24 06:38 75 MCG Cefepime HCl 50 ml @ 12.5 mls/hr Q8H IV 10/29/24 22:00 11/01/24 13:53 12.5 MLS/HR Hydromorphone HCl 0.6 mg Q4HP PRN IV 10/29/24 19:45 Hydromorphone HCl 0.8 mg Q4HP PRN IV 10/29/24 19:45 11/01/24 18:27 0.8 MG Sacubitril/ Valsartan 1 tab BID PO 11/01/24 10:00 Furosemide 40 mg BIDD IV 11/01/24 14:30 11/01/24 17:42 40 MG objective General appearance: Short statured morbidly obese, young middle-aged white female Awake alert oriented x3 in no respiratory distress Head: Normocephalic nontraumatic Eyes: EOMI, JASS, sclera nonicteric, conjunctive-pale ENT: No congestion, NSL bilateral symmetrical, oral mucosa dry Neck: Supple, carotid upstroke +2, trachea R off midline, JVD 3 cm No goiter, no stridor, no lymphadenopathy, no use of sternomastoid muscle [id number] ROM Breasts: Self exam by patient-bilateral hyperplasia, no mass/no nipple abnormality Chest : Hypoventilation at bilateral bases, No costochondral tenderness Lungs: clear breath sounds all over except reduced at bases CVS: PMI-2 cm lateral to L MCL in fifth ICS , S1-S2 NSR no S3 GI: Abdomen soft, obese+4, bowel sounds normoactive No focal/rebound tenderness, no mass no hernia, No hepatosplenomegaly : No CVA tenderness, no bladder mass palpable, genitalia-NE SKIN: Nonhealing open wound 6 cms L x 3 cms w x 0.2 cms deep over RLE with erythema, edema on medial aspect- covered by purulent discharge Skin turgor dry, color pale, no rash, no icterus, no varicosity EXTs: Extensive lymphatic edema over bilateral lower extremity (preexistent) RLE-cellulitic erythema edema pain tenderness over medial aspect of non-healing open wound over distal aspect of RLE-purulent discharge Calf tenderness/Homans' sign absent LLE-healed scars of open wounds distal pulses +1 capillary refill <2 seconds JOINTS; reduced range of motion BACK: No apparent lumbosacral spinal muscle tenderness, LYMPH NODES: No cervical, axillary or inguinal lymph nodes Neuro: Awake alert oriented 4, coherent, affect anxious Cognitive's-intact, speech fluent No pronator drift, no focal motor deficit, Changes of peripheral neuropathy, DTR +2, gait wide base PSYCH: Affect mildly depressed-mixed with anxiety, no suicidal ideation laboratory and microbiology Laboratory Tests 11/01/24 06:11 Test 11/01/24 06:11 Range/Units Serum Glucose 98 74-106 mg/dL Problem List Primary Diagnosis 1. Recurrence of cellulitis of RLE 2. Recurrence of RLE wound infection 3. Failure to outpatient Measures. Admitting Diagnosis: 2' Diagnosis/Comorbidities Primary Diagnosis Admitting Diagnosis: 2' Diagnosis/Comorbidities 1. 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 Morbid obesity with current BMI >60 to 65 kg/m 4. Chronic narcotic dependence 5. noncompliance Assessment/Plan Medical decision making Overall patient's general condition appears to be clinically ill from development of Recurrence of cellulitis and open wound infection of R lower extremity * Known history of multiple infections such as E. coli, Proteus, Pseudomonas, Enterobacter, Gram-positive sepsis MSSA, MRSA * Received multiple rounds of home IV antibiotics in consult with ID for last 4 to 5 years * Last culture results positive for MRSA 10/2023 * Chronic lymphatic edema and uncontrolled diabetes predispose her to be an immunocompromised host * Case discussed with Dr. Lorne Roman infectious disease * Consensus is to hospitalize patient for IV antibiotics * start patient on IV cefepime vancomycin * Will refer to transitional living specialist for daily wound care * For diet-controlled diabetes we will check her blood sugar and provide Humalog through sliding scale Known history of recurrent deep venous thrombosis of Lower extremity Present at time of admission: NO Status: Chronic Problem specific AP * Known prior history of DVT affecting bilateral upper and lower extremities * Risk factors-morbid obesity, immobility and noncompliance * failed to oral Coumadin * Continued patient on Eliquis Morbid obesity with current BMI 59 kg/m Current body weight exceeds to ideal body weight by 220 LBS All recommended her to have intentional weight loss of 220 LBS through Low-carb low calorie 1800-calorie diet and aerobic exercises as tolerated Informed patient about complications of morbid obesity which includes but not limited to a. RS -obesity hypoventilation and hypoxia, pulmonary embolism, sudden b.CVS-cardiac arrhythmia, embolic events c. GI-GE reflux d. Endocrine-diabetes and comorbidities from diabetes e Neuro-embolic CVA, lifelong disability [id number] susceptibility for Covid infection and comorbidities [id number] risk for cancer Recommended patient to follow a. daily weight, b. ADA 1800-calorie diet-40% calories from breakfast 30% calories from lunch and dinner each, avoid carbonated soda c. Recommended aerobic exercises like walking 1-5 miles per day, riding on a stationary bike for 1-2 hours Chronic pain syndrome and narcotic dependence Recommended patient for rational and safe use of narcotics Educated patient about ill effects of narcotics which could include But not limited to life-threatening respiratory depression and sudden Patient agrees to follow my recommendations Diabetes education A. Recommended 2200 calorie ADA diet and compliance with medications B.. Recommended intentional weight loss of 270 lbs through diet and exercise C. Recommended recheck every 3-4 monthly hemoglobin A1c, bi annual lipid panel D. Recommended annual arterial duplex study and 24-hour urine for microalbuminuria E. Recommended biannual complete physical, annual dental and eye and foot exam F. Recommended diabetic shoes, podiatry care with early sign of diabetic ulcer f. Recommended to wear diabetic shoes, to see podiatry in case of G. Informed about long-term complications of diabetes-CHD, PAD, CVA, blindness Plan/Recommendation Treatment plans as of today 1. Admit to medical floor telemetry 2. Obtain wound and blood cultures 3. IV antibiotics-IV cefepime 4. Refer patient to Dr. Lorne Roman, ID-Case was discussed with him 5. Refer to wound care nurse for wound care 4. Blood cultures x3 as needed for temp > 101.5 F 5. Accu-Chek before every meal and at bedtime 6. Inj. Humalog through sliding scale 7. Continue IV Lasix and Entresto 8. Continue apixaban 9. CBC CMP TSH ESR 10. Pain management 11.VTE precautions 12, CODE STATUS full code Update patient The patient and/or family is well informed by me about 1. Clinical impression, treatment plans, side effects of medications, course of the disease and guarded prognosis 2. All patient's question/ concerns raised by patient are satisfactorily addressed by me Dietary Evaluation Review Comments: 1) Add cardiac restriction to 60g CCHO diet 2) Initiate MVI @ 1 tb qd 3) Initiate Pro-Stat @ 30 mL qd 4) Refer to outpatient RD for wegith management 5) Follow-up with cardiology 4) Continue to monitor I&O, labs, and skin integrity Expected Outcomes/Goals: 1) appetite and labs to improve 2) wounds to improve 3) f/u in 3-5 days CORI ROMAN MD Nov 01, 2024 21:46
[2024-11-02] VITALS (8 sets, daily range): BP systolic 93–148; BP diastolic 38–68; PULSE 68–104; RESP 15–20; TEMP 97.5–98.8; O2SAT 94–100
--- NOTE | 2024-11-02 00:09 | DVHINCON2 ---
Date of service: Nov 01, 2024 Referring Physician Abel Reason for Consultation CHF History of Present Illness This is a 49-year-old female with past medical history lymphedema, DVT, pulmonary emboli (status post IVC filter), hypothyroidism, hypertension, and heart failure who presented to the ED with c/o bilateral lower limb swelling. Per patient she has lymphedema since 5-6 years which has recently worsened and prompted this visit. She also reports of mild shortness of breaths. She denies chest pain, fever, cough, palpitation, or any recent sick contact. EKGs shows normal sinus rhythm with no significant ST or T-wave changes. BNP is within normal limits. Bilateral lower extremity venous duplex is negative for DVT. Patient was admitted to the hospital. I am asked to consult on this patient. Family History: Alcoholism Alcoholism Cancer Cancer of colon Chronic obstructive lung disease (situation) FH: thyroid disease G8 MOTHER, Onset:Unknown Family history: Arthritis Family history: Asthma Family history: Blood disorder Family history: Cardiovascular disease G8 MOTHER, Onset:Unknown G8 FATHER, Onset:Unknown G8 SISTER, Onset:Unknown Family history: Depression (situation) Family history: Diabetes mellitus G8 FATHER, Onset:Unknown Family history: Hypertension G8 MOTHER, Onset:Unknown G8 FATHER, Onset:Unknown Family history: Osteoporosis Ischemic heart disease Stroke No Family History of: Family history: Autoimmune disease (situation) Allergies: Coded Allergies: Tuna Flavor (Verified Allergy, Severe, TUNA FISH, 01/07/22) Ceftriaxone (Verified Allergy, Mild, ITCHING, 12/22/19) User: Minda Beckford RN Date: 12/16/14 12:48 Type: Emergency Department Notes ALLERGIC REACTION PT C/O ITCHING WHILE ROCEPHIN WAS INFUSING, STOPPED ABX AND NOTIFIED DR TREADWELL. 0.9NS INFUSING AT THIS TIME. RECIEVED ORDER TO GIVE BENADRYL BUT TO CONTINUE ROCEPHIN Levofloxacin (Verified Allergy, Mild, 12/22/19) ITCHINESS Acetaminophen (Verified Allergy, Unknown, 08/02/22) BLISTER IN MOUTH PER PATIENT Hydrocodone (Verified Allergy, Unknown, 08/02/22) BLISTER IN MOUTH PER PATIENT Meperidine (Verified Allergy, Unknown, BLISTERS, SOB, 12/22/19) Penicillins (Verified Allergy, Unknown, 12/22/19) Pineapple (Verified Allergy, Unknown, 01/06/22) Piperacillin (Verified Allergy, Unknown, 12/22/19) ITCHING Sulfa Antibiotics (Verified Allergy, Unknown, 09/21/22) Tazobactam (Verified Allergy, Unknown, 12/22/19) ITCHING Vancomycin (Verified Allergy, Unknown, 12/22/19) (allergic to constrast & got reactions after receiving vancomycin --MD Keller/eJsus Vancomycin order) Iohexol (Verified Adverse Reaction, Severe, VOMITING, 05/24/22) Home Meds Active Scripts Doxycycline Monohydrate (Doxycycline Monohydrate) 100 Mg Tab, 100 MG PO Q12HR for 15 Days, #30 TAB Prov:OCRI ELLIS MD 01/18/24 Prednisolone Acetate (Ophth) (Pred Forte) 1 % Karen, 1 DROP EACHEYE Q4HR for 5 Days, #5 ML Prov:CORI ELLIS MD 11/02/23 Spironolactone (Aldactone) 25 Mg Tab, 25 MG PO BIDD for 20 Days, #60 TAB Prov:CORI ELLIS MD 11/02/23 Sulfacetamide Sodium (Sulamyd) [address], 1 DROP EACHEYE Q3H for 5 Days, #30 DROP Prov:CORI ELLIS MD 11/02/23 Apixaban Base (ELIQUIS) 5 Mg Tab, 5 MG PO BID for 100 Days, #200 TAB Hold if internal bleeding Prov:CORI ELLIS MD 06/24/23 Sacubitril-Valsartan (Entresto 24-26 mg) 1 Tab Tab, 1 TAB PO BID for 45 Days, #90 TAB Hold if dizzy, systolic BP <110, Report to PMD if edema of the lips, persistent dry cough Prov:CORI ELLIS MD 01/10/22 Reported Medications Levothyroxine Sodium (Levothyroxine Sodium) 175 Mcg Tab, 175 MCG PO QAM, MCG 01/15/24 Torsemide (Torsemide) 20 Mg Tab, 1 TAB PO DAILY 10/30/23 Sucralfate (Sucralfate) 1 Gm Tab, 1 TAB PO TID 10/30/23 Current Medications Current Medications Medications (Trade) Dose Ordered Sig/Priscilla Route PRN Reason Start Time Stop Time Status Last Admin Sacubitril/ Valsartan (Entresto 24-26 Mg tab) 2 tab QAM PO 11/01/24 07:00 11/01/24 08:07 DC Sacubitril/ Valsartan (Entresto 24-26 Mg tab) 1 tab BID PO 11/01/24 10:00 11/01/24 21:38 Furosemide (Lasix Injection) 40 mg BIDD IV 11/01/24 14:30 11/01/24 17:42 Review of Systems CONSTITUTIONAL: Patient endorses subjective fevers and chills. HEENT: Denies changes in vision and hearing. RESPIRATORY: Denies shortness of breath and cough. CV: Denies palpitations and chest pain. GI: Denies abdominal pain, nausea, vomiting, and diarrhea. : Denies dysuria and urinary frequency. MSK: Denies myalgia and joint pain. SKIN: Endorses swelling and rash on the legs. NEUROLOGICAL: Denies headache and syncope. PSYCHIATRIC: Denies recent changes in mood, anxiety, and depression. Vital Signs Vital Signs Date Time Temp Pulse Resp B/P (MAP) Pulse Ox O2 Delivery O2 Flow Rate FiO2 11/01/24 22:32 84 15 116/68 11/01/24 21:00 98.0 100 98.0 11/01/24 20:00 Room Air* 0 21 Physical Exam GENERAL: Alert and oriented x 3. No acute distress. EYES: PERRL, EOMI. Anicteric. HENT: Moist mucous membranes. LUNGS: Clear to auscultation bilaterally. CARDIOVASCULAR: Regular rate and rhythm. ABDOMEN: Soft, non-tender and non-distended. EXTREMITIES: BLE edema. NEUROLOGIC: No focal neurological deficits. SKIN: Warm, dry. Multiple ulcers on right lower limb. Labs/Diagnostic Data Labs Test 11/01/24 06:11 10/30/24 04:56 10/29/24 18:30 10/29/24 16:33 Range/Units White Blood Count 4.0 L 4.4-10.8 10^3/uL Red Blood Count 3.45 L 4.0-5.20 10^6/uL Hemoglobin 9.6 L 12.2-16.2 g/dL Hematocrit 29.3 L 36.0-46.0 % Mean Corpuscular Volume 84.9 80.0-100.0 fL Mean Corpuscular Hemoglobin 27.8 L 28.0-32.0 pg Mean Corpuscular Hemoglobin Concent 32.8 32.0-36.0 g/dL Red Cell Distribution Width 15.9 H 11.8-14.3 % Platelet Count 336 140-450 10^3/uL Mean Platelet Volume 7.7 6.9-10.8 fL Neutrophils (%) (Auto) 71.0 37.0-80.0 % Lymphocytes (%) (Auto) 13.8 10.0-50.0 % Monocytes (%) (Auto) 8.8 0.0-12.0 % Eosinophils (%) (Auto) 5.7 0.0-7.0 % Basophils (%) (Auto) 0.7 0.0-2.0 % Neutrophils # (Auto) 2.9 1.6-8.6 10 ^3/uL Lymphocytes # (Auto) 0.6 0.4-5.4 10 ^3/uL Monocytes # (Auto) 0.4 0-1.3 10 ^3/uL Eosinophils # (Auto) 0.2 0-0.8 10 ^3/uL Basophils # (Auto) 0 0-0.2 10 ^3/uL Nucleated Red Blood Cells 0.1 % Sodium Level 140 136-145 mmol/L Potassium Level 4.3 3.5-5.1 mmol/L Chloride Level 107 98-107 mmol/L Carbon Dioxide Level 25 20-31 mmol/L Anion Gap 8 5-15 Blood Urea Nitrogen 31 H 9-23 mg/dL Creatinine 1.01 0.550-1.02 mg/dL Glomerular Filtration Rate Calc 69 >90 mL/min BUN/Creatinine Ratio 30.7 H 10.0-20.0 Serum Glucose 98 74-106 mg/dL Calcium Level 8.8 8.7-10.4 mg/dL Total Bilirubin 0.5 0.2-1.0 mg/dL Aspartate Amino Transferase (AST) 11 L 13-40 U/L Alanine Aminotransferase (ALT) < 9 7-40 U/L Alkaline Phosphatase 60 46-116 U/L Total Protein 6.8 5.7-8.2 g/dL Albumin 3.3 3.2-4.8 g/dL Hemoglobin A1c 5.5 <5.7 % A1C Triglycerides Level 104 < 150 mg/dL Cholesterol Level 146 < 200 mg/dL LDL Cholesterol 95 < 100 mg/dL HDL Cholesterol 40 40-59 mg/dL Urine Color Light-yellow Yellow Urine Clarity Clear Clear Urine pH 5.5 5.0-9.0 Urine Specific [place] 1.008 1.001-1.035 Urine Protein Negative Negative Urine Ketones Negative Negative Urine Blood Negative Negative /uL Urine Nitrite Negative Negative Urine Bilirubin Negative Negative Urine Urobilinogen Normal Negative mg/dL Urine Leukocyte Esterase 2+ Negative /uL Urine RBC 2 0 - 4 /hpf Urine Microscopic WBC 7 H 0-5 /HPF Urine Squamous Epithelial Cells Few <5 /hpf Urine Bacteria Few H None Seen /hpf Urine Hyaline Casts Few 0 - 2 /lpf Urine Glucose Normal Normal mg/dL Prothrombin Time 11.2 9.3-11.8 sec Prothrombin Time INR 1.06 0.9-1.15 Activated Partial Thromboplast Time 27.6 24.5-34.5 SEC D-Dimer, Quantitative 0.50 H 0.0-0.49 mg/L FEU Phosphorus Level 4.2 2.4-5.1 mg/dL Magnesium Level 1.9 1.6-2.6 mg/dL B-Type Natriuretic Peptide 97.06 0-100 pg/mL Thyroid Stimulating Hormone (TSH) 0.16 L 0.55-4.78 uIU/mL Microbiology Date/Time Source Procedure Growth Status 10/30/24 13:49 Leg Right Gram Stain - Final Resulted 10/30/24 13:49 Leg Right Wound Culture - Preliminary Resulted Assessment ? Acute on chronic systolic heart failure. Lymphedema. History of pulmonary emboli and DVT. Hypothyroidism. Hypertension. Plan/Recommendation I agree with your ongoing assessment and care of plan. Patient has been seen by Nataliya Calixto, resident on my behalf. We have discussed the plan with the patient. Telemetry reviewed. IV diuretic Lasix 40 mg b.i.d. Continue home meds. Check echocardiogram. Rest of plan per primary team. Additional plan as per the hospital course. A total of 45 minutes was spent reviewing the patient record, examining the patient, making a diagnostic and therapeutic plan, discussing this plan with medical personnel, following up on diagnostic studies and following the patient for clinical stability excluding any and all procedures. At least 50% of this time was spent in direct, [id number] contact. Plan discussed with: Patient JAYDON MARIANO MD Nov 02, 2024 00:00
--- NOTE | 2024-11-02 16:38 | DVHSR ---
APPROVED REPORT EXAM: Two-dimensional and M-mode echocardiogram with Doppler and color Doppler. Blood Pressure: 111/63 mmHg INDICATION Heart Failure pulmonary embolism RISK FACTORS Obesity: Height: 5'10", Weight: 412 DIMENSIONS LVDd6.2 (3.8-5.7cm)LA (2D)4.3 (1.9-4.0cm)Aortic Root3.1 (2.0-3.7cm) LVDs4.5 (2.5-4.0cm)LA (MM) (1.9-4.0cm)Aortic Cusp Exc2.3 (1.5-2.0cm) EF (%) 53.0 (55-70%)Rt. Atrium4.3 (1.9-4.0cm)Asc. Aorta3.7 cm IVSd0.6 (0.7-1.1cm)RV (D)4.1 (1.8-2.4cm) PWd1.0 (0.7-1.1cm) Mitral Valve MitralMitral Stenosis E wave0.85m/sMV Mean GR.mmHg A wave0.84m/sMV Peak GR.mmHg E/A ratio1.02D MVAcm2 DECEL [id number] 1/2 Timems Aortic Valve Aortic ValveAortic Stenosis V11.08m/Melody Mean GR.5mmHg V21.35m/Melody Peak GR.7mmHg LVOT Diameter2.2 (1.8-2.4cm)Doppler AVA3.04cm2 Pulmonic Valve V21.08m/s Other Information Quality : Technically LimitedRhythm : Technically limited study due to body habitus and patient position. Conclusion LVEF moderately reduced at 35-40%, global hypokinesis RV size and function normal mild left and right atrial dilation no signfiicant valve disease
[2024-11-02] MEDS ORDERED: FUROSEMIDE INJECTION 100 MG in SODIUM CHL 0.9% 100 ML IV SCH (21:30)
--- NOTE | 2024-11-02 21:32 | DVHPN2 ---
Progress Note - Dictate Date Seen: Nov 02, 2024 Subjective Cellulitis of RLE open wound Bakercyst behind R Knee vd STUDY nEG 2D ECHO EF 35-40% ALb low at 3.3 vital signs Vital Sign Date Time Temp Pulse Resp B/P (MAP) Pulse Ox O2 Delivery O2 Flow Rate FiO2 11/02/24 18:49 92 18 126/88 11/02/24 16:41 98.1 96 98.1 11/02/24 08:00 Room Air* 0 21 Total Intake and Output 11/01/24 11/01/24 11/02/24 15:00 23:00 07:00 Intake Total 50 ml 1600 ml 650 ml Balance 50 ml 1600 ml 650 ml medications Current Medications Medications Dose Ordered Sig/Priscilla Route Start Time Stop Time Status Last Admin Dose Admin Nitroglycerin 0.4 mg Q5MINP PRN SL 10/29/24 15:45 Morphine Sulfate 2 mg Q30M PRN IV 10/29/24 15:45 Apixaban 5 mg BID PO 10/29/24 22:00 11/02/24 10:10 5 MG Prednisolone Acetate 1 drop Q4HR EACHEYE 10/29/24 18:00 11/02/24 17:44 1 DROP Spironolactone 25 mg BIDD PO 10/29/24 18:00 11/02/24 17:44 25 MG Sucralfate 1 gm TID PO 10/29/24 22:00 11/02/24 14:15 1 GM Sulfacetamide Sodium 1 drop Q3H EACHEYE 10/29/24 15:45 Hold Levothyroxine Sodium 100 mcg QAM PO 10/30/24 07:00 11/02/24 06:08 100 MCG Levothyroxine Sodium 75 mcg QAM PO 10/30/24 07:00 11/02/24 06:07 75 MCG Cefepime HCl 50 ml @ 12.5 mls/hr Q8H IV 10/29/24 22:00 11/02/24 14:28 12.5 MLS/HR Hydromorphone HCl 0.6 mg Q4HP PRN IV 10/29/24 19:45 Hydromorphone HCl 0.8 mg Q4HP PRN IV 10/29/24 19:45 11/02/24 18:49 0.8 MG Sacubitril/ Valsartan 1 tab BID PO 11/01/24 10:00 11/01/24 21:38 1 TAB Furosemide 40 mg BIDD IV 11/01/24 14:30 11/02/24 17:47 40 MG Furosemide 100 mg/ Sodium Chloride 110 ml @ 5.5 mls/hr Q20H IV 11/02/24 21:30 UNV objective General appearance: Short statured morbidly obese, young middle-aged white female Awake alert oriented x3 in no respiratory distress Head: Normocephalic nontraumatic Eyes: EOMI, JASS, sclera nonicteric, conjunctive-pale ENT: No congestion, NSL bilateral symmetrical, oral mucosa dry Neck: Supple, carotid upstroke +2, trachea R off midline, JVD 3 cm No goiter, no stridor, no lymphadenopathy, no use of sternomastoid muscle [id number]-jiuan-qods ROM Breasts: Self exam by patient-bilateral hyperplasia, no mass/no nipple abnormality Chest : Hypoventilation at bilateral bases, No costochondral tenderness Lungs: clear breath sounds all over except reduced at bases CVS: PMI-2 cm lateral to L MCL in fifth ICS , S1-S2 NSR no S3 GI: Abdomen soft, obese+4, bowel sounds normoactive No focal/rebound tenderness, no mass no hernia, No hepatosplenomegaly : No CVA tenderness, no bladder mass palpable, genitalia-NE SKIN: Nonhealing open wound 6 cms L x 3 cms w x 0.2 cms deep over RLE with erythema, edema on medial aspect- covered by purulent discharge Skin turgor dry, color pale, no rash, no icterus, no varicosity EXTs: Extensive lymphatic edema over bilateral lower extremity (preexistent) RLE-cellulitic erythema edema pain tenderness over medial aspect of non-healing open wound over distal aspect of RLE-purulent discharge Calf tenderness/Homans' sign absent LLE-healed scars of open wounds distal pulses +1 capillary refill <2 seconds JOINTS; reduced range of motion BACK: No apparent lumbosacral spinal muscle tenderness, LYMPH NODES: No cervical, axillary or inguinal lymph nodes Neuro: Awake alert oriented 4, coherent, affect anxious Cognitive's-intact, speech fluent No pronator drift, no focal motor deficit, Changes of peripheral neuropathy, DTR +2, gait wide base PSYCH: Affect mildly depressed-mixed with anxiety, no suicidal ideation laboratory and microbiology Laboratory Tests 11/01/24 06:11 Test 11/01/24 06:11 Range/Units Serum Glucose 98 74-106 mg/dL Problem List Primary Diagnosis 1. Recurrence of cellulitis of RLE 2. Recurrence of RLE wound infection 3. Failure to outpatient Measures. Admitting Diagnosis: 2' Diagnosis/Comorbidities Primary Diagnosis Admitting Diagnosis: 2' Diagnosis/Comorbidities 1. 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 Morbid obesity with current BMI >60 to 65 kg/m 4. Chronic narcotic dependence 5. noncompliance Assessment/Plan Medical decision making Overall patient's general condition appears to be clinically ill from development of Recurrence of cellulitis and open wound infection of R lower extremity * Known history of multiple infections such as E. coli, Proteus, Pseudomonas, Enterobacter, Gram-positive sepsis MSSA, MRSA * Received multiple rounds of home IV antibiotics in consult with ID for last 4 to 5 years * Last culture results positive for MRSA 10/2023 * Chronic lymphatic edema and uncontrolled diabetes predispose her to be an immunocompromised host * Case discussed with Dr. Lorne Roman infectious disease * Consensus is to hospitalize patient for IV antibiotics * start patient on IV cefepime vancomycin * Will refer to director labor standards for daily wound care * For diet-controlled diabetes we will check her blood sugar and provide Humalog through sliding scale Known history of recurrent deep venous thrombosis of Lower extremity Present at time of admission: NO Status: Chronic Problem specific AP * Known prior history of DVT affecting bilateral upper and lower extremities * Risk factors-morbid obesity, immobility and noncompliance * failed to oral Coumadin * Continued patient on Eliquis Morbid obesity with current BMI 59 kg/m Current body weight exceeds to ideal body weight by 220 LBS All recommended her to have intentional weight loss of 220 LBS through Low-carb low calorie 1800-calorie diet and aerobic exercises as tolerated Informed patient about complications of morbid obesity which includes but not limited to a. RS -obesity hypoventilation and hypoxia, pulmonary embolism, sudden b.CVS-cardiac arrhythmia, embolic events c. GI-GE reflux d. Endocrine-diabetes and comorbidities from diabetes e Neuro-embolic CVA, lifelong disability [id number] susceptibility for Covid infection and comorbidities [id number] risk for cancer Recommended patient to follow a. daily weight, b. ADA 1800-calorie diet-40% calories from breakfast 30% calories from lunch and dinner each, avoid carbonated soda c. Recommended aerobic exercises like walking 1-5 miles per day, riding on a stationary bike for 1-2 hours Chronic pain syndrome and narcotic dependence Recommended patient for rational and safe use of narcotics Educated patient about ill effects of narcotics which could include But not limited to life-threatening respiratory depression and sudden Patient agrees to follow my recommendations Diabetes education A. Recommended 2200 calorie ADA diet and compliance with medications B.. Recommended intentional weight loss of 270 lbs through diet and exercise C. Recommended recheck every 3-4 monthly hemoglobin A1c, bi annual lipid panel D. Recommended annual arterial duplex study and 24-hour urine for microalbuminuria E. Recommended biannual complete physical, annual dental and eye and foot exam F. Recommended diabetic shoes, podiatry care with early sign of diabetic ulcer f. Recommended to wear diabetic shoes, to see podiatry in case of G. Informed about long-term complications of diabetes-CHD, PAD, CVA, blindness Plan/Recommendation Treatment plans as of today 1. Admit to medical floor telemetry 2. IV albumin and IV Lasix dripObtain wound and blood cultures 3. IV antibiotics-IV cefepime 4. Refer patient to Dr. Lorne Roman, ID-Case was discussed with him 5. Refer to wound care nurse for wound care 4. Blood cultures x3 as needed for temp > 101.5 F 5. Accu-Chek before every meal and at bedtime 6. Inj. Humalog through sliding scale 7. Continue IV Lasix and Entresto 8. Continue apixaban 9. CBC CMP TSH ESR 10. Pain management 11.VTE precautions 12, CODE STATUS full code Update patient The patient and/or family is well informed by me about 1. Clinical impression, treatment plans, side effects of medications, course of the disease and guarded prognosis 2. All patient's question/ concerns raised by patient are satisfactorily addressed by me Dietary Evaluation Review Comments: 1) Add cardiac restriction to 60g CCHO diet 2) Initiate MVI @ 1 tb qd 3) Initiate Pro-Stat @ 30 mL qd 4) Refer to outpatient RD for wegith management 5) Follow-up with cardiology 4) Continue to monitor I&O, labs, and skin integrity Expected Outcomes/Goals: 1) appetite and labs to improve 2) wounds to improve 3) f/u in 3-5 days CORI ROMAN MD Nov 02, 2024 21:32
--- NOTE | 2024-11-02 23:40 | DVHPN2 ---
Progress Note - Dictate Date Seen: Nov 02, 2024 Medical Necessity Reason Pt with a Central, PICC or Fol: No Subjective Patient was seen and evaluated in follow up. Patient is complaining of RLE pain. Echocardiogram showed moderately reduced EF at 35-40%, global hypokinesis. RV size and function normal. Mild left and right atrial dilation. No significant valve disease Telemetry reviewed. vital signs Vital Sign Date Time Temp Pulse Resp B/P (MAP) Pulse Ox O2 Delivery O2 Flow Rate FiO2 11/02/24 21:00 97.8 86 18 109/64 (79) 96 97.8 11/02/24 08:00 Room Air* 0 21 Total Intake and Output 11/01/24 11/01/24 11/02/24 15:00 23:00 07:00 Intake Total 50 ml 1600 ml 650 ml Balance 50 ml 1600 ml 650 ml medications Current Medications Medications Dose Ordered Sig/Priscilla Route Start Time Stop Time Status Last Admin Dose Admin Nitroglycerin 0.4 mg Q5MINP PRN SL 10/29/24 15:45 Morphine Sulfate 2 mg Q30M PRN IV 10/29/24 15:45 Apixaban 5 mg BID PO 10/29/24 22:00 11/02/24 10:10 5 MG Prednisolone Acetate 1 drop Q4HR EACHEYE 10/29/24 18:00 11/02/24 17:44 1 DROP Spironolactone 25 mg BIDD PO 10/29/24 18:00 11/02/24 17:44 25 MG Sucralfate 1 gm TID PO 10/29/24 22:00 11/02/24 14:15 1 GM Sulfacetamide Sodium 1 drop Q3H EACHEYE 10/29/24 15:45 Hold Levothyroxine Sodium 100 mcg QAM PO 10/30/24 07:00 11/02/24 06:08 100 MCG Levothyroxine Sodium 75 mcg QAM PO 10/30/24 07:00 11/02/24 06:07 75 MCG Cefepime HCl 50 ml @ 12.5 mls/hr Q8H IV 10/29/24 22:00 11/02/24 14:28 12.5 MLS/HR Hydromorphone HCl 0.6 mg Q4HP PRN IV 10/29/24 19:45 Hydromorphone HCl 0.8 mg Q4HP PRN IV 10/29/24 19:45 11/02/24 18:49 0.8 MG Sacubitril/ Valsartan 1 tab BID PO 11/01/24 10:00 11/01/24 21:38 1 TAB Furosemide 40 mg BIDD IV 11/01/24 14:30 11/02/24 17:47 40 MG Furosemide 100 mg/ Sodium Chloride 110 ml @ 5.5 mls/hr Q20H IV 11/02/24 21:30 objective GENERAL: Alert and oriented x 3. No acute distress. EYES: PERRL, EOMI. Anicteric. HENT: Moist mucous membranes. LUNGS: Clear to auscultation bilaterally. CARDIOVASCULAR: Regular rate and rhythm. ABDOMEN: Soft, non-tender and non-distended. EXTREMITIES: BLE edema. NEUROLOGIC: No focal neurological deficits. SKIN: Warm, dry. Multiple ulcers on right lower limb. laboratory and microbiology Laboratory Tests 11/01/24 06:11 Test 11/01/24 06:11 Range/Units Serum Glucose 98 74-106 mg/dL Problem List ? Acute on chronic systolic heart failure. Lymphedema. History of pulmonary emboli and DVT. Hypothyroidism. Hypertension. Assessment/Plan Continued all current supportive medical care. Diuretics with Lasix. Entresto. IV antibiotics as ordered. Eliquis. Aldactone. Nitro SL. Dilaudid and Morphine for pain management. Additional plan as per the hospital course. Dietary Evaluation Review Comments: 1) Add cardiac restriction to 60g CCHO diet 2) Initiate MVI @ 1 tb qd 3) Initiate Pro-Stat @ 30 mL qd 4) Refer to outpatient RD for wegith management 5) Follow-up with cardiology 4) Continue to monitor I&O, labs, and skin integrity Expected Outcomes/Goals: 1) appetite and labs to improve 2) wounds to improve 3) f/u in 3-5 days Plan discussed with: Patient JAYDON MARIANO MD Nov 02, 2024 22:43
[2024-11-03] VITALS (10 sets, daily range): BP systolic 104–137; BP diastolic 66–81; PULSE 77–95; RESP 14–18; TEMP 97.6–98.2; O2SAT 94–100
[2024-11-03] MEDS: FUROSEMIDE INJECTION 100 MG in SODIUM CHL 0.9% 100 ML IV SCH (03:15)
[2024-11-03] MEDS: ALBUMIN 5% 250 ML IV ONE (06:30)
[2024-11-03 07:18] LABS: Alanine Aminotransferase 11 U/L (7-40); Alkaline Phosphatase 71 U/L (46-116); Anion Gap 11 (5-15); BUN/Creatinine Ratio 37.3 (10.0-20.0); Calcium 10.3 mg/dL (8.7-10.4); Carbon Dioxide 26 mmol/L (20-31); Chloride 103 mmol/L (98-107); Glucose 103 mg/dL (74-106); Potassium 4.6 mmol/L (3.5-5.1); Sodium 140 mmol/L (136-145)
[2024-11-03 07:19] LABS: Magnesium 2.1 mg/dL (1.6-2.6); Total Protein 7.9 g/dL (5.7-8.2)
[2024-11-03 07:20] LABS: Albumin 3.9 g/dL (3.2-4.8); Bilirubin, Total 0.6 mg/dL (0.2-1.0)
[2024-11-03 07:22] LABS: Blood Urea Nitrogen 41 mg/dL (9-23)
--- NOTE | 2024-11-03 07:29 | DVH ---
EXAM: XY CHEST XRAY 1 VIEW HISTORY: CHF COMPARISON: XY CHEST XRAY 1 VIEW on DOS: 01/12/24, XY CHEST XRAY 1 VIEW on DOS: 06/23/23, XY CHEST XRAY 1 VIEW on DOS: 01/31/23, XY CHEST PORTABLE on DOS: 09/21/22, RTLEXW on DOS: 05/23/22 TECHNIQUE: Portable upright AP view of the chest was performed. FINDINGS: No pneumothorax or consolidative infiltrates. There is mild interstitial prominence, greater centrall y. The heart is enlarged. Evaluation of fine detail is limited by abundant overlying adipose tissue. IMPRESSION: Cardiomegaly with mild interstitial prominence which may be due to mild CHF or artifactual appearance due to the patient's large body habitus. The lungs are otherwise clear.
[2024-11-03] MEDS: FUROSEMIDE 40 MG/4 ML VIAL IV ONE (09:38)
--- NOTE | 2024-11-03 09:40 | DVHPN2 ---
Progress Note - Dictate Medical Necessity Reason Pt with a Central, PICC or Fol: No Subjective The patient is currently being treated for anasarca due to CHF Her response to IV Lasix and fluid restriction was limited She was given IV albumin for state of hypoalbuminemia followed by Lasix. Her urine output was 500 mL noted through bladder scan Recommended straight catheter Continued patient on IV antibiotics for Cellulitis of RLE and daily wound care vital signs Vital Sign Date Time Temp Pulse Resp B/P (MAP) Pulse Ox O2 Delivery O2 Flow Rate FiO2 11/03/24 08:19 85 17 112/74 11/03/24 07:39 98 11/03/24 07:33 Room Air* 0 21 11/03/24 05:00 97.8 97.8 Total Intake and Output 11/02/24 11/02/24 11/03/24 15:00 23:00 07:00 Intake Total 50 ml 850 ml 775 ml Output Total 800 ml Balance 50 ml 850 ml -25 ml medications Current Medications Medications Dose Ordered Sig/Priscilla Route Start Time Stop Time Status Last Admin Dose Admin Nitroglycerin 0.4 mg Q5MINP PRN SL 10/29/24 15:45 Morphine Sulfate 2 mg Q30M PRN IV 10/29/24 15:45 Apixaban 5 mg BID PO 10/29/24 22:00 11/02/24 23:17 5 MG Prednisolone Acetate 1 drop Q4HR EACHEYE 10/29/24 18:00 11/03/24 02:00 1 DROP Spironolactone 25 mg BIDD PO 10/29/24 18:00 11/03/24 06:22 25 MG Sucralfate 1 gm TID PO 10/29/24 22:00 11/03/24 06:22 1 GM Sulfacetamide Sodium 1 drop Q3H EACHEYE 10/29/24 15:45 Hold Levothyroxine Sodium 100 mcg QAM PO 10/30/24 07:00 11/03/24 06:22 100 MCG Levothyroxine Sodium 75 mcg QAM PO 10/30/24 07:00 11/03/24 06:22 75 MCG Cefepime HCl 50 ml @ 12.5 mls/hr Q8H IV 10/29/24 22:00 11/03/24 06:27 12.5 MLS/HR Hydromorphone HCl 0.6 mg Q4HP PRN IV 10/29/24 19:45 Hydromorphone HCl 0.8 mg Q4HP PRN IV 10/29/24 19:45 11/03/24 07:49 0.8 MG Sacubitril/ Valsartan 1 tab BID PO 11/01/24 10:00 11/01/24 21:38 1 TAB Furosemide 40 mg BIDD IV 11/01/24 14:30 11/02/24 17:47 40 MG Furosemide 100 mg/ Sodium Chloride 110 ml @ 5.5 mls/hr Q20H IV 11/03/24 01:00 11/03/24 03:15 5.5 MLS/HR objective General appearance: Short statured morbidly obese, young middle-aged white female Awake alert oriented x3 in no respiratory distress Head: Normocephalic nontraumatic Eyes: EOMI, JASS, sclera nonicteric, conjunctive-pale ENT: No congestion, NSL bilateral symmetrical, oral mucosa dry Neck: Supple, carotid upstroke +2, trachea R off midline, JVD 3 cm No goiter, no stridor, no lymphadenopathy, no use of sternomastoid muscle [id number]-[id number]-[id number] ROM Breasts: Self exam by patient-bilateral hyperplasia, no mass/no nipple abnormality Chest : Hypoventilation at bilateral bases, No costochondral tenderness Lungs: clear breath sounds all over except reduced at bases CVS: PMI-2 cm lateral to L MCL in fifth ICS , S1-S2 NSR no S3 GI: Abdomen soft, obese+4, bowel sounds normoactive No focal/rebound tenderness, no mass no hernia, No hepatosplenomegaly : No CVA tenderness, no bladder mass palpable, genitalia-NE SKIN: Nonhealing open wound 6 cms L x 3 cms w x 0.2 cms deep over RLE with erythema, edema on medial aspect- covered by purulent discharge Skin turgor dry, color pale, no rash, no icterus, no varicosity EXTs: Extensive lymphatic edema over bilateral lower extremity (preexistent) RLE-cellulitic erythema edema pain tenderness over medial aspect of non-healing open wound over distal aspect of RLE-purulent discharge Calf tenderness/Homans' sign absent LLE-healed scars of open wounds distal pulses +1 capillary refill <2 seconds JOINTS; reduced range of motion BACK: No apparent lumbosacral spinal muscle tenderness, LYMPH NODES: No cervical, axillary or inguinal lymph nodes Neuro: Awake alert oriented 4, coherent, affect anxious Cognitive's-intact, speech fluent No pronator drift, no focal motor deficit, Changes of peripheral neuropathy, DTR +2, gait wide base PSYCH: Affect mildly depressed-mixed with anxiety, no suicidal ideation laboratory and microbiology Laboratory Tests 11/03/24 04:44 11/01/24 06:11 Test 11/03/24 04:44 Range/Units Serum Glucose 103 74-106 mg/dL Problem List Primary Diagnosis 1. Recurrence of cellulitis of RLE 2. Recurrence of RLE wound infection 3. Failure to outpatient Measures. Admitting Diagnosis: 2' Diagnosis/Comorbidities Primary Diagnosis Admitting Diagnosis: 2' Diagnosis/Comorbidities 1. 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 Morbid obesity with current BMI >60 to 65 kg/m 4. Chronic narcotic dependence 5. noncompliance Assessment/Plan Medical decision making Overall patient's general condition appears to be clinically ill from development of Recurrence of cellulitis and open wound infection of R lower extremity * Known history of multiple infections such as E. coli, Proteus, Pseudomonas, Enterobacter, Gram-positive sepsis MSSA, MRSA * Received multiple rounds of home IV antibiotics in consult with ID for last 4 to 5 years * Last culture results positive for MRSA 10/2023 * Chronic lymphatic edema and uncontrolled diabetes predispose her to be an immunocompromised host * Case discussed with Dr. Lorne Roman infectious disease * Consensus is to hospitalize patient for IV antibiotics * start patient on IV cefepime vancomycin * Will refer to nursery laborer for daily wound care * For diet-controlled diabetes we will check her blood sugar and provide Humalog through sliding scale Known history of recurrent deep venous thrombosis of Lower extremity Present at time of admission: NO Status: Chronic Problem specific AP * Known prior history of DVT affecting bilateral upper and lower extremities * Risk factors-morbid obesity, immobility and noncompliance * failed to oral Coumadin * Continued patient on Eliquis Morbid obesity with current BMI 59 kg/m Current body weight exceeds to ideal body weight by 220 LBS All recommended her to have intentional weight loss of 220 LBS through Low-carb low calorie 1800-calorie diet and aerobic exercises as tolerated Informed patient about complications of morbid obesity which includes but not limited to a. RS -obesity hypoventilation and hypoxia, pulmonary embolism, sudden b.CVS-cardiac arrhythmia, embolic events c. GI-GE reflux d. Endocrine-diabetes and comorbidities from diabetes e Neuro-embolic CVA, lifelong disability d-[id number]-pctg susceptibility for Covid infection and comorbidities u-ajcaynnd-smgzmtitn risk for cancer Recommended patient to follow a. daily weight, b. ADA 1800-calorie diet-40% calories from breakfast 30% calories from lunch and dinner each, avoid carbonated soda c. Recommended aerobic exercises like walking 1-5 miles per day, riding on a stationary bike for 1-2 hours Chronic pain syndrome and narcotic dependence Recommended patient for rational and safe use of narcotics Educated patient about ill effects of narcotics which could include But not limited to life-threatening respiratory depression and sudden Patient agrees to follow my recommendations Diabetes education A. Recommended 2200 calorie ADA diet and compliance with medications B.. Recommended intentional weight loss of 270 lbs through diet and exercise C. Recommended recheck every 3-4 monthly hemoglobin A1c, bi annual lipid panel D. Recommended annual arterial duplex study and 24-hour urine for microalbuminuria E. Recommended biannual complete physical, annual dental and eye and foot exam F. Recommended diabetic shoes, podiatry care with early sign of diabetic ulcer f. Recommended to wear diabetic shoes, to see podiatry in case of G. Informed about long-term complications of diabetes-CHD, PAD, CVA, blindness Plan/Recommendation Treatment plans as of today 1. Admit to medical floor telemetry 2. IV albumin 3. Discontinued Lasix infusion 3. IV antibiotics-IV cefepime 4. Refer patient to Dr. Lorne Roman, ID-Case was discussed with him 5. Refer to wound care nurse for wound care 4. Blood cultures x3 as needed for temp > 101.5 F 5. Accu-Chek before every meal and at bedtime 6. Inj. Humalog through sliding scale 7. Continue IV Lasix and Entresto 8. Continue apixaban 9. CBC CMP TSH ESR 10. Pain management 11.VTE precautions 12, CODE STATUS full code Update patient The patient and/or family is well informed by me about 1. Clinical impression, treatment plans, side effects of medications, course of the disease and guarded prognosis 2. All patient's question/ concerns raised by patient are satisfactorily addressed by me Dietary Evaluation Review Comments: 1) Add cardiac restriction to 60g CCHO diet 2) Initiate MVI @ 1 tb qd 3) Initiate Pro-Stat @ 30 mL qd 4) Refer to outpatient RD for wegith management 5) Follow-up with cardiology 4) Continue to monitor I&O, labs, and skin integrity Expected Outcomes/Goals: 1) appetite and labs to improve 2) wounds to improve 3) f/u in 3-5 days CORI ROMAN MD Nov 03, 2024 09:40
--- NOTE | 2024-11-03 14:51 | DVHPN2 ---
Progress Note - Dictate Date Seen: Nov 03, 2024 Medical Necessity Reason Pt with a Central, PICC or Fol: No Subjective Patient was seen and evaluated in follow up. Patient is complaining of RLE wound pain. Patient's urine output was 500 mL noted through bladder scan. Patient is recommended for straight catheter. 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 Chest x-ray shows cardiomegaly with mild interstitial prominence which may be due to mild CHF or artifactual appearance due to the patient's large body habitus. Telemetry reviewed. vital signs Vital Sign Date Time Temp Pulse Resp B/P (MAP) Pulse Ox O2 Delivery O2 Flow Rate FiO2 11/03/24 12:19 84 18 134/70 11/03/24 09:00 98.2 96 98.2 11/03/24 07:33 Room Air* 0 21 Total Intake and Output 11/02/24 11/02/24 11/03/24 15:00 23:00 07:00 Intake Total 50 ml 850 ml 775 ml Output Total 800 ml Balance 50 ml 850 ml -25 ml medications Current Medications Medications Dose Ordered Sig/Priscilla Route Start Time Stop Time Status Last Admin Dose Admin Nitroglycerin 0.4 mg Q5MINP PRN SL 10/29/24 15:45 Morphine Sulfate 2 mg Q30M PRN IV 10/29/24 15:45 Apixaban 5 mg BID PO 10/29/24 22:00 11/03/24 09:38 5 MG Prednisolone Acetate 1 drop Q4HR EACHEYE 10/29/24 18:00 11/03/24 09:46 1 DROP Spironolactone 25 mg BIDD PO 10/29/24 18:00 11/03/24 06:22 25 MG Sucralfate 1 gm TID PO 10/29/24 22:00 11/03/24 06:22 1 GM Sulfacetamide Sodium 1 drop Q3H EACHEYE 10/29/24 15:45 Hold Levothyroxine Sodium 100 mcg QAM PO 10/30/24 07:00 11/03/24 06:22 100 MCG Levothyroxine Sodium 75 mcg QAM PO 10/30/24 07:00 11/03/24 06:22 75 MCG Cefepime HCl 50 ml @ 12.5 mls/hr Q8H IV 10/29/24 22:00 11/03/24 06:27 12.5 MLS/HR Hydromorphone HCl 0.6 mg Q4HP PRN IV 10/29/24 19:45 Hydromorphone HCl 0.8 mg Q4HP PRN IV 10/29/24 19:45 11/03/24 12:19 0.8 MG Sacubitril/ Valsartan 1 tab BID PO 11/01/24 10:00 11/01/24 21:38 1 TAB Furosemide 40 mg BIDD IV 11/01/24 14:30 11/02/24 17:47 40 MG Furosemide 100 mg/ Sodium Chloride 110 ml @ 5.5 mls/hr Q20H IV 11/03/24 01:00 11/03/24 03:15 5.5 MLS/HR objective GENERAL: Alert and oriented x 3. No acute distress. EYES: PERRL, EOMI. Anicteric. HENT: Moist mucous membranes. LUNGS: Clear to auscultation bilaterally. CARDIOVASCULAR: Regular rate and rhythm. ABDOMEN: Soft, non-tender and non-distended. EXTREMITIES: BLE edema. NEUROLOGIC: No focal neurological deficits. SKIN: Warm, dry. Multiple ulcers on right lower limb. laboratory and microbiology Laboratory Tests 11/03/24 04:44 11/01/24 06:11 Test 11/03/24 04:44 Range/Units Serum Glucose 103 74-106 mg/dL Problem List ? Acute on chronic systolic heart failure. Lymphedema. History of pulmonary emboli and DVT. Hypothyroidism. Hypertension. Assessment/Plan Continued all current supportive medical care. Diuretics with Lasix. Entresto. IV antibiotics as ordered. Eliquis. Nitro SL. Dilaudid and Morphine for pain management. Additional plan as per the hospital course. Dietary Evaluation Review Comments: 1) Add cardiac restriction to 60g CCHO diet 2) Initiate MVI @ 1 tb qd 3) Initiate Pro-Stat @ 30 mL qd 4) Refer to outpatient RD for wegith management 5) Follow-up with cardiology 4) Continue to monitor I&O, labs, and skin integrity Expected Outcomes/Goals: 1) appetite and labs to improve 2) wounds to improve 3) f/u in 3-5 days Plan discussed with: Patient JAYDON MARIANO MD Nov 03, 2024 12:34
[2024-11-04 01:00] VITALS: BP 112/60; PULSE 85; RESP 18; TEMP 97.9; O2SAT 93
[2024-11-04 05:00] VITALS: BP 115/68; PULSE 83; RESP 18; TEMP 98.1; O2SAT 93
[2024-11-04 08:00] VITALS: PULSE 79
--- NOTE | 2024-11-04 13:58 | DVHPN2 ---
Consult Progress Note Date Seen: Oct 31, 2024 Subjective Patient reports: Other (has required a middline which remains in place . ongoing drainage from right lower extremity wound is minimal ) Objective vital signs Vital Sign Date Time Temp Pulse Resp B/P (MAP) Pulse Ox O2 Delivery O2 Flow Rate FiO2 11/04/24 09:05 83 18 108/50 11/04/24 08:00 Room Air* 0 21 11/04/24 05:00 98.1 93 98.1 Total Intake and Output 11/03/24 11/03/24 11/04/24 15:00 23:00 07:00 Intake Total 50 ml 650 ml 875 ml Output Total 900 ml 1200 ml Balance 50 ml -250 ml -325 ml medications Current Medications Medications Dose Ordered Sig/Priscilla Route Start Time Stop Time Status Last Admin Dose Admin Nitroglycerin 0.4 mg Q5MINP PRN SL 10/29/24 15:45 Morphine Sulfate 2 mg Q30M PRN IV 10/29/24 15:45 Apixaban 5 mg BID PO 10/29/24 22:00 11/04/24 09:04 5 MG Prednisolone Acetate 1 drop Q4HR EACHEYE 10/29/24 18:00 11/04/24 09:05 1 DROP Spironolactone 25 mg BIDD PO 10/29/24 18:00 11/04/24 05:46 25 MG Sucralfate 1 gm TID PO 10/29/24 22:00 11/04/24 05:46 1 GM Sulfacetamide Sodium 1 drop Q3H EACHEYE 10/29/24 15:45 Hold Levothyroxine Sodium 100 mcg QAM PO 10/30/24 07:00 11/04/24 05:46 100 MCG Levothyroxine Sodium 75 mcg QAM PO 10/30/24 07:00 11/04/24 05:46 75 MCG Cefepime HCl 50 ml @ 12.5 mls/hr Q8H IV 10/29/24 22:00 11/04/24 05:46 12.5 MLS/HR Hydromorphone HCl 0.6 mg Q4HP PRN IV 10/29/24 19:45 Hydromorphone HCl 0.8 mg Q4HP PRN IV 10/29/24 19:45 11/04/24 09:05 0.8 MG Sacubitril/ Valsartan 1 tab BID PO 11/01/24 10:00 11/01/24 21:38 1 TAB Furosemide 40 mg BIDD IV 11/01/24 14:30 11/04/24 05:47 40 MG Furosemide 100 mg/ Sodium Chloride 110 ml @ 5.5 mls/hr Q20H IV 11/03/24 01:00 11/03/24 03:15 5.5 MLS/HR laboratory and microbiology Laboratory Tests 11/03/24 04:44 11/01/24 06:11 Test 11/03/24 04:44 Range/Units Serum Glucose 103 74-106 mg/dL Problem List/Assessment/Plan Problems(with codes): (1) CELLULITIS OF LEFT LOWER LIMB (2) PAIN IN LEFT ANKLE AND JOINTS OF LEFT FOOT (3) Ulcer of ankle (4) Pain in joint, ankle and foot (5) History of deep venous thrombosis (6) Morbid obesity (7) Chronic acquired lymphedema Problem List/Assessment/Plan Acute on chronic systolic heart failure. Lymphedema. History of pulmonary emboli and DVT. Hypothyroidism. Hypertension. This is a 49-year-old female with past medical history lymphedema, DVT, pulmonary emboli (status post IVC filter), hypothyroidism, hypertension, and heart failure who presented to the ED with c/o bilateral lower limb swelling. Per patient she has lymphedema since 5-6 years which has recently worsened and prompted this visit. She also reports of mild shortness of breaths. She denies chest pain, fever, cough, palpitation, or any recent sick contact. EKGs shows normal sinus rhythm with no significant ST or T-wave changes. BNP is within normal limits. Bilateral lower extremity venous duplex is negative for DVT. Patient was admitted to the hospital. I am asked to consult on this patient 10/30: patient drainage less odorous drainage not soaking through bandage 10/31: less concerning for active infection Plan/Recommendation I agree with your ongoing assessment and care of plan. Patient has been seen by Nataliya Calixto, resident on my behalf. We have discussed the plan with the patient. Telemetry reviewed. recommend wound culture- gpc in pairs on gram stain continue cefepime x7 days 2g every 12hrs and doxycycline IV diuretic Lasix 40 mg b.i.d. Continue home meds. Check echocardiogram. Rest of plan per primary team. Additional plan as per the hospital course. A total of 45 minutes was spent reviewing the patient record, examining the patient, making a diagnostic and therapeutic plan, discussing this plan with medical personnel, following up on diagnostic studies and following the patient for clinical stability excluding any and all procedures. At least 50% of this time was spent in direct, [id number] contact. Plan discussed with: Other Dietary Evaluation Review Comments: 1) Add cardiac restriction to 60g CCHO diet 2) Initiate MVI @ 1 tb qd 3) Initiate Pro-Stat @ 30 mL qd 4) Refer to outpatient RD for wegith management 5) Follow-up with cardiology 4) Continue to monitor I&O, labs, and skin integrity Expected Outcomes/Goals: 1) appetite and labs to improve 2) wounds to improve 3) f/u in 3-5 days KAMARI ELLIS MD Nov 04, 2024 13:58
--- NOTE | 2024-11-04 13:59 | DVHPN2 ---
Consult Progress Note Date Seen: Nov 03, 2024 Subjective Patient reports: Feels better (doing well on midline therapy , EKG was done ) Objective vital signs Vital Sign Date Time Temp Pulse Resp B/P (MAP) Pulse Ox O2 Delivery O2 Flow Rate FiO2 11/04/24 09:05 83 18 108/50 11/04/24 08:00 Room Air* 0 21 11/04/24 05:00 98.1 93 98.1 Total Intake and Output 11/03/24 11/03/24 11/04/24 15:00 23:00 07:00 Intake Total 50 ml 650 ml 875 ml Output Total 900 ml 1200 ml Balance 50 ml -250 ml -325 ml medications Current Medications Medications Dose Ordered Sig/Priscilla Route Start Time Stop Time Status Last Admin Dose Admin Nitroglycerin 0.4 mg Q5MINP PRN SL 10/29/24 15:45 Morphine Sulfate 2 mg Q30M PRN IV 10/29/24 15:45 Apixaban 5 mg BID PO 10/29/24 22:00 11/04/24 09:04 5 MG Prednisolone Acetate 1 drop Q4HR EACHEYE 10/29/24 18:00 11/04/24 09:05 1 DROP Spironolactone 25 mg BIDD PO 10/29/24 18:00 11/04/24 05:46 25 MG Sucralfate 1 gm TID PO 10/29/24 22:00 11/04/24 05:46 1 GM Sulfacetamide Sodium 1 drop Q3H EACHEYE 10/29/24 15:45 Hold Levothyroxine Sodium 100 mcg QAM PO 10/30/24 07:00 11/04/24 05:46 100 MCG Levothyroxine Sodium 75 mcg QAM PO 10/30/24 07:00 11/04/24 05:46 75 MCG Cefepime HCl 50 ml @ 12.5 mls/hr Q8H IV 10/29/24 22:00 11/04/24 05:46 12.5 MLS/HR Hydromorphone HCl 0.6 mg Q4HP PRN IV 10/29/24 19:45 Hydromorphone HCl 0.8 mg Q4HP PRN IV 10/29/24 19:45 11/04/24 09:05 0.8 MG Sacubitril/ Valsartan 1 tab BID PO 11/01/24 10:00 11/01/24 21:38 1 TAB Furosemide 40 mg BIDD IV 11/01/24 14:30 11/04/24 05:47 40 MG Furosemide 100 mg/ Sodium Chloride 110 ml @ 5.5 mls/hr Q20H IV 11/03/24 01:00 11/03/24 03:15 5.5 MLS/HR laboratory and microbiology Laboratory Tests 11/03/24 04:44 11/01/24 06:11 Test 11/03/24 04:44 Range/Units Serum Glucose 103 74-106 mg/dL Problem List/Assessment/Plan Problems(with codes): (1) CELLULITIS OF LEFT LOWER LIMB (2) PAIN IN LEFT ANKLE AND JOINTS OF LEFT FOOT (3) Ulcer of ankle (4) Pain in joint, ankle and foot (5) History of deep venous thrombosis (6) Morbid obesity (7) Chronic acquired lymphedema (8) Asthma exacerbation Problem List/Assessment/Plan Acute on chronic systolic heart failure. Lymphedema. History of pulmonary emboli and DVT. Hypothyroidism. Hypertension. This is a 49-year-old female with past medical history lymphedema, DVT, pulmonary emboli (status post IVC filter), hypothyroidism, hypertension, and heart failure who presented to the ED with c/o bilateral lower limb swelling. Per patient she has lymphedema since 5-6 years which has recently worsened and prompted this visit. She also reports of mild shortness of breaths. She denies chest pain, fever, cough, palpitation, or any recent sick contact. EKGs shows normal sinus rhythm with no significant ST or T-wave changes. BNP is within normal limits. Bilateral lower extremity venous duplex is negative for DVT. Patient was admitted to the hospital. I am asked to consult on this patient 10/30: patient drainage less odorous drainage not soaking through bandage 10/31: less concerning for active infection 11/01: no concerns on wound culture and is tolerating antibiotics 11/02: electrolytes are stable and kidney function is good . presented with [place] , likely suspect the volume overload is more related to patients drainage than active infection 11/03: ekg was done and showed EF of 35-40% , global hypokinesis , right ventricle size and function are normal Plan/Recommendation - defer to cardiology for management of heart failure exacerbation and volume overload I agree with your ongoing assessment and care of plan. Patient has been seen by Nataliya Calixto, resident on my behalf. We have discussed the plan with the patient. Telemetry reviewed. recommend wound culture- gpc in pairs on gram stain continue cefepime x7 days 2g every 12hrs and doxycycline IV diuretic Lasix 40 mg b.i.d. Continue home meds. Check echocardiogram. Rest of plan per primary team. Additional plan as per the hospital course. A total of 45 minutes was spent reviewing the patient record, examining the patient, making a diagnostic and therapeutic plan, discussing this plan with medical personnel, following up on diagnostic studies and following the patient for clinical stability excluding any and all procedures. At least 50% of this time was spent in direct, [id number] contact. Plan discussed with: Other Dietary Evaluation Review Comments: 1) Add cardiac restriction to 60g CCHO diet 2) Initiate MVI @ 1 tb qd 3) Initiate Pro-Stat @ 30 mL qd 4) Refer to outpatient RD for wegith management 5) Follow-up with cardiology 4) Continue to monitor I&O, labs, and skin integrity Expected Outcomes/Goals: 1) appetite and labs to improve 2) wounds to improve 3) f/u in 3-5 days KAMARI ELLIS MD Nov 04, 2024 13:59
--- NOTE | 2024-11-04 13:59 | DVHPN2 ---
Consult Progress Note Date Seen: Nov 01, 2024 Subjective Patient reports: Other (getting wound care ) Objective vital signs Vital Sign Date Time Temp Pulse Resp B/P (MAP) Pulse Ox O2 Delivery O2 Flow Rate FiO2 11/04/24 09:05 83 18 108/50 11/04/24 08:00 Room Air* 0 21 11/04/24 05:00 98.1 93 98.1 Total Intake and Output 11/03/24 11/03/24 11/04/24 15:00 23:00 07:00 Intake Total 50 ml 650 ml 875 ml Output Total 900 ml 1200 ml Balance 50 ml -250 ml -325 ml medications Current Medications Medications Dose Ordered Sig/Priscilla Route Start Time Stop Time Status Last Admin Dose Admin Nitroglycerin 0.4 mg Q5MINP PRN SL 10/29/24 15:45 Morphine Sulfate 2 mg Q30M PRN IV 10/29/24 15:45 Apixaban 5 mg BID PO 10/29/24 22:00 11/04/24 09:04 5 MG Prednisolone Acetate 1 drop Q4HR EACHEYE 10/29/24 18:00 11/04/24 09:05 1 DROP Spironolactone 25 mg BIDD PO 10/29/24 18:00 11/04/24 05:46 25 MG Sucralfate 1 gm TID PO 10/29/24 22:00 11/04/24 05:46 1 GM Sulfacetamide Sodium 1 drop Q3H EACHEYE 10/29/24 15:45 Hold Levothyroxine Sodium 100 mcg QAM PO 10/30/24 07:00 11/04/24 05:46 100 MCG Levothyroxine Sodium 75 mcg QAM PO 10/30/24 07:00 11/04/24 05:46 75 MCG Cefepime HCl 50 ml @ 12.5 mls/hr Q8H IV 10/29/24 22:00 11/04/24 05:46 12.5 MLS/HR Hydromorphone HCl 0.6 mg Q4HP PRN IV 10/29/24 19:45 Hydromorphone HCl 0.8 mg Q4HP PRN IV 10/29/24 19:45 11/04/24 09:05 0.8 MG Sacubitril/ Valsartan 1 tab BID PO 11/01/24 10:00 11/01/24 21:38 1 TAB Furosemide 40 mg BIDD IV 11/01/24 14:30 11/04/24 05:47 40 MG Furosemide 100 mg/ Sodium Chloride 110 ml @ 5.5 mls/hr Q20H IV 11/03/24 01:00 11/03/24 03:15 5.5 MLS/HR laboratory and microbiology Laboratory Tests 11/03/24 04:44 11/01/24 06:11 Test 11/03/24 04:44 Range/Units Serum Glucose 103 74-106 mg/dL Problem List/Assessment/Plan Problems(with codes): (1) CELLULITIS OF LEFT LOWER LIMB (2) PAIN IN LEFT ANKLE AND JOINTS OF LEFT FOOT (3) Pain in joint, ankle and foot (4) History of deep venous thrombosis (5) Morbid obesity Problem List/Assessment/Plan Acute on chronic systolic heart failure. Lymphedema. History of pulmonary emboli and DVT. Hypothyroidism. Hypertension. This is a 49-year-old female with past medical history lymphedema, DVT, pulmonary emboli (status post IVC filter), hypothyroidism, hypertension, and heart failure who presented to the ED with c/o bilateral lower limb swelling. Per patient she has lymphedema since 5-6 years which has recently worsened and prompted this visit. She also reports of mild shortness of breaths. She denies chest pain, fever, cough, palpitation, or any recent sick contact. EKGs shows normal sinus rhythm with no significant ST or T-wave changes. BNP is within normal limits. Bilateral lower extremity venous duplex is negative for DVT. Patient was admitted to the hospital. I am asked to consult on this patient 10/30: patient drainage less odorous drainage not soaking through bandage 10/31: less concerning for active infection 11/01: no concerns on wound culture and is tolerating antibiotics Plan/Recommendation I agree with your ongoing assessment and care of plan. Patient has been seen by Nataliya Calixto, resident on my behalf. We have discussed the plan with the patient. Telemetry reviewed. recommend wound culture- gpc in pairs on gram stain continue cefepime x7 days 2g every 12hrs and doxycycline IV diuretic Lasix 40 mg b.i.d. Continue home meds. Check echocardiogram. Rest of plan per primary team. Additional plan as per the hospital course. A total of 45 minutes was spent reviewing the patient record, examining the patient, making a diagnostic and therapeutic plan, discussing this plan with medical personnel, following up on diagnostic studies and following the patient for clinical stability excluding any and all procedures. At least 50% of this time was spent in direct, [id number] contact. Plan discussed with: Other Dietary Evaluation Review Comments: 1) Add cardiac restriction to 60g CCHO diet 2) Initiate MVI @ 1 tb qd 3) Initiate Pro-Stat @ 30 mL qd 4) Refer to outpatient RD for wegith management 5) Follow-up with cardiology 4) Continue to monitor I&O, labs, and skin integrity Expected Outcomes/Goals: 1) appetite and labs to improve 2) wounds to improve 3) f/u in 3-5 days KAMARI ELLIS MD Nov 04, 2024 13:59
--- NOTE | 2024-11-04 13:59 | DVHPN2 ---
Consult Progress Note Date Seen: Nov 02, 2024 Subjective Patient reports: Other (still edemitis , on lasik and getting diuresed well and output oveer 2 liters of urine in last 24 hours ) Objective vital signs Vital Sign Date Time Temp Pulse Resp B/P (MAP) Pulse Ox O2 Delivery O2 Flow Rate FiO2 11/04/24 09:05 83 18 108/50 11/04/24 08:00 Room Air* 0 21 11/04/24 05:00 98.1 93 98.1 Total Intake and Output 11/03/24 11/03/24 11/04/24 15:00 23:00 07:00 Intake Total 50 ml 650 ml 875 ml Output Total 900 ml 1200 ml Balance 50 ml -250 ml -325 ml medications Current Medications Medications Dose Ordered Sig/Priscilla Route Start Time Stop Time Status Last Admin Dose Admin Nitroglycerin 0.4 mg Q5MINP PRN SL 10/29/24 15:45 Morphine Sulfate 2 mg Q30M PRN IV 10/29/24 15:45 Apixaban 5 mg BID PO 10/29/24 22:00 11/04/24 09:04 5 MG Prednisolone Acetate 1 drop Q4HR EACHEYE 10/29/24 18:00 11/04/24 09:05 1 DROP Spironolactone 25 mg BIDD PO 10/29/24 18:00 11/04/24 05:46 25 MG Sucralfate 1 gm TID PO 10/29/24 22:00 11/04/24 05:46 1 GM Sulfacetamide Sodium 1 drop Q3H EACHEYE 10/29/24 15:45 Hold Levothyroxine Sodium 100 mcg QAM PO 10/30/24 07:00 11/04/24 05:46 100 MCG Levothyroxine Sodium 75 mcg QAM PO 10/30/24 07:00 11/04/24 05:46 75 MCG Cefepime HCl 50 ml @ 12.5 mls/hr Q8H IV 10/29/24 22:00 11/04/24 05:46 12.5 MLS/HR Hydromorphone HCl 0.6 mg Q4HP PRN IV 10/29/24 19:45 Hydromorphone HCl 0.8 mg Q4HP PRN IV 10/29/24 19:45 11/04/24 09:05 0.8 MG Sacubitril/ Valsartan 1 tab BID PO 11/01/24 10:00 11/01/24 21:38 1 TAB Furosemide 40 mg BIDD IV 11/01/24 14:30 11/04/24 05:47 40 MG Furosemide 100 mg/ Sodium Chloride 110 ml @ 5.5 mls/hr Q20H IV 11/03/24 01:00 11/03/24 03:15 5.5 MLS/HR laboratory and microbiology Laboratory Tests 11/03/24 04:44 11/01/24 06:11 Test 11/03/24 04:44 Range/Units Serum Glucose 103 74-106 mg/dL Problem List/Assessment/Plan Problems(with codes): (1) CELLULITIS OF LEFT LOWER LIMB (2) PAIN IN LEFT ANKLE AND JOINTS OF LEFT FOOT (3) Ulcer of ankle (4) Pain in joint, ankle and foot (5) History of deep venous thrombosis (6) Morbid obesity (7) Chronic acquired lymphedema Problem List/Assessment/Plan Acute on chronic systolic heart failure. Lymphedema. History of pulmonary emboli and DVT. Hypothyroidism. Hypertension. This is a 49-year-old female with past medical history lymphedema, DVT, pulmonary emboli (status post IVC filter), hypothyroidism, hypertension, and heart failure who presented to the ED with c/o bilateral lower limb swelling. Per patient she has lymphedema since 5-6 years which has recently worsened and prompted this visit. She also reports of mild shortness of breaths. She denies chest pain, fever, cough, palpitation, or any recent sick contact. EKGs shows normal sinus rhythm with no significant ST or T-wave changes. BNP is within normal limits. Bilateral lower extremity venous duplex is negative for DVT. Patient was admitted to the hospital. I am asked to consult on this patient 10/30: patient drainage less odorous drainage not soaking through bandage 10/31: less concerning for active infection 11/01: no concerns on wound culture and is tolerating antibiotics 11/02: electrolytes are stable and kidney function is good . presented with Wicho , likely suspect the volume overload is more related to patients drainage than active infection Plan/Recommendation I agree with your ongoing assessment and care of plan. Patient has been seen by Nataliya Calixto, resident on my behalf. We have discussed the plan with the patient. Telemetry reviewed. recommend wound culture- gpc in pairs on gram stain continue cefepime x7 days 2g every 12hrs and doxycycline IV diuretic Lasix 40 mg b.i.d. Continue home meds. Check echocardiogram. Rest of plan per primary team. Additional plan as per the hospital course. A total of 45 minutes was spent reviewing the patient record, examining the patient, making a diagnostic and therapeutic plan, discussing this plan with medical personnel, following up on diagnostic studies and following the patient for clinical stability excluding any and all procedures. At least 50% of this time was spent in direct, [id number] contact. Plan discussed with: Other Dietary Evaluation Review Comments: 1) Add cardiac restriction to 60g CCHO diet 2) Initiate MVI @ 1 tb qd 3) Initiate Pro-Stat @ 30 mL qd 4) Refer to outpatient RD for wegith management 5) Follow-up with cardiology 4) Continue to monitor I&O, labs, and skin integrity Expected Outcomes/Goals: 1) appetite and labs to improve 2) wounds to improve 3) f/u in 3-5 days KAMARI ELLIS MD Nov 04, 2024 13:59
--- NOTE | 2024-11-04 18:36 | DVHPN2 ---
Consult Progress Note Date Seen: Nov 04, 2024 Subjective Patient reports: No new complaints (not having any more drainage from leg wound . continues to be diuresed significantly , no pain in legs and able to ambulate with assistance ) Objective vital signs Vital Sign Date Time Temp Pulse Resp B/P (MAP) Pulse Ox O2 Delivery O2 Flow Rate FiO2 11/04/24 18:29 128/68 11/04/24 18:28 67 18 11/04/24 08:00 Room Air* 0 21 11/04/24 05:00 98.1 93 98.1 Total Intake and Output 11/03/24 11/03/24 11/04/24 15:00 23:00 07:00 Intake Total 50 ml 650 ml 875 ml Output Total 900 ml 1200 ml Balance 50 ml -250 ml -325 ml medications Current Medications Medications Dose Ordered Sig/Priscilla Route Start Time Stop Time Status Last Admin Dose Admin Nitroglycerin 0.4 mg Q5MINP PRN SL 10/29/24 15:45 Morphine Sulfate 2 mg Q30M PRN IV 10/29/24 15:45 Apixaban 5 mg BID PO 10/29/24 22:00 11/04/24 09:04 5 MG Prednisolone Acetate 1 drop Q4HR EACHEYE 10/29/24 18:00 11/04/24 18:29 1 DROP Spironolactone 25 mg BIDD PO 10/29/24 18:00 11/04/24 18:29 25 MG Sucralfate 1 gm TID PO 10/29/24 22:00 11/04/24 13:54 1 GM Sulfacetamide Sodium 1 drop Q3H EACHEYE 10/29/24 15:45 Hold Levothyroxine Sodium 100 mcg QAM PO 10/30/24 07:00 11/04/24 05:46 100 MCG Levothyroxine Sodium 75 mcg QAM PO 10/30/24 07:00 11/04/24 05:46 75 MCG Hydromorphone HCl 0.6 mg Q4HP PRN IV 10/29/24 19:45 Hydromorphone HCl 0.8 mg Q4HP PRN IV 10/29/24 19:45 11/04/24 18:28 0.8 MG Sacubitril/ Valsartan 1 tab BID PO 11/01/24 10:00 11/01/24 21:38 1 TAB Furosemide 40 mg BIDD IV 11/01/24 14:30 11/04/24 18:29 40 MG laboratory and microbiology Laboratory Tests 11/03/24 04:44 11/01/24 06:11 Test 11/03/24 04:44 Range/Units Serum Glucose 103 74-106 mg/dL Problem List/Assessment/Plan Problems(with codes): (1) UTI (urinary tract infection) (2) Morbid obesity (3) Chronic acquired lymphedema (4) History of deep venous thrombosis (5) Pain in joint, ankle and foot (6) Ulcer of ankle (7) PAIN IN LEFT ANKLE AND JOINTS OF LEFT FOOT (8) CELLULITIS OF LEFT LOWER LIMB Problem List/Assessment/Plan Acute on chronic systolic heart failure. Lymphedema. History of pulmonary emboli and DVT. Hypothyroidism. Hypertension. This is a 49-year-old female with past medical history lymphedema, DVT, pulmonary emboli (status post IVC filter), hypothyroidism, hypertension, and heart failure who presented to the ED with c/o bilateral lower limb swelling. Per patient she has lymphedema since 5-6 years which has recently worsened and prompted this visit. She also reports of mild shortness of breaths. She denies chest pain, fever, cough, palpitation, or any recent sick contact. EKGs shows normal sinus rhythm with no significant ST or T-wave changes. BNP is within normal limits. Bilateral lower extremity venous duplex is negative for DVT. Patient was admitted to the hospital. I am asked to consult on this patient 10/30: patient drainage less odorous drainage not soaking through bandage 10/31: less concerning for active infection 11/01: no concerns on wound culture and is tolerating antibiotics 11/02: electrolytes are stable and kidney function is good . presented with Wicho , likely suspect the volume overload is more related to patients drainage than active infection 11/03: ekg was done and showed EF of 35-40% , global hypokinesis , right ventricle size and function are normal 11/04:able to ambulate with assistance Plan/Recommendation - defer to cardiology for management of heart failure exacerbation and volume overload I agree with your ongoing assessment and care of plan. Patient has been seen by Nataliya Calixto, resident on my behalf. We have discussed the plan with the patient. Telemetry reviewed. recommend wound culture- gpc in pairs on gram stain continue cefepime x7 days 2g every 12hrs and doxycycline IV diuretic Lasix 40 mg b.i.d. Continue home meds. Check echocardiogram. Rest of plan per primary team. Additional plan as per the hospital course. A total of 45 minutes was spent reviewing the patient record, examining the patient, making a diagnostic and therapeutic plan, discussing this plan with medical personnel, following up on diagnostic studies and following the patient for clinical stability excluding any and all procedures. At least 50% of this time was spent in direct, [id number] contact Plan discussed with: Other Dietary Evaluation Review Comments: 1) Add cardiac restriction to 60g CCHO diet 2) Initiate MVI @ 1 tb qd 3) Initiate Pro-Stat @ 30 mL qd 4) Refer to outpatient RD for wegith management 5) Follow-up with cardiology 4) Continue to monitor I&O, labs, and skin integrity Expected Outcomes/Goals: 1) appetite and labs to improve 2) wounds to improve 3) f/u in 3-5 days KAMARI ELLIS MD Nov 04, 2024 18:36
[2024-11-04 20:00] VITALS: PULSE 91
[2024-11-04 21:00] VITALS: BP 136/86; PULSE 91; RESP 18; TEMP 98.9; O2SAT 97
--- NOTE | 2024-11-04 22:25 | DVHPN2 ---
Progress Note - Dictate Date Seen: Nov 04, 2024 Medical Necessity Reason Pt with a Central, PICC or Fol: No Subjective The patient is currently being treated for anasarca due to CHF Her response to IV Lasix and fluid restriction was limited SHe still reports s/s of anasraca and pains behind her knee She is continued on Lasix She also receives cefepimwe and wound care Continued patient on IV antibiotics for Cellulitis of RLE and daily wound care vital signs Vital Sign Date Time Temp Pulse Resp B/P (MAP) Pulse Ox O2 Delivery O2 Flow Rate FiO2 11/04/24 21:00 98.9 91 18 136/86 (103) 97 98.9 11/04/24 08:00 Room Air* 0 21 Total Intake and Output 11/03/24 11/03/24 11/04/24 15:00 23:00 07:00 Intake Total 50 ml 650 ml 875 ml Output Total 900 ml 1200 ml Balance 50 ml -250 ml -325 ml medications Current Medications Medications Dose Ordered Sig/Priscilla Route Start Time Stop Time Status Last Admin Dose Admin Nitroglycerin 0.4 mg Q5MINP PRN SL 10/29/24 15:45 Morphine Sulfate 2 mg Q30M PRN IV 10/29/24 15:45 Apixaban 5 mg BID PO 10/29/24 22:00 11/04/24 09:04 5 MG Prednisolone Acetate 1 drop Q4HR EACHEYE 10/29/24 18:00 11/04/24 18:29 1 DROP Spironolactone 25 mg BIDD PO 10/29/24 18:00 11/04/24 18:29 25 MG Sucralfate 1 gm TID PO 10/29/24 22:00 11/04/24 13:54 1 GM Sulfacetamide Sodium 1 drop Q3H EACHEYE 10/29/24 15:45 Hold Levothyroxine Sodium 100 mcg QAM PO 10/30/24 07:00 11/04/24 05:46 100 MCG Levothyroxine Sodium 75 mcg QAM PO 10/30/24 07:00 11/04/24 05:46 75 MCG Hydromorphone HCl 0.6 mg Q4HP PRN IV 10/29/24 19:45 Hydromorphone HCl 0.8 mg Q4HP PRN IV 10/29/24 19:45 11/04/24 18:28 0.8 MG Sacubitril/ Valsartan 1 tab BID PO 11/01/24 10:00 11/01/24 21:38 1 TAB Furosemide 40 mg BIDD IV 11/01/24 14:30 11/04/24 18:29 40 MG Cefepime HCl 50 ml @ 12.5 mls/hr Q12HR IV 11/04/24 22:00 11/11/24 21:59 objective General appearance: Short statured morbidly obese, young middle-aged white female Awake alert oriented x3 in no respiratory distress Head: Normocephalic nontraumatic Eyes: EOMI, JASS, sclera nonicteric, conjunctive-pale ENT: No congestion, NSL bilateral symmetrical, oral mucosa dry Neck: Supple, carotid upstroke +2, trachea R off midline, JVD 3 cm No goiter, no stridor, no lymphadenopathy, no use of sternomastoid muscle [id number]-[id number] ROM Breasts: Self exam by patient-bilateral hyperplasia, no mass/no nipple abnormality Chest : Hypoventilation at bilateral bases, No costochondral tenderness Lungs: clear breath sounds all over except reduced at bases CVS: PMI-2 cm lateral to L MCL in fifth ICS , S1-S2 NSR no S3 GI: Abdomen soft, obese+4, bowel sounds normoactive No focal/rebound tenderness, no mass no hernia, No hepatosplenomegaly : No CVA tenderness, no bladder mass palpable, genitalia-NE SKIN: Nonhealing open wound 6 cms L x 3 cms w x 0.2 cms deep over RLE with erythema, edema on medial aspect- covered by purulent discharge Skin turgor dry, color pale, no rash, no icterus, no varicosity EXTs: Extensive lymphatic edema over bilateral lower extremity (preexistent) RLE-cellulitic erythema edema pain tenderness over medial aspect of non-healing open wound over distal aspect of RLE-purulent discharge Calf tenderness/Homans' sign absent LLE-healed scars of open wounds distal pulses +1 capillary refill <2 seconds JOINTS; reduced range of motion BACK: No apparent lumbosacral spinal muscle tenderness, LYMPH NODES: No cervical, axillary or inguinal lymph nodes Neuro: Awake alert oriented 4, coherent, affect anxious Cognitive's-intact, speech fluent No pronator drift, no focal motor deficit, Changes of peripheral neuropathy, DTR +2, gait wide base PSYCH: Affect mildly depressed-mixed with anxiety, no suicidal ideation laboratory and microbiology Laboratory Tests 11/03/24 04:44 11/01/24 06:11 Test 11/03/24 04:44 Range/Units Serum Glucose 103 74-106 mg/dL Problem List Primary Diagnosis 1. Recurrence of cellulitis of RLE 2. Recurrence of RLE wound infection 3. Failure to outpatient Measures. 4. Leukopenia Admitting Diagnosis: 2' Diagnosis/Comorbidities Primary Diagnosis Admitting Diagnosis: 2' Diagnosis/Comorbidities 1. 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 Morbid obesity with current BMI >60 to 65 kg/m 4. Chronic narcotic dependence 5. noncompliance Assessment/Plan Medical decision making Overall patient's general condition appears to be clinically ill from development of Recurrence of cellulitis and open wound infection of R lower extremity * Known history of multiple infections such as E. coli, Proteus, Pseudomonas, Enterobacter, Gram-positive sepsis MSSA, MRSA * Received multiple rounds of home IV antibiotics in consult with ID for last 4 to 5 years * Last culture results positive for MRSA 10/2023 * Chronic lymphatic edema and uncontrolled diabetes predispose her to be an immunocompromised host * Case discussed with Dr. Lorne Roman infectious disease * Consensus is to hospitalize patient for IV antibiotics * start patient on IV cefepime vancomycin * Will refer to office technologist for daily wound care * For diet-controlled diabetes we will check her blood sugar and provide Humalog through sliding scale Known history of recurrent deep venous thrombosis of Lower extremity Present at time of admission: NO Status: Chronic Problem specific AP * Known prior history of DVT affecting bilateral upper and lower extremities * Risk factors-morbid obesity, immobility and noncompliance * failed to oral Coumadin * Continued patient on Eliquis Morbid obesity with current BMI 59 kg/m Current body weight exceeds to ideal body weight by 220 LBS All recommended her to have intentional weight loss of 220 LBS through Low-carb low calorie 1800-calorie diet and aerobic exercises as tolerated Informed patient about complications of morbid obesity which includes but not limited to a. RS -obesity hypoventilation and hypoxia, pulmonary embolism, sudden b.CVS-cardiac arrhythmia, embolic events c. GI-GE reflux d. Endocrine-diabetes and comorbidities from diabetes e Neuro-embolic CVA, lifelong disability [id number] susceptibility for Covid infection and comorbidities b-oqhpowoy-[id number] risk for cancer Recommended patient to follow a. daily weight, b. ADA 1800-calorie diet-40% calories from breakfast 30% calories from lunch and dinner each, avoid carbonated soda c. Recommended aerobic exercises like walking 1-5 miles per day, riding on a stationary bike for 1-2 hours Chronic pain syndrome and narcotic dependence Recommended patient for rational and safe use of narcotics Educated patient about ill effects of narcotics which could include But not limited to life-threatening respiratory depression and sudden Patient agrees to follow my recommendations Diabetes education A. Recommended 2200 calorie ADA diet and compliance with medications B.. Recommended intentional weight loss of 270 lbs through diet and exercise C. Recommended recheck every 3-4 monthly hemoglobin A1c, bi annual lipid panel D. Recommended annual arterial duplex study and 24-hour urine for microalbuminuria E. Recommended biannual complete physical, annual dental and eye and foot exam F. Recommended diabetic shoes, podiatry care with early sign of diabetic ulcer f. Recommended to wear diabetic shoes, to see podiatry in case of G. Informed about long-term complications of diabetes-CHD, PAD, CVA, blindness Plan/Recommendation Treatment plans as of today 1. Admit to medical floor telemetry 2. IV albumin 3. Discontinued Lasix infusion 3. IV antibiotics-IV cefepime 4. Refer patient to Dr. Lorne Roman, ID-Case was discussed with him 5. Refer to wound care nurse for wound care 4. Blood cultures x3 as needed for temp > 101.5 F 5. Accu-Chek before every meal and at bedtime 6. Inj. Humalog through sliding scale 7. Continue IV Lasix and Entresto 8. Continue apixaban 9. CBC CMP TSH ESR 10. Pain management 11.VTE precautions 12, CODE STATUS full code Update patient The patient and/or family is well informed by me about 1. Clinical impression, treatment plans, side effects of medications, course of the disease and guarded prognosis 2. All patient's question/ concerns raised by patient are satisfactorily addressed by me Dietary Evaluation Review Comments: 1) Add cardiac restriction to 60g CCHO diet 2) Initiate MVI @ 1 tb qd 3) Initiate Pro-Stat @ 30 mL qd 4) Refer to outpatient RD for wegith management 5) Follow-up with cardiology 4) Continue to monitor I&O, labs, and skin integrity Expected Outcomes/Goals: 1) appetite and labs to improve 2) wounds to improve 3) f/u in 3-5 days CORI ROMAN MD Nov 04, 2024 22:25
[2024-11-04] MEDS: CEFEPIME 2GM/50ML NS 50 ML IV SCH (23:11)
--- NOTE | 2024-11-04 23:15 | DVHPN2 ---
Progress Note - Dictate Date Seen: Nov 04, 2024 Medical Necessity Reason Pt with a Central, PICC or Fol: No Subjective Patient was seen and evaluated in follow up. Patient is complaining of anasarca and leg pain. Patient reports pain is located behind her knee. Knee x-ray is pending. Telemetry reviewed. vital signs Vital Sign Date Time Temp Pulse Resp B/P (MAP) Pulse Ox O2 Delivery O2 Flow Rate FiO2 11/04/24 09:05 83 18 108/50 11/04/24 08:00 Room Air* 0 21 11/04/24 05:00 98.1 93 98.1 Total Intake and Output 11/03/24 11/03/24 11/04/24 15:00 23:00 07:00 Intake Total 50 ml 650 ml 875 ml Output Total 900 ml 1200 ml Balance 50 ml -250 ml -325 ml medications Current Medications Medications Dose Ordered Sig/Priscilla Route Start Time Stop Time Status Last Admin Dose Admin Nitroglycerin 0.4 mg Q5MINP PRN SL 10/29/24 15:45 Morphine Sulfate 2 mg Q30M PRN IV 10/29/24 15:45 Apixaban 5 mg BID PO 10/29/24 22:00 11/04/24 09:04 5 MG Prednisolone Acetate 1 drop Q4HR EACHEYE 10/29/24 18:00 11/04/24 09:05 1 DROP Spironolactone 25 mg BIDD PO 10/29/24 18:00 11/04/24 05:46 25 MG Sucralfate 1 gm TID PO 10/29/24 22:00 11/04/24 05:46 1 GM Sulfacetamide Sodium 1 drop Q3H EACHEYE 10/29/24 15:45 Hold Levothyroxine Sodium 100 mcg QAM PO 10/30/24 07:00 11/04/24 05:46 100 MCG Levothyroxine Sodium 75 mcg QAM PO 10/30/24 07:00 11/04/24 05:46 75 MCG Cefepime HCl 50 ml @ 12.5 mls/hr Q8H IV 10/29/24 22:00 11/04/24 05:46 12.5 MLS/HR Hydromorphone HCl 0.6 mg Q4HP PRN IV 10/29/24 19:45 Hydromorphone HCl 0.8 mg Q4HP PRN IV 10/29/24 19:45 11/04/24 09:05 0.8 MG Sacubitril/ Valsartan 1 tab BID PO 11/01/24 10:00 11/01/24 21:38 1 TAB Furosemide 40 mg BIDD IV 11/01/24 14:30 11/04/24 05:47 40 MG Furosemide 100 mg/ Sodium Chloride 110 ml @ 5.5 mls/hr Q20H IV 11/03/24 01:00 11/03/24 03:15 5.5 MLS/HR objective GENERAL: Alert and oriented x 3. No acute distress. EYES: PERRL, EOMI. Anicteric. HENT: Moist mucous membranes. LUNGS: Clear to auscultation bilaterally. CARDIOVASCULAR: Regular rate and rhythm. ABDOMEN: Soft, non-tender and non-distended. EXTREMITIES: BLE edema. NEUROLOGIC: No focal neurological deficits. SKIN: Warm, dry. Multiple ulcers on right lower limb. laboratory and microbiology Laboratory Tests 11/03/24 04:44 11/01/24 06:11 Test 11/03/24 04:44 Range/Units Serum Glucose 103 74-106 mg/dL Problem List ? Acute on chronic systolic heart failure. Lymphedema. History of pulmonary emboli and DVT. Hypothyroidism. Hypertension. Assessment/Plan Continued all current supportive medical care. Diuretics with Lasix. IV antibiotics as ordered. Eliquis. Nitro SL. Aldactone. Dilaudid and Morphine for pain management. Additional plan as per the hospital course. Dietary Evaluation Review Comments: 1) Add cardiac restriction to 60g CCHO diet 2) Initiate MVI @ 1 tb qd 3) Initiate Pro-Stat @ 30 mL qd 4) Refer to outpatient RD for wegith management 5) Follow-up with cardiology 4) Continue to monitor I&O, labs, and skin integrity Expected Outcomes/Goals: 1) appetite and labs to improve 2) wounds to improve 3) f/u in 3-5 days Plan discussed with: Patient JAYDON MARIANO MD Nov 04, 2024 12:13
[2024-11-04] MEDS: HYDROmorphone HCL 2 MG/ML VL/or syr IV PRN (23:19)
[2024-11-05] VITALS (9 sets, daily range): BP systolic 90–134; BP diastolic 55–77; PULSE 75–96; RESP 17–20; TEMP 97.4–98.9; O2SAT 91–99
[2024-11-05 06:26] LABS: Hematocrit 31.6 % (36.0-46.0); Hemoglobin 10.3 g/dL (12.2-16.2); Mean Corpuscular Hemoglobin 27.4 pg (28.0-32.0); Mean Corpuscular Volume 83.9 fL (80.0-100.0); Nucleated Red Blood Cells % 0.1 %
[2024-11-05 06:45] LABS: Alanine Aminotransferase 23 U/L (7-40); Albumin 3.8 g/dL (3.2-4.8); Alkaline Phosphatase 72 U/L (46-116); Anion Gap 11 (5-15); Calcium 10.0 mg/dL (8.7-10.4); Carbon Dioxide 26 mmol/L (20-31); Chloride 102 mmol/L (98-107); Glucose 101 mg/dL (74-106); Potassium 4.3 mmol/L (3.5-5.1); Sodium 139 mmol/L (136-145); Total Protein 7.7 g/dL (5.7-8.2)
[2024-11-05 06:46] LABS: BUN/Creatinine Ratio 47.1 (10.0-20.0); Bilirubin, Total 0.7 mg/dL (0.2-1.0)
[2024-11-05 06:47] LABS: Blood Urea Nitrogen 48 mg/dL (9-23)
--- NOTE | 2024-11-05 07:55 | DVH ---
CLINICAL INDICATION: R knee OA- TECHNIQUE: XY R KNEE 3V XRAY Comparison: None FINDINGS/IMPRESSION: : There is no evidence of acute fracture or dislocation. Soft tissues are unremarkable. Moderate to severe medial degenerative joint space narrowing.
[2024-11-05] MEDS: HYDROmorphone HCL 2 MG/ML VL/or syr IV PRN (20:27)
--- NOTE | 2024-11-05 23:36 | DVHPN2 ---
Progress Note - Dictate Date Seen: Nov 05, 2024 Medical Necessity Reason Pt with a Central, PICC or Fol: No Subjective Patient was seen and evaluated in follow up. Patient remains with anasarca and leg pain behind her knee. Right knee x-ray shows no evidence of acute fracture or dislocation. Soft tissues are unremarkable. Moderate to severe medial degenerative joint space narrowing. BUN 48. Telemetry reviewed. vital signs Vital Sign Date Time Temp Pulse Resp B/P (MAP) Pulse Ox O2 Delivery O2 Flow Rate FiO2 11/05/24 12:57 75 18 127/59 11/05/24 08:32 97.9 95 97.9 11/05/24 08:00 Room Air* 0 21 Total Intake and Output 11/04/24 11/04/24 11/05/24 15:00 23:00 07:00 Intake Total 800 ml 450 ml Balance 800 ml 450 ml medications Current Medications Medications Dose Ordered Sig/Priscilla Route Start Time Stop Time Status Last Admin Dose Admin Nitroglycerin 0.4 mg Q5MINP PRN SL 10/29/24 15:45 Apixaban 5 mg BID PO 10/29/24 22:00 11/05/24 09:31 5 MG Prednisolone Acetate 1 drop Q4HR EACHEYE 10/29/24 18:00 11/05/24 12:55 1 DROP Spironolactone 25 mg BIDD PO 10/29/24 18:00 11/05/24 06:16 25 MG Sucralfate 1 gm TID PO 10/29/24 22:00 11/05/24 12:55 1 GM Sulfacetamide Sodium 1 drop Q3H EACHEYE 10/29/24 15:45 Hold Levothyroxine Sodium 100 mcg QAM PO 10/30/24 07:00 11/05/24 06:16 100 MCG Levothyroxine Sodium 75 mcg QAM PO 10/30/24 07:00 11/05/24 06:15 50 MCG Sacubitril/ Valsartan 1 tab BID PO 11/01/24 10:00 11/05/24 09:30 1 TAB Furosemide 40 mg BIDD IV 11/01/24 14:30 11/05/24 06:19 40 MG Cefepime HCl 50 ml @ 12.5 mls/hr Q12HR IV 11/04/24 22:00 11/11/24 21:59 11/05/24 09:31 12.5 MLS/HR Hydromorphone HCl 0.8 mg Q6HP PRN IV 11/04/24 22:45 Hydromorphone HCl 1 mg Q6HP PRN IV 11/04/24 22:45 11/05/24 12:57 1 MG objective GENERAL: Alert and oriented x 3. No acute distress. EYES: PERRL, EOMI. Anicteric. HENT: Moist mucous membranes. LUNGS: Clear to auscultation bilaterally. CARDIOVASCULAR: Regular rate and rhythm. ABDOMEN: Soft, non-tender and non-distended. EXTREMITIES: BLE edema. NEUROLOGIC: No focal neurological deficits. SKIN: Warm, dry. Multiple ulcers on right lower limb. laboratory and microbiology Laboratory Tests 11/05/24 05:39 Test 11/05/24 05:39 Range/Units Serum Glucose 101 74-106 mg/dL Problem List ? Acute on chronic systolic heart failure. Lymphedema. History of pulmonary emboli and DVT. Hypothyroidism. Hypertension. Assessment/Plan Continued all current supportive medical care. Diuretics with Lasix. IV antibiotics as ordered. Eliquis. Nitro SL. Aldactone. Entresto. Dilaudid for pain management. Additional plan as per the hospital course. Dietary Evaluation Review Comments: 1) Add cardiac restriction to 60g CCHO diet 2) Initiate MVI @ 1 tb qd 3) Initiate Pro-Stat @ 30 mL qd 4) Refer to outpatient RD for wegith management 5) Follow-up with cardiology 4) Continue to monitor I&O, labs, and skin integrity Expected Outcomes/Goals: 1) appetite and labs to improve 2) wounds to improve 3) f/u in 3-5 days Plan discussed with: Patient JAYDON MARIANO MD Nov 05, 2024 13:15
[2024-11-06] VITALS (7 sets, daily range): BP systolic 103–122; BP diastolic 54–88; PULSE 88–107; RESP 17–20; TEMP 97.1–98.4; O2SAT 95–99
--- NOTE | 2024-11-06 00:22 | DVHPN2 ---
Progress Note - Dictate Date Seen: Nov 05, 2024 Medical Necessity Reason Pt with a Central, PICC or Fol: No Subjective The patient is currently being treated for anasarca due to CHF She seems to be responding to IV Lasix and fluid restriction Her TSH is running low Recommended lower dose at dose of levothyroxine Continued patient on IV antibiotics for Cellulitis of RLE and daily wound care vital signs Vital Sign Date Time Temp Pulse Resp B/P (MAP) Pulse Ox O2 Delivery O2 Flow Rate FiO2 11/05/24 21:00 97.4 91 20 134/77 (96) 99 97.4 11/05/24 20:00 Room Air* 0 21 Total Intake and Output 11/05/24 11/05/24 11/06/24 15:00 23:00 07:00 Intake Total 50 ml 750 ml Balance 50 ml 750 ml medications Current Medications Medications Dose Ordered Sig/Priscilla Route Start Time Stop Time Status Last Admin Dose Admin Nitroglycerin 0.4 mg Q5MINP PRN SL 10/29/24 15:45 Apixaban 5 mg BID PO 10/29/24 22:00 11/05/24 20:22 5 MG Prednisolone Acetate 1 drop Q4HR EACHEYE 10/29/24 18:00 11/05/24 20:32 1 DROP Spironolactone 25 mg BIDD PO 10/29/24 18:00 11/05/24 17:26 25 MG Sucralfate 1 gm TID PO 10/29/24 22:00 11/05/24 20:22 1 GM Sulfacetamide Sodium 1 drop Q3H EACHEYE 10/29/24 15:45 Hold Levothyroxine Sodium 100 mcg QAM PO 10/30/24 07:00 11/05/24 06:16 100 MCG Levothyroxine Sodium 75 mcg QAM PO 10/30/24 07:00 11/05/24 06:15 50 MCG Sacubitril/ Valsartan 1 tab BID PO 11/01/24 10:00 11/05/24 20:22 1 TAB Furosemide 40 mg BIDD IV 11/01/24 14:30 11/05/24 17:26 40 MG Cefepime HCl 50 ml @ 12.5 mls/hr Q12HR IV 11/04/24 22:00 11/11/24 21:59 7/12/25 20:22 12.5 MLS/HR Hydromorphone HCl 0.8 mg Q6HP PRN IV 11/04/24 22:45 11/05/24 20:27 0.8 MG Hydromorphone HCl 1 mg Q6HP PRN IV 11/04/24 22:45 11/05/24 12:57 1 MG objective General appearance: Short statured morbidly obese, young middle-aged white female Awake alert oriented x3 in no respiratory distress Head: Normocephalic nontraumatic Eyes: EOMI, JASS, sclera nonicteric, conjunctive-pale ENT: No congestion, NSL bilateral symmetrical, oral mucosa dry Neck: Supple, carotid upstroke +2, trachea R off midline, JVD 3 cm No goiter, no stridor, no lymphadenopathy, no use of sternomastoid muscle [id number] ROM Breasts: Self exam by patient-bilateral hyperplasia, no mass/no nipple abnormality Chest : Hypoventilation at bilateral bases, No costochondral tenderness Lungs: clear breath sounds all over except reduced at bases CVS: PMI-2 cm lateral to L MCL in fifth ICS , S1-S2 NSR no S3 GI: Abdomen soft, obese+4, bowel sounds normoactive No focal/rebound tenderness, no mass no hernia, No hepatosplenomegaly : No CVA tenderness, no bladder mass palpable, genitalia-NE SKIN: Nonhealing open wound 6 cms L x 3 cms w x 0.2 cms deep over RLE with erythema, edema on medial aspect- covered by purulent discharge Skin turgor dry, color pale, no rash, no icterus, no varicosity EXTs: Extensive lymphatic edema over bilateral lower extremity (preexistent) RLE-cellulitic erythema edema pain tenderness over medial aspect of non-healing open wound over distal aspect of RLE-purulent discharge Calf tenderness/Homans' sign absent LLE-healed scars of open wounds distal pulses +1 capillary refill <2 seconds JOINTS; reduced range of motion BACK: No apparent lumbosacral spinal muscle tenderness, LYMPH NODES: No cervical, axillary or inguinal lymph nodes Neuro: Awake alert oriented 4, coherent, affect anxious Cognitive's-intact, speech fluent No pronator drift, no focal motor deficit, Changes of peripheral neuropathy, DTR +2, gait wide base PSYCH: Affect mildly depressed-mixed with anxiety, no suicidal ideation laboratory and microbiology Laboratory Tests 11/05/24 05:39 Test 11/05/24 05:39 Range/Units Serum Glucose 101 74-106 mg/dL Problem List Primary Diagnosis 1. Recurrence of cellulitis of RLE 2. Recurrence of RLE wound infection 3. Failure to outpatient Measures. 4. Leukopenia Admitting Diagnosis: 2' Diagnosis/Comorbidities Primary Diagnosis Admitting Diagnosis: 2' Diagnosis/Comorbidities 1. 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 Morbid obesity with current BMI >60 to 65 kg/m 4. Chronic narcotic dependence 5. noncompliance Assessment/Plan Medical decision making Overall patient's general condition appears to be clinically ill from development of Recurrence of cellulitis and open wound infection of R lower extremity * Known history of multiple infections such as E. coli, Proteus, Pseudomonas, Enterobacter, Gram-positive sepsis MSSA, MRSA * Received multiple rounds of home IV antibiotics in consult with ID for last 4 to 5 years * Last culture results positive for MRSA 10/2023 * Chronic lymphatic edema and uncontrolled diabetes predispose her to be an immunocompromised host * Case discussed with Dr. Lorne Roman infectious disease * Consensus is to hospitalize patient for IV antibiotics * start patient on IV cefepime vancomycin * Will refer to harness rigger for daily wound care * For diet-controlled diabetes we will check her blood sugar and provide Humalog through sliding scale Known history of recurrent deep venous thrombosis of Lower extremity Present at time of admission: NO Status: Chronic Problem specific AP * Known prior history of DVT affecting bilateral upper and lower extremities * Risk factors-morbid obesity, immobility and noncompliance * failed to oral Coumadin * Continued patient on Eliquis Morbid obesity with current BMI 59 kg/m Current body weight exceeds to ideal body weight by 220 LBS All recommended her to have intentional weight loss of 220 LBS through Low-carb low calorie 1800-calorie diet and aerobic exercises as tolerated Informed patient about complications of morbid obesity which includes but not limited to a. RS -obesity hypoventilation and hypoxia, pulmonary embolism, sudden b.CVS-cardiac arrhythmia, embolic events c. GI-GE reflux d. Endocrine-diabetes and comorbidities from diabetes e Neuro-embolic CVA, lifelong disability c-ovsfgtaew-nnyw susceptibility for Covid infection and comorbidities x-[id number] risk for cancer Recommended patient to follow a. daily weight, b. ADA 1800-calorie diet-40% calories from breakfast 30% calories from lunch and dinner each, avoid carbonated soda c. Recommended aerobic exercises like walking 1-5 miles per day, riding on a stationary bike for 1-2 hours Chronic pain syndrome and narcotic dependence Recommended patient for rational and safe use of narcotics Educated patient about ill effects of narcotics which could include But not limited to life-threatening respiratory depression and sudden Patient agrees to follow my recommendations Diabetes education A. Recommended 2200 calorie ADA diet and compliance with medications B.. Recommended intentional weight loss of 270 lbs through diet and exercise C. Recommended recheck every 3-4 monthly hemoglobin A1c, bi annual lipid panel D. Recommended annual arterial duplex study and 24-hour urine for microalbuminuria E. Recommended biannual complete physical, annual dental and eye and foot exam F. Recommended diabetic shoes, podiatry care with early sign of diabetic ulcer f. Recommended to wear diabetic shoes, to see podiatry in case of G. Informed about long-term complications of diabetes-CHD, PAD, CVA, blindness Plan/Recommendation Treatment plans as of today 1. Admit to medical floor telemetry 2. Adjust dose of levothyroxine 3. Continue IV Lasix Adjust dose and frequency of IV Dilaudid of 3. IV antibiotics-IV cefepime a awaiting consult from Dr. Dominic Guerrier 4. Blood cultures x3 as needed for temp > 101.5 F 5. Accu-Chek before every meal and at bedtime 6. Inj. Humalog through sliding scale 7. Continue IV Lasix and Entresto 8. Continue apixaban 9. CBC CMP TSH ESR 10. Pain management 11.VTE precautions 12, CODE STATUS full code Update patient The patient and/or family is well informed by me about 1. Clinical impression, treatment plans, side effects of medications, course of the disease and guarded prognosis 2. All patient's question/ concerns raised by patient are satisfactorily addressed by me Dietary Evaluation Review Comments: 1) Add cardiac restriction to 60g CCHO diet 2) Initiate MVI @ 1 tb qd 3) Initiate Pro-Stat @ 30 mL qd 4) Refer to outpatient RD for wegith management 5) Follow-up with cardiology 4) Continue to monitor I&O, labs, and skin integrity Expected Outcomes/Goals: 1) appetite and labs to improve 2) wounds to improve 3) f/u in 3-5 days CORI ROMAN MD Nov 06, 2024 00:22
[2024-11-06] MEDS: HYDROmorphone HCL 2 MG/ML VL/or syr IV PRN ×2 (02:48→11:07)
[2024-11-06] MEDS: LEVOTHYROXINE SODIUM 100 MCG TAB PO SCH (06:32)
[2024-11-06] MEDS: LEVOTHYROXINE SODIUM 50 MCG TAB PO SCH (06:32)
[2024-11-06] MEDS ORDERED: LEVOTHYROXINE SODIUM 50 MCG TAB PO SCH (07:00)
--- NOTE | 2024-11-06 10:39 | DVHHP2 ---
History Allergies: Coded Allergies: Tuna Flavor (Verified Allergy, Severe, TUNA FISH, 01/07/22) Ceftriaxone (Verified Allergy, Mild, ITCHING, 12/22/19) User: Minda Beckford RN Date: 12/16/14 12:48 Type: Emergency Department Notes ALLERGIC REACTION PT C/O ITCHING WHILE ROCEPHIN WAS INFUSING, STOPPED ABX AND NOTIFIED DR TREADWELL. 0.9NS INFUSING AT THIS TIME. RECIEVED ORDER TO GIVE BENADRYL BUT TO CONTINUE ROCEPHIN Levofloxacin (Verified Allergy, Mild, 12/22/19) ITCHINESS Acetaminophen (Verified Allergy, Unknown, 08/02/22) BLISTER IN MOUTH PER PATIENT Hydrocodone (Verified Allergy, Unknown, 08/02/22) BLISTER IN MOUTH PER PATIENT Meperidine (Verified Allergy, Unknown, BLISTERS, SOB, 12/22/19) Penicillins (Verified Allergy, Unknown, 12/22/19) Pineapple (Verified Allergy, Unknown, 01/06/22) Piperacillin (Verified Allergy, Unknown, 12/22/19) ITCHING Sulfa Antibiotics (Verified Allergy, Unknown, 09/21/22) Tazobactam (Verified Allergy, Unknown, 12/22/19) ITCHING Vancomycin (Verified Allergy, Unknown, 12/22/19) (allergic to constrast & got reactions after receiving vancomycin -- D/C Vancomycin order) Iohexol (Verified Adverse Reaction, Severe, VOMITING, 05/24/22) Chief Complaint: right knee pain, posterior, worse with standing Present Illness(Onset/Duration right knee pain, posterior, gradual onset, no acute fall Past Surgical History non contributory Physical Exam Skin Right lower leg dressing for chronic ulcers, no tracking erythema, no evidence of infection Extremities Right knee, ROM 0-120, lateral joint line tenderness, no warmth, erythema, mod swelling Vital Signs Vital Signs Date Time Temp Pulse Resp B/P (MAP) Pulse Ox O2 Delivery O2 Flow Rate FiO2 11/06/24 09:15 98.1 107 19 110/81 (91) 97 98.1 11/06/24 08:00 Room Air* 0 21 Impressions/Description 49 F, morbid obesity, right knee OA, lateral, endstage with associated bakers cyst no evidence of infection Plan Pt is profoundly obese, has no acute conditions to her right knee clear for dc from ortho view I recommend follow up in a tertiary care center due to her multiple medical issues MAYUR RUBIO MD Nov 06, 2024 10:39
--- NOTE | 2024-11-06 16:10 | MEDREC ---
[facility] Intervention Section I [facility] Intervention: Deescalate AB based on CS, IV to PO conversion (PLEASE CONSIDER DE-ESCALATION BASED ON CULTURE RESULTS AND IV TO PO CONVERSION ) CICI VILLEGAS PHARMACIST Nov 06, 2024 16:10
[2024-11-06] MEDS: FUROSEMIDE INJECTION 10 ML ONE (20:47)
--- NOTE | 2024-11-06 22:33 | DVHPN2 ---
Progress Note - Dictate Date Seen: Nov 06, 2024 Medical Necessity Reason Pt with a Central, PICC or Fol: No Subjective Patient was seen and evaluated in follow up. No overnight events. Patient does not voice any new complaints. Telemetry reviewed. vital signs Vital Sign Date Time Temp Pulse Resp B/P (MAP) Pulse Ox O2 Delivery O2 Flow Rate FiO2 11/06/24 11:07 107 19 110/81 11/06/24 09:15 98.1 97 98.1 11/06/24 08:00 Room Air* 0 21 Total Intake and Output 11/05/24 11/05/24 11/06/24 15:00 23:00 07:00 Intake Total 50 ml 750 ml 500 ml Output Total 1000 ml Balance 50 ml 750 ml -500 ml medications Current Medications Medications Dose Ordered Sig/Priscilla Route Start Time Stop Time Status Last Admin Dose Admin Nitroglycerin 0.4 mg Q5MINP PRN SL 10/29/24 15:45 Apixaban 5 mg BID PO 10/29/24 22:00 11/06/24 09:35 5 MG Prednisolone Acetate 1 drop Q4HR EACHEYE 10/29/24 18:00 11/06/24 09:35 1 DROP Spironolactone 25 mg BIDD PO 10/29/24 18:00 11/06/24 06:32 25 MG Sucralfate 1 gm TID PO 10/29/24 22:00 11/06/24 06:32 1 GM Sulfacetamide Sodium 1 drop Q3H EACHEYE 10/29/24 15:45 Hold Sacubitril/ Valsartan 1 tab BID PO 11/01/24 10:00 11/06/24 09:35 1 TAB Furosemide 40 mg BIDD IV 11/01/24 14:30 11/06/24 06:33 40 MG Cefepime HCl 50 ml @ 12.5 mls/hr Q12HR IV 11/04/24 22:00 11/11/24 21:59 11/06/24 09:35 12.5 MLS/HR Hydromorphone HCl 0.8 mg Q8HP PRN IV 11/06/24 00:15 11/06/24 02:48 0.8 MG Hydromorphone HCl 1 mg Q8HP PRN IV 11/06/24 00:15 7/13/25 11:07 1 MG Levothyroxine Sodium 100 mcg QAM PO 11/06/24 07:00 11/06/24 06:32 100 MCG Levothyroxine Sodium 50 mcg QAM PO 11/06/24 07:00 11/06/24 06:32 50 MCG objective GENERAL: Alert and oriented x 3. No acute distress. EYES: PERRL, EOMI. Anicteric. HENT: Moist mucous membranes. LUNGS: Clear to auscultation bilaterally. CARDIOVASCULAR: Regular rate and rhythm. ABDOMEN: Soft, non-tender and non-distended. EXTREMITIES: BLE edema. NEUROLOGIC: No focal neurological deficits. SKIN: Warm, dry. Multiple ulcers on right lower limb. laboratory and microbiology Laboratory Tests 11/05/24 05:39 Test 11/05/24 05:39 Range/Units Serum Glucose 101 74-106 mg/dL Problem List ? Acute on chronic systolic heart failure. Lymphedema. History of pulmonary emboli and DVT. Hypothyroidism. Hypertension. Assessment/Plan Continued all current supportive medical care. Diuretics with Lasix. IV antibiotics as ordered. Eliquis. Nitro SL. Aldactone. Entresto. Dilaudid for pain management. Additional plan as per the hospital course. Dietary Evaluation Review Comments: 1) Add cardiac restriction to 60g CCHO diet 2) Initiate MVI @ 1 tb qd 3) Initiate Pro-Stat @ 30 mL qd 4) Refer to outpatient RD for wegith management 5) Follow-up with cardiology 4) Continue to monitor I&O, labs, and skin integrity Expected Outcomes/Goals: 1) appetite and labs to improve 2) wounds to improve 3) f/u in 3-5 days Plan discussed with: Patient JAYDON MARIANO MD Nov 06, 2024 13:26
[2024-11-07] VITALS (7 sets, daily range): BP systolic 104–126; BP diastolic 66–81; PULSE 67–95; RESP 16–18; TEMP 97.1–98.6; O2SAT 94–99
--- NOTE | 2024-11-07 10:44 | DVHDS2 ---
Discharge Summary Date of Admission Oct 29, 2024 at 14:25 Labs/Diagnostic Data: Laboratory Results Test 11/05/24 05:39 11/03/24 04:44 10/30/24 04:56 10/29/24 18:30 White Blood Count 5.2 10^3/uL (4.4-10.8) Red Blood Count 3.76 10^6/uL (4.0-5.20) Hemoglobin 10.3 g/dL (12.2-16.2) Hematocrit 31.6 % (36.0-46.0) Mean Corpuscular Volume 83.9 fL (80.0-100.0) Mean Corpuscular Hemoglobin 27.4 pg (28.0-32.0) Mean Corpuscular Hemoglobin Concent 32.6 g/dL (32.0-36.0) Red Cell Distribution Width 15.7 % (11.8-14.3) Platelet Count 303 10^3/uL (140-450) Mean Platelet Volume 8.0 fL (6.9-10.8) Neutrophils (%) (Auto) 69.4 % (37.0-80.0) Lymphocytes (%) (Auto) 14.4 % (10.0-50.0) Monocytes (%) (Auto) 10.6 % (0.0-12.0) Eosinophils (%) (Auto) 4.9 % (0.0-7.0) Basophils (%) (Auto) 0.7 % (0.0-2.0) Neutrophils # (Auto) 3.6 10 ^3/uL (1.6-8.6) Lymphocytes # (Auto) 0.7 10 ^3/uL (0.4-5.4) Monocytes # (Auto) 0.5 10 ^3/uL (0-1.3) Eosinophils # (Auto) 0.3 10 ^3/uL (0-0.8) Basophils # (Auto) 0 10 ^3/uL (0-0.2) Nucleated Red Blood Cells 0.1 % Sodium Level 139 mmol/L (136-145) Potassium Level 4.3 mmol/L (3.5-5.1) Chloride Level 102 mmol/L (98-107) Carbon Dioxide Level 26 mmol/L (20-31) Anion Gap 11 (5-15) Blood Urea Nitrogen 48 mg/dL (9-23) Creatinine 1.02 mg/dL (0.550-1.02) Glomerular Filtration Rate Calc 68 mL/min (>90) BUN/Creatinine Ratio 47.1 (10.0-20.0) Serum Glucose 101 mg/dL (74-106) Calcium Level 10.0 mg/dL (8.7-10.4) Total Bilirubin 0.7 mg/dL (0.2-1.0) Aspartate Amino Transferase (AST) 25 U/L (13-40) Alanine Aminotransferase (ALT) 23 U/L (7-40) Alkaline Phosphatase 72 U/L (46-116) Total Protein 7.7 g/dL (5.7-8.2) Albumin 3.8 g/dL (3.2-4.8) Phosphorus Level 3.7 mg/dL (2.4-5.1) Magnesium Level 2.1 mg/dL (1.6-2.6) Thyroid Stimulating Hormone (TSH) 0.50 uIU/mL (0.55-4.78) Hemoglobin A1c 5.5 % A1C (<5.7) Triglycerides Level 104 mg/dL (< 150) Cholesterol Level 146 mg/dL (< 200) LDL Cholesterol 95 mg/dL (< 100) HDL Cholesterol 40 mg/dL (40-59) Urine Color Light-yellow (Yellow) Urine Clarity Clear (Clear) Urine pH 5.5 (5.0-9.0) Urine Specific [place] 1.008 (1.001-1.035) Urine Protein Negative (Negative) Urine Ketones Negative (Negative) Urine Blood Negative /uL (Negative) Urine Nitrite Negative (Negative) Urine Bilirubin Negative (Negative) Urine Urobilinogen Normal mg/dL (Negative) Urine Leukocyte Esterase 2+ /uL (Negative) Urine RBC 2 /hpf (0 - 4) Urine Microscopic WBC 7 /HPF (0-5) Urine Squamous Epithelial Cells Few /hpf (<5) Urine Bacteria Few /hpf (None Seen) Urine Hyaline Casts Few /lpf (0 - 2) Urine Glucose Normal mg/dL (Normal) Test 10/29/24 16:33 Prothrombin Time 11.2 sec (9.3-11.8) Prothrombin Time INR 1.06 (0.9-1.15) Activated Partial Thromboplast Time 27.6 SEC (24.5-34.5) D-Dimer, Quantitative 0.50 mg/L FEU (0.0-0.49) B-Type Natriuretic Peptide 97.06 pg/mL (0-100) Other Laboratory Tests 11/05/24 05:39 Discharge Instruct/Medications Scheduled Apixaban Base (Eliquis), 5 MG PO BID Doxycycline Monohydrate (Doxycycline Monohydrate), 100 MG PO Q12HR Levothyroxine Sodium (Levothyroxine Sodium), 175 MCG PO QAM, (Reported) Prednisolone Acetate (Ophth) (Pred Forte), 1 DROP EACHEYE Q4HR Sacubitril-Valsartan (Entresto 24-26 mg), 1 TAB PO BID Spironolactone (Aldactone), 25 MG PO BIDD Sucralfate (Sucralfate), 1 TAB PO TID, (Reported) Sulfacetamide Sodium (Sulamyd), 1 DROP EACHEYE Q3H Torsemide (Torsemide), 1 TAB PO DAILY, (Reported) Discharge Statement: "Patient was advised to return to the ER or call 911 if any headaches, dizziness, shortness of breath, chest pain, abdominal pain, bleeding, fevers, or worsening of medical condition. Patient was counseled about treatment plan, medications, possible side effects, patientverbalized understanding. All questions were answered to the best of my ability. This discharge took greater then 30 minutes in planning, reviewing documentation, counseling the patient, and discussing with other team members." ASSESSMENT ASSESSMENT Assessment CORI ELLIS MD Nov 07, 2024 10:44
--- NOTE | 2024-11-07 10:44 | DVHPN2 ---
Progress Note - Dictate Date Seen: Nov 06, 2024 Medical Necessity Reason Pt with a Central, PICC or Fol: No Subjective The patient is currently being treated for anasarca due to CHF She seems to be responding to IV Lasix and fluid restriction Her TSH is running low Recommended lower dose at dose of levothyroxine Continued patient on IV antibiotics for Cellulitis of RLE and daily wound care vital signs Vital Sign Date Time Temp Pulse Resp B/P (MAP) Pulse Ox O2 Delivery O2 Flow Rate FiO2 11/06/24 11:07 107 19 110/81 11/06/24 09:15 98.1 97 98.1 11/06/24 08:00 Room Air* 0 21 Total Intake and Output 11/05/24 11/05/24 11/06/24 15:00 23:00 07:00 Intake Total 50 ml 750 ml 500 ml Output Total 1000 ml Balance 50 ml 750 ml -500 ml medications medications Current Medications Medications Dose Ordered Sig/Priscilla Route Start Time Stop Time Status Last Admin Dose Admin Nitroglycerin 0.4 mg Q5MINP PRN SL 10/29/24 15:45 Apixaban 5 mg BID PO 10/29/24 22:00 11/07/24 09:12 5 MG Prednisolone Acetate 1 drop Q4HR EACHEYE 10/29/24 18:00 11/07/24 06:03 1 DROP Spironolactone 25 mg BIDD PO 10/29/24 18:00 11/07/24 06:02 25 MG Sucralfate 1 gm TID PO 10/29/24 22:00 11/07/24 06:02 1 GM Sulfacetamide Sodium 1 drop Q3H EACHEYE 10/29/24 15:45 Hold Sacubitril/ Valsartan 1 tab BID PO 11/01/24 10:00 11/07/24 09:12 1 TAB Furosemide 40 mg BIDD IV 11/01/24 14:30 11/07/24 06:03 40 MG Cefepime HCl 50 ml @ 12.5 mls/hr Q12HR IV 11/04/24 22:00 11/11/24 21:59 11/07/24 09:11 12.5 MLS/HR Hydromorphone HCl 0.8 mg Q8HP PRN IV 11/06/24 00:15 11/06/24 02:48 0.8 MG Hydromorphone HCl 1 mg Q8HP PRN IV 11/06/24 00:15 11/07/24 03:47 1 MG Levothyroxine Sodium 100 mcg QAM PO 11/06/24 07:00 11/07/24 06:02 100 MCG Levothyroxine Sodium 50 mcg QAM PO 11/06/24 07:00 11/07/24 06:02 50 MCG objective General appearance: Short statured morbidly obese, young middle-aged white female Awake alert oriented x3 in no respiratory distress Head: Normocephalic nontraumatic Eyes: EOMI, JASS, sclera nonicteric, conjunctive-pale ENT: No congestion, NSL bilateral symmetrical, oral mucosa dry Neck: Supple, carotid upstroke +2, trachea R off midline, JVD 3 cm No goiter, no stridor, no lymphadenopathy, no use of sternomastoid muscle G-bywet-sdwn ROM Breasts: Self exam by patient-bilateral hyperplasia, no mass/no nipple abnormality Chest : Hypoventilation at bilateral bases, No costochondral tenderness Lungs: clear breath sounds all over except reduced at bases CVS: PMI-2 cm lateral to L MCL in fifth ICS , S1-S2 NSR no S3 GI: Abdomen soft, obese+4, bowel sounds normoactive No focal/rebound tenderness, no mass no hernia, No hepatosplenomegaly : No CVA tenderness, no bladder mass palpable, genitalia-NE SKIN: Nonhealing open wound 6 cms L x 3 cms w x 0.2 cms deep over RLE with erythema, edema on medial aspect- covered by purulent discharge Skin turgor dry, color pale, no rash, no icterus, no varicosity EXTs: Extensive lymphatic edema over bilateral lower extremity (preexistent) RLE-cellulitic erythema edema pain tenderness over medial aspect of non-healing open wound over distal aspect of RLE-purulent discharge Calf tenderness/Homans' sign absent LLE-healed scars of open wounds distal pulses +1 capillary refill <2 seconds JOINTS; reduced range of motion BACK: No apparent lumbosacral spinal muscle tenderness, LYMPH NODES: No cervical, axillary or inguinal lymph nodes Neuro: Awake alert oriented 4, coherent, affect anxious Cognitive's-intact, speech fluent No pronator drift, no focal motor deficit, Changes of peripheral neuropathy, DTR +2, gait wide base PSYCH: Affect mildly depressed-mixed with anxiety, no suicidal ideation laboratory and microbiology Laboratory Tests 11/05/24 05:39 Test 11/05/24 05:39 Range/Units Serum Glucose 101 74-106 mg/dL Problem List Primary Diagnosis 1. Recurrence of cellulitis of RLE 2. Recurrence of RLE wound infection 3. Failure to outpatient Measures. 4. Leukopenia Admitting Diagnosis: 2' Diagnosis/Comorbidities Primary Diagnosis Admitting Diagnosis: 2' Diagnosis/Comorbidities 1. 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 Morbid obesity with current BMI >60 to 65 kg/m 4. Chronic narcotic dependence 5. noncompliance Assessment/Plan Medical decision making Overall patient's general condition appears to be clinically ill from development of Recurrence of cellulitis and open wound infection of R lower extremity * Known history of multiple infections such as E. coli, Proteus, Pseudomonas, Enterobacter, Gram-positive sepsis MSSA, MRSA * Received multiple rounds of home IV antibiotics in consult with ID for last 4 to 5 years * Last culture results positive for MRSA 10/2023 * Chronic lymphatic edema and uncontrolled diabetes predispose her to be an immunocompromised host * Case discussed with Dr. Lorne Roman infectious disease * Consensus is to hospitalize patient for IV antibiotics * start patient on IV cefepime vancomycin * Will refer to chief client officer for daily wound care * For diet-controlled diabetes we will check her blood sugar and provide Humalog through sliding scale Known history of recurrent deep venous thrombosis of Lower extremity Present at time of admission: NO Status: Chronic Problem specific AP * Known prior history of DVT affecting bilateral upper and lower extremities * Risk factors-morbid obesity, immobility and noncompliance * failed to oral Coumadin * Continued patient on Eliquis Morbid obesity with current BMI 59 kg/m Current body weight exceeds to ideal body weight by 220 LBS All recommended her to have intentional weight loss of 220 LBS through Low-carb low calorie 1800-calorie diet and aerobic exercises as tolerated Informed patient about complications of morbid obesity which includes but not limited to a. RS -obesity hypoventilation and hypoxia, pulmonary embolism, sudden b.CVS-cardiac arrhythmia, embolic events c. GI-GE reflux d. Endocrine-diabetes and comorbidities from diabetes e Neuro-embolic CVA, lifelong disability [id number] susceptibility for Covid infection and comorbidities [id number] risk for cancer Recommended patient to follow a. daily weight, b. ADA 1800-calorie diet-40% calories from breakfast 30% calories from lunch and dinner each, avoid carbonated soda c. Recommended aerobic exercises like walking 1-5 miles per day, riding on a stationary bike for 1-2 hours Chronic pain syndrome and narcotic dependence Recommended patient for rational and safe use of narcotics Educated patient about ill effects of narcotics which could include But not limited to life-threatening respiratory depression and sudden Patient agrees to follow my recommendations Diabetes education A. Recommended 2200 calorie ADA diet and compliance with medications B.. Recommended intentional weight loss of 270 lbs through diet and exercise C. Recommended recheck every 3-4 monthly hemoglobin A1c, bi annual lipid panel D. Recommended annual arterial duplex study and 24-hour urine for microalbuminuria E. Recommended biannual complete physical, annual dental and eye and foot exam F. Recommended diabetic shoes, podiatry care with early sign of diabetic ulcer f. Recommended to wear diabetic shoes, to see podiatry in case of G. Informed about long-term complications of diabetes-CHD, PAD, CVA, blindness Plan/Recommendation Treatment plans as of today 1. Admit to medical floor telemetry 2. Adjust dose of levothyroxine 3. Continue IV Lasix Adjust dose and frequency of IV Dilaudid of 3. IV antibiotics-IV cefepime a awaiting consult from Dr. Dominic Guerrier 4. Blood cultures x3 as needed for temp > 101.5 F 5. Accu-Chek before every meal and at bedtime 6. Inj. Humalog through sliding scale 7. Continue IV Lasix and Entresto 8. Continue apixaban 9. CBC CMP TSH ESR 10. Pain management 11.VTE precautions 12, CODE STATUS full code Update patient The patient and/or family is well informed by me about 1. Clinical impression, treatment plans, side effects of medications, course of the disease and guarded prognosis 2. All patient's question/ concerns raised by patient are satisfactorily addressed by me Dietary Evaluation Review Comments: 1) Add cardiac restriction to 60g CCHO diet 2) Initiate MVI @ 1 tb qd 3) Initiate Pro-Stat @ 30 mL qd 4) Refer to outpatient RD for wegith management 5) Follow-up with cardiology 4) Continue to monitor I&O, labs, and skin integrity Expected Outcomes/Goals: 1) appetite and labs to improve 2) wounds to improve 3) f/u in 3-5 days CORI ROMAN MD Nov 07, 2024 10:44
--- NOTE | 2024-11-07 10:44 | DVHPN2 ---
Progress Note - Dictate Medical Necessity Reason Pt with a Central, PICC or Fol: No Subjective The patient is currently being treated for anasarca due to CHF She seems to be responding to IV Lasix and fluid restriction Her TSH is running low Recommended lower dose at dose of levothyroxine Continued patient on IV antibiotics for Cellulitis of RLE and daily wound care vital signs Vital Sign Date Time Temp Pulse Resp B/P (MAP) Pulse Ox O2 Delivery O2 Flow Rate FiO2 11/07/24 07:57 Room Air* 0 21 11/07/24 06:03 108/67 11/07/24 05:00 97.8 85 17 94 97.8 Total Intake and Output 11/06/24 11/06/24 11/07/24 15:00 23:00 07:00 Intake Total 50 ml 1245 ml 850 ml Output Total 1200 ml 1000 ml Balance 50 ml 45 ml -150 ml medications Current Medications Medications Dose Ordered Sig/Priscilla Route Start Time Stop Time Status Last Admin Dose Admin Nitroglycerin 0.4 mg Q5MINP PRN SL 10/29/24 15:45 Apixaban 5 mg BID PO 10/29/24 22:00 11/07/24 09:12 5 MG Prednisolone Acetate 1 drop Q4HR EACHEYE 10/29/24 18:00 11/07/24 06:03 1 DROP Spironolactone 25 mg BIDD PO 10/29/24 18:00 11/07/24 06:02 25 MG Sucralfate 1 gm TID PO 10/29/24 22:00 11/07/24 06:02 1 GM Sulfacetamide Sodium 1 drop Q3H EACHEYE 10/29/24 15:45 Hold Sacubitril/ Valsartan 1 tab BID PO 11/01/24 10:00 11/07/24 09:12 1 TAB Furosemide 40 mg BIDD IV 11/01/24 14:30 11/07/24 06:03 40 MG Cefepime HCl 50 ml @ 12.5 mls/hr Q12HR IV 11/04/24 22:00 11/11/24 21:59 11/07/24 09:11 12.5 MLS/HR Hydromorphone HCl 0.8 mg Q8HP PRN IV 11/06/24 00:15 11/06/24 02:48 0.8 MG Hydromorphone HCl 1 mg Q8HP PRN IV 11/06/24 00:15 11/07/24 03:47 1 MG Levothyroxine Sodium 100 mcg QAM PO 11/06/24 07:00 11/07/24 06:02 100 MCG Levothyroxine Sodium 50 mcg QAM PO 11/06/24 07:00 11/07/24 06:02 50 MCG objective General appearance: Short statured morbidly obese, young middle-aged white female Awake alert oriented x3 in no respiratory distress Head: Normocephalic nontraumatic Eyes: EOMI, JASS, sclera nonicteric, conjunctive-pale ENT: No congestion, NSL bilateral symmetrical, oral mucosa dry Neck: Supple, carotid upstroke +2, trachea R off midline, JVD 3 cm No goiter, no stridor, no lymphadenopathy, no use of sternomastoid muscle [id number]-[id number] ROM Breasts: Self exam by patient-bilateral hyperplasia, no mass/no nipple abnormality Chest : Hypoventilation at bilateral bases, No costochondral tenderness Lungs: clear breath sounds all over except reduced at bases CVS: PMI-2 cm lateral to L MCL in fifth ICS , S1-S2 NSR no S3 GI: Abdomen soft, obese+4, bowel sounds normoactive No focal/rebound tenderness, no mass no hernia, No hepatosplenomegaly : No CVA tenderness, no bladder mass palpable, genitalia-NE SKIN: Nonhealing open wound 6 cms L x 3 cms w x 0.2 cms deep over RLE with erythema, edema on medial aspect- covered by purulent discharge Skin turgor dry, color pale, no rash, no icterus, no varicosity EXTs: Extensive lymphatic edema over bilateral lower extremity (preexistent) RLE-cellulitic erythema edema pain tenderness over medial aspect of non-healing open wound over distal aspect of RLE-purulent discharge Calf tenderness/Homans' sign absent LLE-healed scars of open wounds distal pulses +1 capillary refill <2 seconds JOINTS; reduced range of motion BACK: No apparent lumbosacral spinal muscle tenderness, LYMPH NODES: No cervical, axillary or inguinal lymph nodes Neuro: Awake alert oriented 4, coherent, affect anxious Cognitive's-intact, speech fluent No pronator drift, no focal motor deficit, Changes of peripheral neuropathy, DTR +2, gait wide base PSYCH: Affect mildly depressed-mixed with anxiety, no suicidal ideation laboratory and microbiology Laboratory Tests 11/05/24 05:39 Test 11/05/24 05:39 Range/Units Serum Glucose 101 74-106 mg/dL Problem List Primary Diagnosis 1. Recurrence of cellulitis of RLE 2. Recurrence of RLE wound infection 3. Failure to outpatient Measures. 4. Leukopenia Admitting Diagnosis: 2' Diagnosis/Comorbidities Primary Diagnosis Admitting Diagnosis: 2' Diagnosis/Comorbidities 1. 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 Morbid obesity with current BMI >60 to 65 kg/m 4. Chronic narcotic dependence 5. noncompliance Assessment/Plan Medical decision making Overall patient's general condition appears to be clinically ill from development of Recurrence of cellulitis and open wound infection of R lower extremity * Known history of multiple infections such as E. coli, Proteus, Pseudomonas, Enterobacter, Gram-positive sepsis MSSA, MRSA * Received multiple rounds of home IV antibiotics in consult with ID for last 4 to 5 years * Last culture results positive for MRSA 10/2023 * Chronic lymphatic edema and uncontrolled diabetes predispose her to be an immunocompromised host * Case discussed with Dr. Lorne Roman infectious disease * Consensus is to hospitalize patient for IV antibiotics * start patient on IV cefepime vancomycin * Will refer to motorcycle designer for daily wound care * For diet-controlled diabetes we will check her blood sugar and provide Humalog through sliding scale Known history of recurrent deep venous thrombosis of Lower extremity Present at time of admission: NO Status: Chronic Problem specific AP * Known prior history of DVT affecting bilateral upper and lower extremities * Risk factors-morbid obesity, immobility and noncompliance * failed to oral Coumadin * Continued patient on Eliquis Morbid obesity with current BMI 59 kg/m Current body weight exceeds to ideal body weight by 220 LBS All recommended her to have intentional weight loss of 220 LBS through Low-carb low calorie 1800-calorie diet and aerobic exercises as tolerated Informed patient about complications of morbid obesity which includes but not limited to a. RS -obesity hypoventilation and hypoxia, pulmonary embolism, sudden b.CVS-cardiac arrhythmia, embolic events c. GI-GE reflux d. Endocrine-diabetes and comorbidities from diabetes e Neuro-embolic CVA, lifelong disability [id number]-[id number] susceptibility for Covid infection and comorbidities g-fzyojvrt-[id number] risk for cancer Recommended patient to follow a. daily weight, b. ADA 1800-calorie diet-40% calories from breakfast 30% calories from lunch and dinner each, avoid carbonated soda c. Recommended aerobic exercises like walking 1-5 miles per day, riding on a stationary bike for 1-2 hours Chronic pain syndrome and narcotic dependence Recommended patient for rational and safe use of narcotics Educated patient about ill effects of narcotics which could include But not limited to life-threatening respiratory depression and sudden Patient agrees to follow my recommendations Diabetes education A. Recommended 2200 calorie ADA diet and compliance with medications B.. Recommended intentional weight loss of 270 lbs through diet and exercise C. Recommended recheck every 3-4 monthly hemoglobin A1c, bi annual lipid panel D. Recommended annual arterial duplex study and 24-hour urine for microalbuminuria E. Recommended biannual complete physical, annual dental and eye and foot exam F. Recommended diabetic shoes, podiatry care with early sign of diabetic ulcer f. Recommended to wear diabetic shoes, to see podiatry in case of G. Informed about long-term complications of diabetes-CHD, PAD, CVA, blindness Plan/Recommendation Treatment plans as of today 1. Admit to medical floor telemetry 2. Adjust dose of levothyroxine 3. Continue IV Lasix Adjust dose and frequency of IV Dilaudid of 3. IV antibiotics-IV cefepime a awaiting consult from Dr. Dominic Guerrier 4. Blood cultures x3 as needed for temp > 101.5 F 5. Accu-Chek before every meal and at bedtime 6. Inj. Humalog through sliding scale 7. Continue IV Lasix and Entresto 8. Continue apixaban 9. CBC CMP TSH ESR 10. Pain management 11.VTE precautions 12, CODE STATUS full code Update patient The patient and/or family is well informed by me about 1. Clinical impression, treatment plans, side effects of medications, course of the disease and guarded prognosis 2. All patient's question/ concerns raised by patient are satisfactorily addressed by me Dietary Evaluation Review Comments: 1) Add cardiac restriction to 60g CCHO diet 2) Initiate MVI @ 1 tb qd 3) Initiate Pro-Stat @ 30 mL qd 4) Refer to outpatient RD for wegith management 5) Follow-up with cardiology 4) Continue to monitor I&O, labs, and skin integrity Expected Outcomes/Goals: 1) appetite and labs to improve 2) wounds to improve 3) f/u in 3-5 days CORI ROMAN MD Nov 07, 2024 10:44
[2024-11-07] MEDS ORDERED: LEVO150T10 PO (10:46)
--- NOTE | 2024-11-07 21:32 | DVHINCON2 ---
Consult Note Consult Consult Note Reason for Consult: Chronic right knee pain evaluation --- HISTORY OF PRESENT ILLNESS: Ms. Galicia is an inpatient currently admitted for cardiac concerns. During her hospitalization, she requested evaluation by orthopedics for chronic right knee pain. The hospitalist team placed a consult accordingly. The patient denies any recent trauma, fall, or twisting injury. She reports many years of right knee pain, which has been intermittently accompanied by swelling behind the knee. worsen with WB, Increased physical activity and improves with rest. No catching, locking, instability reported. She was previously told she has a degenerative meniscal tear and osteoarthritis in the right knee.no erythema, edema, warmth , reduced knee ROM or open skin lesion, recent surgery or injections reported. --- PHYSICAL EXAMINATION (Right Knee): Inspection: No erythema, no effusion, no open lesions Range of Motion (Active): 0 to 115, pain noted at terminal flexion Palpation: Tenderness along the joint line, especially medially Stability: No varus/valgus instability appreciated Neurovascular: Grossly intact distally BMI: >40 --- IMAGING REVIEW: X-ray (Right Knee): Severe tricompartmental osteoarthritis of the right knee with joint space narrowing, subchondral sclerosis, noted --- ASSESSMENT: 1. Chronic right knee pain 2. Severe tricompartmental osteoarthritis, right knee 3. History of degenerative meniscus tear 4. Morbid obesity (BMI > 40) --- PLAN: Discussed with patient that weight loss would play a significant role in symptom relief and long-term joint health Recommended outpatient orthopedic follow-up for further evaluation Possible treatment options to be discussed during follow-up include: Corticosteroid injection Viscosupplementation (gel injection) Physical therapy referral No surgical intervention indicated at this time during inpatient stay Primary Care Provider (PCM) notified and included in care coordination Patient agreeable to plan and understanding of next steps Plan discussed with: Patient, Other (bedside nurse) Visit Coding Surgery Date of Service if different f: Nov 07, 2024 Billing Provider: DAVID VILLARREAL Surgery Visit Codes: 85731 - INP CONSULT <55 MIN DAVID VILLARREAL Nov 07, 2024 21:32
--- NOTE | 2024-11-07 23:28 | DVHPN2 ---
Progress Note - Dictate Date Seen: Nov 07, 2024 Medical Necessity Reason Pt with a Central, PICC or Fol: No Subjective Patient was seen and evaluated in follow up. Patient has no new complaints at this time. Patient denies any cardiac symptoms. Patient is cardiac stable for discharge. Telemetry reviewed. vital signs Vital Sign Date Time Temp Pulse Resp B/P (MAP) Pulse Ox O2 Delivery O2 Flow Rate FiO2 11/07/24 21:00 97.3 87 17 108/66 (80) 96 97.3 11/07/24 07:57 Room Air* 0 21 Total Intake and Output 11/06/24 11/06/24 11/07/24 15:00 23:00 07:00 Intake Total 50 ml 1245 ml 850 ml Output Total 1200 ml 1000 ml Balance 50 ml 45 ml -150 ml medications Current Medications Medications Dose Ordered Sig/Prisiclla Route Start Time Stop Time Status Last Admin Dose Admin Nitroglycerin 0.4 mg Q5MINP PRN SL 10/29/24 15:45 Apixaban 5 mg BID PO 10/29/24 22:00 11/07/24 22:38 5 MG Prednisolone Acetate 1 drop Q4HR EACHEYE 10/29/24 18:00 11/07/24 22:37 1 DROP Spironolactone 25 mg BIDD PO 10/29/24 18:00 11/07/24 17:23 25 MG Sucralfate 1 gm TID PO 10/29/24 22:00 11/07/24 22:38 1 GM Sulfacetamide Sodium 1 drop Q3H EACHEYE 10/29/24 15:45 Hold Sacubitril/ Valsartan 1 tab BID PO 11/01/24 10:00 11/07/24 22:38 1 TAB Furosemide 40 mg BIDD IV 11/01/24 14:30 11/07/24 17:23 40 MG Cefepime HCl 50 ml @ 12.5 mls/hr Q12HR IV 11/04/24 22:00 11/11/24 21:59 11/07/24 22:37 12.5 MLS/HR Hydromorphone HCl 0.8 mg Q8HP PRN IV 11/06/24 00:15 11/07/24 18:02 0.8 MG Hydromorphone HCl 1 mg Q8HP PRN IV 11/06/24 00:15 11/07/24 12:18 1 MG Levothyroxine Sodium 100 mcg QAM PO 11/06/24 07:00 11/07/24 06:02 100 MCG Levothyroxine Sodium 50 mcg QAM PO 11/06/24 07:00 11/07/24 06:02 50 MCG objective GENERAL: Alert and oriented x 3. No acute distress. EYES: PERRL, EOMI. Anicteric. HENT: Moist mucous membranes. LUNGS: Clear to auscultation bilaterally. CARDIOVASCULAR: Regular rate and rhythm. ABDOMEN: Soft, non-tender and non-distended. EXTREMITIES: BLE edema. NEUROLOGIC: No focal neurological deficits. SKIN: Warm, dry. Multiple ulcers on right lower limb. laboratory and microbiology Laboratory Tests 11/05/24 05:39 Test 11/05/24 05:39 Range/Units Serum Glucose 101 74-106 mg/dL Problem List ? Acute on chronic systolic heart failure. Lymphedema. History of pulmonary emboli and DVT. Hypothyroidism. Hypertension. Assessment/Plan Continued all current supportive medical care. Diuretics with Lasix. IV antibiotics as ordered. Eliquis. Nitro SL. Aldactone. Entresto. Dilaudid for pain management. Additional plan as per the hospital course. Dietary Evaluation Review Comments: 1) Add cardiac restriction to 60g CCHO diet 2) Initiate MVI @ 1 tb qd 3) Initiate Pro-Stat @ 30 mL qd 4) Refer to outpatient RD for wegith management 5) Follow-up with cardiology 4) Continue to monitor I&O, labs, and skin integrity Expected Outcomes/Goals: 1) appetite and labs to improve 2) wounds to improve 3) f/u in 3-5 days Plan discussed with: Patient JAYDON MARIANO MD Nov 07, 2024 23:28
[2024-11-08 01:00] VITALS: BP 113/70; PULSE 86; RESP 18; TEMP 98.2; O2SAT 96
[2024-11-08 05:00] VITALS: BP 102/61; PULSE 78; RESP 18; TEMP 97.9; O2SAT 96
[2024-11-08 08:00] VITALS: PULSE 72
[2024-11-08 08:40] VITALS: BP 126/101; PULSE 79; RESP 16; TEMP 97.9; O2SAT 96
[2024-11-08 13:00] VITALS: BP 117/55; PULSE 72; RESP 18; TEMP 97.6; O2SAT 96
--- NOTE | 2024-11-08 23:08 | DVHPN2 ---
Progress Note - Dictate Date Seen: Nov 08, 2024 Medical Necessity Reason Pt with a Central, PICC or Fol: No Subjective Patient was seen and evaluated in follow up. No overnight events. Patient was planned for discharge 11/07 however transportation was not available. Patient received wound care earlier today. Patient is cardiac stable for discharge. Telemetry reviewed. vital signs Vital Sign Date Time Temp Pulse Resp B/P (MAP) Pulse Ox O2 Delivery O2 Flow Rate FiO2 11/08/24 13:00 97.6 72 18 117/55 (75) 96 97.6 11/08/24 08:07 Room Air* 0 21 Total Intake and Output 11/07/24 11/07/24 11/08/24 15:00 23:00 07:00 Intake Total 50 ml 500 ml Balance 50 ml 500 ml objective GENERAL: Alert and oriented x 3. No acute distress. EYES: PERRL, EOMI. Anicteric. HENT: Moist mucous membranes. LUNGS: Clear to auscultation bilaterally. CARDIOVASCULAR: Regular rate and rhythm. ABDOMEN: Soft, non-tender and non-distended. EXTREMITIES: BLE edema. NEUROLOGIC: No focal neurological deficits. SKIN: Warm, dry. Multiple ulcers on right lower limb. laboratory and microbiology Laboratory Tests 11/05/24 05:39 Test 11/05/24 05:39 Range/Units Serum Glucose 101 74-106 mg/dL Problem List ? Acute on chronic systolic heart failure. Lymphedema. History of pulmonary emboli and DVT. Hypothyroidism. Hypertension. Assessment/Plan Continued all current supportive medical care. Diuretics with Lasix. IV antibiotics as ordered. Eliquis. Nitro SL. Aldactone. Entresto. Dilaudid for pain management. Additional plan as per the hospital course. Dietary Evaluation Review Comments: 1) Add cardiac restriction to 60g CCHO diet 2) Initiate MVI @ 1 tb qd 3) Initiate Pro-Stat @ 30 mL qd 4) Refer to outpatient RD for wegith management 5) Follow-up with cardiology 4) Continue to monitor I&O, labs, and skin integrity Expected Outcomes/Goals: 1) appetite and labs to improve 2) wounds to improve 3) f/u in 3-5 days Plan discussed with: Patient JAYDON MARIANO MD Nov 08, 2024 23:08
== END 2024-11-08 15:07 | disposition home health service (06) | DRG 602 ==
LOC: TELE-WESTW 14:25
PROVIDERS: ADMIT Specialist; ATTEND Specialist
PROC: 05HF33Z Insertion of Infusion Device into Left Cephalic Vein, Percutaneous Approach (ICD-10-PCS; principal; 2024-10-30)
PROC: B54NZZA Ultrasonography of Left Upper Extremity Veins, Guidance (ICD-10-PCS; 2024-10-30)
DX: L03.115 Cellulitis of right lower limb (principal); I50.23 Acute on chronic systolic (congestive) heart failure; L97.919 Non-pressure chronic ulcer of unspecified part of right lower leg with unspecified severity; I13.0 Hypertensive heart and chronic kidney disease with heart failure and stage 1 through stage 4 chronic kidney disease, or unspecified chronic kidney disease; E66.2 Morbid (severe) obesity with alveolar hypoventilation; I42.9 Cardiomyopathy, unspecified; Z68.44 Body mass index [BMI] 60.0-69.9, adult; J45.901 Unspecified asthma with (acute) exacerbation; K21.9 Gastro-esophageal reflux disease without esophagitis; N18.9 Chronic kidney disease, unspecified; E03.9 Hypothyroidism, unspecified; G89.4 Chronic pain syndrome; I89.0 Lymphedema, not elsewhere classified; M17.11 Unilateral primary osteoarthritis, right knee; E11.22 Type 2 diabetes mellitus with diabetic chronic kidney disease; F25.9 Schizoaffective disorder, unspecified; Z95.828 Presence of other vascular implants and grafts; Z86.711 Personal history of pulmonary embolism; Z83.49 Family history of other endocrine, nutritional and metabolic diseases; Z83.3 Family history of diabetes mellitus; Z82.62 Family history of osteoporosis; Z82.5 Family history of asthma and other chronic lower respiratory diseases; Z82.49 Family history of ischemic heart disease and other diseases of the circulatory system; Z82.3 Family history of stroke; Z81.8 Family history of other mental and behavioral disorders; Z81.1 Family history of alcohol abuse and dependence; Z80.0 Family history of malignant neoplasm of digestive organs; Z90.49 Acquired absence of other specified parts of digestive tract; Z88.0 Allergy status to penicillin; Z88.1 Allergy status to other antibiotic agents; Z91.018 Allergy to other foods; Z88.8 Allergy status to other drugs, medicaments and biological substances; Z79.01 Long term (current) use of anticoagulants; Z91.199 Patient's noncompliance with other medical treatment and regimen due to unspecified reason; Z86.718 Personal history of other venous thrombosis and embolism; Z63.72 Alcoholism and drug addiction in family; Z79.891 Long term (current) use of opiate analgesic; Z86.14 Personal history of Methicillin resistant Staphylococcus aureus infection; E11.622 Type 2 diabetes mellitus with other skin ulcer
CPT/HCPCS: 36415; 71045; 73562; 80053; 80061; 81001; 83036; 83735; 83880; 84100; 84443; 85025; 85379; 85610; 85730; 87205; 93306; 93970; G0378; J0692